=== PATIENT | male | born 1950 | race Two or more races ===

== ENCOUNTER 2018-12-15 19:42 | Inpatient (IN) | payer MEDICARE, MEDICAID ==
[2018-12-15] VITALS (9 sets, daily range): BP systolic 96–139; BP diastolic 55–98
[~2018-12-15] VITALS: Ht 172.7 cm; Wt 90.7 kg
[~2018-12-15 19:42] MED LIST: ADVAIR 500-501 EACH INH; AMLODIPINE BESY10 MG ORAL; ASPIRIN81 MG ORAL; BISACODYL5 MG ORAL; DILTIAZEM 24HR120 M1 ORAL; DIPHENHYDRAMINE25 M1 ORAL; PRAVASTATIN SOD20 M1 ORAL; RANITIDINE HCL150 MG ORAL; XOPENEX1.25 MG/3 HHN
--- NOTE | 2018-12-15 19:45 | NUR ---
ED Nurse Note: RECIEVED PT BROUGHT IN BY FIRE DEPT UNDER SEVERE RESPIRATORY DISTRES AND AMBU BAG FOR AIRWAY, MD IMMEDIATELY AT BEDSIDE AND PT INTUBATED: 1935 ETOMIDATE 20MG IVP 1937 7.[address] BY 1938 C02 DETECTOR DOES NOT SHOW PLACE 1946 50 RECURONIUM IVP GLIDESCOPE CHECKED TUBE IN PLACE 24CM LIP LINE VENTILATOR STARTED : SETTINGS AC 16 TV = 500 VE97=555% PEEP = 5 PT TOLERATING WELL, WILL RESUME CARE ORDERED AND CLOSELY MONITOR.
--- NOTE | 2018-12-15 19:47 | NUR ---
RESPIRATORY NOTE: PT BROUGHT IN UNRESPONSIVE VIA AMBULANCE. PT PRESENTED WITH SEVERE RESPIRATORY DISTRESS. FIRE DEPT. PLACED AN OPA AND MANUALLY VENTILATED PT. VIA AMBU AND MASK. DR PALACIOS IMMEDIATELY AT BEDSIDE AND SUCCESSFULLY INTUBATED PT. LYUDMILA KEN AT BEDSIDES DURING INTUBATION. PT BEING MECHANICALLY VENTILATED VIA ETT 7.0 24CM LIPLINE. AC 16, 500, 100%, +5. ALARMS ON AND AUDIBLE. VENT PLUGGED INTO RED OUTLET. AMBU BAG AT BEDSIDE. VENT CIRCUIT AND SX TUBBING SECURE AND OUT OF THE WAY. PT. TOLERATING SETTING WELL. ABG TO BE DONE POST INTUBATION. WILL CONTINUE TO MONITOR.
[2018-12-15] MEDS ORDERED: Vancomycin 1 GM in NS 275 ML IV ONE (20:00)
[2018-12-15] MEDS ORDERED: Cefepime HCl 2 GM in NS 110 ML IV SCH (20:00)
--- NOTE | 2018-12-15 20:06 | Emergency Room Report ---
History of Present Illness General Chief Complaint: Dyspnea/Respdistress Source: Patient, Medical Record Present Illness HPI Patient is a 68-year-old male who presented after increased difficulty breathing and subsequent respiratory arrest. Patient had been reportedly having increased difficulty breathing and was noted to have a respiratory arrest while being transported. Patient was brought in by EMS. They had attempted to intubate without any success. Patient was subsequently supplied oxygen via bag valve mask.Patient was noted to have prior history of bypass surgery as well as pacemaker placement and lung disease.History is limited by patient's acuity. Allergies: Coded Allergies: IODINE (Verified Allergy, Severe, rash, 01/15/14) Patient History Past Medical History: see triage record Reviewed Nursing Documentation: PMH: Agreed; PSxH: Agreed Nursing Documentation-PMH Past Medical History: No History, Except For Hx Cardiac Problems: Yes - bypass Hx Hypertension: Yes Hx Pacemaker: Yes - defibrillator Hx COPD: Yes Review of Systems All Other Systems: negative except mentioned in HPI Physical Exam Vital Signs Date Time Temp Pulse Resp B/P (MAP) Pulse Ox O2 Delivery O2 Flow Rate FiO2 12/15/18 19:31 98.2 110 5 169/98 98 Ambu-Bag Sp02 EP Interpretation: reviewed, normal General Appearance: lethargic, obese, Chronically Ill Head: atraumatic ENT: normal ENT inspection, hearing grossly normal, normal voice, other - blood and vomitus in oropharynx Neck: normal inspection, supple, no bony tend, limited range of motion Respiratory: normal inspection, no retraction, decreased breath sounds, other - agonal breathing Cardiovascular #1: no edema, tachycardia Gastrointestinal: non tender, soft, no guarding, no hernia, distended Genitourinary: no CVA tenderness Musculoskeletal: normal inspection, back normal, normal range of motion Neurologic: motor weakness, other - poor alertness Psychiatric: other - unresponsibe Skin: normal inspection, normal color, no rash Procedures Critical Care Time Critical Care Time Patient had a critical medical condition which untreated could potentially result in life or limb threatening injury. Total critical care time excluding procedures approximately 45 minutes. Intubation Intubation : Consent: Emergent Time of Intubation: 19:45 Intubation Method: orotracheal Tube Size (cm): 7.0 Medications: Etomidate, Rocuronium Breath Sounds after Intubation: equal Intubation Complications: no complications Post Intubation Xray: Yes Attempts: Other - two attempted without paralytic without success Patient Tolerated: Well Complications: None Medical Decision Making Diagnostic Impression: Primary Impression: Respiratory failure Additional Impressions: COPD (chronic obstructive pulmonary disease) Pneumonia ER Course Present for respiratory distress. Differential included but was not limited to anemia, pneumonia, pneumothorax, myocardial infarction, pericardial effusion, congestive heart failure, acidosis. Patient was noted to have agonal breathing and was intubated after premedication. Patient was noted to have blood in oropharynx from prior attempt at intubation by EMS. Patient was suctioned and intubated. Post procedure cxr showed adequate ETT placement. He was started on mechanical ventilation. Patients initial blood gas showed markedly elevated CO2 and respiratory acidosis. Vent setting were adjusted to increased minute ventilation. Patient was noted to have some improvement in mental status and was started on Diprivan drip. Dr. Baldemar Morgan was contacted for inpatient management due to panel physician. Laboratory Tests Test 12/15/18 20:10 12/15/18 20:20 12/15/18 22:10 12/16/18 04:45 White Blood Count 12.6 K/UL (4.8-10.8) H 11.2 K/UL (4.8-10.8) H Red Blood Count 4.83 M/UL (4.70-6.10) 4.41 M/UL (4.70-6.10) L Hemoglobin 14.1 G/DL (14.2-18.0) L 13.2 G/DL (14.2-18.0) L Hematocrit 46.4 % (42.0-52.0) 41.8 % (42.0-52.0) L Mean Corpuscular Volume 96 FL (80-99) 95 FL (80-99) Mean Corpuscular Hemoglobin 29.1 PG (27.0-31.0) 29.9 PG (27.0-31.0) Mean Corpuscular Hemoglobin Concent 30.3 G/DL (32.0-36.0) L 31.5 G/DL (32.0-36.0) L Red Cell Distribution Width 13.8 % (11.6-14.8) 14.0 % (11.6-14.8) Platelet Count 232 K/UL (150-450) 209 K/UL (150-450) Mean Platelet Volume 6.7 FL (6.5-10.1) 7.5 FL (6.5-10.1) Neutrophils (%) (Auto) 76.9 % (45.0-75.0) H 84.5 % (45.0-75.0) H Lymphocytes (%) (Auto) 12.7 % (20.0-45.0) L 5.5 % (20.0-45.0) L Monocytes (%) (Auto) 9.3 % (1.0-10.0) 9.4 % (1.0-10.0) Eosinophils (%) (Auto) 0.2 % (0.0-3.0) 0.1 % (0.0-3.0) Basophils (%) (Auto) 1.0 % (0.0-2.0) 0.6 % (0.0-2.0) Sodium Level 139 MMOL/L (136-145) 139 MMOL/L (136-145) Potassium Level 4.0 MMOL/L (3.5-5.1) 4.2 MMOL/L (3.5-5.1) Chloride Level 99 MMOL/L (98-107) 101 MMOL/L (98-107) Carbon Dioxide Level 36 MMOL/L (21-32) H 34 MMOL/L (21-32) H Anion Gap 4 mmol/L (5-15) L 4 mmol/L (5-15) L Blood Urea Nitrogen 20 mg/dL (7-18) H 26 mg/dL (7-18) H Creatinine 1.3 MG/DL (0.55-1.30) 1.2 MG/DL (0.55-1.30) Estimate Glomerular Filtration Rate 55.1 mL/min (>60) > 60 mL/min (>60) Glucose Level 170 MG/DL (74-106) H 164 MG/DL (74-106) H Lactic Acid Level 2.90 mmol/L (0.4-2.0) H 1.60 mmol/L (0.66-2.22) Calcium Level 8.8 MG/DL (8.5-10.1) 8.3 MG/DL (8.5-10.1) L Phosphorus Level 5.2 MG/DL (2.5-4.9) H Magnesium Level 2.0 MG/DL (1.8-2.4) 1.9 MG/DL (1.8-2.4) Total Bilirubin 0.8 MG/DL (0.2-1.0) 0.7 MG/DL (0.2-1.0) Aspartate Amino Transferase (AST) 110 U/L (15-37) H 73 U/L (15-37) H Alanine Aminotransferase (ALT) 98 U/L (12-78) H 82 U/L (12-78) H Alkaline Phosphatase 109 U/L (46-116) 95 U/L (46-116) Total Creatine Kinase 72 U/L (26-308) Creatine Kinase MB 1.3 NG/ML (0.0-3.6) Creatine Kinase MB Relative Index 1.8 Troponin I 0.038 ng/mL (0.000-0.056) Pro-B-Type Natriuretic Peptide 988 pg/mL (0-125) H Total Protein 7.4 G/DL (6.4-8.2) 6.7 G/DL (6.4-8.2) Albumin 3.0 G/DL (3.4-5.0) L 2.7 G/DL (3.4-5.0) L Globulin 4.4 g/dL Albumin/Globulin Ratio 0.7 (1.0-2.7) L Triglycerides Level 57 MG/DL (30-150) 50 MG/DL (30-150) Lipase 50 U/L (73-393) L Arterial Blood pH 7.165 (7.350-7.450) Arterial Blood Partial Pressure CO2 119.5 mmHg (35.0-45.0) *H Arterial Blood Partial Pressure O2 466.5 mmHg (75.0-100.0) H Arterial Blood HCO3 42.1 mmol/L (22.0-26.0) *H Arterial Blood Oxygen Saturation 99.6 % (95-100) Arterial Blood Base Excess 8.4 (-2-2) H Jose Test Positive Urine Color Brown Urine Appearance Clear Urine pH 5 (4.5-8.0) Urine Specific Clever 1.025 (1.005-1.035) Urine Protein 4+ (NEGATIVE) H Urine Glucose (UA) Negative (NEGATIVE) Urine Ketones 1+ (NEGATIVE) H Urine Blood 2+ (NEGATIVE) H Urine Nitrite Negative (NEGATIVE) Urine Bilirubin Negative (NEGATIVE) Urine Urobilinogen 4 MG/DL (0.0-1.0) H Urine Leukocyte Esterase 1+ (NEGATIVE) H Urine RBC 5-10 /HPF (0 - 0) H Urine WBC 2-4 /HPF (0 - 0) Urine Squamous Epithelial Cells None /LPF (NONE/OCC) Urine Amorphous Sediment Few /LPF (NONE) H Urine Bacteria Few /HPF (NONE) Urine Opiates Screen Negative (NEGATIVE) Urine Barbiturates Screen Negative (NEGATIVE) Phencyclidine (PCP) Screen Negative (NEGATIVE) Urine Amphetamines Screen Negative (NEGATIVE) Urine Benzodiazepines Screen Negative (NEGATIVE) Urine Cocaine Screen Negative (NEGATIVE) Urine Marijuana (THC) Screen Negative (NEGATIVE) Hemoglobin A1c 6.1 % (4.3-6.0) H Direct Bilirubin 0.2 MG/DL (0.0-0.3) Last Vital Signs Date Time Temp Pulse Resp B/P (MAP) Pulse Ox O2 Delivery O2 Flow Rate FiO2 12/15/18 19:31 98.2 110 5 169/98 98 Ambu-Bag Status: improved Disposition: ADMITTED INPATIENT Condition: Critical Patrick Newsome MD Dec 15, 2018 20:06
--- NOTE | 2018-12-15 20:35 | NUR ---
ED Nurse Note: PT REMAINS VENTILATED, IV LINES IN PLACE, LABS DRAWN, PT CLEANED AND POSITIONED, PT FAMILY AT BEDSIDE SPEAKING WITH MD, , DAUGHTER AND SON, PT IS AWAKENING AND RESPONDING, PT STARTED ON IV PROPOFOL AT LOW DOSE AND IS RESPONDING TO FAMILY, PT IS CALM, NOT PULLING AT EQUIPMENT, WILL CONTINUE TO CLOSELY MONITOR PER PROTOCOL WHILE CONTINUING CARE.
[2018-12-15 20:37] LABS: EOSINOPHILS % (AUTO) 0.2 % (0.0-3.0); HEMATOCRIT 46.4 % (42.0-52.0); HEMOGLOBIN 14.1 G/DL (14.2-18.0); LYMPHOCYTES % (AUTO) 12.7 % (20.0-45.0); MEAN CORPUSCULAR VOLUME 96 FL (80-99); MONOCYTES % (AUTO) 9.3 % (1.0-10.0); NEUTROPHILS % (AUTO) 76.9 % (45.0-75.0); PLATELET COUNT 232 K/UL (150-450); RED BLOOD COUNT 4.83 M/UL (4.70-6.10); RED CELL DISTRIBUTION WIDTH 13.8 % (11.6-14.8); WHITE BLOOD COUNT 12.6 K/UL (4.8-10.8)
[2018-12-15 20:44] LABS: ANION GAP 4 mmol/L (5-15); BLOOD UREA NITROGEN 20 mg/dL (7-18); CALCIUM 8.8 MG/DL (8.5-10.1); CARBON DIOXIDE 36 MMOL/L (21-32); CHLORIDE 99 MMOL/L (98-107); CREATININE 1.3 MG/DL (0.55-1.30); SODIUM 139 MMOL/L (136-145)
--- NOTE | 2018-12-15 20:53 | NUR ---
RESPIRATORY NOTE: VENT SETTING CHANGE POST ABG AND PER DR. PALACIOS VERBAL ORDER. PT NOW ON AC 20, 600, 50% +5. ALARMS ADJUSTED , ON AND AUDIBLE. VENT CIRCUIT SECURE AND OUT OF THE WAY. PT TOLERATING VENT SETTINGS WELL. WILL CONTINUE TO MONITOR.
--- NOTE | 2018-12-15 20:56 | NUR ---
ED Nurse Note: Pt started on propofol drip for sedation, pt is lightly sedated, responds to stimuli, especially when family is present, will follow protocol for drip, pt also continuing with ordered iv fluids and antibiotics, tolerating well, no s/s of adverse reaction noted, pt remains on ventilator support, will continue ot monitor and preapre for admission.
[2018-12-15 21:09] LABS: ALANINE AMINOTRANSFERASE 98 U/L (12-78); ALBUMIN/GLOBULIN RATIO 0.7 (1.0-2.7); ALKALINE PHOSPHATASE 109 U/L (46-116); ASPARTATE AMINO TRANSFERASE 110 U/L (15-37); BILIRUBIN,TOTAL 0.8 MG/DL (0.2-1.0); CKMB 1.3 NG/ML (0.0-3.6); CREATINE KINASE 72 U/L (26-308); PHOSPHORUS 5.2 MG/DL (2.5-4.9); TRIGLYCERIDES 57 MG/DL (30-150)
--- NOTE | 2018-12-15 21:56 | NUR ---
ED Nurse Note: pt remains on ventilator support, tolerating well, also propofol remains at 5mcg = 3.39ml/hr, pt is slightly sedated, pt follows all commands and even trying to speak, pt informed of event and place, pt responds with ok fingers and nodding of head, pt soes ask with lips to take tube out, explained to pt reason for tube and to remain relaxed and possible extubation soon when seen by md, pt family in room and aware also, pt son hector yepez given all belongings and ist completed, pt iv antibiotics are also infusing, tolerating well, no s/s of adverse reaction noted, will continue to closely monitor and preapre fo icu admisison.
[2018-12-15 22:53] LABS: APPEARANCE,URINE CLEAR; BILIRUBIN, URINE NEGATIVE (NEGATIVE); COLOR,URINE BROWN; GLUCOSE, URINE (UA) NEGATIVE (NEGATIVE); KETONES,URINE 1+ (NEGATIVE); LEUKOCYTE ESTERASE ,URINE 1+ (NEGATIVE); NITRITE,URINE NEGATIVE (NEGATIVE); PH,URINE 5 (4.5-8.0); PROTEIN,URINE 4+ (NEGATIVE); UROBILINOGEN,URINE 4 MG/DL (0.0-1.0)
--- NOTE | 2018-12-15 23:00 | NUR ---
ED Nurse Note: report called to icu nurse carlinern, verbal report given, md cancelled ct-scan order for pt, waiting for respiratory therapist to transfer pt, family remains in lobby, pt tolerating ventilator and all meds without complications, also skin assessment done, pt noted with bilat knee psoriasis, skin is flaky and dry, no drainage or open skin, pt family states chronic psoriasis, will continue to monitor and take to icu unit.
--- NOTE | 2018-12-15 23:35 | NUR ---
ED Nurse Note: Pt taken to icu unit via gurney with er-tech and acls monitoring, pt remains awake and alert, coopertive and follows all commands, propofol remains at 5mcg/mmin, no need noted to increase, tolerating well, iv site in left ac with vancomycin infusing via pump, tolerating well also, skinner to gravity, nad noted during pt transport to unit, further bedside report given, nad noted during pt transport, pt family aware and in unit waiting area, family very thankful for care.
[2018-12-15] MEDS ORDERED: D5 1/2NS 1,000 ML IV SCH (23:41)
--- NOTE | 2018-12-15 23:45 | NUR ---
NURSE NOTES: Received report and pt from LYUDMILA Lundy. Pt was transferred to ICU from ER via gurney. Pt is awake, calm and alert, cooperative and follows all commands, currently on Propofol at 5mcg/kg/min for sedation. Dxed with resp failure, pt was intubated with ETT 7, 25 lipline, AC 20, TV 600, PEEP 5, FiO2 50%, goal O2 sat at 92-94% due to COPD hx. BP 114/56, HR 81, R 19, O2 sat 100%. SR on lens mold setter, pt also has a permanent pacemaker on left upper chest. Left AC 18 G and Right AC 20G both are patent and intact. Nina 16Fr intact, draining to gravity. No skin breakdown, noted psoriasis patches on bilateral knees and hands. HOB kept elevated, Bed in low and locked position. Call light within reach. Dr Morgan aware of the admission. Orders noted and carried out. Will continue to monitor.
[2018-12-16] VITALS (29 sets, daily range): BP systolic 86–149; BP diastolic 42–89
--- NOTE | 2018-12-16 | NUR ---
NURSE NOTES: Dr Irvin called for orders. All orders noted and carried out. Pt's resting in bed, in no acute distress. VS stable. accompanied by his family, noted 1 episode of small amount of emesis, Zofran PRN ordered. Will continue to monitor.
--- NOTE | 2018-12-16 00:36 | Pulmonolgy Critical Care Note ---
Critical Care - Asmt/Plan Assessment/Plan: Pulmonary Critical Care Consulttaion HPI Patient is a 68-year-old male who presented after respiratory arrest. He has a history of Chronic Obstructive Pulmonary Disease, had been reportedly having increased difficulty breathing and was noted to have a respiratory arrest while being transported. Patient was brought in by EMS. Allergies: IODINE (Verified Allergy, Severe, rash, 01/15/14) Past Medical History: COPD, CAD, Previous Bypass Surgery, Pacemaker/ICD Reviewed Nursing Documentation: PMH: Agreed; PSxH: Agreed All Other Systems: NA Physical Exam Vital Signs Date Time Temp Pulse Resp B/P (MAP) Pulse Ox O2 Delivery O2 Flow Rate FiO2 12/15/18 19:31 98.2 110 5 169/98 98 Ambu-Bag General Appearance: lethargic, obese, Chronically Ill Head: atraumatic ENT: normal ENT inspection, hearing grossly normal, normal voice, other - blood and vomitus in oropharynx Neck: normal inspection, supple, no bony tend, limited range of motion Respiratory: normal inspection, no retraction, decreased breath sounds, other - agonal breathing Cardiovascular: HS1, HS2, no edema, tachycardia Gastrointestinal: non tender, soft, no guarding, no hernia, distended Genitourinary: no CVA tenderness Musculoskeletal: normal inspection, back normal, normal range of motion Neurologic: motor weakness, other - poor alertness Psychiatric: other - unresponsive Skin: normal inspection, normal color, no rash Impression: Respiratory failure COPD (chronic obstructive pulmonary disease) Pneumonia CAD, previous CABG PPM/ICD Plan Continue AC ventilation, adjust RR/Vt PRN, titrate FIO2 CXR ABG Monitor labs HHN Steroids Broad spectrum antibiotics Sedation PRN RASS -1 PPX Critical Care - Objective Last 24 Hour Vital Signs Date Time Temp Pulse Resp B/P (MAP) Pulse Ox O2 Delivery O2 Flow Rate FiO2 12/16/18 00:01 80 12/16/18 00:00 98.1 81 20 113/47 (69) 98 12/15/18 23:45 80 20 114/56 (75) 99 12/15/18 23:24 80 20 50 12/15/18 22:56 20 92/35 Mechanical Ventilator 100 12/15/18 21:56 20 102/46 Mechanical Ventilator 12/15/18 21:30 98.4 92 16 104/55 100 Mechanical Ventilator 100 12/15/18 21:15 98.2 88 16 98/56 100 Mechanical Ventilator 100 12/15/18 21:00 98.2 102 16 98/56 98 Endotracheal Tube 100 12/15/18 20:56 16 172/92 Endotracheal Tube 100 12/15/18 20:53 87 20 50 12/15/18 20:45 98.2 92 16 96/76 98 Mechanical Ventilator 100 12/15/18 20:30 98.2 92 16 104/87 98 Mechanical Ventilator 100 12/15/18 20:15 98.2 92 16 117/84 100 Mechanical Ventilator 100 12/15/18 20:00 98.2 98 16 139/98 98 Mechanical Ventilator 100 12/15/18 19:47 108 16 Mechanical Ventilator 100 12/15/18 19:47 108 16 100 12/15/18 19:45 110 5 Mechanical Ventilator 100 12/15/18 19:31 98.2 110 5 169/98 98 Ambu-Bag Critical Care - Subjective ROS Limited/Unobtainable: Yes Condition: critical FI02: 50 Vent Support Breath Rate: 20 Vent Support Mode: AC Vent Tidal Volume: 600 Sputum Amount: Small PEEP: 5.0 PIP: 37 ET-Tube: 7.0 ET Position: 24 Nico Irvin MD Dec 16, 2018 00:36
[2018-12-16] MEDS: D5NS 1,000 ML IV SCH ×2 (01:56→17:04)
--- NOTE | 2018-12-16 02:00 | NUR ---
NURSE NOTES: Pt's resting in bed, RASS -1,at goal, drowsy on Propofol at 10mcg/kg/min, with mech. vent. VS stable. Will continue to monitor.
[2018-12-16] MEDS: Azithromycin 500 MG in D5W 275 ML IV SCH ×2 (02:39→23:46)
--- NOTE | 2018-12-16 03:15 | NUR ---
NURSE NOTES: Pt's resting in bed, in no acute distress. BP87/47, HR 79, R 20, SpO2 97%, on ventilator. Stopped Propofol due to SBP<90 Pt' continue to stay calm. Dr Irvin aware. Will continue to monitor.
[2018-12-16] MEDS: Albuterol/Ipratropium 3ml neb HHN SCH ×6 (03:38→22:43)
--- NOTE | 2018-12-16 04:42 | NUR ---
PT. REMAINED STABLE ON CMV WITH CURRENT SETTINGS. SXN'D PRN. AIRWAY PATENT. ETT TUBE SECURE AT 24CM AT THE LIP. HME CHANGED AND SECURELY PLACED. VENT CIRCUIT AND SX TUBBING SECURE AND OUT OF THE WAY. BILATERAL WRIST RESTRAINS READJUSTED AND ARE SECURE. NO S/S OF RESPIRATORY DISTRESS NOTED AT THIS TIME.
--- NOTE | 2018-12-16 05:00 | NUR ---
NURSE NOTES: Pt's resting in bed, asleep in no acute distress. VS stable. Will continue to monitor.
[2018-12-16 05:15] LABS: BASOPHILS % (AUTO) 0.6 % (0.0-2.0); EOSINOPHILS % (AUTO) 0.1 % (0.0-3.0); HEMATOCRIT 41.8 % (42.0-52.0); HEMOGLOBIN 13.2 G/DL (14.2-18.0); LYMPHOCYTES % (AUTO) 5.5 % (20.0-45.0); MEAN CORPUSCULAR VOLUME 95 FL (80-99); MONOCYTES % (AUTO) 9.4 % (1.0-10.0); NEUTROPHILS % (AUTO) 84.5 % (45.0-75.0); PLATELET COUNT 209 K/UL (150-450); RED BLOOD COUNT 4.41 M/UL (4.70-6.10); WHITE BLOOD COUNT 11.2 K/UL (4.8-10.8)
[2018-12-16 05:29] LABS: ALANINE AMINOTRANSFERASE 82 U/L (12-78); ALBUMIN 2.7 G/DL (3.4-5.0); ALKALINE PHOSPHATASE 95 U/L (46-116); ANION GAP 4 mmol/L (5-15); ASPARTATE AMINO TRANSFERASE 73 U/L (15-37); BILIRUBIN,DIRECT 0.2 MG/DL (0.0-0.3); BILIRUBIN,TOTAL 0.7 MG/DL (0.2-1.0); BLOOD UREA NITROGEN 26 mg/dL (7-18); CALCIUM 8.3 MG/DL (8.5-10.1); CARBON DIOXIDE 34 MMOL/L (21-32); CHLORIDE 101 MMOL/L (98-107); CREATININE 1.2 MG/DL (0.55-1.30); POTASSIUM 4.2 MMOL/L (3.5-5.1); SODIUM 139 MMOL/L (136-145)
[2018-12-16] MEDS: NovoLOG Insulin Flexpen SUBQ SCH ×3 (06:00→17:34)
[2018-12-16] MEDS: Solu-MEDROL 125mg Inj IVP SCH ×3 (06:47→22:30)
--- NOTE | 2018-12-16 07:00 | NUR ---
Received Patient on Vent ACVC VT 600, RR 20, FIO2 50%, PEEP +5. Patient is intubated with 7.0 tube at 24 cm lip line, secured with anchor fast. Breath sounds reveal bilateral rhonchi. Suction thick white yellow secretions PRN. Patient lying comfortable in bed with no SOB. Vent plugged into red outlet. Alarms are on and audible. Will continue to monitor throughout the day.
--- NOTE | 2018-12-16 07:15 | NUR ---
NURSE NOTES: Received pt from LYUDMILA Del Cid. pt is calm, sleeping, able to arouse. RASS -1, orally intubated ETT 7.0/25cc at lipline, AC20/TV600/RJq770%/Peep5, SPo2 99%. No s/sx of acute distress. OGT placed, clamped, NPO. Pacemaker noted on MARLENY, pt is NSR w/HR 83, not pacing at this time but pacemaker is sensing/capturing. LAC 18G and RAC 20G asymptomatic and patent, running D5NS@60cc/hr. sobeida wrist restraints in place. skin intact, warm to touch. FC draining briana colored urine to gravity. Bed locked, alarmed and in lowest position. Will continue to monitor.
--- NOTE | 2018-12-16 07:20 | NUR ---
HAND-OFF: Report given to LYUDMILA Helms.
[2018-12-16] MEDS: Pantoprazole Inj IVP SCH (09:16)
[2018-12-16] MEDS: Aspirin Baby 81mg ORAL SCH (09:17)
[2018-12-16] MEDS: Bisacodyl EC 5mg tab ORAL SCH ×2 (09:17→17:04)
--- NOTE | 2018-12-16 09:18 | History & Physical ---
History and Physical History & Physicial HP dictated # [id number] Baldemar Morgan MD Dec 16, 2018 09:18
[2018-12-16] MEDS: Heparin 5000 units/ml inj SUBQ SCH ×2 (09:19→20:33)
[2018-12-16] MEDS ORDERED: LORazepam Inj 2mg/ml 1ml IV PRN (09:45)
--- NOTE | 2018-12-16 09:46 | NUR ---
NURSE NOTES: received orders from dr. ann - hold off CT head and VQ scan as patient is unstable, start fentanyl drip, d/c propofol drip, ativan 1mg q3hr prn. read back given and verified.
--- NOTE | 2018-12-16 09:51 | Diagnostic Imaging Report ---
EXAM: XR Abdomen, 2 Views CLINICAL HISTORY: NGT TECHNIQUE: Frontal view of the abdomen/pelvis with upright view of the abdomen. COMPARISON: Compared with abdomen film 12/16/18 0037 FINDINGS: Gastrointestinal tract: Unremarkable. No dilation. Bones/joints: Unremarkable. Tubes, lines and devices: NG tube has been advanced and is curled midepigastric region, tip in the right upper abdomen, possibly within the proximal stomach. IMPRESSION: NG tube has been advanced and is curled midepigastric region, tip in the right upper abdomen, possibly within the proximal stomach.
--- NOTE | 2018-12-16 10:43 | NUR ---
NURSE NOTES: Fentanyl drip started @20mcg/hr, BP 126/78, HR 89, T 98.9, Spo2 99%, RR 20.
--- NOTE | 2018-12-16 12:40 | Cardiology Report ---
APPROVED REPORT EXAM: Two-dimensional and M-mode echocardiogram with Doppler and color Doppler. INDICATION ALTERED LOC M-Mode DIMENSIONS IVSd1.2 (0.7-1.1cm)Left Atrium (MM)3.0 (1.6-4.0cm) LVDd7.8 (3.5-5.6cm)Aortic Root3.8 (2.0-3.7cm) PWd1.0 (0.7-1.1cm)Aortic Cusp Exc.1.7 (1.5-2.0cm) IVSs1.2 cm LVDs7.1 (2.5-4.0cm) PWs1.0 cm Global left ventricular hypokinesis .Ilan-sptal akinesis. Mild left ventricular enlargement. Left ventricular ejection fraction estimated to be 20%. Boderline mild left ventricular hypertrophy. Anterior Echo-free space, may be due to pericardial fat or effusion. All other cardiac chamber sizes are within normal limits. Mild aortic valve sclerosis with adequate cusp excursion. Mildly thickened mitral valve leaflets with normal excursion. Mild mitral annulus and aortic root calcification. Pulmonic valve not well visualized. IVC at normal size with physiologic collapse . Pacemaker wire present in the right side chambers. A color flow and spectral Doppler study was performed and revealed: Trace aortic regurgitation. Mitral diastolic velocities suggest reduced left ventricular relaxation c/w mild LV diastolic dysfunction (Grade I ) Trace mitral regurgitation. Mild tricuspid regurgitation. Tricuspid systolic velocities suggests peak right ventricular systolic pressure of 30mmHg.
--- NOTE | 2018-12-16 13:20 | NUR ---
NURSE NOTES: Received report from Analia COREAS. pt is agitated, not yet achieved RASS -1, orally intubated ETT 7.0, 25cm at lip, vent settings AC 20, TV600, FI02 50%, Peep5. sating 99%. pt requesting restraints removed, educated on use of restraints. OGT noted, clamped, NPO status. Pacemaker noted on MARLENY, NSR on monitor. Pacemaker is capturing on occasions. LAC 18G puffy and red. RAC 20G asymptomatic and patent, running D5NS@60cc/hr, fentanyl at 80mcg/kg/min . Andres soft wrist restraints in place, circulation check done. skin intact. FC draining dark briana urine below bladder. Bed locked, in low position. Will continue to monitor.
--- NOTE | 2018-12-16 13:23 | NUR ---
HAND-OFF: Report given to LYUDMILA Rhoades.
--- NOTE | 2018-12-16 13:58 | NUR ---
CASE MANAGEMENT: INITIAL REVIEW 68 YO M YAHIR FROM HOME CC: RESP DISTRESS PMHx: COPD. DEFIB. HTN. SI:RESP FAILURE. PNA. T 98.2 HR 110 RR 5 B/P 169/98 SATS 98% ON AMBU BAG WBC 12.6 CO2 36 BUN 20 GLU 170 PHOS 5.2 AST 110 ALT 98 BNP 988 LIPASE 50 ABGs pH 7.165 pCO2 119.5 pO2 466.5 HCO3 42.1 BE 8.4 IS: VANCO IV X1 NS BOLUS X1 CEFEPIME IV X1 FLAGYL IV X1 PROPOFOL IV X1 PATIENT ADMITTED TO ICU 12/15/2018 @ 2039 DCP: DEPENDS ON CLINICALS COURSE PLAN OF CARE: RESP SUPPORT 12/16/2018 SI:RESP FAILURE. PNA. T 98.6 HR 85 RR 17 B/P 121/63 SATS 98% ON MECH VENT FiO2 50 WBC 11.2 CO2 34 BUN 26 GLU 164 CA 8.3 AST 73 ALT 82 ABGs pOC2 59.8 pO2 69.7 HCO3 32.8 O2 SAT 93.3 BE 5.5 IS: IVF @ 60 Ml/HR INSULIN ASPART SUBQ Q6H SOLU MEDROL IV Q8H PRAVACHOL PO QHS NORVASC PO QD ASA PO QD PROTONIX IV QD AZITHROMYCIN IV Q24H CEFTRIAXONE IV Q24H FENTANYL IV Q24H DUO NEB HHN Q4HRT ICU STATUS DCP: DEPENDS ON CLINICALS COURSE PLAN OF CARE: NM VQ SCAN VENOUS DUPLEX CT HEAD
--- NOTE | 2018-12-16 15:22 | Consultation ---
History of Present Illness General Date patient seen: Dec 16, 2018 Time patient seen: 15:15 Chief Complaint: Dyspnea/Respdistress Present Illness HPI Patient has hx of COPD, Heart failure, Pacemaker, HTN, HLD admitted for respiratory distress and was emergently intubated. Currently patient sedated on propofol gtt and abx running. Vitals stable, Echo with severe systolic dysfunction. No ischemia evaluation on file. history obtained from chart Allergies: Coded Allergies: IODINE (Verified Allergy, Severe, rash, 01/15/14) Medication History Scheduled Amlodipine Besylate* (Amlodipine Besylate*), 10 MG ORAL DAILY, (Reported) Aspirin* (Aspirin*), 81 MG ORAL DAILY, (Reported) Bisacodyl* (Dulcolax*), 5 MG ORAL BID, (Reported) Diltiazem Hcl* (Diltiazem 24HR Er*), 120 MG ORAL DAILY, (Reported) Fluticasone/Salmeterol (Advair 500-50 Diskus), 1 PUFF INH EVERY 12 HOURS, ( Reported) Pravastatin Sod* (Pravastatin Sod*), 20 MG ORAL BEDTIME, (Reported) Ranitidine Hcl* (Zantac*), 300 MG ORAL DAILY, (Reported) Scheduled PRN Diphenhydramine Hcl* (Diphenhydramine Hcl*), 50 MG ORAL Q8H PRN for Itching, ( Reported) Levalbuterol Hcl (Xopenex*), 1.25 MG HHN Q6H PRN for Shortness of Breath Patient History Healthcare decision maker buddy amanda Resuscitation status Full Code Advanced Directive on File No Review of Systems Constitutional: Reports: no symptoms Eye: Reports: no symptoms ENT: Reports: no symptoms Respiratory: Reports: shortness of breath, stridor, wheezing, RUTH Cardiovascular: Reports: no symptoms Gastrointestinal: Reports: no symptoms Genitourinary: Reports: no symptoms Musculoskeletal: Reports: no symptoms Skin: Reports: no symptoms Psychiatric: Reports: no symptoms Neurological: Reports: no symptoms Endocrine: Reports: no symptoms Hematologic/Lymphatic: Reports: no symptoms Physical Exam Lines, tubes and drains: peripheral, skinner cath HEENT: normocephalic, atraumatic, anicteric, mucous membranes moist, PERRL Neck: non-tender, normal alignment, supple, normal inspection Respiratory/Chest: chest wall non-tender, expiratory wheezing, inspiratory wheezing, on vent Cardiovascular/Chest: normal peripheral pulses, normal rate, regular rhythm, pacemaker/AICD Abdomen: normal bowel sounds, non tender, soft, no organomegaly, no mass Extremities: normal range of motion, non-tender, normal inspection, no calf tenderness, normal capillary refill, non-pitting Skin Exam: normal pigmentation, warm/dry, cyanotic Neurologic: drafter patent II-XII grossly normal, no motor/sensory deficits Last 24 Hour Vital Signs Date Time Temp Pulse Resp B/P (MAP) Pulse Ox O2 Delivery O2 Flow Rate FiO2 12/16/18 13:21 90 20 60 12/16/18 13:00 76 17 128/78 (95) 98 12/16/18 13:00 Mechanical Ventilator 12/16/18 12:00 Mechanical Ventilator 12/16/18 12:00 78 17 129/74 (92) 98 12/16/18 12:00 50 12/16/18 11:01 98.8 12/16/18 11:01 95 20 96 Mechanical Ventilator 50 12/16/18 11:00 92 17 128/78 (95) 98 12/16/18 10:57 83 20 60 12/16/18 10:54 50 12/16/18 10:54 93 20 96 Mechanical Ventilator 50 12/16/18 10:31 20 Endotracheal Tube 50 12/16/18 10:00 89 17 126/69 (88) 98 12/16/18 09:25 78 20 50 12/16/18 09:18 85 111/63 12/16/18 09:00 86 17 124/89 (101) 98 12/16/18 08:00 98.6 84 17 121/63 (82) 98 12/16/18 08:00 50 12/16/18 08:00 Mechanical Ventilator 12/16/18 08:00 85 12/16/18 07:00 87 17 111/63 (79) 98 12/16/18 07:00 85 20 96 Mechanical Ventilator 50 12/16/18 06:59 86 20 50 12/16/18 06:55 86 20 96 Mechanical Ventilator 50 12/16/18 06:55 50 12/16/18 06:00 85 17 111/62 (78) 95 12/16/18 05:00 85 17 111/62 (78) 95 12/16/18 05:00 19 111/61 Mechanical Ventilator 50 12/16/18 04:42 86 20 50 12/16/18 04:00 Mechanical Ventilator 12/16/18 04:00 98.8 86 20 106/45 (65) 96 12/16/18 04:00 20 105/49 Mechanical Ventilator 50 12/16/18 04:00 50 12/16/18 03:47 81 20 97 Mechanical Ventilator 50 12/16/18 03:45 20 95/51 Mechanical Ventilator 50 12/16/18 03:38 80 20 99 Mechanical Ventilator 50 12/16/18 03:30 82 20 95/51 (66) 96 12/16/18 03:30 20 86/46 Mechanical Ventilator 50 12/16/18 03:15 82 20 86/46 (59) 96 12/16/18 03:15 20 87/47 Mechanical Ventilator 50 12/16/18 03:12 78 20 50 12/16/18 03:00 80 20 87/47 (60) 96 12/16/18 03:00 20 93/39 Mechanical Ventilator 50 12/16/18 02:00 81 20 111/55 (73) 95 88 12/16/18 02:00 20 111/55 Mechanical Ventilator 50 12/16/18 01:49 19 94/43 50 12/16/18 01:00 20 114/51 Mechanical Ventilator 50 12/16/18 01:00 82 20 114/51 (72) 95 12/16/18 00:55 87 21 50 12/16/18 00:45 83 20 116/60 (78) 98 12/16/18 00:30 80 21 130/42 (71) 98 12/16/18 00:15 80 22 149/66 (93) 98 12/16/18 00:01 Mechanical Ventilator 12/16/18 00:01 80 12/16/18 00:00 21 113/47 Mechanical Ventilator 50 12/16/18 00:00 98.1 81 20 113/47 (69) 98 12/15/18 23:45 19 114/56 Mechanical Ventilator 50 12/15/18 23:45 80 20 114/56 (75) 99 12/15/18 23:35 98.4 92 20 92/35 100 Mechanical Ventilator 50 12/15/18 23:24 80 20 50 12/15/18 22:56 20 92/35 Mechanical Ventilator 100 12/15/18 21:56 20 102/46 Mechanical Ventilator 12/15/18 21:30 98.4 92 16 104/55 100 Mechanical Ventilator 100 12/15/18 21:15 98.2 88 16 98/56 100 Mechanical Ventilator 100 12/15/18 21:00 98.2 102 16 98/56 98 Endotracheal Tube 100 12/15/18 20:56 16 172/92 Endotracheal Tube 100 12/15/18 20:53 87 20 50 12/15/18 20:45 98.2 92 16 96/76 98 Mechanical Ventilator 100 12/15/18 20:30 98.2 92 16 104/87 98 Mechanical Ventilator 100 12/15/18 20:15 98.2 92 16 117/84 100 Mechanical Ventilator 100 12/15/18 20:00 98.2 98 16 139/98 98 Mechanical Ventilator 100 12/15/18 19:47 108 16 Mechanical Ventilator 100 12/15/18 19:47 108 16 100 12/15/18 19:45 110 5 Mechanical Ventilator 100 12/15/18 19:31 98.2 110 5 169/98 98 Ambu-Bag Intake and Output 12/15/18 12/16/18 19:00 07:00 Intake Total 600.3285 ml Output Total 630 ml Balance -29.6715 ml Intake IV Total 600.3285 ml Output Urine Total 380 ml Emesis 250 ml Laboratory Tests Test 12/15/18 20:10 12/15/18 20:20 12/15/18 22:10 12/16/18 04:45 White Blood Count 12.6 K/UL (4.8-10.8) H 11.2 K/UL (4.8-10.8) H Red Blood Count 4.83 M/UL (4.70-6.10) 4.41 M/UL (4.70-6.10) L Hemoglobin 14.1 G/DL (14.2-18.0) L 13.2 G/DL (14.2-18.0) L Hematocrit 46.4 % (42.0-52.0) 41.8 % (42.0-52.0) L Mean Corpuscular Volume 96 FL (80-99) 95 FL (80-99) Mean Corpuscular Hemoglobin 29.1 PG (27.0-31.0) 29.9 PG (27.0-31.0) Mean Corpuscular Hemoglobin Concent 30.3 G/DL (32.0-36.0) L 31.5 G/DL (32.0-36.0) L Red Cell Distribution Width 13.8 % (11.6-14.8) 14.0 % (11.6-14.8) Platelet Count 232 K/UL (150-450) 209 K/UL (150-450) Mean Platelet Volume 6.7 FL (6.5-10.1) 7.5 FL (6.5-10.1) Neutrophils (%) (Auto) 76.9 % (45.0-75.0) H 84.5 % (45.0-75.0) H Lymphocytes (%) (Auto) 12.7 % (20.0-45.0) L 5.5 % (20.0-45.0) L Monocytes (%) (Auto) 9.3 % (1.0-10.0) 9.4 % (1.0-10.0) Eosinophils (%) (Auto) 0.2 % (0.0-3.0) 0.1 % (0.0-3.0) Basophils (%) (Auto) 1.0 % (0.0-2.0) 0.6 % (0.0-2.0) Sodium Level 139 MMOL/L (136-145) 139 MMOL/L (136-145) Potassium Level 4.0 MMOL/L (3.5-5.1) 4.2 MMOL/L (3.5-5.1) Chloride Level 99 MMOL/L (98-107) 101 MMOL/L (98-107) Carbon Dioxide Level 36 MMOL/L (21-32) H 34 MMOL/L (21-32) H Anion Gap 4 mmol/L (5-15) L 4 mmol/L (5-15) L Blood Urea Nitrogen 20 mg/dL (7-18) H 26 mg/dL (7-18) H Creatinine 1.3 MG/DL (0.55-1.30) 1.2 MG/DL (0.55-1.30) Estimat Glomerular Filtration Rate 55.1 mL/min (>60) > 60 mL/min (>60) Glucose Level 170 MG/DL (74-106) H 164 MG/DL (74-106) H Lactic Acid Level 2.90 mmol/L (0.4-2.0) H 1.60 mmol/L (0.66-2.22) Calcium Level 8.8 MG/DL (8.5-10.1) 8.3 MG/DL (8.5-10.1) L Phosphorus Level 5.2 MG/DL (2.5-4.9) H Magnesium Level 2.0 MG/DL (1.8-2.4) 1.9 MG/DL (1.8-2.4) Total Bilirubin 0.8 MG/DL (0.2-1.0) 0.7 MG/DL (0.2-1.0) Aspartate Amino Transf (AST/SGOT) 110 U/L (15-37) H 73 U/L (15-37) H Alanine Aminotransferase (ALT/SGPT) 98 U/L (12-78) H 82 U/L (12-78) H Alkaline Phosphatase 109 U/L (46-116) 95 U/L (46-116) Total Creatine Kinase 72 U/L (26-308) Creatine Kinase MB 1.3 NG/ML (0.0-3.6) Creatine Kinase MB Relative Index 1.8 Troponin I 0.038 ng/mL (0.000-0.056) Pro-B-Type Natriuretic Peptide 988 pg/mL (0-125) H Total Protein 7.4 G/DL (6.4-8.2) 6.7 G/DL (6.4-8.2) Albumin 3.0 G/DL (3.4-5.0) L 2.7 G/DL (3.4-5.0) L Globulin 4.4 g/dL Albumin/Globulin Ratio 0.7 (1.0-2.7) L Triglycerides Level 57 MG/DL (30-150) 50 MG/DL (30-150) Lipase 50 U/L (73-393) L Arterial Blood pH 7.165 (7.350-7.450) Arterial Blood Partial Pressure CO2 119.5 mmHg (35.0-45.0) *H Arterial Blood Partial Pressure O2 466.5 mmHg (75.0-100.0) H Arterial Blood HCO3 42.1 mmol/L (22.0-26.0) *H Arterial Blood Oxygen Saturation 99.6 % (95-100) Arterial Blood Base Excess 8.4 (-2-2) H Jose Test Positive Urine Color Brown Urine Appearance Clear Urine pH 5 (4.5-8.0) Urine Specific Pfeifer 1.025 (1.005-1.035) Urine Protein 4+ (NEGATIVE) H Urine Glucose (UA) Negative (NEGATIVE) Urine Ketones 1+ (NEGATIVE) H Urine Blood 2+ (NEGATIVE) H Urine Nitrite Negative (NEGATIVE) Urine Bilirubin Negative (NEGATIVE) Urine Urobilinogen 4 MG/DL (0.0-1.0) H Urine Leukocyte Esterase 1+ (NEGATIVE) H Urine RBC 5-10 /HPF (0 - 0) H Urine WBC 2-4 /HPF (0 - 0) Urine Squamous Epithelial Cells None /LPF (NONE/OCC) Urine Amorphous Sediment Few /LPF (NONE) H Urine Bacteria Few /HPF (NONE) Urine Opiates Screen Negative (NEGATIVE) Urine Barbiturates Screen Negative (NEGATIVE) Phencyclidine (PCP) Screen Negative (NEGATIVE) Urine Amphetamines Screen Negative (NEGATIVE) Urine Benzodiazepines Screen Negative (NEGATIVE) Urine Cocaine Screen Negative (NEGATIVE) Urine Marijuana (THC) Screen Negative (NEGATIVE) Hemoglobin A1c 6.1 % (4.3-6.0) H Direct Bilirubin 0.2 MG/DL (0.0-0.3) Test 12/16/18 08:45 Arterial Blood pH 7.357 (7.350-7.450) Arterial Blood Partial Pressure CO2 59.8 mmHg (35.0-45.0) *H Arterial Blood Partial Pressure O2 69.7 mmHg (75.0-100.0) L Arterial Blood HCO3 32.8 mmol/L (22.0-26.0) H Arterial Blood Oxygen Saturation 93.3 % (95-100) L Arterial Blood Base Excess 5.5 (-2-2) H Jose Test Positive Microbiology Date/Time Source Procedure Growth Status 12/15/18 21:10 Rectum Received Height (Feet): 5 Height (Inches): 8.00 Weight (Pounds): 229 Medications Current Medications Medications (Trade) Dose Ordered Sig/Juice Route PRN Reason Start Time Stop Time Status Last Admin Dose Admin Acetaminophen (Tylenol) 650 mg Q4H PRN ORAL Mild Pain (Pain Scale 1-3) 12/15/18 22:45 01/14/19 22:44 12/16/18 13:49 Acetaminophen (Tylenol) 650 mg Q4H PRN ORAL fever 12/15/18 22:45 01/14/19 22:44 Albuterol/ Ipratropium (Albuterol/ Ipratropium) 3 ml Q4HRT HHN 12/16/18 03:00 12/21/18 02:59 12/16/18 11:00 Amlodipine Besylate (Norvasc) 10 mg DAILY ORAL 12/16/18 09:00 01/15/19 08:59 12/16/18 09:18 Aspirin (ASA) 81 mg DAILY ORAL 12/16/18 09:00 01/15/19 08:59 12/16/18 09:17 Azithromycin 500 mg/Dextrose 275 ml @ 275 mls/hr Q24H IV 12/15/18 23:45 12/22/18 23:44 12/16/18 02:39 Bisacodyl (Dulcolax) 5 mg BID ORAL 12/16/18 09:00 01/15/19 08:59 12/16/18 09:17 Ceftriaxone Sodium 1 gm/ Dextrose 55 ml @ 110 mls/hr Q24H IV 12/16/18 22:00 12/23/18 21:59 Dextrose (Dextrose 50%) 25 ml Q30M PRN IV Hypoglycemia 12/15/18 22:45 01/14/19 22:44 Dextrose (Dextrose 50%) 50 ml Q30M PRN IV Hypoglycemia 12/15/18 22:45 01/14/19 22:44 Dextrose/Sodium Chloride 1,000 ml @ 60 mls/hr [id number] IV 12/16/18 01:00 01/15/19 00:59 12/16/18 01:56 Fentanyl Citrate 1000 mcg/Sodium Chloride 100 ml @ 0 mls/hr Q24H IV 12/16/18 13:00 12/23/18 12:59 12/16/18 13:00 Heparin Sodium (Porcine) (Heparin 5000 units/ml) 5,000 units EVERY 12 HOURS SUBQ 12/16/18 09:00 01/15/19 08:59 12/16/18 09:19 Insulin Aspart (NovoLOG) EVERY 6 HOURS SUBQ 12/16/18 06:00 01/15/19 05:59 12/16/18 12:38 Lorazepam (Ativan 2mg/ml 1ml) 1 mg Q3H PRN IV Agitation 12/16/18 09:45 12/23/18 09:44 Methylprednisolone Sodium Succinate (Solu-MEDROL) 60 mg EVERY 8 HOURS IVP 12/16/18 06:00 01/15/19 05:59 12/16/18 13:50 Ondansetron HCl (Zofran) 4 mg Q6H PRN IVP Nausea & Vomiting 12/16/18 01:00 01/15/19 00:59 12/16/18 02:45 Pantoprazole (Protonix) 40 mg DAILY IVP 12/16/18 09:00 01/15/19 08:59 12/16/18 09:16 Pravastatin Sodium (Pravachol) 20 mg BEDTIME ORAL 12/16/18 21:00 01/15/19 20:59 Assessment/Plan Status: stable Assessment/Plan Assessment: Respiratory failure COPD (chronic obstructive pulmonary disease) Pneumonia CAD, previous CABG PPM/ICD HTN HLD PLAN: Intubated for respiratory failure and sedated with propofol and fentanyl. Attempt to wean in AM continue steroids continue empiric abx, follow cultures Echo reviewed with LVEF 20% and anterior septal hypokinesis Will initiated heart failure treatment when stable/extubated Will need ischemia evaluation given hx of CAD/CABG to evaluate graft function continue aspirin continue statin Hold beta blockers while intubated Monitor I/O and renal function Spot diuresis as needed, currently does not appear fluid overloaded Nico Kingston MD Dec 16, 2018 15:22
--- NOTE | 2018-12-16 15:41 | NUR ---
NURSE NOTES: US of lower extremities done on pt, results read per biomedical equipment technician negative for clots.
--- NOTE | 2018-12-16 15:42 | NUR ---
NURSE NOTES: MD REIS HERE TO SEE PT, NO NEW ORDERS AT THIS TIME.
--- NOTE | 2018-12-16 17:00 | NUR ---
NURSE NOTES: family here to see pt. education on how pt presents and need to rest as much as possible.
--- NOTE | 2018-12-16 18:30 | History and Physical Report ---
DATE OF ADMISSION: 12/15/2018 CHIEF COMPLAINT: Shortness of breath. HISTORY OF PRESENT ILLNESS: This is a 68-year-old male with a long history of COPD. The patient is a heavy smoker, 2 packs a day for about 60 years now. The patient was getting increasingly short of breath at home. He asked his son to take him to [facility] where he usually goes. According to the son, he was placed in the car and then he passed out. The son called 911. They instructed him to do chest compression, which he did and then the paramedics arrived and took him to the ER here at [facility]. The patient was subsequently intubated and transferred to ICU. PAST MEDICAL HISTORY: As mentioned, the patient has history of COPD and he still continues to smoke. He has history of coronary artery disease, status post CABG few years back. He has history of ICD placement. Possible history of hepatitis. MEDICATIONS: Reviewed in the EMR. SOCIAL HISTORY: No history of alcohol abuse. Also he was using crack cocaine at some point, which he stopped. The patient lives at home. ALLERGIES: Iodine. REVIEW OF SYSTEMS: Unobtainable. PHYSICAL EXAMINATION: GENERAL: The patient is a 68-year-old male. He is orally intubated. He is awake in restraints. VITAL SIGNS: Blood pressure 111/63, pulse 87, temperature is 98.8, and respiratory rate 20. HEENT: [place] conjunctivae. Anicteric sclerae. NECK: Supple. LUNGS: Coarse breath sounds bilaterally. HEART: S1, S2 without murmurs or rubs. ABDOMEN: Soft, nontender. EXTREMITIES: Bilateral pedal edema. LABORATORY FINDINGS: The CBC shows WBC of 11,200, hematocrit 41.8, hemoglobin 13.2, platelets 209,000. Chemistry panel shows serum sodium 139, potassium 4.2, chloride 101, CO2 34, BUN 26, creatinine 1.2, glucose is 164. Hemoglobin A1c 6.1. Lactic acid was 2.9 yesterday and the repeat was 1.6. Calcium is 8.3. AST 73, ALT of 82. Triglycerides 50. Magnesium 1.9. UA shows 5 to 10 rbc's per high-power field and 4+ protein. ASSESSMENT: This is a 68-year-old male, who was admitted with respiratory failure and he had to be intubated. He likely has COPD exacerbation with possible underlying pneumonia. Chest x-ray was read as no evidence of acute cardiopulmonary disease. In addition, he has history of cardiomyopathy and there may be some component of CHF exacerbation. The patient does have edema on his physical exam. He has also significant proteinuria and some red blood cells with possibility underlying kidney disease. His creatinine is only 1.2 however. PLAN: The patient will be on ventilator. He was seen by utility worker forge. His ventilator is adjusted and hopefully we can wean him off gradually. He will be on bronchodilators, IV steroids. I would diurese him cautiously. He will be on antibiotics for possibility of pneumonia. He will need some workup for his proteinuria, which will be done at a later date. Case was discussed with the patient's sister and son at bedside. Baldemar Morgan M.D. DR: TIMOTHY JOB#: [id number] CC: SHELBIE
--- NOTE | 2018-12-16 19:04 | NUR ---
RESPIRATORY NOTE: Received pt on current vent setting. Intubated with 7 size ett at 24 at the lip secured by anchor fast. Small amount of white, jung secretions and will sxn prn. vent is plugged into red outlet. Ambu bag is at the bedside. Will continue to monitor pt's progress.
--- NOTE | 2018-12-16 19:35 | NUR ---
HAND-OFF: Report given to Nehemias. pt in no acute distress
--- NOTE | 2018-12-16 19:36 | NUR ---
NURSE NOTES: Received report from LYUDMILA Rhoades. Pt's resting in bed, calm, RASS -1, orally intubated ETT 7.0, 25cm at lip, vent settings AC 20, TV600, FI02 50%, Peep5. sating 99%. Bilateral soft wrist restraints noted. OGT noted, clamped, NPO status. Pacemaker noted on MARLENY, NSR on monitor. Right AC 20G Right hand 22G, asymptomatic and patent, running D5NS@60cc/hr, fentanyl at 140mcg/hr . Skin intact. FC draining dark briana urine below bladder. Bed locked, in low position. Will continue to monitor.
--- NOTE | 2018-12-16 22:00 | NUR ---
NURSE NOTES: Pt's resting in bed, in no acute distress. VS stable. Will continue to monitor.
[2018-12-16] MEDS: cefTRIAXone 1 GM in D5W 55 ML IV SCH (22:30)
[2018-12-17] VITALS (30 sets, daily range): BP systolic 110–157; BP diastolic 56–124
--- NOTE | 2018-12-17 | NUR ---
NURSE NOTES: Pt's resting in bed, asleep, in no acute distress. VS stable. Fentanyl currently running at 200mcg/hr. RASS -1, Will continue to monitor.
[2018-12-17] MEDS: NovoLOG Insulin Flexpen SUBQ SCH ×4 (00:46→19:20)
--- NOTE | 2018-12-17 02:00 | NUR ---
NURSE NOTES: Pt's resting in bed, in no acute distress. VS stable. Will continue to monitor.
[2018-12-17] MEDS: Albuterol/Ipratropium 3ml neb HHN SCH ×6 (02:55→23:21)
--- NOTE | 2018-12-17 04:00 | NUR ---
NURSE NOTES: Pt's resting in bed, asleep, no acute distress. VS stable. Will continue to monitor.
[2018-12-17 05:52] LABS: ANION GAP 5 mmol/L (5-15); BLOOD UREA NITROGEN 38 mg/dL (7-18); CALCIUM 8.8 MG/DL (8.5-10.1); CARBON DIOXIDE 32 MMOL/L (21-32); CHLORIDE 101 MMOL/L (98-107); CREATININE 1.5 MG/DL (0.55-1.30); POTASSIUM 4.2 MMOL/L (3.5-5.1); SODIUM 138 MMOL/L (136-145)
--- NOTE | 2018-12-17 06:00 | NUR ---
NURSE NOTES: Pt's resting in bed, asleep, no acute distress. VS stable. Fentanyl weaned off and held for vent weaning in AM. Will continue to monitor.
[2018-12-17] MEDS: Solu-MEDROL 125mg Inj IVP SCH ×3 (06:05→22:11)
--- NOTE | 2018-12-17 07:20 | NUR ---
HAND-OFF: Report given to LYUDMILA Walsh.
--- NOTE | 2018-12-17 08:15 | NUR ---
NURSE NOTES: Patient report received from LYUDMILA Del Cid. He is awake and alert using hands to make needs known, he is able to point and track staff and turn to person when name is called, patient has bilateral wrist restraints for attempting to reach to ET-tube, skin is intact but hand dry flaky skin on nuckles and fingers, he is on mechanical ventilator with setting of AC 20, TV: 600 and FIo2 of 50%, patient denies any sOB or distress, his Nina is draining clear urine, he is running D5NS at 60ml/hr though a right upper AC 20G with no leaking or swelling while flushing line, he also has a right Hand 22G which is patent, will continue to monitor.
--- NOTE | 2018-12-17 09:50 | NUR ---
NURSE NOTES: Patient medication given through the IV on the right upper AC 20G, OG tube medication given after verification using Abdominal X-ray, awaiting for patient to be weaning, will continue plan of care.
[2018-12-17] MEDS: Bisacodyl EC 5mg tab ORAL SCH ×2 (10:14→17:40)
[2018-12-17] MEDS: Aspirin Baby 81mg ORAL SCH (10:15)
[2018-12-17] MEDS: Heparin 5000 units/ml inj SUBQ SCH ×2 (10:26→20:49)
--- NOTE | 2018-12-17 10:32 | NUR ---
RD ASSESSMENT & RECOMMENDATIONS SEE CARE ACTIVITY FOR COMPLETE ASSESSMENT DAILY ESTIMATED NEEDS: Needs based on Critical care, DM 76.9kg adj 20-26 kcals/kg [id number] total kcals 1.2-2 g protein/kg 92-154 g total protein 25-30 mL/kg 2132-4706 total fluid mLs NUTRITION DIAGNOSIS: 1) Swallowing difficulty r/t respiratory status as evidenced by pt intubated, pending non oral feeds, ICU status. 2) Altered nutrition related lab values r/t clinical status as evidenced by critically elev pCO2 (59.8*), a1C 6.1, elev phos on adm (5.2). ENTERAL NUTRITION RECOMMENDATIONS: Glucerna 1.5 @50ml/hr x24 hrs to provide 1200ml, 1800 kcal, 99g prot, 911ml free H2O - As medically able, obtain GI access, start Glucerna 1.5 @20ml/hr for 6 hrs. Advance as tolerated 10ml q4-6 hrs to goal - Flush per MD/ HOB over 30 degrees ADDITIONAL RECOMMENDATIONS: 1) Obtain a calibrated bed scale wt 2) Monitor lytes, BG on continuous TF 3) Updated phos, K-> need for TF change
--- NOTE | 2018-12-17 11:30 | NUR ---
NURSE NOTES: Patient failed weaning with the RT at the bedside, patient began to have tachypnea and SOB while placed on weaning, patient started to have intercostal retractions, RT placed patient back to AC20, TV: 600 and 40%, Pharmacy called to make fentanyl drip to keep patient sedated at -1 RASS, patient remains calm and resting in bed, remains running D5NS at 60ml/hr. Dr. Morgan rounded on patient and updated at the bedside, notified of increasing creatinine level, no verbal orders given at this time,
[2018-12-17] MEDS: Pantoprazole Inj IVP SCH (11:48)
[2018-12-17] MEDS: D5NS 1,000 ML IV SCH (11:48)
--- NOTE | 2018-12-17 13:00 | NUR ---
NURSE NOTES: Dr. Regalado updated at the bedside of patient condition, dr. regalado orders to have an ABG done today and in the morning the following day at 0400, also orders to have chest x-ray, also ordered to placed patient on Mucomyst 200mg HHN q4hrs, patient started on Fentanyl Drip for sedation to goal of -1, will follow orders.
--- NOTE | 2018-12-17 14:26 | General Progress Note ---
Assessment/Plan Problem List: (1) COPD exacerbation (2) Pneumonia ICD Codes: J18.9 - Pneumonia, unspecified organism SNOMED: 682437999 (3) Acute respiratory failure with hypercapnia ICD Codes: J96.02 - Acute respiratory failure with hypercapnia SNOMED: 237231498 (4) ARF (acute renal failure) ICD Codes: N17.9 - Acute kidney failure, unspecified SNOMED: 22421601 Assessment/Plan Bronchodilators iv STEROIDS ABXS VENT SUPPORT DISCUSSED WITH RN follow labs Subjective Allergies: Coded Allergies: IODINE (Verified Allergy, Severe, rash, 01/15/14) Subjective Intubated Objective Last 24 Hour Vital Signs Date Time Temp Pulse Resp B/P (MAP) Pulse Ox O2 Delivery O2 Flow Rate FiO2 12/17/18 14:00 97 23 152/75 (100) 93 12/17/18 13:18 94 22 40 12/17/18 13:00 94 22 145/68 (93) 94 12/17/18 12:00 40 12/17/18 12:00 98.3 94 21 140/68 (92) 94 12/17/18 12:00 95 12/17/18 12:00 Mechanical Ventilator 12/17/18 11:50 20 Mechanical Ventilator 40 12/17/18 11:25 92 20 95 Mechanical Ventilator 40 12/17/18 11:25 40 12/17/18 11:11 97 22 98 Mechanical Ventilator 40 12/17/18 11:08 97 22 40 12/17/18 11:00 97 21 143/67 (92) 97 12/17/18 10:14 103 144/69 12/17/18 10:00 101 22 144/69 (94) 99 12/17/18 09:26 106 20 40 12/17/18 09:15 100 12/17/18 09:00 106 22 157/72 (100) 100 12/17/18 08:00 98.3 112 21 153/71 (98) 95 12/17/18 08:00 110 12/17/18 08:00 Mechanical Ventilator 12/17/18 08:00 50 12/17/18 07:28 40 12/17/18 07:28 93 21 95 Mechanical Ventilator 40 12/17/18 07:06 97 24 95 Mechanical Ventilator 40 12/17/18 07:01 97 20 40 12/17/18 07:00 92 20 141/78 (99) 90 12/17/18 06:00 99.3 97 20 138/75 (96) 91 12/17/18 06:00 18 Mechanical Ventilator 12/17/18 05:00 18 Mechanical Ventilator 12/17/18 05:00 92 20 131/69 (89) 90 12/17/18 04:37 89 20 40 12/17/18 04:00 50 12/17/18 04:00 Mechanical Ventilator 12/17/18 04:00 95 12/17/18 04:00 20 Mechanical Ventilator 12/17/18 04:00 84 20 120/61 (80) 93 12/17/18 03:02 81 20 96 Mechanical Ventilator 40 12/17/18 03:02 40 12/17/18 03:00 99.0 81 19 110/56 (74) 97 12/17/18 03:00 20 Mechanical Ventilator 12/17/18 02:55 81 20 95 Mechanical Ventilator 40 12/17/18 02:55 82 20 40 12/17/18 02:00 88 20 120/62 (81) 95 12/17/18 02:00 20 Mechanical Ventilator 12/17/18 01:00 95 20 131/73 (92) 100 12/17/18 01:00 20 Mechanical Ventilator 12/17/18 01:00 94 20 50 12/17/18 00:36 20 50 12/17/18 00:00 Mechanical Ventilator 12/17/18 00:00 87 12/17/18 00:00 20 Mechanical Ventilator 12/17/18 00:00 50 12/17/18 00:00 95 20 127/67 (87) 95 12/16/18 23:15 20 Mechanical Ventilator 12/16/18 23:00 94 20 124/67 (86) 94 12/16/18 23:00 20 Mechanical Ventilator 50 12/16/18 22:54 50 12/16/18 22:54 94 20 95 Mechanical Ventilator 50 12/16/18 22:45 20 Mechanical Ventilator 12/16/18 22:44 92 20 94 Mechanical Ventilator 50 12/16/18 22:44 92 20 60 12/16/18 22:30 20 Mechanical Ventilator 12/16/18 22:15 20 Mechanical Ventilator 12/16/18 22:00 94 20 124/67 (86) 94 12/16/18 22:00 20 Mechanical Ventilator 12/16/18 21:45 20 Mechanical Ventilator 50 12/16/18 21:00 99.1 95 20 129/64 (85) 94 12/16/18 21:00 20 Mechanical Ventilator 12/16/18 20:41 96 20 60 12/16/18 20:00 Mechanical Ventilator 12/16/18 20:00 20 Mechanical Ventilator 12/16/18 20:00 94 20 124/67 (86) 94 12/16/18 20:00 92 12/16/18 20:00 50 12/16/18 19:10 92 20 96 Mechanical Ventilator 60 12/16/18 19:10 60 12/16/18 19:03 94 20 95 Mechanical Ventilator 60 12/16/18 19:01 94 20 60 12/16/18 19:00 20 Mechanical Ventilator 50 12/16/18 19:00 94 20 126/67 (86) 95 12/16/18 18:00 95 20 129/64 (85) 94 12/16/18 18:00 Mechanical Ventilator 12/16/18 17:06 101 22 60 12/16/18 17:05 Mechanical Ventilator 12/16/18 17:04 Mechanical Ventilator 12/16/18 17:00 95 20 128/63 (84) 94 12/16/18 16:00 50 12/16/18 16:00 90 12/16/18 16:00 99.0 91 20 120/59 (79) 95 12/16/18 16:00 Mechanical Ventilator 12/16/18 16:00 Mechanical Ventilator 12/16/18 15:18 88 20 97 Mechanical Ventilator 60 12/16/18 15:16 88 20 60 12/16/18 15:14 89 20 92 Mechanical Ventilator 60 12/16/18 15:14 50 12/16/18 15:00 90 20 116/57 (76) 95 12/16/18 15:00 Mechanical Ventilator Intake and Output 12/16/18 12/17/18 18:59 06:59 Intake Total 443 ml 1243.75 ml Output Total 525 ml 480 ml Balance -82 ml 763.75 ml IV Total 413 ml 1243.75 ml Other 30 ml Output Urine Total 525 ml 480 ml Laboratory Tests 12/17/18 04:35: Sodium Level 138, Potassium Level 4.2, Chloride Level 101, Carbon Dioxide Level 32, Anion Gap 5, Blood Urea Nitrogen 38H, Creatinine 1.5H, Estimat Glomerular Filtration Rate 46.7, Glucose Level 133H, Calcium Level 8.8 12/17/18 14:05: Arterial Blood pH 7.365, Arterial Blood Partial Pressure CO2 58.1*H, Arterial Blood Partial Pressure O2 55.9L, Arterial Blood HCO3 32.5H, Arterial Blood Oxygen Saturation 87.2*L, Arterial Blood Base Excess 5.3H, Jose Test Positive Height (Feet): 5 Height (Inches): 8.00 Weight (Pounds): 228 Cardiovascular: normal rate Respiratory/Chest: lungs clear Edema: no edema noted Generalized Baldemar Morgan MD Dec 17, 2018 14:26
[2018-12-17] MEDS: Acetylcysteine 20% Soln 4ml HHN SCH ×3 (15:42→23:21)
--- NOTE | 2018-12-17 15:45 | NUR ---
NURSE NOTES: Dr. Regalado returned call back regarding abg results, no changed to be made at this time, Chest x-ray result pending, patient remains on fentanyl drip at 200mcg/min and D5ns with 60ml/hr through right AC 20g and 22g, he is able to make needs known by using hands gestures, no pain noted using the FLACC scale, will continue plan of care.
--- NOTE | 2018-12-17 17:26 | Diagnostic Imaging Report ---
Indication: Shortness of breath Technique: One view of the chest Comparison: And 07/26/2018 Findings: . Placement of a nasogastric tube, tip projecting beyond the edge of image presumably in good position. Stable satisfactory position of endotracheal tube. There may be a small amount of pleural fluid developing on the left. The lungs and right pleural space remain clear. The heart is upper limits normal in size. Left chest AICD again demonstrated. Impression: Satisfactory nasogastric intubation Possible developing left basilar atelectasis or pleural fluid
--- NOTE | 2018-12-17 19:30 | NUR ---
NURSE NOTES: Received report from LYUDMILA Walsh. Pt's resting in bed, calm, RASS -1, orally intubated ETT 7.0, 25cm at lip, vent settings AC 20, TV600, FI02 50%, Peep5. sating 99%. Bilateral soft wrist restraints noted. OGT noted, clamped, NPO status. Pacemaker noted on left upper chest, SR on monitor. Right AC 20G Right hand 22G, asymptomatic and patent, running D5NS@60cc/hr, fentanyl at 200mcg/hr . Skin intact. Nina draining dark briana urine below bladder. Bed locked, in low position. Will continue to monitor.
--- NOTE | 2018-12-17 20:56 | Pulmonolgy Critical Care Note ---
Critical Care - Asmt/Plan Assessment/Plan: Problem List: 1. Acute on chronic hypercapnic respiratory failure 2. Acute exacerbation of COPD 3. Possible community-acquired pneumonia 4. Cardiomyopathy, EF 20% 5. Systolic CHF 6. out of hospital respiratory failure/possible cardiac arrest s/p CPR by family 7. JUAN 8. DM Plan: -cont mechanical ventilatory support, daily weaning trials -wean sedation as tolerated -ABG in AM -abx: ceftriaxone/azithro -f/u cultures -solumedrol 60 mg IV q8, taper as tolerated -Good pulmonary hygiene: duonebs and mucomyst q4, suction prn -monitor volumes, avoid overload -monitor renal function Respiratory: CXR, ABG, weaning trial Cardiac: continue to monitor HR/BP Renal: F/U I&O Infectious Disease: continue antibiotics Neurologic: keep patient comfortable Disposition: keep in ICU Time Spent (Minutes): 40 - CC Discussed with: nurses Critical Care - Objective Last 24 Hour Vital Signs Date Time Temp Pulse Resp B/P (MAP) Pulse Ox O2 Delivery O2 Flow Rate FiO2 12/17/18 19:00 98 22 147/74 (98) 95 12/17/18 19:00 22 Mechanical Ventilator 50 12/17/18 18:30 100 22 139/70 (93) 94 12/17/18 18:00 102 21 140/71 (94) 94 12/17/18 18:00 21 Mechanical Ventilator 50 12/17/18 17:42 21 Mechanical Ventilator 50 12/17/18 17:30 101 23 150/57 (88) 94 12/17/18 17:00 103 21 153/70 (97) 96 12/17/18 17:00 21 Mechanical Ventilator 50 12/17/18 16:54 93 21 50 12/17/18 16:30 96 22 135/78 (97) 95 12/17/18 16:07 40 12/17/18 16:07 96 20 100 Mechanical Ventilator 40 12/17/18 16:00 50 12/17/18 16:00 98.2 96 20 154/124 (134) 100 12/17/18 16:00 23 Mechanical Ventilator 50 12/17/18 16:00 102 12/17/18 16:00 Mechanical Ventilator 12/17/18 15:44 97 20 97 Mechanical Ventilator 50 12/17/18 15:43 94 20 40 12/17/18 15:30 96 22 156/79 (104) 97 12/17/18 15:00 21 Mechanical Ventilator 40 12/17/18 15:00 96 16 156/82 (106) 97 12/17/18 14:30 96 22 144/93 (110) 97 12/17/18 14:00 97 23 152/75 (100) 93 12/17/18 14:00 22 Mechanical Ventilator 40 12/17/18 13:30 96 23 149/82 (104) 94 12/17/18 13:18 94 22 40 12/17/18 13:00 94 22 145/68 (93) 94 12/17/18 13:00 22 Mechanical Ventilator 50 12/17/18 12:00 26 Mechanical Ventilator 40 12/17/18 12:00 40 12/17/18 12:00 98.3 94 21 140/68 (92) 94 12/17/18 12:00 95 12/17/18 12:00 Mechanical Ventilator 12/17/18 11:50 20 Mechanical Ventilator 40 12/17/18 11:25 92 20 95 Mechanical Ventilator 40 12/17/18 11:25 40 12/17/18 11:11 97 22 98 Mechanical Ventilator 40 12/17/18 11:08 97 22 40 12/17/18 11:00 97 21 143/67 (92) 97 12/17/18 10:14 103 144/69 12/17/18 10:00 101 22 144/69 (94) 99 12/17/18 09:26 106 20 40 12/17/18 09:15 100 12/17/18 09:00 106 22 157/72 (100) 100 12/17/18 08:00 98.3 112 21 153/71 (98) 95 12/17/18 08:00 110 12/17/18 08:00 Mechanical Ventilator 12/17/18 08:00 50 12/17/18 07:28 40 12/17/18 07:28 93 21 95 Mechanical Ventilator 40 12/17/18 07:06 97 24 95 Mechanical Ventilator 40 12/17/18 07:01 97 20 40 12/17/18 07:00 92 20 141/78 (99) 90 12/17/18 06:00 99.3 97 20 138/75 (96) 91 12/17/18 06:00 18 Mechanical Ventilator 12/17/18 05:00 18 Mechanical Ventilator 12/17/18 05:00 92 20 131/69 (89) 90 12/17/18 04:37 89 20 40 12/17/18 04:00 50 12/17/18 04:00 Mechanical Ventilator 12/17/18 04:00 95 12/17/18 04:00 20 Mechanical Ventilator 12/17/18 04:00 84 20 120/61 (80) 93 12/17/18 03:02 81 20 96 Mechanical Ventilator 40 12/17/18 03:02 40 12/17/18 03:00 99.0 81 19 110/56 (74) 97 12/17/18 03:00 20 Mechanical Ventilator 12/17/18 02:55 81 20 95 Mechanical Ventilator 40 12/17/18 02:55 82 20 40 12/17/18 02:00 88 20 120/62 (81) 95 12/17/18 02:00 20 Mechanical Ventilator 12/17/18 01:00 95 20 131/73 (92) 100 12/17/18 01:00 20 Mechanical Ventilator 12/17/18 01:00 94 20 50 12/17/18 00:36 20 50 12/17/18 00:00 Mechanical Ventilator 12/17/18 00:00 87 12/17/18 00:00 20 Mechanical Ventilator 12/17/18 00:00 50 12/17/18 00:00 95 20 127/67 (87) 95 12/16/18 23:15 20 Mechanical Ventilator 12/16/18 23:00 94 20 124/67 (86) 94 12/16/18 23:00 20 Mechanical Ventilator 50 12/16/18 22:54 50 12/16/18 22:54 94 20 95 Mechanical Ventilator 50 12/16/18 22:45 20 Mechanical Ventilator 12/16/18 22:44 92 20 94 Mechanical Ventilator 50 12/16/18 22:44 92 20 60 12/16/18 22:30 20 Mechanical Ventilator 12/16/18 22:15 20 Mechanical Ventilator 12/16/18 22:00 94 20 124/67 (86) 94 12/16/18 22:00 20 Mechanical Ventilator 12/16/18 21:45 20 Mechanical Ventilator 50 12/16/18 21:00 99.1 95 20 129/64 (85) 94 12/16/18 21:00 20 Mechanical Ventilator Status: awake HEENT: atraumatic Lungs: wheezing Heart: HR/BP stable Abdomen: soft, non-tender Extremities: edema Micro: Microbiology Date/Time Source Procedure Growth Status 12/15/18 20:25 Blood Blood Culture - Preliminary NO GROWTH AFTER 24 HOURS Resulted 12/15/18 20:10 Blood Blood Culture - Preliminary NO GROWTH AFTER 24 HOURS Resulted 12/15/18 21:10 Rectum Received Accucheck: 130 Critical Care - Subjective ROS Limited/Unobtainable: Yes Interval Events: Failed weaning trial. Continues to have copious secretions. Calm on fentanyl gtt. Condition: stable EKG Rhythm: Sinus Rhythm FI02: 50 Vent Support Breath Rate: 20 Vent Support Mode: AC Vent Tidal Volume: 600 Sputum Amount: Small PEEP: 5.0 PIP: 40 I&O: Intake and Output 12/16/18 12/17/18 19:00 07:00 Intake Total 457 ml 1229.75 ml Output Total 535 ml 480 ml Balance -78 ml 749.75 ml IV Total 427 ml 1229.75 ml Other 30 ml Output Urine Total 535 ml 480 ml ET-Tube: 7.0 ET Position: 24 Vincenzo Regalado MD Dec 17, 2018 20:56
--- NOTE | 2018-12-17 21:18 | Cardiology Progress Note ---
Assessment/Plan Status: stable Assessment/Plan Assessment/Plan Status: stable Assessment/Plan Assessment: Respiratory failure COPD (chronic obstructive pulmonary disease) Pneumonia CAD, previous CABG PPM/ICD HTN HLD PLAN: Patient has failed to progress off the vent, he is hemodynamically stable He continues on steroids and empiric antibiotics. Cultures are negative so far and chest x ray is clear. Echo with systolic dysfunction but he doesnt appear to be in heart failure, CXR clear and PA pressures normal and he is hemodynamically stable. continue steroids continue empiric abx, follow cultures Will initiated heart failure treatment when stable/extubated Will need ischemia evaluation given hx of CAD/CABG to evaluate graft function when stable prior to discharge continue aspirin continue statin Hold beta blockers while intubated Monitor I/O and renal function Spot diuresis as needed, currently does not appear fluid overloaded Daily weaning trials Subjective Cardiovascular: Reports: no symptoms Respiratory: Reports: no symptoms Gastrointestinal/Abdominal: Reports: no symptoms Genitourinary: Reports: no symptoms Subjective No acute events, patient remains on vent, failed weaning trials. Echo with severe LV dysfunction EF 20 percent. Vitals stable otherwise. Objective Last 24 Hour Vital Signs Date Time Temp Pulse Resp B/P (MAP) Pulse Ox O2 Delivery O2 Flow Rate FiO2 12/17/18 20:55 95 20 100 Mechanical Ventilator 50 12/17/18 19:00 98 22 147/74 (98) 95 12/17/18 19:00 22 Mechanical Ventilator 50 12/17/18 18:30 100 22 139/70 (93) 94 12/17/18 18:00 102 21 140/71 (94) 94 12/17/18 18:00 21 Mechanical Ventilator 50 12/17/18 17:42 21 Mechanical Ventilator 50 12/17/18 17:30 101 23 150/57 (88) 94 12/17/18 17:00 103 21 153/70 (97) 96 12/17/18 17:00 21 Mechanical Ventilator 50 12/17/18 16:54 93 21 50 12/17/18 16:30 96 22 135/78 (97) 95 12/17/18 16:07 40 12/17/18 16:07 96 20 100 Mechanical Ventilator 40 12/17/18 16:00 50 12/17/18 16:00 98.2 96 20 154/124 (134) 100 12/17/18 16:00 23 Mechanical Ventilator 50 12/17/18 16:00 102 12/17/18 16:00 Mechanical Ventilator 12/17/18 15:44 97 20 97 Mechanical Ventilator 50 12/17/18 15:43 94 20 40 12/17/18 15:30 96 22 156/79 (104) 97 12/17/18 15:00 21 Mechanical Ventilator 40 12/17/18 15:00 96 16 156/82 (106) 97 12/17/18 14:30 96 22 144/93 (110) 97 12/17/18 14:00 97 23 152/75 (100) 93 12/17/18 14:00 22 Mechanical Ventilator 40 12/17/18 13:30 96 23 149/82 (104) 94 12/17/18 13:18 94 22 40 12/17/18 13:00 94 22 145/68 (93) 94 12/17/18 13:00 22 Mechanical Ventilator 50 12/17/18 12:00 26 Mechanical Ventilator 40 12/17/18 12:00 40 12/17/18 12:00 98.3 94 21 140/68 (92) 94 12/17/18 12:00 95 12/17/18 12:00 Mechanical Ventilator 12/17/18 11:50 20 Mechanical Ventilator 40 12/17/18 11:25 92 20 95 Mechanical Ventilator 40 12/17/18 11:25 40 12/17/18 11:11 97 22 98 Mechanical Ventilator 40 12/17/18 11:08 97 22 40 12/17/18 11:00 97 21 143/67 (92) 97 12/17/18 10:14 103 144/69 12/17/18 10:00 101 22 144/69 (94) 99 12/17/18 09:26 106 20 40 12/17/18 09:15 100 12/17/18 09:00 106 22 157/72 (100) 100 12/17/18 08:00 98.3 112 21 153/71 (98) 95 12/17/18 08:00 110 12/17/18 08:00 Mechanical Ventilator 12/17/18 08:00 50 12/17/18 07:28 40 12/17/18 07:28 93 21 95 Mechanical Ventilator 40 12/17/18 07:06 97 24 95 Mechanical Ventilator 40 12/17/18 07:01 97 20 40 12/17/18 07:00 92 20 141/78 (99) 90 12/17/18 06:00 99.3 97 20 138/75 (96) 91 12/17/18 06:00 18 Mechanical Ventilator 12/17/18 05:00 18 Mechanical Ventilator 12/17/18 05:00 92 20 131/69 (89) 90 12/17/18 04:37 89 20 40 12/17/18 04:00 50 12/17/18 04:00 Mechanical Ventilator 12/17/18 04:00 95 12/17/18 04:00 20 Mechanical Ventilator 12/17/18 04:00 84 20 120/61 (80) 93 12/17/18 03:02 81 20 96 Mechanical Ventilator 40 12/17/18 03:02 40 12/17/18 03:00 99.0 81 19 110/56 (74) 97 12/17/18 03:00 20 Mechanical Ventilator 12/17/18 02:55 81 20 95 Mechanical Ventilator 40 12/17/18 02:55 82 20 40 12/17/18 02:00 88 20 120/62 (81) 95 12/17/18 02:00 20 Mechanical Ventilator 12/17/18 01:00 95 20 131/73 (92) 100 12/17/18 01:00 20 Mechanical Ventilator 12/17/18 01:00 94 20 50 12/17/18 00:36 20 50 12/17/18 00:00 Mechanical Ventilator 12/17/18 00:00 87 12/17/18 00:00 20 Mechanical Ventilator 12/17/18 00:00 50 12/17/18 00:00 95 20 127/67 (87) 95 12/16/18 23:15 20 Mechanical Ventilator 12/16/18 23:00 94 20 124/67 (86) 94 12/16/18 23:00 20 Mechanical Ventilator 50 12/16/18 22:54 50 12/16/18 22:54 94 20 95 Mechanical Ventilator 50 12/16/18 22:45 20 Mechanical Ventilator 12/16/18 22:44 92 20 94 Mechanical Ventilator 50 12/16/18 22:44 92 20 60 12/16/18 22:30 20 Mechanical Ventilator 12/16/18 22:15 20 Mechanical Ventilator 12/16/18 22:00 94 20 124/67 (86) 94 12/16/18 22:00 20 Mechanical Ventilator 12/16/18 21:45 20 Mechanical Ventilator 50 General Appearance: no apparent distress, on vent EENT: PERRL/EOMI, normal ENT inspection Neck: non-tender, normal alignment, supple, normal inspection, no JVD Rhythm: NSR Cardiovascular: normal peripheral pulses, normal rate Respiratory/Chest: chest wall non-tender Abdomen: normal bowel sounds, non tender, soft, no organomegaly, no mass Extremities: normal range of motion, non-tender, normal inspection, no calf tenderness Neurologic: dental services director II-XII grossly normal, no motor/sensory deficits Intake and Output 12/16/18 12/17/18 19:00 07:00 Intake Total 457 ml 1229.75 ml Output Total 535 ml 480 ml Balance -78 ml 749.75 ml IV Total 427 ml 1229.75 ml Other 30 ml Output Urine Total 535 ml 480 ml Laboratory Tests Test 12/17/18 04:35 12/17/18 14:05 Sodium Level 138 MMOL/L (136-145) Potassium Level 4.2 MMOL/L (3.5-5.1) Chloride Level 101 MMOL/L (98-107) Carbon Dioxide Level 32 MMOL/L (21-32) Anion Gap 5 mmol/L (5-15) Blood Urea Nitrogen 38 mg/dL (7-18) H Creatinine 1.5 MG/DL (0.55-1.30) H Estimat Glomerular Filtration Rate 46.7 mL/min (>60) Glucose Level 133 MG/DL (74-106) H Calcium Level 8.8 MG/DL (8.5-10.1) Arterial Blood pH 7.365 (7.350-7.450) Arterial Blood Partial Pressure CO2 58.1 mmHg (35.0-45.0) *H Arterial Blood Partial Pressure O2 55.9 mmHg (75.0-100.0) L Arterial Blood HCO3 32.5 mmol/L (22.0-26.0) H Arterial Blood Oxygen Saturation 87.2 % (95-100) *L Arterial Blood Base Excess 5.3 (-2-2) H Jose Test Positive Microbiology Date/Time Source Procedure Growth Status 12/15/18 20:25 Blood Blood Culture - Preliminary NO GROWTH AFTER 24 HOURS Resulted 12/15/18 20:10 Blood Blood Culture - Preliminary NO GROWTH AFTER 24 HOURS Resulted 12/15/18 21:10 Rectum Received Nico Kingston MD Dec 17, 2018 21:18
--- NOTE | 2018-12-17 22:00 | NUR ---
NURSE NOTES: Pt's resting in bed, asleep, no acute distress. VS stable. Will continue to monitor.
[2018-12-17] MEDS: cefTRIAXone 1 GM in D5W 55 ML IV SCH (22:11)
[2018-12-17] MEDS: Azithromycin 500 MG in D5W 275 ML IV SCH (23:38)
[2018-12-18] VITALS (38 sets, daily range): BP systolic 126–171; BP diastolic 54–107
--- NOTE | 2018-12-18 | NUR ---
NURSE NOTES: Pt's resting in bed, asleep, in no acute distress. VS stable. Will continue to monitor.
[2018-12-18] MEDS: NovoLOG Insulin Flexpen SUBQ SCH ×4 (00:39→18:38)
--- NOTE | 2018-12-18 02:00 | NUR ---
NURSE NOTES: Pt's resting in bed, asleep, in no acute distress. VS stable. Will continue to monitor.
[2018-12-18] MEDS: D5NS 1,000 ML IV SCH ×3 (03:00→23:57)
[2018-12-18] MEDS: Acetylcysteine 20% Soln 4ml HHN SCH ×6 (03:23→23:10)
[2018-12-18] MEDS: Albuterol/Ipratropium 3ml neb HHN SCH ×6 (03:23→23:10)
--- NOTE | 2018-12-18 04:00 | NUR ---
NURSE NOTES: Pt's resting in bed, asleep, in no acute distress. VS stable. Will continue to monitor.
--- NOTE | 2018-12-18 06:00 | NUR ---
NURSE NOTES: Pt's resting in bed, asleep, in no acute distress. VS stable. Will continue to monitor.
[2018-12-18] MEDS: Solu-MEDROL 125mg Inj IVP SCH ×3 (06:24→21:54)
--- NOTE | 2018-12-18 06:57 | NUR ---
RESPIRATORY NOTE: RESPIRATORY NOTE: Received pt on AC 20-600ml-40% FiO2- peep of 5. Pt is orally intubated with ETT 7.0 @ 24cm lips line, secured by anchor fast. Breathing TX duoneb and mucomyst given without adverse reaction. Andres rhonchi diminished heard upon auscultation, suctioned scant to small amount of thick/thin yellow/jung secretions without any incidents. Oral care done. Alarms are set and audible, vent is plugged into the red outlet. Ambu bag is at bedside. Vent circuits and sxn tubbing are secured and out of the way. pt is sedated but easy to arouse and follow commands. Will start weaning pt next vent check after RN turns off the sedation. Will continue to monitor pt closely.
--- NOTE | 2018-12-18 07:30 | NUR ---
HAND-OFF: Report given to Pamela velázquez RN.
--- NOTE | 2018-12-18 07:31 | NUR ---
NURSE NOTES: Report received from Nehemias Lundberg RN. Pt is drowsy and easily able to wake up. Able to answer for simple questions. On bilateral soft restraints. Sinus rhythm on monitoring and evaluation advisor. ETT 7.5/25cm, AC 20, TV 600, P 5, FiO2 50%. No respiratory distress noted. O2 sat 93%. OGT in place. Kept NPO as per order. Abdomen large and distended. Nina in place draining to gravity. IV to right hand G22 patent and asymptomatic. Pt is on D5NS at 60cc/hr and Fentanyl at 150mcg/hr. Bed in lowest position. Side rails up x3. Will resume plan of care.
[2018-12-18 07:33] LABS: ANION GAP 8 mmol/L (5-15); BLOOD UREA NITROGEN 52 mg/dL (7-18); CALCIUM 9.1 MG/DL (8.5-10.1); CARBON DIOXIDE 31 MMOL/L (21-32); CHLORIDE 102 MMOL/L (98-107); CREATININE 1.4 MG/DL (0.55-1.30); POTASSIUM 3.9 MMOL/L (3.5-5.1); SODIUM 141 MMOL/L (136-145)
[2018-12-18 07:49] LABS: HEMATOCRIT 43.3 % (42.0-52.0); MEAN CORPUSCULAR VOLUME 93 FL (80-99); PLATELET COUNT 264 K/UL (150-450); RED BLOOD COUNT 4.64 M/UL (4.70-6.10); RED CELL DISTRIBUTION WIDTH 14.1 % (11.6-14.8); WHITE BLOOD COUNT 12.8 K/UL (4.8-10.8)
[2018-12-18] MEDS: Bisacodyl EC 5mg tab ORAL SCH ×2 (09:19→18:35)
[2018-12-18] MEDS: Aspirin Baby 81mg ORAL SCH (09:20)
[2018-12-18] MEDS: Pantoprazole Inj IVP SCH (09:20)
[2018-12-18] MEDS: Heparin 5000 units/ml inj SUBQ SCH ×2 (09:22→21:09)
--- NOTE | 2018-12-18 09:30 | NUR ---
RESPIRATORY NOTE: Start weaning pt on CPAP- PS 12- peep of 5- 40% FiO2 at 0925 after pt off the sedation at 0815. Pt's getting agitated, RR> 30bpm, request back on AC mode. Encouraged pt to calm down, and just take nice and deep breath but pt insist to be back on AC mode. LYUDMILA Edwards at bedside. Put pt back on AC mode with the same previous settings. Will continue to monitor pt.
--- NOTE | 2018-12-18 09:47 | NUR ---
NURSE NOTES: Fentanyl drip titrated down and turned and off for weaning at 0815. Pt lasted weaning with CPAP, PS 10 for about 5 mins. Fentanyl drip turned back on. Pt is on bilateral sift restraints.
--- NOTE | 2018-12-18 09:56 | NUR ---
RADIOLOGY DEPT CHEST X-RAY DONE.-P.DYE
--- NOTE | 2018-12-18 10:50 | NUR ---
RESPIRATORY NOTE: Increased FiO2 to 50% post ABG. RN Pamela Edwards notified
--- NOTE | 2018-12-18 10:50 | NUR ---
NURSE NOTES: Dr Regalado here to see the patient. Updated him with pt's current condition including ABG result. Notified him that pt failed weaning. No new orders noted.
[2018-12-18] MEDS ORDERED: D5NS 1000ml IV ONE (10:57)
[2018-12-18] MEDS ORDERED: D5W 275ml ONE (10:57)
--- NOTE | 2018-12-18 11:04 | Pulmonolgy Critical Care Note ---
Critical Care - Asmt/Plan Assessment/Plan: Problem List: 1. Acute on chronic hypercapnic respiratory failure 2. Acute exacerbation of COPD 3. Possible community-acquired pneumonia 4. Cardiomyopathy, EF 20% 5. Systolic CHF 6. out of hospital respiratory failure/possible cardiac arrest s/p CPR by family 7. JUAN 8. DM Plan: -cont mechanical ventilatory support, daily weaning trials but does not seem ready yet -wean sedation as tolerated -Monitor ABG prn -abx: ceftriaxone/azithro -f/u cultures -solumedrol 60 mg IV q8, taper as tolerated -Good pulmonary hygiene: duonebs and mucomyst q4, suction prn -monitor volumes, avoid overload -monitor renal function Respiratory: monitor respiratory rate Cardiac: continue to monitor HR/BP Renal: F/U I&O Infectious Disease: continue antibiotics Neurologic: keep patient comfortable Disposition: keep in ICU Time Spent (Minutes): 40 - cc Discussed with: nurses Critical Care - Objective Last 24 Hour Vital Signs Date Time Temp Pulse Resp B/P (MAP) Pulse Ox O2 Delivery O2 Flow Rate FiO2 12/18/18 11:00 93 20 154/84 (107) 96 12/18/18 10:50 40 12/18/18 10:45 91 21 161/83 (109) 95 12/18/18 10:42 50 12/18/18 10:30 92 22 160/72 (101) 95 12/18/18 10:15 92 21 143/79 (100) 96 12/18/18 10:00 94 23 162/76 (104) 95 12/18/18 10:00 22 Mechanical Ventilator 50 12/18/18 09:56 99.6 12/18/18 09:49 20 Mechanical Ventilator 50 12/18/18 09:45 97 24 159/79 (105) 95 12/18/18 09:30 99 12/18/18 09:30 102 23 40 12/18/18 09:30 103 27 168/81 (110) 97 12/18/18 09:25 104 29 40 12/18/18 09:20 100 147/82 12/18/18 09:15 96 24 147/82 (103) 96 12/18/18 09:00 20 Mechanical Ventilator 50 12/18/18 09:00 95 23 160/83 (108) 95 12/18/18 08:45 97 22 151/76 (101) 94 12/18/18 08:30 95 21 151/70 (97) 94 12/18/18 08:00 20 Mechanical Ventilator 50 12/18/18 08:00 40 12/18/18 08:00 100.0 98 22 158/72 (100) 93 12/18/18 08:00 Mechanical Ventilator 12/18/18 07:30 101 24 158/72 (100) 94 12/18/18 07:20 99 12/18/18 07:08 95 20 97 Mechanical Ventilator 40 12/18/18 07:00 20 Mechanical Ventilator 12/18/18 07:00 98.9 99 22 146/83 (104) 94 12/18/18 06:57 97 22 40 12/18/18 06:57 97 22 94 Mechanical Ventilator 40 12/18/18 06:00 20 Mechanical Ventilator 12/18/18 06:00 99 22 140/66 (90) 94 12/18/18 05:39 20 Mechanical Ventilator 12/18/18 05:08 96 20 40 12/18/18 05:00 20 Mechanical Ventilator 12/18/18 05:00 92 20 142/65 (90) 94 12/18/18 04:00 97 12/18/18 04:00 95 20 137/69 (91) 93 12/18/18 04:00 50 12/18/18 04:00 20 Mechanical Ventilator 12/18/18 04:00 Mechanical Ventilator 12/18/18 03:33 95 20 99 Mechanical Ventilator 40 12/18/18 03:25 93 20 40 12/18/18 03:23 93 20 99 Mechanical Ventilator 40 12/18/18 03:00 96 20 147/69 (95) 98 12/18/18 03:00 20 Mechanical Ventilator 12/18/18 02:00 98.7 85 20 127/62 (83) 99 12/18/18 02:00 20 Mechanical Ventilator 12/18/18 01:05 86 20 50 12/18/18 01:00 20 Mechanical Ventilator 12/18/18 01:00 92 20 132/64 (86) 96 12/18/18 00:00 95 12/18/18 00:00 50 12/18/18 00:00 Mechanical Ventilator 12/18/18 00:00 20 Mechanical Ventilator 12/18/18 00:00 99 20 131/68 (89) 97 12/17/18 23:32 20 Mechanical Ventilator 12/17/18 23:31 97 20 100 Mechanical Ventilator 50 12/17/18 23:30 20 Mechanical Ventilator 12/17/18 23:21 92 20 100 Mechanical Ventilator 50 12/17/18 23:21 92 20 50 12/17/18 23:15 20 Mechanical Ventilator 12/17/18 23:00 95 20 144/66 (92) 97 12/17/18 23:00 20 Mechanical Ventilator 12/17/18 22:45 20 Mechanical Ventilator 12/17/18 22:30 20 Mechanical Ventilator 12/17/18 22:00 20 Mechanical Ventilator 12/17/18 22:00 92 20 128/67 (87) 97 12/17/18 21:38 96 20 50 12/17/18 21:05 96 20 100 Mechanical Ventilator 50 12/17/18 21:00 96 19 134/67 (89) 100 12/17/18 21:00 20 Mechanical Ventilator 12/17/18 20:55 95 20 100 Mechanical Ventilator 50 12/17/18 20:55 96 20 50 12/17/18 20:00 50 12/17/18 20:00 Mechanical Ventilator 12/17/18 20:00 20 Mechanical Ventilator 12/17/18 20:00 98.8 98 138/75 (96) 95 12/17/18 20:00 98 12/17/18 19:00 98 22 147/74 (98) 95 12/17/18 19:00 22 Mechanical Ventilator 50 12/17/18 18:30 100 22 139/70 (93) 94 12/17/18 18:00 102 21 140/71 (94) 94 12/17/18 18:00 21 Mechanical Ventilator 50 12/17/18 17:42 21 Mechanical Ventilator 50 12/17/18 17:30 101 23 150/57 (88) 94 12/17/18 17:00 103 21 153/70 (97) 96 12/17/18 17:00 21 Mechanical Ventilator 50 12/17/18 16:54 93 21 50 12/17/18 16:30 96 22 135/78 (97) 95 12/17/18 16:07 40 12/17/18 16:07 96 20 100 Mechanical Ventilator 40 12/17/18 16:00 50 12/17/18 16:00 98.2 96 20 154/124 (134) 100 12/17/18 16:00 23 Mechanical Ventilator 50 12/17/18 16:00 102 12/17/18 16:00 Mechanical Ventilator 12/17/18 15:44 97 20 97 Mechanical Ventilator 50 12/17/18 15:43 94 20 40 12/17/18 15:30 96 22 156/79 (104) 97 12/17/18 15:00 21 Mechanical Ventilator 40 12/17/18 15:00 96 16 156/82 (106) 97 12/17/18 14:30 96 22 144/93 (110) 97 12/17/18 14:00 97 23 152/75 (100) 93 12/17/18 14:00 22 Mechanical Ventilator 40 12/17/18 13:30 96 23 149/82 (104) 94 12/17/18 13:18 94 22 40 12/17/18 13:00 94 22 145/68 (93) 94 12/17/18 13:00 22 Mechanical Ventilator 50 12/17/18 12:00 26 Mechanical Ventilator 40 12/17/18 12:00 40 12/17/18 12:00 98.3 94 21 140/68 (92) 94 12/17/18 12:00 95 12/17/18 12:00 Mechanical Ventilator 12/17/18 11:50 20 Mechanical Ventilator 40 12/17/18 11:25 92 20 95 Mechanical Ventilator 40 12/17/18 11:25 40 12/17/18 11:11 97 22 98 Mechanical Ventilator 40 12/17/18 11:08 97 22 40 Status: awake HEENT: atraumatic Lungs: other - Diminished air movement with expiratory wheeze on forceful expiration Heart: HR/BP stable Abdomen: soft, non-tender Extremities: no C/C/E Micro: Microbiology Date/Time Source Procedure Growth Status 12/15/18 20:25 Blood Blood Culture - Preliminary NO GROWTH AFTER 48 HOURS Resulted 12/15/18 20:10 Blood Blood Culture - Preliminary NO GROWTH AFTER 48 HOURS Resulted 12/15/18 21:00 Nasal Nares MRSA Culture - Final NO METHICILLIN RESISTANT STAPH AUREUS... Complete 12/16/18 21:10 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 Complete 12/15/18 21:10 Rectum - Final NO CARBAPENEM-RESISTANT ENTEROBACTERI... Complete Accucheck: 131 Critical Care - Subjective ROS Limited/Unobtainable: Yes Interval Events: Could not tolerate weaning trail of PS 12. Breathing feels tight. Continues with secretions. Condition: unchanged EKG Rhythm: Sinus Rhythm FI02: 40 Vent Support Breath Rate: 20 Vent Support Mode: AC Vent Tidal Volume: 600 Sputum Amount: None PEEP: 5.0 PIP: 33 I&O: Intake and Output 12/17/18 12/18/18 19:00 07:00 Intake Total 965 ml 1255.00 ml Output Total 860 ml 410 ml Balance 105 ml 845.00 ml Intake Free Water 50 ml IV Total 865 ml 1255.00 ml Other 50 ml Output Urine Total 860 ml 410 ml ET-Tube: 7.0 ET Position: 25 Vincenzo Regalado MD Dec 18, 2018 11:04
--- NOTE | 2018-12-18 11:36 | NUR ---
NURSE NOTES: and granddaughter at bedside. Pt is on Fentanyl drip at 150mcg/hr. Pt is drowsy and able to easily wake up. Pt is on bilateral soft wrist restraints. Will continue to monitor.
--- NOTE | 2018-12-18 12:34 | Cardiology Progress Note ---
Assessment/Plan Status: stable, unchanged Assessment/Plan Assessment/Plan Status: stable Assessment/Plan Assessment: Respiratory failure COPD (chronic obstructive pulmonary disease) Pneumonia CAD, previous CABG PPM/ICD HTN HLD PLAN: Patient has failed to progress off the vent, he is hemodynamically stable He continues on steroids and empiric antibiotics. Cultures are negative so far and chest x ray is clear. Echo with systolic dysfunction but he doesnt appear to be in heart failure, CXR clear and PA pressures normal and he is hemodynamically stable. continue steroids continue empiric abx, follow cultures Will initiated heart failure treatment when stable/extubated Will need ischemia evaluation given hx of CAD/CABG to evaluate graft function when stable prior to discharge continue aspirin continue statin Hold beta blockers while intubated Monitor I/O and renal function Spot diuresis as needed, currently does not appear fluid overloaded Daily weaning trials Discussed with family and nursing Subjective Cardiovascular: Reports: no symptoms Respiratory: Reports: no symptoms Gastrointestinal/Abdominal: Reports: no symptoms Genitourinary: Reports: no symptoms Subjective No acute events, patient remains on vent, failed weaning trials. Echo with severe LV dysfunction EF 20 percent. Vitals stable otherwise. Family at bedside. Objective Last 24 Hour Vital Signs Date Time Temp Pulse Resp B/P (MAP) Pulse Ox O2 Delivery O2 Flow Rate FiO2 12/18/18 12:17 23 Mechanical Ventilator 50 12/18/18 12:00 23 Mechanical Ventilator 50 12/18/18 11:18 92 22 99 Mechanical Ventilator 50 12/18/18 11:07 93 20 98 Mechanical Ventilator 50 12/18/18 11:00 21 Mechanical Ventilator 50 12/18/18 11:00 93 20 154/84 (107) 96 12/18/18 10:50 40 12/18/18 10:45 91 21 161/83 (109) 95 12/18/18 10:42 50 12/18/18 10:30 92 22 160/72 (101) 95 12/18/18 10:15 92 21 143/79 (100) 96 12/18/18 10:00 94 23 162/76 (104) 95 12/18/18 10:00 22 Mechanical Ventilator 50 12/18/18 09:56 99.6 12/18/18 09:49 20 Mechanical Ventilator 50 12/18/18 09:45 97 24 159/79 (105) 95 12/18/18 09:30 99 12/18/18 09:30 102 23 40 12/18/18 09:30 103 27 168/81 (110) 97 12/18/18 09:25 104 29 40 12/18/18 09:20 100 147/82 12/18/18 09:15 96 24 147/82 (103) 96 12/18/18 09:00 20 Mechanical Ventilator 50 12/18/18 09:00 95 23 160/83 (108) 95 12/18/18 08:45 97 22 151/76 (101) 94 12/18/18 08:30 95 21 151/70 (97) 94 12/18/18 08:00 20 Mechanical Ventilator 50 12/18/18 08:00 40 12/18/18 08:00 100.0 98 22 158/72 (100) 93 12/18/18 08:00 Mechanical Ventilator 12/18/18 07:30 101 24 158/72 (100) 94 12/18/18 07:20 99 12/18/18 07:08 95 20 97 Mechanical Ventilator 40 12/18/18 07:00 20 Mechanical Ventilator 12/18/18 07:00 98.9 99 22 146/83 (104) 94 12/18/18 06:57 97 22 40 12/18/18 06:57 97 22 94 Mechanical Ventilator 40 12/18/18 06:00 20 Mechanical Ventilator 12/18/18 06:00 99 22 140/66 (90) 94 12/18/18 05:39 20 Mechanical Ventilator 12/18/18 05:08 96 20 40 12/18/18 05:00 20 Mechanical Ventilator 12/18/18 05:00 92 20 142/65 (90) 94 12/18/18 04:00 97 12/18/18 04:00 95 20 137/69 (91) 93 12/18/18 04:00 50 12/18/18 04:00 20 Mechanical Ventilator 12/18/18 04:00 Mechanical Ventilator 12/18/18 03:33 95 20 99 Mechanical Ventilator 40 12/18/18 03:25 93 20 40 12/18/18 03:23 93 20 99 Mechanical Ventilator 40 12/18/18 03:00 96 20 147/69 (95) 98 12/18/18 03:00 20 Mechanical Ventilator 12/18/18 02:00 98.7 85 20 127/62 (83) 99 12/18/18 02:00 20 Mechanical Ventilator 12/18/18 01:05 86 20 50 12/18/18 01:00 20 Mechanical Ventilator 12/18/18 01:00 92 20 132/64 (86) 96 12/18/18 00:00 95 12/18/18 00:00 50 12/18/18 00:00 Mechanical Ventilator 12/18/18 00:00 20 Mechanical Ventilator 12/18/18 00:00 99 20 131/68 (89) 97 12/17/18 23:32 20 Mechanical Ventilator 12/17/18 23:31 97 20 100 Mechanical Ventilator 50 12/17/18 23:30 20 Mechanical Ventilator 12/17/18 23:21 92 20 100 Mechanical Ventilator 50 12/17/18 23:21 92 20 50 12/17/18 23:15 20 Mechanical Ventilator 12/17/18 23:00 95 20 144/66 (92) 97 12/17/18 23:00 20 Mechanical Ventilator 12/17/18 22:45 20 Mechanical Ventilator 12/17/18 22:30 20 Mechanical Ventilator 12/17/18 22:00 20 Mechanical Ventilator 12/17/18 22:00 92 20 128/67 (87) 97 12/17/18 21:38 96 20 50 12/17/18 21:05 96 20 100 Mechanical Ventilator 50 12/17/18 21:00 96 19 134/67 (89) 100 12/17/18 21:00 20 Mechanical Ventilator 12/17/18 20:55 95 20 100 Mechanical Ventilator 50 12/17/18 20:55 96 20 50 12/17/18 20:00 50 12/17/18 20:00 Mechanical Ventilator 12/17/18 20:00 20 Mechanical Ventilator 12/17/18 20:00 98.8 98 138/75 (96) 95 12/17/18 20:00 98 12/17/18 19:00 98 22 147/74 (98) 95 12/17/18 19:00 22 Mechanical Ventilator 50 12/17/18 18:30 100 22 139/70 (93) 94 12/17/18 18:00 102 21 140/71 (94) 94 12/17/18 18:00 21 Mechanical Ventilator 50 12/17/18 17:42 21 Mechanical Ventilator 50 12/17/18 17:30 101 23 150/57 (88) 94 12/17/18 17:00 103 21 153/70 (97) 96 12/17/18 17:00 21 Mechanical Ventilator 50 12/17/18 16:54 93 21 50 12/17/18 16:30 96 22 135/78 (97) 95 12/17/18 16:07 40 12/17/18 16:07 96 20 100 Mechanical Ventilator 40 12/17/18 16:00 50 12/17/18 16:00 98.2 96 20 154/124 (134) 100 12/17/18 16:00 23 Mechanical Ventilator 50 12/17/18 16:00 102 12/17/18 16:00 Mechanical Ventilator 12/17/18 15:44 97 20 97 Mechanical Ventilator 50 12/17/18 15:43 94 20 40 12/17/18 15:30 96 22 156/79 (104) 97 12/17/18 15:00 21 Mechanical Ventilator 40 12/17/18 15:00 96 16 156/82 (106) 97 12/17/18 14:30 96 22 144/93 (110) 97 12/17/18 14:00 97 23 152/75 (100) 93 12/17/18 14:00 22 Mechanical Ventilator 40 12/17/18 13:30 96 23 149/82 (104) 94 12/17/18 13:18 94 22 40 12/17/18 13:00 94 22 145/68 (93) 94 12/17/18 13:00 22 Mechanical Ventilator 50 General Appearance: no apparent distress, on vent EENT: PERRL/EOMI, normal ENT inspection, TMs normal, pharynx normal Neck: non-tender, normal alignment, supple Rhythm: NSR Cardiovascular: normal peripheral pulses, normal rate, regular rhythm Respiratory/Chest: chest wall non-tender, rhonchi - bilaterally Abdomen: normal bowel sounds, non tender, soft, no organomegaly, no mass Extremities: normal range of motion, non-tender, normal inspection, no calf tenderness, no swelling 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0-26.0) H Arterial Blood Oxygen Saturation 87.2 % (95-100) *L 87.0 % (95-100) *L Arterial Blood Base Excess 5.3 (-2-2) H 6.5 (-2-2) H Jose Test Positive Positive White Blood Count 12.8 K/UL (4.8-10.8) H Red Blood Count 4.64 M/UL (4.70-6.10) L Hemoglobin 14.0 G/DL (14.2-18.0) L Hematocrit 43.3 % (42.0-52.0) Mean Corpuscular Volume 93 FL (80-99) Mean Corpuscular Hemoglobin 30.1 PG (27.0-31.0) Mean Corpuscular Hemoglobin Concent 32.2 G/DL (32.0-36.0) Red Cell Distribution Width 14.1 % (11.6-14.8) Platelet Count 264 K/UL (150-450) Mean Platelet Volume 6.9 FL (6.5-10.1) Neutrophils (%) (Auto) % (45.0-75.0) Lymphocytes (%) (Auto) % (20.0-45.0) Monocytes (%) (Auto) % (1.0-10.0) Eosinophils (%) (Auto) % (0.0-3.0) Basophils (%) (Auto) % (0.0-2.0) Differential Total Cells Counted 100 Neutrophils % (Manual) 93 % (45-75) H Lymphocytes % (Manual) 5 % (20-45) L Monocytes % (Manual) 2 % (1-10) Eosinophils % (Manual) 0 % (0-3) Basophils % (Manual) 0 % (0-2) Band Neutrophils 0 % (0-8) Platelet Estimate Adequate Platelet Morphology Normal Red Blood Cell Morphology Normal Sodium Level 141 MMOL/L (136-145) Potassium Level 3.9 MMOL/L (3.5-5.1) Chloride Level 102 MMOL/L (98-107) Carbon Dioxide Level 31 MMOL/L (21-32) Anion Gap 8 mmol/L (5-15) Blood Urea Nitrogen 52 mg/dL (7-18) H Creatinine 1.4 MG/DL (0.55-1.30) H Estimat Glomerular Filtration Rate 50.5 mL/min (>60) Glucose Level 138 MG/DL (74-106) H Calcium Level 9.1 MG/DL (8.5-10.1) Microbiology Date/Time Source Procedure Growth Status 12/15/18 20:25 Blood Blood Culture - Preliminary NO GROWTH AFTER 48 HOURS Resulted 12/15/18 20:10 Blood Blood Culture - Preliminary NO GROWTH AFTER 48 HOURS Resulted 12/15/18 21:00 Nasal Nares MRSA Culture - Final NO METHICILLIN RESISTANT STAPH AUREUS... Complete 12/16/18 21:10 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 Complete 12/15/18 21:10 Rectum - Final NO CARBAPENEM-RESISTANT ENTEROBACTERI... Complete Nico Kingston MD Dec 18, 2018 12:34
--- NOTE | 2018-12-18 12:50 | NUR ---
NURSE NOTES: Dr Kingston at bedside assessing the patient and speaking with family members. Notified Dr Kingston regarding elevated BP 130-160's. Order to change from Amlodipine to Cozzar received, noted, and carried out. Radiology notified NGT should be advanced 10cm. Will advance the tube and order STAT KUB.
--- NOTE | 2018-12-18 12:54 | Diagnostic Imaging Report ---
Indication: Shortness of breath Technique: One view of the chest Comparison: 12/17/2018 Findings: Nasogastric tube appears to terminate at the level of the distal esophagus. Stable satisfactory position of endotracheal tube. The heart remains enlarged. There is probably a small amount of pleural fluid on the left. There is a left chest AICD again demonstrated. Impression: Suspect high position of nasogastric tube, advancement recommended Otherwise stable findings as described Findings discussed by phone with patient's nurse at the time of interpretation
--- NOTE | 2018-12-18 14:00 | NUR ---
NURSE NOTES: Pt was pulled up in bed by 2 RNs. Pt refused pillows anywhere on the body and documented in the system. Pt is still on Fentanyl at 150mcg/hr and on bilateral soft restraints. Will continue to monitor.
--- NOTE | 2018-12-18 14:10 | Cardiology Report ---
APPROVED REPORT EKG Measurement Heart [id number] Sinus tachycardia Right bundle branch block Abnormal ECG
--- NOTE | 2018-12-18 14:41 | Diagnostic Imaging Report ---
Indication: Post nasogastric tube repositioning Technique: Supine view of the upper abdomen Comparison: To 08/25/2018, also chest radiograph of earlier the same day Findings: Nasogastric tube has been advanced as compared to prior chest radiograph, tip now apparently within the gastric body or antrum. The gastric position appears to be below the diaphragm but nonetheless somewhat high in the abdomen, also demonstrated previously gas-filled borderline dilated transverse colon is also noted Impression: Improved and now satisfactory position of nasogastric tube Other findings as described
--- NOTE | 2018-12-18 15:42 | General Progress Note ---
Assessment/Plan Problem List: (1) COPD exacerbation (2) Pneumonia ICD Codes: J18.9 - Pneumonia, unspecified organism SNOMED: 740773518 (3) Acute respiratory failure with hypercapnia ICD Codes: J96.02 - Acute respiratory failure with hypercapnia SNOMED: 621392622 (4) ARF (acute renal failure) ICD Codes: N17.9 - Acute kidney failure, unspecified SNOMED: 08440168 Assessment/Plan Bronchodilators iv STEROIDS ABXS VENT SUPPORT DISCUSSED WITH RN follow labs Subjective Allergies: Coded Allergies: IODINE (Verified Allergy, Severe, rash, 01/15/14) Subjective Intubated Objective Last 24 Hour Vital Signs Date Time Temp Pulse Resp B/P (MAP) Pulse Ox O2 Delivery O2 Flow Rate FiO2 12/18/18 15:30 96 22 167/83 (111) 97 12/18/18 15:00 93 23 153/73 (99) 96 12/18/18 15:00 22 Mechanical Ventilator 50 12/18/18 14:57 94 25 50 12/18/18 14:57 94 25 95 Mechanical Ventilator 50 12/18/18 14:43 90 22 95 Mechanical Ventilator 50 12/18/18 14:30 91 22 171/90 (117) 95 12/18/18 14:00 92 21 131/54 (79) 94 12/18/18 14:00 22 Mechanical Ventilator 50 12/18/18 13:30 90 20 126/65 (85) 95 12/18/18 13:00 22 Mechanical Ventilator 50 12/18/18 13:00 92 23 155/59 (91) 95 12/18/18 12:48 90 22 50 12/18/18 12:30 92 21 151/74 (99) 96 12/18/18 12:17 23 Mechanical Ventilator 50 12/18/18 12:00 96 12/18/18 12:00 Mechanical Ventilator 12/18/18 12:00 99.1 95 22 136/78 (97) 97 12/18/18 12:00 23 Mechanical Ventilator 50 12/18/18 11:30 96 23 147/79 (101) 97 12/18/18 11:18 92 22 50 12/18/18 11:18 92 22 99 Mechanical Ventilator 50 12/18/18 11:07 93 20 98 Mechanical Ventilator 50 12/18/18 11:00 21 Mechanical Ventilator 50 12/18/18 11:00 93 20 154/84 (107) 96 12/18/18 10:50 50 12/18/18 10:45 91 21 161/83 (109) 95 12/18/18 10:42 50 12/18/18 10:30 92 22 160/72 (101) 95 12/18/18 10:15 92 21 143/79 (100) 96 12/18/18 10:00 94 23 162/76 (104) 95 12/18/18 10:00 22 Mechanical Ventilator 50 12/18/18 09:56 99.6 12/18/18 09:49 20 Mechanical Ventilator 50 12/18/18 09:45 97 24 159/79 (105) 95 12/18/18 09:30 99 12/18/18 09:30 102 23 40 12/18/18 09:30 103 27 168/81 (110) 97 12/18/18 09:25 104 29 40 12/18/18 09:20 100 147/82 12/18/18 09:15 96 24 147/82 (103) 96 12/18/18 09:00 20 Mechanical Ventilator 50 12/18/18 09:00 95 23 160/83 (108) 95 12/18/18 08:45 97 22 151/76 (101) 94 12/18/18 08:30 95 21 151/70 (97) 94 12/18/18 08:00 20 Mechanical Ventilator 50 12/18/18 08:00 40 12/18/18 08:00 100.0 98 22 158/72 (100) 93 12/18/18 08:00 Mechanical Ventilator 12/18/18 07:30 101 24 158/72 (100) 94 12/18/18 07:20 99 12/18/18 07:08 95 20 97 Mechanical Ventilator 40 12/18/18 07:00 20 Mechanical Ventilator 12/18/18 07:00 98.9 99 22 146/83 (104) 94 12/18/18 06:57 97 22 40 12/18/18 06:57 97 22 94 Mechanical Ventilator 40 12/18/18 06:00 20 Mechanical Ventilator 12/18/18 06:00 99 22 140/66 (90) 94 12/18/18 05:39 20 Mechanical Ventilator 12/18/18 05:08 96 20 40 12/18/18 05:00 20 Mechanical Ventilator 12/18/18 05:00 92 20 142/65 (90) 94 12/18/18 04:00 97 12/18/18 04:00 95 20 137/69 (91) 93 12/18/18 04:00 50 12/18/18 04:00 20 Mechanical Ventilator 12/18/18 04:00 Mechanical Ventilator 12/18/18 03:33 95 20 99 Mechanical Ventilator 40 12/18/18 03:25 93 20 40 12/18/18 03:23 93 20 99 Mechanical Ventilator 40 12/18/18 03:00 96 20 147/69 (95) 98 12/18/18 03:00 20 Mechanical Ventilator 12/18/18 02:00 98.7 85 20 127/62 (83) 99 12/18/18 02:00 20 Mechanical Ventilator 12/18/18 01:05 86 20 50 12/18/18 01:00 20 Mechanical Ventilator 12/18/18 01:00 92 20 132/64 (86) 96 12/18/18 00:00 95 12/18/18 00:00 50 12/18/18 00:00 Mechanical Ventilator 12/18/18 00:00 20 Mechanical Ventilator 12/18/18 00:00 99 20 131/68 (89) 97 12/17/18 23:32 20 Mechanical Ventilator 12/17/18 23:31 97 20 100 Mechanical Ventilator 50 12/17/18 23:30 20 Mechanical Ventilator 12/17/18 23:21 92 20 100 Mechanical Ventilator 50 12/17/18 23:21 92 20 50 12/17/18 23:15 20 Mechanical Ventilator 12/17/18 23:00 95 20 144/66 (92) 97 12/17/18 23:00 20 Mechanical Ventilator 12/17/18 22:45 20 Mechanical Ventilator 12/17/18 22:30 20 Mechanical Ventilator 12/17/18 22:00 20 Mechanical Ventilator 12/17/18 22:00 92 20 128/67 (87) 97 12/17/18 21:38 96 20 50 12/17/18 21:05 96 20 100 Mechanical Ventilator 50 12/17/18 21:00 96 19 134/67 (89) 100 12/17/18 21:00 20 Mechanical Ventilator 12/17/18 20:55 95 20 100 Mechanical Ventilator 50 12/17/18 20:55 96 20 50 12/17/18 20:00 50 12/17/18 20:00 Mechanical Ventilator 12/17/18 20:00 20 Mechanical Ventilator 12/17/18 20:00 98.8 98 138/75 (96) 95 12/17/18 20:00 98 12/17/18 19:00 98 22 147/74 (98) 95 12/17/18 19:00 22 Mechanical Ventilator 50 12/17/18 18:30 100 22 139/70 (93) 94 12/17/18 18:00 102 21 140/71 (94) 94 12/17/18 18:00 21 Mechanical Ventilator 50 12/17/18 17:42 21 Mechanical Ventilator 50 12/17/18 17:30 101 23 150/57 (88) 94 12/17/18 17:00 103 21 153/70 (97) 96 12/17/18 17:00 21 Mechanical Ventilator 50 12/17/18 16:54 93 21 50 12/17/18 16:30 96 22 135/78 (97) 95 12/17/18 16:07 40 12/17/18 16:07 96 20 100 Mechanical Ventilator 40 12/17/18 16:00 50 12/17/18 16:00 98.2 96 20 154/124 (134) 100 12/17/18 16:00 23 Mechanical Ventilator 50 12/17/18 16:00 102 12/17/18 16:00 Mechanical Ventilator 12/17/18 15:44 97 20 97 Mechanical Ventilator 50 12/17/18 15:43 94 20 40 Intake and Output 12/17/18 12/18/18 18:59 06:59 Intake Total 945 ml 1260.00 ml Output Total 865 ml 405 ml Balance 80 ml 855.00 ml Intake Free Water 50 ml IV Total 845 ml 1260.00 ml Other 50 ml Output Urine Total 865 ml 405 ml Laboratory Tests 12/18/18 07:10: White Blood Count 12.8H, Red Blood Count 4.64L, Hemoglobin 14.0L, Hematocrit 43.3, Mean Corpuscular Volume 93, Mean Corpuscular Hemoglobin 30.1, Mean Corpuscular Hemoglobin Concent 32.2, Red Cell Distribution Width 14.1, Platelet Count 264, Mean Platelet Volume 6.9, Neutrophils (%) (Auto) , Lymphocytes (%) ( Auto) , Monocytes (%) (Auto) , Eosinophils (%) (Auto) , Basophils (%) (Auto) , Differential Total Cells Counted 100, Neutrophils % (Manual) 93H, Lymphocytes % (Manual) 5L, Monocytes % (Manual) 2, Eosinophils % (Manual) 0, Basophils % ( Manual) 0, Band Neutrophils 0, Platelet Estimate Adequate, Platelet Morphology Normal, Red Blood Cell Morphology Normal, Sodium Level 141, Potassium Level 3.9 , Chloride Level 102, Carbon Dioxide Level 31, Anion Gap 8, Blood Urea Nitrogen 52H, Creatinine 1.4H, Estimat Glomerular Filtration Rate 50.5, Glucose Level 138H, Calcium Level 9.1 12/18/18 10:05: Arterial Blood pH 7.407, Arterial Blood Partial Pressure CO2 53.3H, Arterial Blood Partial Pressure O2 53.2L, Arterial Blood HCO3 32.8H, Arterial Blood Oxygen Saturation 87.0*L, Arterial Blood Base Excess 6.5H, Jose Test Positive Height (Feet): 5 Height (Inches): 8.00 Weight (Pounds): 214 Cardiovascular: normal rate Respiratory/Chest: rhonchi - bilaterally Edema: no edema noted Generalized Baldemar Morgan MD Dec 18, 2018 15:42
--- NOTE | 2018-12-18 16:00 | NUR ---
NURSE NOTES: Called CT for CT head. CT is busy right now. They will call us back.
--- NOTE | 2018-12-18 16:59 | NUR ---
HAND-OFF: Report given to Baltazar Helms RN.
--- NOTE | 2018-12-18 17:00 | NUR ---
NURSE NOTES: Received patient from LYUDMILA Browning. Patient VS stable at this time. Patient crooked in bed. Patient straightened at this time. Patient is drowsy at this time due to Fentanyl drip running at 150mcg/hr at this time. Patient needs the fentanyl drip changed at this time. Pharmacy will make it at this time. Will follow up. Patient is on ET tube at this time with ETT tube of 7cm with 25cm at the lipline. Patient on setting of AC 20, TV 600, FiO2 50%, and PEEP 5. Patient had weaning trial this morning and he failed. Patient pulled his OG tube this morning, but it was advanced back into place and is now asymptomatic and running Glucerna 1.5 at 20mL/hr. Patient's abdomen is distended at this time. The patient has history of alcohol abuse and constipation. Patient given dulcolax this morning. Patient has a left upper arm 22G PIV that is patent and running 150mg/hr at this time. Patient has a right hand 22G PIV that is patent and asymptomatic and running D5NS at 60mL/hr at this time. Patient 2D echo result was 20% today. Dr Kingston is aware and asked that the family bring the previous hospital records. Patient has a left chest pacemaker at this time that functions on demand. Patient bed in low position with bed alarm on and call light in reach at this time. Patient refusing vickie at this time.
--- NOTE | 2018-12-18 17:00 | NUR ---
NURSE NOTES: Dr Kingston was notified regarding elevated blood pressure of 171/[address] Kingston changed blood pressure medication. No PRN ordered at this time.
--- NOTE | 2018-12-18 19:13 | NUR ---
CASE MANAGEMENT: REVIEW SI: RESP FAILURE . PNA . COPD EXACERBATION T 98.5 HR 91 RR 23 BP 153/73 SAT 95% MECH VENT FIO2 MECH VENT FIO2 50 WBC 12.8 BUN 52 CR 1.4 ABG: PH 7.407 PCO2 53.3 PO2 53.2 HCO3 32.8 SAT 87.2 IS: COZAAR NG QD MUCOMYST HHN Q4HR CEFTRIAXONE IV Q24HR FENTANYL IV Q24HR SOLU MEDROL IV Q8HR AZITHROMYCIN IV Q24HR OROGASTRIC TUBE FEEDING GLUCERNA 1.5 @ 40ML/HR ICU STATUS DCP: PATIENT IS FROM HOME
--- NOTE | 2018-12-18 19:20 | NUR ---
HAND-OFF: Report given to LYUDMILA Del Cid. Patient VS stable at this time with no sign of acute distress. Patient has an order for CT head. Endorsed to follow up. Patient is combative and resistant to care at this time. Endorsed to follow up.
--- NOTE | 2018-12-18 19:30 | NUR ---
NURSE NOTES: Received report from Pamela Edwards RN. Pt's resting in bed, calm, RASS -1, orally intubated ETT 7.0, 25cm at lip, vent settings AC 20, TV600, FI02 50%, Peep5. sating 99%. Bilateral soft wrist restraints noted. OGT noted patent, running Glucerna 1.5 at 20ml/hr, goal 40ml/hr. Well tolerated, no residual noted. Pacemaker noted on left upper chest, SR on monitor. Right hand 22G, Left upper arm 22G, asymptomatic and patent, running D5NS@60cc/hr, fentanyl at 150mcg/hr . Skin intact. Nina draining dark briana urine below bladder. Bed locked, in low position. Will continue to monitor.
[2018-12-18] MEDS: cefTRIAXone 1 GM in D5W 55 ML IV SCH (21:54)
--- NOTE | 2018-12-18 22:00 | NUR ---
NURSE NOTES: Pt's resting in bed, in no acute distress. VS stable. Will continue to monitor.
[2018-12-19] VITALS (41 sets, daily range): BP systolic 128–204; BP diastolic 58–148
--- NOTE | 2018-12-19 | NUR ---
NURSE NOTES: Pt's resting in bed, in no acute distress, sleeping with eyes closed. VS stable. Will continue to monitor.
[2018-12-19] MEDS: Azithromycin 500 MG in D5W 275 ML IV SCH (00:28)
[2018-12-19] MEDS: NovoLOG Insulin Flexpen SUBQ SCH ×4 (00:29→17:53)
--- NOTE | 2018-12-19 02:00 | NUR ---
NURSE NOTES: Pt's resting in bed, in no acute distress, sleeping with eyes closed. VS stable. Will continue to monitor.
[2018-12-19] MEDS: Albuterol/Ipratropium 3ml neb HHN SCH ×6 (03:12→23:13)
[2018-12-19] MEDS: Acetylcysteine 20% Soln 4ml HHN SCH ×6 (03:13→23:13)
--- NOTE | 2018-12-19 04:00 | NUR ---
NURSE NOTES: Pt's resting in bed, in no acute distress at this time. VS stable. Will continue to monitor.
--- NOTE | 2018-12-19 06:00 | NUR ---
NURSE NOTES: Noted, OGT came off, reinserted successfully, KUB ordered from confirming placement, pending. Pt's resting in bed, in no acute distress. VS stable. Will continue to monitor.
[2018-12-19] MEDS: Solu-MEDROL 125mg Inj IVP SCH ×3 (06:26→21:17)
--- NOTE | 2018-12-19 07:14 | NUR ---
HAND-OFF: Report given to Pamela Edwards RN.
--- NOTE | 2018-12-19 07:15 | NUR ---
RESPIRATORY NOTE: Received pt on AC 20-600ml-50% FiO2- peep of 5. Pt is orally intubated with ETT 7.0 @ 24cm lips line, secured by anchor fast. Breathing TX duoneb and mucomyst given without adverse reaction. Andres diminished heard upon auscultation, suctioned small amount of thin clear jung secretions without any incidents. Oral care done. Alarms are set and audible, vent is plugged into the red outlet. Ambu bag is at bedside. Vent circuits and sxn tubbing are secured and out of the way. pt is sedated but awake and alert, easy to arouse and follow commands. RN will off the sedtion med at 0730, will start weaning pt next vent check. Will continue to monitor pt closely.
--- NOTE | 2018-12-19 07:15 | NUR ---
NURSE NOTES: Report received from Nehemias Lundberg RN. Pt is drowsy and easily able to wake up. Able to answer for simple questions. On bilateral soft restraints. Sinus rhythm on personnel monitor. ETT 7.5/25cm, AC 20, TV 600, P 5, FiO2 50%. No respiratory distress noted. O2 sat 94%. New OGT in place. X-ray was ordered by financial director. Feeding held. Abdomen large and distended. Nina in place draining to gravity. IV to right hand G22 and left upper arm G 22 patent and asymptomatic. Pt is on D5NS at 60cc/hr and Fentanyl at 100mcg/hr. Bed in lowest position. Side rails up x3. Will resume plan of care.
--- NOTE | 2018-12-19 07:30 | NUR ---
NURSE NOTES: Titrating down Fentanyl drip, so RT can start weaning. Pt is sleeping and resting in bed. Will continue to monitor.
--- NOTE | 2018-12-19 08:40 | NUR ---
RESPIRATORY NOTE: Placed pt on CPAP-PS 14- 35% FiO2 per weaning order. Pt's calm, understanding the weaning plan. No SOB or distress noted at this time. RN Pamela Edwards made aware
[2018-12-19] MEDS: Bisacodyl EC 5mg tab ORAL SCH ×2 (09:00→17:02)
[2018-12-19] MEDS: Losartan 50mg tab NG SCH ×2 (09:00→17:03)
[2018-12-19] MEDS: Aspirin Baby 81mg ORAL SCH ×2 (09:00→17:02)
--- NOTE | 2018-12-19 09:45 | NUR ---
RESPIRATORY NOTE: Pt's getting agitated. Family at bedside. Tachycardiac HR 112bpm, RR 34bpm, saturates at 88%, pt complained he can't breath. Placed pt on SIMV 15- 40%- PS 10 at 0925. Pt's calm down, focus on deep breathing, and talking to the family members. RN and I at bedside encourage pt to stay calm and take nice, slow deep breaths. ABG drawn, result in the system and report to RN Pamela Edwards. Put pt back on AC mode at 0945 due to increasing WOB, RR>30, HR >110, saturate< 85%. Pt is back to resting, and calm. No resp distress noted. Will continue to monitor pt closely.
--- NOTE | 2018-12-19 10:07 | NUR ---
RADIOLOGY DEPT CHEST AND ABDOMEN X-RAYS COMPLETED.-P.DYE
[2018-12-19] MEDS: Pantoprazole Inj IVP SCH (10:12)
[2018-12-19] MEDS: Heparin 5000 units/ml inj SUBQ SCH ×2 (10:13→21:24)
--- NOTE | 2018-12-19 10:21 | Diagnostic Imaging Report ---
Indication: Shortness of breath Technique: One view of the chest Comparison: 12/18/2018 Findings: Stable satisfactory position of endotracheal tube. Previously demonstrated nasogastric tube has been removed. There is some atelectasis at the left lateral lung base again demonstrated. Lungs and pleural spaces are otherwise clear. The heart is borderline enlarged. Impression: Interim nasogastric tube removal. Otherwise, little chart changer one day
--- NOTE | 2018-12-19 10:25 | Diagnostic Imaging Report ---
Indication: Post nasogastric tube Technique: Supine view of the abdomen Comparison: 12/18/2018 Findings: Again demonstrated is a nasogastric tube, coiled in the gastric fundus, which is more distended and more clearly supradiaphragmatic than on the prior study. Diffusely gas-filled upper limits of normal caliber colon again demonstrated. Impression: Nasogastric tube again coiled the gastric fundus, which is situated within a hiatal hernia. The hiatal hernia is more apparent than on earlier studies
--- NOTE | 2018-12-19 10:38 | NUR ---
NURSE NOTES: Started weaning with CPAP PS 14 FiO2 35% for 50 mins at 0840. Changed to SIMV 15, PS 10, O2 40% for 10 mins. ABG drawn and placed pt back to AC mode by RT. Called and left a message for Dr Regalado regarding ABG result. Awaiting call back for new orders. Addendum: 12/19/18 at 1042 by DAIJA CAVANAUGH RN RN NURSE NOTES: Started weaning with CPAP PS 14 FiO2 35% for 50 mins at 0840. Changed to SIMV 15, PS 10, O2 40% for 20 mins. ABG drawn and placed pt back to AC mode by RT. Called and left a message for Dr Regalado regarding ABG result. Awaiting call back for new orders.
--- NOTE | 2018-12-19 10:54 | NUR ---
*-* INSURANCE *-* ALL CLINICALS AND REVIEWS HAVE BEEN FAXED TO: [facility] DILIA:MARY ANN F:[phone] P:[phone]
--- NOTE | 2018-12-19 11:07 | NUR ---
NURSE NOTES: Dr Regalado called back. Notified him for weaning and ABG result. No new orders.
--- NOTE | 2018-12-19 13:21 | NUR ---
RADIOLOGY DEPT ABDOMEN FOR NGT PLMT COMPLETED.-P.DYE
--- NOTE | 2018-12-19 14:25 | NUR ---
NURSE NOTES: Dr Regalado here to see the patient. Updated him with pt's current condition. No new orders.
--- NOTE | 2018-12-19 14:53 | General Progress Note ---
Assessment/Plan Problem List: (1) COPD exacerbation (2) Pneumonia ICD Codes: J18.9 - Pneumonia, unspecified organism SNOMED: 186856956 (3) Acute respiratory failure with hypercapnia ICD Codes: J96.02 - Acute respiratory failure with hypercapnia SNOMED: 231886748 (4) ARF (acute renal failure) ICD Codes: N17.9 - Acute kidney failure, unspecified SNOMED: 91207939 Assessment/Plan Discussed with Dr Regalado wean as tolerated cont with steroids Bronchodilators Discussed with family Subjective Allergies: Coded Allergies: IODINE (Verified Allergy, Severe, rash, 01/15/14) Subjective awake remains intubated Objective Last 24 Hour Vital Signs Date Time Temp Pulse Resp B/P (MAP) Pulse Ox O2 Delivery O2 Flow Rate FiO2 12/19/18 14:41 22 Mechanical Ventilator 40 12/19/18 14:00 96 23 156/105 (122) 93 12/19/18 13:30 99 22 156/105 (122) 93 12/19/18 13:00 96 22 132/65 (87) 95 12/19/18 12:45 108 23 40 12/19/18 12:30 93 23 132/65 (87) 94 12/19/18 12:00 96 20 136/109 (118) 98 12/19/18 12:00 95 23 141/86 (104) 94 12/19/18 12:00 Mechanical Ventilator 12/19/18 11:35 95 20 97 Mechanical Ventilator 40 12/19/18 11:30 95 22 142/93 (109) 93 12/19/18 11:22 95 20 96 Mechanical Ventilator 40 12/19/18 11:20 95 20 40 12/19/18 11:00 96 20 136/109 (118) 98 12/19/18 11:00 22 Mechanical Ventilator 40 12/19/18 10:43 22 Mechanical Ventilator 40 12/19/18 10:30 98 23 135/75 (95) 94 12/19/18 10:00 105 27 176/78 (110) 94 12/19/18 09:45 114 28 40 12/19/18 09:30 40 12/19/18 09:30 110 22 151/89 (109) 92 12/19/18 09:25 108 34 40 12/19/18 09:00 103 24 146/89 (108) 92 12/19/18 08:45 106 21 35 12/19/18 08:40 99 12/19/18 08:40 35 12/19/18 08:30 104 23 157/90 (112) 96 12/19/18 08:06 91 12/19/18 08:00 99.2 90 23 152/93 (112) 95 12/19/18 08:00 Mechanical Ventilator 12/19/18 08:00 50 12/19/18 08:00 22 Mechanical Ventilator 50 12/19/18 07:30 91 21 139/75 (96) 96 12/19/18 07:15 89 19 98 Mechanical Ventilator 50 12/19/18 07:15 89 19 50 12/19/18 07:03 88 22 96 Mechanical Ventilator 50 12/19/18 07:00 20 Mechanical Ventilator 12/19/18 07:00 88 26 151/63 (92) 97 12/19/18 06:00 98.9 98 23 130/73 (92) 96 12/19/18 06:00 20 Mechanical Ventilator 12/19/18 05:13 100 24 50 12/19/18 05:00 20 Mechanical Ventilator 12/19/18 05:00 103 26 128/73 (91) 97 12/19/18 04:00 Mechanical Ventilator 12/19/18 04:00 20 Mechanical Ventilator 12/19/18 04:00 97 24 168/67 (100) 96 12/19/18 04:00 94 12/19/18 04:00 50 12/19/18 03:34 89 20 98 Mechanical Ventilator 50 12/19/18 03:14 96 23 50 12/19/18 03:13 96 24 98 Mechanical Ventilator 50 12/19/18 03:00 98.9 95 23 140/65 (90) 96 12/19/18 03:00 20 Mechanical Ventilator 12/19/18 02:31 20 Mechanical Ventilator 12/19/18 02:00 20 Mechanical Ventilator 12/19/18 02:00 75 20 133/61 (85) 96 12/19/18 01:10 75 21 50 12/19/18 01:00 20 Mechanical Ventilator 12/19/18 01:00 75 20 135/58 (83) 95 12/19/18 00:00 20 Mechanical Ventilator 12/19/18 00:00 Mechanical Ventilator 12/19/18 00:00 71 20 131/63 (85) 96 12/18/18 23:25 72 20 99 Mechanical Ventilator 50 12/18/18 23:11 76 20 99 Mechanical Ventilator 50 12/18/18 23:10 76 20 50 12/18/18 23:00 20 Mechanical Ventilator 12/18/18 23:00 76 20 132/66 (88) 99 12/18/18 22:00 20 Mechanical Ventilator 12/18/18 22:00 89 18 152/74 (100) 96 12/18/18 21:36 90 21 50 12/18/18 21:00 20 Mechanical Ventilator 12/18/18 21:00 94 21 149/83 (105) 95 12/18/18 20:43 20 Mechanical Ventilator 12/18/18 20:00 94 12/18/18 20:00 50 12/18/18 20:00 Mechanical Ventilator 12/18/18 20:00 98.9 102 23 157/85 (109) 95 12/18/18 19:27 94 20 99 Mechanical Ventilator 50 12/18/18 19:13 93 24 95 Mechanical Ventilator 50 12/18/18 19:13 89 25 50 12/18/18 19:00 92 23 150/107 (121) 97 12/18/18 19:00 23 Mechanical Ventilator 50 12/18/18 18:00 93 23 155/86 (109) 96 12/18/18 18:00 23 Mechanical Ventilator 50 12/18/18 17:00 23 Mechanical Ventilator 50 12/18/18 17:00 94 23 168/66 (100) 97 12/18/18 16:45 94 21 50 12/18/18 16:08 92 12/18/18 16:00 50 12/18/18 16:00 23 Mechanical Ventilator 50 12/18/18 16:00 98.5 91 23 144/79 (100) 95 12/18/18 16:00 Mechanical Ventilator 12/18/18 15:30 96 22 154/86 (108) 97 12/18/18 15:00 93 23 153/73 (99) 96 12/18/18 15:00 22 Mechanical Ventilator 50 12/18/18 14:57 94 25 50 12/18/18 14:57 94 25 95 Mechanical Ventilator 50 Intake and Output 12/18/18 12/19/18 19:00 07:00 Intake Total 996 ml 1585 ml Output Total 554 ml 510 ml Balance 442 ml 1075 ml IV Total 866 ml 1195 ml Tube Feeding 80 ml 390 ml Other 50 ml Output Urine Total 554 ml 510 ml Laboratory Tests 12/19/18 09:31: Arterial Blood pH 7.300L, Arterial Blood Partial Pressure CO2 72.9*H, Arterial Blood Partial Pressure O2 74.6L, Arterial Blood HCO3 35.1H, Arterial Blood Oxygen Saturation 93.3L, Arterial Blood Base Excess 5.9H, Jose Test Positive Height (Feet): 5 Height (Inches): 8.00 Weight (Pounds): 214 Cardiovascular: normal rate Respiratory/Chest: rhonchi - bilaterally Edema: no edema noted Generalized Baldemar Morgan MD Dec 19, 2018 14:53
--- NOTE | 2018-12-19 15:30 | Pulmonolgy Critical Care Note ---
Critical Care - Asmt/Plan Assessment/Plan: Problem List: 1. Acute on chronic hypercapnic respiratory failure 2. Acute exacerbation of COPD 3. Possible community-acquired pneumonia 4. Cardiomyopathy, EF 20% 5. Systolic CHF 6. out of hospital respiratory failure/possible cardiac arrest s/p CPR by family 7. JUAN 8. 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 Discussed with: nurses Critical Care - Objective Last 24 Hour Vital Signs Date Time Temp Pulse Resp B/P (MAP) Pulse Ox O2 Delivery O2 Flow Rate FiO2 12/19/18 15:10 94 24 40 12/19/18 15:10 94 24 98 Mechanical Ventilator 40 12/19/18 15:04 93 20 142/70 (94) 96 12/19/18 14:59 91 22 98 Mechanical Ventilator 40 12/19/18 14:41 22 Mechanical Ventilator 40 12/19/18 14:30 92 21 132/68 (89) 93 12/19/18 14:00 96 23 156/105 (122) 93 12/19/18 13:30 99 22 156/105 (122) 93 12/19/18 13:00 96 22 132/65 (87) 95 12/19/18 12:45 108 23 40 12/19/18 12:30 93 23 132/65 (87) 94 12/19/18 12:00 96 20 136/109 (118) 98 12/19/18 12:00 95 23 141/86 (104) 94 12/19/18 12:00 Mechanical Ventilator 12/19/18 11:35 95 20 97 Mechanical Ventilator 40 12/19/18 11:30 95 22 142/93 (109) 93 12/19/18 11:22 95 20 96 Mechanical Ventilator 40 12/19/18 11:20 95 20 40 12/19/18 11:00 96 20 136/109 (118) 98 12/19/18 11:00 22 Mechanical Ventilator 40 12/19/18 10:43 22 Mechanical Ventilator 40 12/19/18 10:30 98 23 135/75 (95) 94 12/19/18 10:00 105 27 176/78 (110) 94 12/19/18 09:45 114 28 40 12/19/18 09:30 40 12/19/18 09:30 110 22 151/89 (109) 92 12/19/18 09:25 108 34 40 12/19/18 09:00 103 24 146/89 (108) 92 12/19/18 08:45 106 21 35 12/19/18 08:40 99 12/19/18 08:40 35 12/19/18 08:30 104 23 157/90 (112) 96 12/19/18 08:06 91 12/19/18 08:00 99.2 90 23 152/93 (112) 95 12/19/18 08:00 Mechanical Ventilator 12/19/18 08:00 50 12/19/18 08:00 22 Mechanical Ventilator 50 12/19/18 07:30 91 21 139/75 (96) 96 12/19/18 07:15 89 19 98 Mechanical Ventilator 50 12/19/18 07:15 89 19 50 12/19/18 07:03 88 22 96 Mechanical Ventilator 50 12/19/18 07:00 20 Mechanical Ventilator 12/19/18 07:00 88 26 151/63 (92) 97 12/19/18 06:00 98.9 98 23 130/73 (92) 96 12/19/18 06:00 20 Mechanical Ventilator 12/19/18 05:13 100 24 50 12/19/18 05:00 20 Mechanical Ventilator 12/19/18 05:00 103 26 128/73 (91) 97 12/19/18 04:00 Mechanical Ventilator 12/19/18 04:00 20 Mechanical Ventilator 12/19/18 04:00 97 24 168/67 (100) 96 12/19/18 04:00 94 12/19/18 04:00 50 12/19/18 03:34 89 20 98 Mechanical Ventilator 50 12/19/18 03:14 96 23 50 12/19/18 03:13 96 24 98 Mechanical Ventilator 50 12/19/18 03:00 98.9 95 23 140/65 (90) 96 12/19/18 03:00 20 Mechanical Ventilator 12/19/18 02:31 20 Mechanical Ventilator 12/19/18 02:00 20 Mechanical Ventilator 12/19/18 02:00 75 20 133/61 (85) 96 12/19/18 01:10 75 21 50 12/19/18 01:00 20 Mechanical Ventilator 12/19/18 01:00 75 20 135/58 (83) 95 12/19/18 00:00 20 Mechanical Ventilator 12/19/18 00:00 Mechanical Ventilator 12/19/18 00:00 71 20 131/63 (85) 96 12/18/18 23:25 72 20 99 Mechanical Ventilator 50 12/18/18 23:11 76 20 99 Mechanical Ventilator 50 12/18/18 23:10 76 20 50 12/18/18 23:00 20 Mechanical Ventilator 12/18/18 23:00 76 20 132/66 (88) 99 12/18/18 22:00 20 Mechanical Ventilator 12/18/18 22:00 89 18 152/74 (100) 96 12/18/18 21:36 90 21 50 12/18/18 21:00 20 Mechanical Ventilator 12/18/18 21:00 94 21 149/83 (105) 95 12/18/18 20:43 20 Mechanical Ventilator 12/18/18 20:00 94 12/18/18 20:00 50 12/18/18 20:00 Mechanical Ventilator 12/18/18 20:00 98.9 102 23 157/85 (109) 95 12/18/18 19:27 94 20 99 Mechanical Ventilator 50 12/18/18 19:13 93 24 95 Mechanical Ventilator 50 12/18/18 19:13 89 25 50 12/18/18 19:00 92 23 150/107 (121) 97 12/18/18 19:00 23 Mechanical Ventilator 50 12/18/18 18:00 93 23 155/86 (109) 96 12/18/18 18:00 23 Mechanical Ventilator 50 12/18/18 17:00 23 Mechanical Ventilator 50 12/18/18 17:00 94 23 168/66 (100) 97 12/18/18 16:45 94 21 50 12/18/18 16:08 92 12/18/18 16:00 50 12/18/18 16:00 23 Mechanical Ventilator 50 12/18/18 16:00 98.5 91 23 144/79 (100) 95 12/18/18 16:00 Mechanical Ventilator 12/18/18 15:30 96 22 154/86 (108) 97 Status: awake Condition: improving Lungs: rales, rhonchi, other - diminished but improving air movement Heart: HR/BP stable Abdomen: non-tender Extremities: no C/C/E Micro: Microbiology Date/Time Source Procedure Growth Status 12/16/18 21:10 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 Complete Accucheck: 146 Critical Care - Subjective ROS Limited/Unobtainable: Yes Interval Events: Tolerated longer PS trial for almost an hour. Continued secretions. Comfortable on vent. Condition: improving EKG Rhythm: Sinus Rhythm FI02: 40 Vent Support Breath Rate: 20 Vent Support Mode: AC Vent Tidal Volume: 600 Sputum Amount: Moderate PEEP: 5.0 PIP: 31 Tube Feeding Amount: 40 I&O: Intake and Output 12/18/18 12/19/18 18:59 06:59 Intake Total 976 ml 1610 ml Output Total 561 ml 498 ml Balance 415 ml 1112 ml IV Total 866 ml 1200 ml Tube Feeding 60 ml 410 ml Other 50 ml Output Urine Total 561 ml 498 ml CXR: b/l infiltrates ET-Tube: 7.0 ET Position: 24 Vincenzo Regalado MD Dec 19, 2018 15:30
--- NOTE | 2018-12-19 15:57 | Diagnostic Imaging Report ---
Indication: Post orogastric tube placement Technique: Supine view of the abdomen Comparison: 4 hours earlier Findings: Again demonstrated is a nasogastric tube coiled within a large hiatal hernia. An unusual calcification projects over the left side of the gastric fundus, also evident on prior studies as previously, the colon is diffusely gas-filled and upper limits normal in caliber. There is mild small bowel distention as well Impression: Orogastric tube, coiled within gastric fundus which is within a hiatal hernia Findings discussed by phone with ICU charge nurse at the time of interpretation
[2018-12-19] MEDS: D5NS 1,000 ML IV SCH (16:00)
--- NOTE | 2018-12-19 16:21 | NUR ---
NURSE NOTES: Pt went down for CT head. Addendum: 12/19/18 at 1654 by DAIJA CAVANAUGH RN RN NURSE NOTES: Pt went down for CT head. Came back from CT. Cleaned and repositioned pt. Pt helps turning.
--- NOTE | 2018-12-19 16:38 | Diagnostic Imaging Report ---
Indications: Altered mental status Technique: Spiral acquisitions obtained through the brain. Angled axial and coronal 5 x 5 mm slices were reconstructed. Total dose length product 1397.2 mGycm. CTDI vol(s) 70.38 mGy. Dose reduction achieved using automated exposure control Comparison: None. Findings: There is some image degradation due to motion artifact. No acute intracranial hemorrhage nor edema, mass effect, nor midline shift. Normal beaver-white differentiation. There is mild age-related enlargement of the ventricles and extra axial CSF spaces. Intact calvarium. There is periventricular deep white matter low-attenuation. There is evidence of bilateral cataract surgery. The visualized sinuses are unremarkable. The mastoids are clear. There is a left frontal scalp lipoma which measures 2.4 x 0.8 cm. Impression: Chronic and age-related changes as described Negative for acute intracranial bleed or mass effect Incidental finding left frontal scalp lipoma The CT scanner at [facility] is accredited by the [employer] and the scans are performed using protocols designed to limit radiation exposure to as low as reasonably achievable to attain images of sufficient resolution adequate for diagnostic evaluation.
--- NOTE | 2018-12-19 16:51 | NUR ---
NURSE NOTES: Spoke with Dr Pike regarding KUB result. The OGT tip is in stomach as per Dr Pike. Spoke with pharmacy and will administer 9AM meds and restart feeding.
--- NOTE | 2018-12-19 19:10 | NUR ---
NURSE NOTES: Report received from Pamela Edwards RN. Pt A/Ox4, copy and print associate shows SR. Pt has ETT sz [address] @25 on lip. Ventilator settings: AC20, VT600, FiO2:40, PEEP:5. Tolerating settings well. Shows no signs of cardiac or respiratory distress. Pt has an OGT present with glucerna 1.5 running at 20 ml/hr. Nina catheter present and draining well. Accuchecks q6h. No skin issues noted. Pt has a RH22g and a RUA20g present with D5NS running at 60 ml/hr and Fentanyl drip running at 150 mcg/hr for RASS score of -1. Soft wrist Restraints present on BUE. No swelling or skin breakdown noted. Bed in lowest position, bed alarms placed. Will continue to monitor and with patients plan of care.
--- NOTE | 2018-12-19 19:12 | NUR ---
RESPIRATORY NOTE: Received pt on AC 20, 600VT, 40%, PEEP +5. Pt intubated w/ ETT 7.0 @ 24cm lipline, secured by anchorfast. Pt alert/awake, follows commands. Both hands on soft restraints to prevent pt from self-extubation. B/S sobeida. diminished, sxn small amounts of thin, frothy, clear-white secretions. Vent plugged into red outlet, ambubag at bedside. Pt resting comfortably, in no apparent distress at this time. Will continue to monitor pt.
--- NOTE | 2018-12-19 19:38 | NUR ---
HAND-OFF: Report given to LYUDMILA Coffman.
[2018-12-19] MEDS: cefTRIAXone 1 GM in D5W 55 ML IV SCH (21:17)
--- NOTE | 2018-12-19 22:00 | NUR ---
NURSE NOTES: Pt currently resting comfortably. VSS. In no acute respiratory or cardiac distress. All needs have been met. Will continue to monitor.
[2018-12-19] MEDS: HydrALAZINE 50mg tab ORAL SCH (23:38)
[2018-12-20] VITALS (48 sets, daily range): BP systolic 106–166; BP diastolic 59–91
--- NOTE | 2018-12-20 | NUR ---
NURSE NOTES: Pt awake and alert. VSS. All needs met. Tolerating ventilator settings well. Will continue to monitor.
[2018-12-20] MEDS: Azithromycin 500 MG in D5W 275 ML IV SCH ×2 (00:21→23:38)
[2018-12-20] MEDS: NovoLOG Insulin Flexpen SUBQ SCH ×5 (00:22→23:37)
--- NOTE | 2018-12-20 02:00 | NUR ---
NURSE NOTES: Pt showing some agitation. States he is having difficulty breathing. VSS. Fentanyl drip increased to reduce anxiety. Will continue to monitor.
[2018-12-20] MEDS: Acetylcysteine 20% Soln 4ml HHN SCH ×6 (03:30→22:44)
[2018-12-20] MEDS: Albuterol/Ipratropium 3ml neb HHN SCH ×7 (03:30→23:00)
--- NOTE | 2018-12-20 04:00 | NUR ---
NURSE NOTES: Pt resting comfortably. Bath and linen change refused by patient. VSS. In no signs of acute distress. Will continue to monitor.
[2018-12-20] MEDS: Solu-MEDROL 125mg Inj IVP SCH ×2 (05:14→13:35)
[2018-12-20] MEDS: HydrALAZINE 50mg tab ORAL SCH ×3 (05:15→22:23)
--- NOTE | 2018-12-20 05:58 | NUR ---
NURSE NOTES: Pt resting comfortably. No signs of acute distress. VSS.
--- NOTE | 2018-12-20 07:20 | NUR ---
RESPIRATORY NOTE: Received patient on current vent settings. Patient ETT tube is patent and secured via anchor fast. Suctioned patient PRN. Vent alarms are on and audible. Vent is plugged into red outlet. Will monitor pt progress.
--- NOTE | 2018-12-20 08:00 | NUR ---
NURSE NOTES: Received patient awake, uncomfortable, shifting. Fentanyl titrated up to 200 mcg/hr per protocol. teletypesetter monitor showing SR. Patient intubated 7.0/25 cm lipline AC 20 VT 600 FiO2 40% Peep of 5 as original settings but at 7:20 weaning trial began and patient is now on CPAP PS 8 tolerating well, No distress noted. OGT intact. Glucerna 1.5 at 40 cc/hr. Large, round abdomen. Non-tender. Hypoactive bowel sounds on all 4 quadrants. R hand 22 R forearm 20. D5NS at 6- cc/hr. Fentanyl at 200 mcg/hr. Bilateral restraints intact. No skin issues, no swelling noted. Active range of motion present, bilateral radial pulses present. Bed on lowest position, call light within reach, HOB elevated. Will continue to monitor patient.
[2018-12-20] MEDS: Losartan 50mg tab NG SCH (08:56)
[2018-12-20] MEDS: Bisacodyl EC 5mg tab ORAL SCH ×2 (08:56→18:00)
[2018-12-20] MEDS: Pantoprazole Inj IVP SCH (08:57)
[2018-12-20] MEDS: Aspirin Baby 81mg ORAL SCH (08:57)
[2018-12-20] MEDS: Heparin 5000 units/ml inj SUBQ SCH ×2 (08:58→20:04)
--- NOTE | 2018-12-20 10:00 | NUR ---
NURSE NOTES: Still tolerating weaning. Patient stable. VSS. Fentanyl titrated to 100 mcg/hour. No distress noted at this time.
--- NOTE | 2018-12-20 10:56 | NUR ---
RD ASSESSMENT & RECOMMENDATIONS SEE CARE ACTIVITY FOR COMPLETE ASSESSMENT DAILY ESTIMATED NEEDS: Needs based on Critical care, DM 76.9kg adj 20-26 kcals/kg 5641-4192 total kcals 1.2-2 g protein/kg 92-154 g total protein 25-30 mL/kg 3589-4694 total fluid mLs NUTRITION DIAGNOSIS: 1) Swallowing difficulty r/t respiratory status as evidenced by pt intubated, pending non oral feeds, ICU status. 2) Altered nutrition related lab values r/t clinical status as evidenced by critically elev pCO2 (63.0*), a1C 6.1, elev phos on adm (5.2). CURRENT TF: Glucerna 1.5 @40ml ENTERAL NUTRITION RECOMMENDATIONS: Glucerna 1.5 @50ml/hr x24 hrs to provide 1200ml, 1800 kcal, 99g prot, 911ml free H2O - Increase TF by 10ml/hr to goal of 50ml/hr to better meet est needs. 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
--- NOTE | 2018-12-20 12:00 | NUR ---
NURSE NOTES: Patient turned and repositioned. No new orders at this time. patient back on AC mode. Will continue to monitor patient.
--- NOTE | 2018-12-20 13:36 | Cardiology Progress Note ---
Assessment/Plan Status: stable Assessment/Plan Assessment/Plan Status: stable Assessment/Plan Assessment: Respiratory failure COPD (chronic obstructive pulmonary disease) Pneumonia CAD, previous CABG PPM/ICD HTN HLD PLAN: Patient has failed to progress off the vent, he is hemodynamically stable, he is tolerating CPAP for a while then gets tired, he is on steroid taper, he as some secretions as well. Cultures are negative so far and chest x ray is clear. CT brain negative for CVA Echo with systolic dysfunction but he doesnt appear to be in heart failure, CXR clear and PA pressures normal and he is hemodynamically stable. continue steroids now being weaned continue empiric abx, follow cultures Will initiated heart failure treatment when stable/extubated Will need ischemia evaluation given hx of CAD/CABG to evaluate graft function when stable prior to discharge continue aspirin continue statin Hold beta blockers while intubated Monitor I/O and renal function Spot diuresis as needed, currently does not appear fluid overloaded Daily weaning trials Discussed with family and nursing Subjective Cardiovascular: Reports: no symptoms Respiratory: Reports: no symptoms Gastrointestinal/Abdominal: Reports: no symptoms Genitourinary: Reports: no symptoms Subjective No acute events, patient remains on vent, He was on CPAP this morning and now back on AC, he was alert this morning, his steroids are being weaned. He is hemodynamically stable. Echo with severe LV dysfunction EF 20 percent. d/w nursing Objective Last 24 Hour Vital Signs Date Time Temp Pulse Resp B/P (MAP) Pulse Ox O2 Delivery O2 Flow Rate FiO2 12/20/18 13:21 85 23 40 12/20/18 12:00 Mechanical Ventilator 12/20/18 12:00 40 12/20/18 12:00 91 20 125/74 (91) 96 12/20/18 11:30 89 20 128/77 (94) 96 12/20/18 11:15 80 22 99 Mechanical Ventilator 40 12/20/18 11:07 75 21 99 Mechanical Ventilator 40 12/20/18 11:07 90 20 40 12/20/18 11:00 91 20 138/84 (102) 96 12/20/18 10:30 90 20 133/70 (91) 96 12/20/18 10:00 94 20 140/72 (94) 96 12/20/18 09:30 92 20 130/75 (93) 96 12/20/18 09:00 92 22 40 12/20/18 09:00 98.8 95 20 145/78 (100) 96 12/20/18 09:00 92 12/20/18 08:56 145/77 12/20/18 08:30 90 20 135/77 (96) 96 12/20/18 08:00 95 12/20/18 08:00 35 12/20/18 08:00 92 20 130/60 (83) 96 12/20/18 08:00 Mechanical Ventilator 12/20/18 07:30 94 20 135/65 (88) 96 12/20/18 07:29 86 22 99 Mechanical Ventilator 40 12/20/18 07:23 78 21 99 Mechanical Ventilator 40 12/20/18 07:20 35 12/20/18 07:20 95 20 40 12/20/18 07:00 90 20 130/62 (84) 96 12/20/18 07:00 Mechanical Ventilator 12/20/18 06:30 95 20 146/67 (93) 94 12/20/18 06:00 98.7 75 20 140/69 (92) 94 12/20/18 06:00 20 Mechanical Ventilator 12/20/18 05:33 98.7 12/20/18 05:30 76 20 148/70 (96) 94 12/20/18 05:29 77 20 40 12/20/18 05:15 157/72 12/20/18 05:03 20 Mechanical Ventilator 12/20/18 05:00 76 21 136/89 (105) 94 12/20/18 04:30 77 20 145/85 (105) 94 12/20/18 04:00 40 12/20/18 04:00 22 Mechanical Ventilator 12/20/18 04:00 78 22 144/69 (94) 94 12/20/18 04:00 80 12/20/18 04:00 Mechanical Ventilator 12/20/18 03:45 82 22 99 Mechanical Ventilator 40 12/20/18 03:30 79 21 40 12/20/18 03:30 78 20 119/78 (92) 96 12/20/18 03:30 79 21 99 Mechanical Ventilator 40 12/20/18 03:00 76 20 134/69 (90) 93 12/20/18 03:00 21 Mechanical Ventilator 12/20/18 02:30 77 21 140/67 (91) 93 2/14/19 02:00 24 Mechanical Ventilator 12/20/18 02:00 80 22 150/77 (101) 94 12/20/18 01:30 79 22 149/71 (97) 95 12/20/18 01:08 80 20 40 12/20/18 01:00 22 Mechanical Ventilator 12/20/18 01:00 79 20 145/77 (99) 96 12/20/18 00:30 82 21 160/78 (105) 94 12/20/18 00:00 81 22 166/73 (104) 94 12/20/18 00:00 40 12/20/18 00:00 84 12/20/18 00:00 Mechanical Ventilator 12/19/18 23:38 198/80 12/19/18 23:30 78 20 175/148 (157) 94 12/19/18 23:29 78 22 97 Mechanical Ventilator 40 12/19/18 23:14 77 21 95 Mechanical Ventilator 40 12/19/18 23:13 77 21 40 12/19/18 23:08 20 Mechanical Ventilator 12/19/18 23:00 82 20 200/76 (117) 93 12/19/18 22:30 98.8 82 22 195/82 (119) 93 12/19/18 22:08 22 Mechanical Ventilator 12/19/18 22:00 82 22 186/132 (150) 94 12/19/18 21:30 82 21 157/72 (100) 95 12/19/18 21:00 22 Mechanical Ventilator 12/19/18 21:00 82 23 168/60 (96) 96 12/19/18 20:55 89 25 40 12/19/18 20:30 82 22 135/84 (101) 94 12/19/18 20:00 82 20 204/116 (145) 94 12/19/18 20:00 40 12/19/18 20:00 Mechanical Ventilator 12/19/18 20:00 81 12/19/18 20:00 22 Mechanical Ventilator 12/19/18 19:30 98.9 82 20 204/105 (138) 94 12/19/18 19:26 95 23 99 Mechanical Ventilator 40 12/19/18 19:11 81 20 95 Mechanical Ventilator 40 12/19/18 19:10 81 20 40 12/19/18 19:00 21 Mechanical Ventilator 12/19/18 19:00 82 21 139/77 (97) 94 12/19/18 18:30 82 20 173/97 (122) 94 12/19/18 18:00 86 22 165/73 (103) 93 12/19/18 18:00 21 Mechanical Ventilator 40 12/19/18 17:30 89 22 163/68 (99) 93 12/19/18 17:03 142/70 12/19/18 17:00 92 21 162/67 (98) 92 12/19/18 17:00 21 Mechanical Ventilator 40 12/19/18 16:56 95 24 40 12/19/18 16:30 99 25 163/85 (111) 92 12/19/18 16:00 40 12/19/18 16:00 100 12/19/18 16:00 23 Mechanical Ventilator 40 12/19/18 16:00 99.5 93 20 142/70 (94) 96 12/19/18 16:00 Mechanical Ventilator 12/19/18 15:34 94 12/19/18 15:30 91 22 154/63 (93) 92 12/19/18 15:10 94 24 40 12/19/18 15:10 94 24 98 Mechanical Ventilator 40 12/19/18 15:04 93 20 142/70 (94) 96 12/19/18 15:00 22 Mechanical Ventilator 40 12/19/18 14:59 91 22 98 Mechanical Ventilator 40 12/19/18 14:41 22 Mechanical Ventilator 40 12/19/18 14:30 92 21 132/68 (89) 93 12/19/18 14:00 96 23 156/105 (122) 93 12/19/18 14:00 22 Mechanical Ventilator 40 General Appearance: no apparent distress, on vent EENT: PERRL/EOMI, normal ENT inspection, TMs normal, pharynx normal Neck: non-tender, normal alignment, supple, normal inspection, no JVD Rhythm: NSR Cardiovascular: normal peripheral pulses, regular rhythm Respiratory/Chest: accessory muscle use, crackles/rales, rhonchi - bilaterally , rhonchi - left Abdomen: normal bowel sounds, soft, no organomegaly Neurologic: 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 engine 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 II-XII grossly normal, no motor/sensory deficits Intake and Output 12/19/18 12/20/18 19:00 07:00 Intake Total 914 ml 1477.87 ml Output Total 600 ml 575 ml Balance 314 ml 902.87 ml IV Total 854 ml 1147.87 ml Tube Feeding 60 ml 330 ml Output Urine Total 600 ml 575 ml Laboratory Tests Test 12/20/18 09:00 Arterial Blood pH 7.337 (7.350-7.450) Arterial Blood Partial Pressure CO2 63.0 mmHg (35.0-45.0) *H Arterial Blood Partial Pressure O2 64.4 mmHg (75.0-100.0) L Arterial Blood HCO3 33.0 mmol/L (22.0-26.0) H Arterial Blood Oxygen Saturation 90.7 % (95-100) L Arterial Blood Base Excess 5.0 (-2-2) H Jose Test Positive Nico Kingston MD Dec 20, 2018 13:36
--- NOTE | 2018-12-20 14:00 | NUR ---
NURSE NOTES: Patient turned and repositioned. No new orders. VSS. able to help with repositioning. Will continue plan of care.
--- NOTE | 2018-12-20 14:10 | General Progress Note ---
Assessment/Plan Problem List: (1) COPD exacerbation (2) Pneumonia ICD Codes: J18.9 - Pneumonia, unspecified organism SNOMED: 169638263 (3) Acute respiratory failure with hypercapnia ICD Codes: J96.02 - Acute respiratory failure with hypercapnia SNOMED: 963392925 (4) ARF (acute renal failure) ICD Codes: N17.9 - Acute kidney failure, unspecified SNOMED: 97733648 Assessment/Plan wean as tolerated cont with steroids Bronchodilators Discussed with family Subjective Allergies: Coded Allergies: IODINE (Verified Allergy, Severe, rash, 01/15/14) Subjective remains intubated Objective Last 24 Hour Vital Signs Date Time Temp Pulse Resp B/P (MAP) Pulse Ox O2 Delivery O2 Flow Rate FiO2 12/20/18 14:00 98.9 85 20 135/72 (93) 96 12/20/18 13:36 143/72 12/20/18 13:30 90 20 138/74 (95) 96 12/20/18 13:21 85 23 40 12/20/18 13:00 88 20 144/75 (98) 96 12/20/18 12:30 88 20 138/70 (92) 96 12/20/18 12:00 Mechanical Ventilator 12/20/18 12:00 40 12/20/18 12:00 91 20 125/74 (91) 96 12/20/18 12:00 85 12/20/18 11:30 89 20 128/77 (94) 96 12/20/18 11:15 80 22 99 Mechanical Ventilator 40 12/20/18 11:07 75 21 99 Mechanical Ventilator 40 12/20/18 11:07 90 20 40 12/20/18 11:00 91 20 138/84 (102) 96 12/20/18 10:30 90 20 133/70 (91) 96 12/20/18 10:00 94 20 140/72 (94) 96 12/20/18 09:30 92 20 130/75 (93) 96 12/20/18 09:00 92 22 40 12/20/18 09:00 98.8 95 20 145/78 (100) 96 12/20/18 09:00 92 12/20/18 08:56 145/77 12/20/18 08:30 90 20 135/77 (96) 96 12/20/18 08:00 95 12/20/18 08:00 35 12/20/18 08:00 92 20 130/60 (83) 96 12/20/18 08:00 Mechanical Ventilator 12/20/18 07:30 94 20 135/65 (88) 96 12/20/18 07:29 86 22 99 Mechanical Ventilator 40 12/20/18 07:23 78 21 99 Mechanical Ventilator 40 12/20/18 07:20 35 12/20/18 07:20 95 20 40 12/20/18 07:00 90 20 130/62 (84) 96 12/20/18 07:00 Mechanical Ventilator 12/20/18 06:30 95 20 146/67 (93) 94 12/20/18 06:00 98.7 75 20 140/69 (92) 94 12/20/18 06:00 20 Mechanical Ventilator 12/20/18 05:33 98.7 12/20/18 05:30 76 20 148/70 (96) 94 12/20/18 05:29 77 20 40 12/20/18 05:15 157/72 12/20/18 05:03 20 Mechanical Ventilator 12/20/18 05:00 76 21 136/89 (105) 94 12/20/18 04:30 77 20 145/85 (105) 94 12/20/18 04:00 40 12/20/18 04:00 22 Mechanical Ventilator 12/20/18 04:00 78 22 144/69 (94) 94 12/20/18 04:00 80 12/20/18 04:00 Mechanical Ventilator 12/20/18 03:45 82 22 99 Mechanical Ventilator 40 12/20/18 03:30 79 21 40 12/20/18 03:30 78 20 119/78 (92) 96 12/20/18 03:30 79 21 99 Mechanical Ventilator 40 12/20/18 03:00 76 20 134/69 (90) 93 12/20/18 03:00 21 Mechanical Ventilator 12/20/18 02:30 77 21 140/67 (91) 93 12/20/18 02:00 24 Mechanical Ventilator 12/20/18 02:00 80 22 150/77 (101) 94 12/20/18 01:30 79 22 149/71 (97) 95 12/20/18 01:08 80 20 40 12/20/18 01:00 22 Mechanical Ventilator 12/20/18 01:00 79 20 145/77 (99) 96 12/20/18 00:30 82 21 160/78 (105) 94 12/20/18 00:00 81 22 166/73 (104) 94 12/20/18 00:00 40 12/20/18 00:00 84 12/20/18 00:00 Mechanical Ventilator 12/19/18 23:38 198/80 12/19/18 23:30 78 20 175/148 (157) 94 12/19/18 23:29 78 22 97 Mechanical Ventilator 40 12/19/18 23:14 77 21 95 Mechanical Ventilator 40 12/19/18 23:13 77 21 40 12/19/18 23:08 20 Mechanical Ventilator 12/19/18 23:00 82 20 200/76 (117) 93 12/19/18 22:30 98.8 82 22 195/82 (119) 93 12/19/18 22:08 22 Mechanical Ventilator 12/19/18 22:00 82 22 186/132 (150) 94 12/19/18 21:30 82 21 157/72 (100) 95 12/19/18 21:00 22 Mechanical Ventilator 12/19/18 21:00 82 23 168/60 (96) 96 12/19/18 20:55 89 25 40 12/19/18 20:30 82 22 135/84 (101) 94 12/19/18 20:00 82 20 204/116 (145) 94 12/19/18 20:00 40 12/19/18 20:00 Mechanical Ventilator 12/19/18 20:00 81 12/19/18 20:00 22 Mechanical Ventilator 12/19/18 19:30 98.9 82 20 204/105 (138) 94 12/19/18 19:26 95 23 99 Mechanical Ventilator 40 12/19/18 19:11 81 20 95 Mechanical Ventilator 40 12/19/18 19:10 81 20 40 12/19/18 19:00 21 Mechanical Ventilator 12/19/18 19:00 82 21 139/77 (97) 94 12/19/18 18:30 82 20 173/97 (122) 94 12/19/18 18:00 86 22 165/73 (103) 93 12/19/18 18:00 21 Mechanical Ventilator 40 12/19/18 17:30 89 22 163/68 (99) 93 12/19/18 17:03 142/70 12/19/18 17:00 92 21 162/67 (98) 92 12/19/18 17:00 21 Mechanical Ventilator 40 12/19/18 16:56 95 24 40 12/19/18 16:30 99 25 163/85 (111) 92 12/19/18 16:00 40 12/19/18 16:00 100 12/19/18 16:00 23 Mechanical Ventilator 40 12/19/18 16:00 99.5 93 20 142/70 (94) 96 12/19/18 16:00 Mechanical Ventilator 12/19/18 15:34 94 12/19/18 15:30 91 22 154/63 (93) 92 12/19/18 15:10 94 24 40 12/19/18 15:10 94 24 98 Mechanical Ventilator 40 12/19/18 15:04 93 20 142/70 (94) 96 12/19/18 15:00 22 Mechanical Ventilator 40 12/19/18 14:59 91 22 98 Mechanical Ventilator 40 12/19/18 14:41 22 Mechanical Ventilator 40 12/19/18 14:30 92 21 132/68 (89) 93 Intake and Output 12/19/18 12/20/18 19:00 07:00 Intake Total 914 ml 1477.87 ml Output Total 600 ml 575 ml Balance 314 ml 902.87 ml IV Total 854 ml 1147.87 ml Tube Feeding 60 ml 330 ml Output Urine Total 600 ml 575 ml Laboratory Tests 12/20/18 09:00: Arterial Blood pH 7.337L, Arterial Blood Partial Pressure CO2 63.0*H, Arterial Blood Partial Pressure O2 64.4L, Arterial Blood HCO3 33.0H, Arterial Blood Oxygen Saturation 90.7L, Arterial Blood Base Excess 5.0H, Jose Test Positive Height (Feet): 5 Height (Inches): 8.00 Weight (Pounds): 213 Cardiovascular: normal rate Respiratory/Chest: rhonchi - bilaterally Edema: no edema noted Generalized Baldemar Morgan MD Dec 20, 2018 14:10
--- NOTE | 2018-12-20 15:59 | Pulmonolgy Critical Care Note ---
Critical Care - Asmt/Plan Assessment/Plan: Problem List: 1. Acute on chronic hypercapnic respiratory failure 2. Acute exacerbation of COPD 3. Possible community-acquired pneumonia 4. Cardiomyopathy, EF 20% 5. Systolic CHF 6. out of hospital respiratory failure/possible cardiac arrest s/p CPR by family 7. JUAN 8. DM Plan: -cont mechanical ventilatory support, daily weaning trials, improving -wean sedation as tolerated -Monitor ABG prn -abx: ceftriaxone/azithro -f/u cultures -solumedrol 60 mg IV q12, taper as tolerated, will likely start tapering tomorrow -Good pulmonary hygiene: duonebs and mucomyst q4, suction prn -monitor volumes, avoid overload -monitor renal function Respiratory: weaning trial Cardiac: continue to monitor HR/BP Renal: F/U I&O Infectious Disease: continue antibiotics Neurologic: keep patient comfortable Time Spent (Minutes): 40 - cc Discussed with: nurses Critical Care - Objective Last 24 Hour Vital Signs Date Time Temp Pulse Resp B/P (MAP) Pulse Ox O2 Delivery O2 Flow Rate FiO2 12/20/18 15:01 84 22 99 Mechanical Ventilator 40 12/20/18 14:50 76 23 99 Mechanical Ventilator 40 12/20/18 14:50 93 21 40 12/20/18 14:00 98.9 85 20 135/72 (93) 96 12/20/18 13:36 143/72 12/20/18 13:30 90 20 138/74 (95) 96 12/20/18 13:21 85 23 40 12/20/18 13:00 88 20 144/75 (98) 96 12/20/18 12:30 88 20 138/70 (92) 96 12/20/18 12:00 Mechanical Ventilator 12/20/18 12:00 40 12/20/18 12:00 91 20 125/74 (91) 96 12/20/18 12:00 85 12/20/18 11:30 89 20 128/77 (94) 96 12/20/18 11:15 80 22 99 Mechanical Ventilator 40 12/20/18 11:07 75 21 99 Mechanical Ventilator 40 12/20/18 11:07 90 20 40 12/20/18 11:00 91 20 138/84 (102) 96 12/20/18 10:30 90 20 133/70 (91) 96 12/20/18 10:00 94 20 140/72 (94) 96 12/20/18 09:30 92 20 130/75 (93) 96 12/20/18 09:00 92 22 40 12/20/18 09:00 98.8 95 20 145/78 (100) 96 12/20/18 09:00 92 12/20/18 08:56 145/77 12/20/18 08:30 90 20 135/77 (96) 96 12/20/18 08:00 95 12/20/18 08:00 35 12/20/18 08:00 92 20 130/60 (83) 96 12/20/18 08:00 Mechanical Ventilator 12/20/18 07:30 94 20 135/65 (88) 96 12/20/18 07:29 86 22 99 Mechanical Ventilator 40 12/20/18 07:23 78 21 99 Mechanical Ventilator 40 12/20/18 07:20 35 12/20/18 07:20 95 20 40 12/20/18 07:00 90 20 130/62 (84) 96 12/20/18 07:00 Mechanical Ventilator 12/20/18 06:30 95 20 146/67 (93) 94 12/20/18 06:00 98.7 75 20 140/69 (92) 94 12/20/18 06:00 20 Mechanical Ventilator 12/20/18 05:33 98.7 12/20/18 05:30 76 20 148/70 (96) 94 12/20/18 05:29 77 20 40 12/20/18 05:15 157/72 12/20/18 05:03 20 Mechanical Ventilator 12/20/18 05:00 76 21 136/89 (105) 94 12/20/18 04:30 77 20 145/85 (105) 94 12/20/18 04:00 40 12/20/18 04:00 22 Mechanical Ventilator 12/20/18 04:00 78 22 144/69 (94) 94 12/20/18 04:00 80 12/20/18 04:00 Mechanical Ventilator 12/20/18 03:45 82 22 99 Mechanical Ventilator 40 12/20/18 03:30 79 21 40 12/20/18 03:30 78 20 119/78 (92) 96 12/20/18 03:30 79 21 99 Mechanical Ventilator 40 12/20/18 03:00 76 20 134/69 (90) 93 2/14/19 03:00 21 Mechanical Ventilator 12/20/18 02:30 77 21 140/67 (91) 93 12/20/18 02:00 24 Mechanical Ventilator 12/20/18 02:00 80 22 150/77 (101) 94 12/20/18 01:30 79 22 149/71 (97) 95 12/20/18 01:08 80 20 40 12/20/18 01:00 22 Mechanical Ventilator 12/20/18 01:00 79 20 145/77 (99) 96 12/20/18 00:30 82 21 160/78 (105) 94 12/20/18 00:00 81 22 166/73 (104) 94 12/20/18 00:00 40 12/20/18 00:00 84 12/20/18 00:00 Mechanical Ventilator 12/19/18 23:38 198/80 12/19/18 23:30 78 20 175/148 (157) 94 12/19/18 23:29 78 22 97 Mechanical Ventilator 40 12/19/18 23:14 77 21 95 Mechanical Ventilator 40 12/19/18 23:13 77 21 40 12/19/18 23:08 20 Mechanical Ventilator 12/19/18 23:00 82 20 200/76 (117) 93 12/19/18 22:30 98.8 82 22 195/82 (119) 93 12/19/18 22:08 22 Mechanical Ventilator 12/19/18 22:00 82 22 186/132 (150) 94 12/19/18 21:30 82 21 157/72 (100) 95 12/19/18 21:00 22 Mechanical Ventilator 12/19/18 21:00 82 23 168/60 (96) 96 12/19/18 20:55 89 25 40 12/19/18 20:30 82 22 135/84 (101) 94 12/19/18 20:00 82 20 204/116 (145) 94 12/19/18 20:00 40 12/19/18 20:00 Mechanical Ventilator 12/19/18 20:00 81 12/19/18 20:00 22 Mechanical Ventilator 12/19/18 19:30 98.9 82 20 204/105 (138) 94 12/19/18 19:26 95 23 99 Mechanical Ventilator 40 12/19/18 19:11 81 20 95 Mechanical Ventilator 40 12/19/18 19:10 81 20 40 12/19/18 19:00 21 Mechanical Ventilator 12/19/18 19:00 82 21 139/77 (97) 94 12/19/18 18:30 82 20 173/97 (122) 94 12/19/18 18:00 86 22 165/73 (103) 93 12/19/18 18:00 21 Mechanical Ventilator 40 12/19/18 17:30 89 22 163/68 (99) 93 12/19/18 17:03 142/70 12/19/18 17:00 92 21 162/67 (98) 92 12/19/18 17:00 21 Mechanical Ventilator 40 12/19/18 16:56 95 24 40 12/19/18 16:30 99 25 163/85 (111) 92 12/19/18 16:00 40 12/19/18 16:00 100 12/19/18 16:00 23 Mechanical Ventilator 40 12/19/18 16:00 99.5 93 20 142/70 (94) 96 12/19/18 16:00 Mechanical Ventilator Status: awake Condition: improving Lungs: wheezing Heart: HR/BP stable Abdomen: soft, non-tender Extremities: no C/C/E Accucheck: 132 Critical Care - Subjective ROS Limited/Unobtainable: Yes Interval Events: Did better on PS but got tired and extubation was not performed. No secretions. Calm. Wants water. EKG Rhythm: Sinus Rhythm FI02: 40 Vent Support Breath Rate: 20 Vent Support Mode: AC Vent Tidal Volume: 600 Sputum Amount: None PEEP: 5.0 PIP: 31 Tube Feeding Amount: 40 I&O: Intake and Output 12/19/18 12/20/18 19:00 07:00 Intake Total 914 ml 1477.87 ml Output Total 600 ml 575 ml Balance 314 ml 902.87 ml IV Total 854 ml 1147.87 ml Tube Feeding 60 ml 330 ml Output Urine Total 600 ml 575 ml ET-Tube: 7.0 ET Position: 24 Vincenzo Regalado MD Dec 20, 2018 15:59
--- NOTE | 2018-12-20 16:00 | NUR ---
NURSE NOTES: Patient turned and repositioned. No new orders at this time. Will continue plan of care.
--- NOTE | 2018-12-20 18:00 | NUR ---
NURSE NOTES: Patient pulled out both IV lines. R hand 20. L hand 20 started. No new orders. Will continue plan of care.
--- NOTE | 2018-12-20 19:15 | NUR ---
NURSE NOTES: Endorsement received from LYUDMILA Puentes. Patient on Fentanyl drip 160mcg/hr, with RASS score goal of -1 as ordered. Sinus rhythm on the monitor, with left upper chest pacemaker. Orally intubated with AC 20, VT 600, 40%, PEEP 5. With OGT, receiving Glucerna 1.5 40 ml/hr. OGT placement rechecked per auscultation. Residual checked, noted with 300ml undigested feeding. Tube feeding withheld. Abdomen nontender, large and distended. Head of bed kept elevated. With right hand g 20 and left hand g20. Ongoing D5NS 60ml/hr and Fentanyl drip at 160mcg/hr. With bilateral soft wrist restraints. Hands warm and dry. Bed locked and in low position. Bed alarm on. Call light within reach.
--- NOTE | 2018-12-20 19:24 | NUR ---
RESPIRATORY NOTE: Received pt on AC 20, 600VT, 40%, PEEP +5. Pt intubated w/ ETT 7.0 @ 24cm lipline, secured by anchorfast. Pt alert/awake, follows commands. Both hands on soft restraints to prevent pt from self-extubation. B/S sobeida. diminished, sxn minimal amounts of thin, frothy, clear-white secretions. Vent plugged into red outlet, ambubag at bedside. Pt in no apparent distress at this time. Will continue to monitor pt.
[2018-12-20] MEDS: D5NS 1,000 ML IV SCH (20:03)
--- NOTE | 2018-12-20 21:00 | NUR ---
NURSE NOTES: Still on fentanyl 160mcg/hr. Maintaining RASS of -1 as ordered.
--- NOTE | 2018-12-20 21:19 | NUR ---
CASE MANAGEMENT: REVIEW 12/20/2018 SI: RESP FAILURE . PNA . COPD EXACERBATION T 98.9 HR 89 RR 20 B/P 133/72 SATS 98% ON MECH VENT FIO2 40 ABGs pH 7.337 pCO2 63 pO2 64.4 HCO3 33 O2 SAT 90.7 BE 5 IS: COZAAR NG QD MUCOMYST HHN Q4HR CEFTRIAXONE IV Q24HR FENTANYL IV Q24HR SOLU MEDROL IV Q8HR AZITHROMYCIN IV Q24HR OROGASTRIC TUBE FEEDING GLUCERNA 1.5 @ 40ML/HR ICU STATUS DCP: PATIENT IS FROM HOME
[2018-12-20] MEDS: cefTRIAXone 1 GM in D5W 55 ML IV SCH (22:23)
--- NOTE | 2018-12-20 23:00 | NUR ---
NURSE NOTES: Patient still noted with 250-300ml residual. Head of bed kept elevated. Feeding still on hold.
[2018-12-21] VITALS (54 sets, daily range): BP systolic 96–179; BP diastolic 51–135
--- NOTE | 2018-12-21 01:00 | NUR ---
NURSE NOTES: Patient asleep. Calm and comfortable at this time.
--- NOTE | 2018-12-21 03:00 | NUR ---
NURSE NOTES: Bed bath, oral care, change of linens done. Still on fentanyl 160 mcg/hr with RASS -1 as ordered
[2018-12-21] MEDS: Acetylcysteine 20% Soln 4ml HHN SCH ×6 (03:27→23:10)
[2018-12-21] MEDS: Albuterol/Ipratropium 3ml neb HHN SCH ×6 (03:27→23:10)
--- NOTE | 2018-12-21 04:00 | NUR ---
NURSE NOTES: Patient still has distended, large abdomen. Feeding still on hold. Noted with residual of >200ml when aspirated. Connected to suction, collected 650 ml of undigested feeding. Kept HOB elevated
--- NOTE | 2018-12-21 05:00 | NUR ---
NURSE NOTES: Patient awake, very restless and agitated. Reoriented, offered reassurance but ineffective. PRN ativan given.
[2018-12-21] MEDS: HydrALAZINE 50mg tab ORAL SCH ×3 (05:10→21:49)
[2018-12-21] MEDS: LORazepam Inj 2mg/ml 1ml IV PRN ×2 (05:10→22:08)
[2018-12-21] MEDS: NovoLOG Insulin Flexpen SUBQ SCH ×4 (05:16→23:58)
--- NOTE | 2018-12-21 06:00 | NUR ---
NURSE NOTES: Patient asleep. Calm at this time
--- NOTE | 2018-12-21 06:15 | NUR ---
NURSE NOTES: Fentanyl decreased to 150mcg/hr
--- NOTE | 2018-12-21 07:10 | NUR ---
HAND-OFF: Report given to LYUDMILA Holly.
--- NOTE | 2018-12-21 07:15 | NUR ---
NURSE NOTES: Patient received asleep at this time, arousable to name, on light sedation. Intubated, AC setting AC-20, TV- 600, FiO2 50, PEEP -5. Lung sounds diminished. G-tube feeding held, residual feeding noted at 50ml. OG tube in place, clamped. Abdomen noted to be distended, firm to touch, hypoactive bowel sounds. Nina catheter draining to yellow urine. Fentanyl drip running at 130mcg/hr for light sedation. Sinus Rhythm on the monitor. Safety measures implemented. Addendum: 12/21/18 at 0849 by Avni Harrington RN Fentanyl drip running at 120 mcg/hr. Bilateral soft wrist restraints in place for safety, pulses palpable, skin intact.
--- NOTE | 2018-12-21 08:54 | NUR ---
NURSE NOTES: Spoke to Katie from Dr. Morgan's exchange, left a message regarding increased residual, abdominal distention, no BM, no labs.
--- NOTE | 2018-12-21 09:05 | NUR ---
RESPIRATORY NOTE: Pt recieved on AC settings. Pt is sedated at this and unable to be weaned. Nurse at bedside. Will continue to monitor.
--- NOTE | 2018-12-21 09:27 | Cardiology Progress Note ---
Assessment/Plan Status: stable Assessment/Plan Assessment/Plan Status: stable Assessment/Plan Assessment: Respiratory failure COPD (chronic obstructive pulmonary disease) Pneumonia CAD, previous CABG PPM/ICD HTN HLD PLAN: Patient has failed to progress off the vent, he is hemodynamically stable, he is tolerating CPAP for a while then gets tired, he is on steroid taper, he as some secretions as well. Cultures are negative so far and chest x ray is clear. CT brain negative for CVA Echo with systolic dysfunction but he doesnt appear to be in heart failure, CXR clear and PA pressures normal and he is hemodynamically stable. Feeds have been held due to residuals and distension. Hold feeds Bowel prep - ducolax, enema, mineral oil, colace, he has hx of hiatal hernia as well continue steroids now being weaned continue empiric abx, follow cultures Will initiated heart failure treatment when stable/extubated Will need ischemia evaluation given hx of CAD/CABG to evaluate graft function when stable prior to discharge continue aspirin continue statin Hold beta blockers while intubated Monitor I/O and renal function Spot diuresis as needed, currently does not appear fluid overloaded Daily weaning trials Discussed with family and nursing Subjective Cardiovascular: Reports: no symptoms Respiratory: Reports: no symptoms Gastrointestinal/Abdominal: Reports: no symptoms Genitourinary: Reports: no symptoms Subjective No acute events, tolerated four hours of PS yesterday, currently sedated, feeds due to high residuals and abdominal distention. Echo with severe LV dysfunction EF 20 percent. d/w nursing Objective Last 24 Hour Vital Signs Date Time Temp Pulse Resp B/P (MAP) Pulse Ox O2 Delivery O2 Flow Rate FiO2 12/21/18 07:45 20 Mechanical Ventilator 12/21/18 07:14 75 20 99 Mechanical Ventilator 50 12/21/18 07:13 71 20 98 Mechanical Ventilator 50 12/21/18 07:11 71 20 50 12/21/18 06:45 20 Mechanical Ventilator 50 12/21/18 06:30 20 Mechanical Ventilator 50 12/21/18 06:30 82 19 100/57 (71) 98 12/21/18 06:15 82 19 96/55 (69) 98 12/21/18 06:15 20 Mechanical Ventilator 50 12/21/18 06:00 80 20 97/57 (70) 98 12/21/18 06:00 20 Mechanical Ventilator 50 12/21/18 05:45 85 20 107/65 (79) 98 12/21/18 05:30 90 21 109/65 (80) 96 12/21/18 05:22 90 21 50 12/21/18 05:10 111/55 12/21/18 05:00 70 20 111/55 (73) 95 12/21/18 04:30 73 20 110/85 (93) 96 12/21/18 04:00 99.3 73 22 117/66 (83) 96 12/21/18 04:00 20 Mechanical Ventilator 50 12/21/18 04:00 72 12/21/18 04:00 50 12/21/18 04:00 Mechanical Ventilator 12/21/18 03:42 74 20 98 Mechanical Ventilator 50 12/21/18 03:30 72 20 136/56 (82) 98 12/21/18 03:27 74 21 97 Mechanical Ventilator 50 12/21/18 03:27 74 21 50 12/21/18 03:00 69 20 127/92 (104) 96 12/21/18 03:00 20 Mechanical Ventilator 50 12/21/18 02:30 70 20 109/61 (77) 98 12/21/18 02:24 97.8 12/21/18 02:00 20 Mechanical Ventilator 50 12/21/18 02:00 70 19 109/61 (77) 98 12/21/18 01:54 20 50 12/21/18 01:30 72 20 115/62 (79) 98 12/21/18 01:05 73 20 50 12/21/18 01:00 Mechanical Ventilator 50 12/21/18 01:00 73 20 112/67 (82) 98 12/21/18 00:30 76 20 118/69 (85) 98 12/21/18 00:00 Mechanical Ventilator 12/21/18 00:00 76 12/21/18 00:00 50 12/21/18 00:00 20 Mechanical Ventilator 50 12/21/18 00:00 97.8 76 20 140/58 (85) 97 12/20/18 23:30 72 20 127/59 (81) 98 12/20/18 23:00 20 Mechanical Ventilator 50 12/20/18 23:00 73 20 116/63 (80) 97 12/20/18 23:00 50 12/20/18 22:58 73 20 98 Mechanical Ventilator 50 12/20/18 22:46 74 20 Mechanical Ventilator 50 12/20/18 22:44 74 20 50 12/20/18 22:44 74 20 99 Mechanical Ventilator 50 12/20/18 22:30 72 20 125/72 (89) 99 12/20/18 22:23 130/73 12/20/18 22:00 20 Mechanical Ventilator 60 12/20/18 22:00 79 20 113/69 (84) 100 12/20/18 21:30 80 15 117/71 (86) 98 12/20/18 21:07 Mechanical Ventilator 60 12/20/18 21:00 71 20 119/71 (87) 89 12/20/18 21:00 20 Mechanical Ventilator 60 12/20/18 21:00 60 12/20/18 20:58 75 20 40 12/20/18 20:30 78 20 109/91 (97) 90 12/20/18 20:00 91 12/20/18 20:00 Mechanical Ventilator 12/20/18 20:00 20 Mechanical Ventilator 60 12/20/18 20:00 97.5 80 21 135/60 (85) 92 12/20/18 20:00 40 12/20/18 19:39 92 22 98 Mechanical Ventilator 40 12/20/18 19:30 81 20 106/66 (79) 96 12/20/18 19:24 82 20 98 Mechanical Ventilator 40 12/20/18 19:22 85 20 40 12/20/18 19:00 92 20 140/70 (93) 98 12/20/18 19:00 20 Mechanical Ventilator 40 12/20/18 18:30 90 20 138/65 (89) 98 12/20/18 18:00 95 20 130/68 (88) 98 12/20/18 17:30 90 20 122/64 (83) 98 12/20/18 17:00 92 20 125/66 (85) 98 12/20/18 16:46 88 20 40 12/20/18 16:30 98.9 89 20 133/72 (92) 98 12/20/18 16:00 90 20 138/74 (95) 98 12/20/18 16:00 40 12/20/18 16:00 Mechanical Ventilator 12/20/18 16:00 81 12/20/18 15:30 85 20 133/75 (94) 98 12/20/18 15:01 84 22 99 Mechanical Ventilator 40 12/20/18 15:00 88 20 135/75 (95) 98 12/20/18 14:50 76 23 99 Mechanical Ventilator 40 12/20/18 14:50 93 21 40 12/20/18 14:30 84 20 130/70 (90) 96 12/20/18 14:00 98.9 85 20 135/72 (93) 96 12/20/18 13:36 143/72 12/20/18 13:30 90 20 138/74 (95) 96 12/20/18 13:21 85 23 40 12/20/18 13:00 88 20 144/75 (98) 96 12/20/18 12:30 88 20 138/70 (92) 96 12/20/18 12:00 Mechanical Ventilator 12/20/18 12:00 40 12/20/18 12:00 91 20 125/74 (91) 96 12/20/18 12:00 85 12/20/18 11:30 89 20 128/77 (94) 96 12/20/18 11:15 80 22 99 Mechanical Ventilator 40 12/20/18 11:07 75 21 99 Mechanical Ventilator 40 12/20/18 11:07 90 20 40 12/20/18 11:00 91 20 138/84 (102) 96 12/20/18 10:30 90 20 133/70 (91) 96 12/20/18 10:00 94 20 140/72 (94) 96 12/20/18 09:30 92 20 130/75 (93) 96 General Appearance: no apparent distress, on vent EENT: PERRL/EOMI, normal ENT inspection, TMs normal Neck: non-tender, normal alignment, supple, normal inspection, no JVD Rhythm: NSR Cardiovascular: normal peripheral pulses, normal rate, regular rhythm Respiratory/Chest: chest wall non-tender, lungs clear Abdomen: hypoactive bowel sounds, distended, tender Extremities: normal range of motion, non-tender, normal inspection, no calf tenderness, no swelling 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 MD Dec 21, 2018 09:27
--- NOTE | 2018-12-21 09:33 | NUR ---
NURSE NOTES: Administering Fentanyl drip at 120 mcg/hr for - 1 RASS, drowsy. Wrong charting on eMAR reflecting on IV spreadsheet.
[2018-12-21] MEDS: Pantoprazole Inj IVP SCH (09:34)
[2018-12-21] MEDS: Heparin 5000 units/ml inj SUBQ SCH ×2 (09:37→20:36)
[2018-12-21] MEDS: Solu-MEDROL 40mg Inj IVP SCH ×2 (09:37→17:29)
[2018-12-21] MEDS: Aspirin Baby 81mg ORAL SCH (09:38)
[2018-12-21] MEDS: Bisacodyl EC 5mg tab ORAL SCH ×2 (09:38→17:29)
[2018-12-21] MEDS: Losartan 50mg tab NG SCH (09:38)
--- NOTE | 2018-12-21 11:40 | NUR ---
Social Work This Sw met with patient in the ICU, who is currently intubated, sedated. This Sw spoke with daughter, Miriam Montes ([phone]) who explains she is the POA for decision making, along with patients spouse, Pauline ([phone]). This Sw advised daughter to bring in the documents for Advance Directives when able (daughter stating she does not have access to them at this time). Daughter and spouse are planning to visit patient. According to daughter, Miriam explains patient lives with spouse and was independent with ADLs, ambulation, did not require any DME. Daughter also denied any substance abuse or mental health concerns, patient was smoking a half pack cigarettes daily. Family are currently requesting full code, full treatment. Patient also has contact listed: Son, Yonatan Montes: [phone]. Daughter explains this is not his son, but patients nephew, who is not the primary decision maker for patient.
--- NOTE | 2018-12-21 12:28 | NUR ---
NURSE NOTES: Dr. Norman in facility, saw and assessed patient. New orders given, noted and carried out.
--- NOTE | 2018-12-21 13:00 | NUR ---
NURSE NOTES: Patient remains on -1 RASS, sedated. No complains at this time. Will continue to monitor.
--- NOTE | 2018-12-21 13:35 | NUR ---
RADIOLOGY DEPT ABDOMEN X-RAY COMPLETED.-P.DYE
--- NOTE | 2018-12-21 14:12 | NUR ---
NURSE NOTES: Dr. Morgan in facility saw and assessed patient. No new orders at this time.
[2018-12-21] MEDS: D5NS 1,000 ML IV SCH (14:26)
--- NOTE | 2018-12-21 14:45 | General Progress Note ---
Assessment/Plan Problem List: (1) COPD exacerbation (2) Pneumonia ICD Codes: J18.9 - Pneumonia, unspecified organism SNOMED: 434374766 (3) Acute respiratory failure with hypercapnia ICD Codes: J96.02 - Acute respiratory failure with hypercapnia SNOMED: 058128672 (4) ARF (acute renal failure) ICD Codes: N17.9 - Acute kidney failure, unspecified SNOMED: 18091505 Assessment/Plan wean as tolerated cont with steroids Bronchodilators Discussed with family and RN Subjective Allergies: Coded Allergies: IODINE (Verified Allergy, Severe, rash, 01/15/14) Subjective remains intubated Objective Last 24 Hour Vital Signs Date Time Temp Pulse Resp B/P (MAP) Pulse Ox O2 Delivery O2 Flow Rate FiO2 12/21/18 14:25 140/67 12/21/18 13:00 85 29 145/78 (100) 95 12/21/18 12:44 81 24 50 12/21/18 12:39 99.2 12/21/18 12:30 100.0 82 21 133/68 (89) 97 12/21/18 12:00 Mechanical Ventilator 12/21/18 12:00 80 20 123/68 (86) 97 12/21/18 12:00 50 12/21/18 12:00 78 12/21/18 11:30 136/59 (84) 94 12/21/18 11:12 77 20 99 Mechanical Ventilator 50 12/21/18 11:11 78 23 95 Mechanical Ventilator 50 12/21/18 11:10 78 23 50 12/21/18 11:00 78 23 120/79 (93) 94 12/21/18 10:30 79 23 129/65 (86) 95 12/21/18 10:00 80 23 129/66 (87) 94 12/21/18 09:38 120/69 12/21/18 09:33 20 Mechanical Ventilator 50 12/21/18 09:30 87 21 120/69 (86) 95 12/21/18 09:00 79 23 128/62 (84) 95 12/21/18 08:58 79 25 50 12/21/18 08:30 75 20 109/72 (84) 95 12/21/18 08:00 Mechanical Ventilator 12/21/18 08:00 100.7 73 20 104/51 (68) 95 12/21/18 08:00 73 12/21/18 08:00 50 12/21/18 07:45 20 Mechanical Ventilator 12/21/18 07:30 73 20 97/62 (74) 97 12/21/18 07:14 75 20 99 Mechanical Ventilator 50 12/21/18 07:13 71 20 98 Mechanical Ventilator 50 12/21/18 07:11 71 20 50 12/21/18 07:00 71 20 97/58 (71) 98 12/21/18 06:45 20 Mechanical Ventilator 50 12/21/18 06:30 20 Mechanical Ventilator 50 12/21/18 06:30 82 19 100/57 (71) 98 12/21/18 06:15 82 19 96/55 (69) 98 12/21/18 06:15 20 Mechanical Ventilator 50 12/21/18 06:00 80 20 97/57 (70) 98 12/21/18 06:00 20 Mechanical Ventilator 50 12/21/18 05:45 85 20 107/65 (79) 98 12/21/18 05:30 90 21 109/65 (80) 96 12/21/18 05:22 90 21 50 12/21/18 05:10 111/55 12/21/18 05:00 70 20 111/55 (73) 95 12/21/18 04:30 73 20 110/85 (93) 96 12/21/18 04:00 99.3 73 22 117/66 (83) 96 12/21/18 04:00 20 Mechanical Ventilator 50 12/21/18 04:00 72 12/21/18 04:00 50 12/21/18 04:00 Mechanical Ventilator 12/21/18 03:42 74 20 98 Mechanical Ventilator 50 12/21/18 03:30 72 20 136/56 (82) 98 12/21/18 03:27 74 21 97 Mechanical Ventilator 50 12/21/18 03:27 74 21 50 12/21/18 03:00 69 20 127/92 (104) 96 12/21/18 03:00 20 Mechanical Ventilator 50 12/21/18 02:30 70 20 109/61 (77) 98 12/21/18 02:24 97.8 12/21/18 02:00 20 Mechanical Ventilator 50 12/21/18 02:00 70 19 109/61 (77) 98 12/21/18 01:54 20 50 12/21/18 01:30 72 20 115/62 (79) 98 12/21/18 01:05 73 20 50 12/21/18 01:00 Mechanical Ventilator 50 12/21/18 01:00 73 20 112/67 (82) 98 12/21/18 00:30 76 20 118/69 (85) 98 12/21/18 00:00 Mechanical Ventilator 12/21/18 00:00 76 12/21/18 00:00 50 12/21/18 00:00 20 Mechanical Ventilator 50 12/21/18 00:00 97.8 76 20 140/58 (85) 97 12/20/18 23:30 72 20 127/59 (81) 98 12/20/18 23:00 20 Mechanical Ventilator 50 12/20/18 23:00 73 20 116/63 (80) 97 12/20/18 23:00 50 12/20/18 22:58 73 20 98 Mechanical Ventilator 50 12/20/18 22:46 74 20 Mechanical Ventilator 50 12/20/18 22:44 74 20 50 12/20/18 22:44 74 20 99 Mechanical Ventilator 50 12/20/18 22:30 72 20 125/72 (89) 99 12/20/18 22:23 130/73 12/20/18 22:00 20 Mechanical Ventilator 60 12/20/18 22:00 79 20 113/69 (84) 100 12/20/18 21:30 80 15 117/71 (86) 98 12/20/18 21:07 Mechanical Ventilator 60 12/20/18 21:00 71 20 119/71 (87) 89 12/20/18 21:00 20 Mechanical Ventilator 60 12/20/18 21:00 60 12/20/18 20:58 75 20 40 12/20/18 20:30 78 20 109/91 (97) 90 12/20/18 20:00 91 12/20/18 20:00 Mechanical Ventilator 12/20/18 20:00 20 Mechanical Ventilator 60 12/20/18 20:00 97.5 80 21 135/60 (85) 92 12/20/18 20:00 40 12/20/18 19:39 92 22 98 Mechanical Ventilator 40 12/20/18 19:30 81 20 106/66 (79) 96 12/20/18 19:24 82 20 98 Mechanical Ventilator 40 2/14/19 19:22 85 20 40 12/20/18 19:00 92 20 140/70 (93) 98 12/20/18 19:00 20 Mechanical Ventilator 40 12/20/18 18:30 90 20 138/65 (89) 98 12/20/18 18:00 95 20 130/68 (88) 98 12/20/18 17:30 90 20 122/64 (83) 98 12/20/18 17:00 92 20 125/66 (85) 98 12/20/18 16:46 88 20 40 12/20/18 16:30 98.9 89 20 133/72 (92) 98 12/20/18 16:00 90 20 138/74 (95) 98 12/20/18 16:00 40 12/20/18 16:00 Mechanical Ventilator 12/20/18 16:00 81 12/20/18 15:30 85 20 133/75 (94) 98 12/20/18 15:01 84 22 99 Mechanical Ventilator 40 12/20/18 15:00 88 20 135/75 (95) 98 12/20/18 14:50 76 23 99 Mechanical Ventilator 40 12/20/18 14:50 93 21 40 Intake and Output 12/20/18 12/21/18 19:00 07:00 Intake Total 734 ml 1280 ml Output Total 430 ml 1040 ml Balance 304 ml 240 ml Intake Free Water 90 ml IV Total 254 ml 1030 ml Tube Feeding 480 ml 40 ml Other 120 ml Output Urine Total 430 ml 390 ml Gastric Drainage Total 650 ml Height (Feet): 5 Height (Inches): 8.00 Weight (Pounds): 220 Cardiovascular: normal rate Respiratory/Chest: lungs clear Edema: no edema noted Generalized Baldemar Morgan MD Dec 21, 2018 14:45
--- NOTE | 2018-12-21 16:15 | Diagnostic Imaging Report ---
Indication: Abdominal distention Technique: Supine view of the abdomen Comparison: 12/19/2018 Findings: Nasogastric tube remains coiled within the gastric fundus which is supradiaphragmatic within a presumed hiatal hernia. The colon is diffusely gas-filled, mostly upper limits of normal but portions of the sigmoid and ascending colon are somewhat dilated. Considerable stool is also seen within the ascending colon. The distention appears to extend all the way to the level of the and anus. Compared to the prior study, small bowel loops appear to be less distended. Surgical clips are seen in the left groin. A Nina catheter is seen within the bladder Impression: Diffusely distended gas-filled colon, as described, also evident on multiple prior studies. Distention appears to extend all the way to the anus, so findings most likely are functional in nature. The possibility of very distal obstruction should also be considered, however Small bowel is but not particularly distended, and is less gas-filled than on prior studies Other findings as noted
--- NOTE | 2018-12-21 17:30 | NUR ---
NURSE NOTES: Dion [employer] OPERATOR made aware of KUB results, ordered rectal tube for colonic decompression. Stop low intermittent suction via OG tube. Order noted and carried out.
--- NOTE | 2018-12-21 19:06 | NUR ---
NURSE NOTES: Patient agreed to try rectal tube insertion, patient unable to tolerate insertion, patient kept bearing down, popping out tip of rectal tube. Patient refused trying to insert it. Patient aware of the benefits of rectal tube insertion for colonic decompression, still refused. Addendum: 12/21/18 at 1941 by Avni Harrington RN Left a message for Dion VERAS, no response at this time.
--- NOTE | 2018-12-21 19:41 | NUR ---
HAND-OFF: Report given to LYUDMILA Manley.
--- NOTE | 2018-12-21 19:42 | NUR ---
NURSE NOTES: Endorsement received from LYUDMILA Holly. Opens eyes spontaneously, follows commands. On Fentanyl drip 120mcg/hr, with RASS score goal of -1 as ordered. Increased to 130mcg/hr. Sinus rhythm on the monitor, with left upper ICD. Orally intubated with AC 20, VT 600, 50%, PEEP 5. No shortness of breath. With OGT, on NPO. OGT placement rechecked per auscultation. No residual noted. Abdomen nontender, large and distended. Head of bed kept elevated. With right upper arm g 20 and left hand g20. Ongoing D5NS 60ml/hr. With bilateral soft wrist restraints. Hands warm and dry. Bed locked and in low position. Bed alarm on. Call light within reach.
--- NOTE | 2018-12-21 21:32 | Pulmonolgy Critical Care Note ---
Critical Care - Asmt/Plan Assessment/Plan: Pulmonary Critical Care Progress Note HPI Patient is a 68-year-old male who presented after respiratory arrest. He has a history of Chronic Obstructive Pulmonary Disease, had been reportedly having increased difficulty breathing and was noted to have a respiratory arrest while being transported. Patient was brought in by EMS. Assessment/Plan: Problem List: 1. Acute on chronic hypercapnic respiratory failure 2. Acute exacerbation of COPD 3. Possible community-acquired pneumonia 4. Cardiomyopathy, EF 20% 5. Systolic CHF 6. out of hospital respiratory failure/possible cardiac arrest s/p CPR by family 7. JUAN 8. DM Plan: -cont mechanical ventilatory support, daily weaning trials, improving -wean sedation as tolerated -Monitor ABG prn -abx: ceftriaxone/azithro -f/u cultures -solumedrol 60 mg IV q12, taper as tolerated, will likely start tapering tomorrow -Good pulmonary hygiene: duonebs and mucomyst q4, suction prn -monitor volumes, avoid overload -monitor renal function Respiratory: weaning trial Cardiac: continue to monitor HR/BP Renal: F/U I&O Infectious Disease: continue antibiotics Neurologic: keep patient comfortable Time Spent (Minutes): 40 - cc Discussed with: nurses Critical Care - Objective Vital Signs Noted Status: awake Condition: improving Lungs: CTAB Heart: HR/BP stable Abdomen: soft, non-tender Extremities: no C/C/E Accucheck: 132 Critical Care - Subjective ROS Limited/Unobtainable: Yes Interval Events: Did better on PS but got tired and extubation was not performed. No secretions. Calm. EKG Rhythm: Sinus Rhythm FI02: 40 Vent Support Breath Rate: 20 Vent Support Mode: AC Vent Tidal Volume: 600 Sputum Amount: None PEEP: 5.0 PIP: 31 Tube Feeding Amount: 40 ET-Tube: 7.0 ET Position: 24 Critical Care - Objective Last 24 Hour Vital Signs Date Time Temp Pulse Resp B/P (MAP) Pulse Ox O2 Delivery O2 Flow Rate FiO2 12/21/18 21:14 92 24 50 12/21/18 20:09 99.9 12/21/18 20:00 Mechanical Ventilator 12/21/18 20:00 50 12/21/18 19:37 87 23 100 Mechanical Ventilator 50 12/21/18 19:28 89 20 50 12/21/18 19:28 89 21 100 Mechanical Ventilator 50 12/21/18 18:55 20 Mechanical Ventilator 50 12/21/18 18:30 91 23 162/96 (118) 95 12/21/18 18:00 100.8 91 19 159/102 (121) 95 12/21/18 17:55 17 Mechanical Ventilator 97 12/21/18 17:30 88 23 152/63 (92) 95 12/21/18 17:29 87 24 50 12/21/18 17:00 91 20 179/135 (150) 95 12/21/18 16:30 19 Endotracheal Tube 50 12/21/18 16:30 87 20 143/83 (103) 93 12/21/18 16:00 50 12/21/18 16:00 Mechanical Ventilator 12/21/18 16:00 88 21 141/73 (95) 12/21/18 16:00 88 12/21/18 15:30 19 Mechanical Ventilator 50 12/21/18 15:30 84 20 125/72 (89) 12/21/18 15:29 87 24 50 12/21/18 15:12 83 20 99 Mechanical Ventilator 50 12/21/18 15:11 84 24 100 Mechanical Ventilator 50 12/21/18 15:10 83 26 50 12/21/18 15:00 83 24 141/68 (92) 100 12/21/18 14:30 20 Mechanical Ventilator 50 12/21/18 14:30 85 26 131/68 (89) 82 12/21/18 14:25 140/67 12/21/18 14:00 84 26 137/83 (101) 96 12/21/18 13:30 84 25 108/69 (82) 94 12/21/18 13:30 20 Mechanical Ventilator 50 12/21/18 13:00 99.8 85 29 145/78 (100) 95 12/21/18 12:44 81 24 50 12/21/18 12:30 100.0 82 21 133/68 (89) 97 12/21/18 12:30 20 Mechanical Ventilator 50 12/21/18 12:00 Mechanical Ventilator 12/21/18 12:00 80 20 123/68 (86) 97 12/21/18 12:00 50 12/21/18 12:00 78 12/21/18 11:30 136/59 (84) 94 12/21/18 11:30 19 Mechanical Ventilator 50 12/21/18 11:12 77 20 99 Mechanical Ventilator 50 12/21/18 11:11 78 23 95 Mechanical Ventilator 50 12/21/18 11:10 78 23 50 12/21/18 11:00 78 23 120/79 (93) 94 12/21/18 10:30 79 23 129/65 (86) 95 12/21/18 10:30 20 Mechanical Ventilator 50 12/21/18 10:00 80 23 129/66 (87) 94 12/21/18 09:38 120/69 12/21/18 09:33 20 Mechanical Ventilator 50 12/21/18 09:30 87 21 120/69 (86) 95 12/21/18 09:00 79 23 128/62 (84) 95 12/21/18 08:58 79 25 50 12/21/18 08:45 20 Mechanical Ventilator 100 12/21/18 08:30 75 20 109/72 (84) 95 12/21/18 08:00 Mechanical Ventilator 12/21/18 08:00 100.7 73 20 104/51 (68) 95 12/21/18 08:00 73 12/21/18 08:00 50 12/21/18 07:45 20 Mechanical Ventilator 12/21/18 07:30 73 20 97/62 (74) 97 12/21/18 07:14 75 20 99 Mechanical Ventilator 50 12/21/18 07:13 71 20 98 Mechanical Ventilator 50 12/21/18 07:11 71 20 50 12/21/18 07:00 71 20 97/58 (71) 98 12/21/18 06:45 20 Mechanical Ventilator 50 12/21/18 06:30 20 Mechanical Ventilator 50 12/21/18 06:30 82 19 100/57 (71) 98 12/21/18 06:15 82 19 96/55 (69) 98 12/21/18 06:15 20 Mechanical Ventilator 50 12/21/18 06:00 80 20 97/57 (70) 98 12/21/18 06:00 20 Mechanical Ventilator 50 12/21/18 05:45 85 20 107/65 (79) 98 12/21/18 05:30 90 21 109/65 (80) 96 12/21/18 05:22 90 21 50 12/21/18 05:10 111/55 12/21/18 05:00 70 20 111/55 (73) 95 12/21/18 04:30 73 20 110/85 (93) 96 12/21/18 04:00 99.3 73 22 117/66 (83) 96 12/21/18 04:00 20 Mechanical Ventilator 50 12/21/18 04:00 72 12/21/18 04:00 50 12/21/18 04:00 Mechanical Ventilator 12/21/18 03:42 74 20 98 Mechanical Ventilator 50 12/21/18 03:30 72 20 136/56 (82) 98 12/21/18 03:27 74 21 97 Mechanical Ventilator 50 12/21/18 03:27 74 21 50 12/21/18 03:00 69 20 127/92 (104) 96 12/21/18 03:00 20 Mechanical Ventilator 50 12/21/18 02:30 70 20 109/61 (77) 98 12/21/18 02:24 97.8 12/21/18 02:00 20 Mechanical Ventilator 50 12/21/18 02:00 70 19 109/61 (77) 98 12/21/18 01:54 20 50 12/21/18 01:30 72 20 115/62 (79) 98 12/21/18 01:05 73 20 50 12/21/18 01:00 Mechanical Ventilator 50 12/21/18 01:00 73 20 112/67 (82) 98 12/21/18 00:30 76 20 118/69 (85) 98 12/21/18 00:00 Mechanical Ventilator 12/21/18 00:00 76 12/21/18 00:00 50 12/21/18 00:00 20 Mechanical Ventilator 50 12/21/18 00:00 97.8 76 20 140/58 (85) 97 12/20/18 23:30 72 20 127/59 (81) 98 12/20/18 23:00 20 Mechanical Ventilator 50 12/20/18 23:00 73 20 116/63 (80) 97 12/20/18 23:00 50 12/20/18 22:58 73 20 98 Mechanical Ventilator 50 12/20/18 22:46 74 20 Mechanical Ventilator 50 12/20/18 22:44 74 20 50 12/20/18 22:44 74 20 99 Mechanical Ventilator 50 12/20/18 22:30 72 20 125/72 (89) 99 12/20/18 22:23 130/73 12/20/18 22:00 20 Mechanical Ventilator 60 12/20/18 22:00 79 20 113/69 (84) 100 Accucheck: 126 Critical Care - Subjective ROS Limited/Unobtainable: No Condition: stable FI02: 50 Vent Support Breath Rate: 20 Vent Support Mode: AC Vent Tidal Volume: 600 Sputum Amount: Small PEEP: 5.0 PIP: 24 Tube Feeding Amount: 0 I&O: Intake and Output 12/20/18 12/21/18 19:00 07:00 Intake Total 734 ml 1280 ml Output Total 430 ml 1040 ml Balance 304 ml 240 ml Intake Free Water 90 ml IV Total 254 ml 1030 ml Tube Feeding 480 ml 40 ml Other 120 ml Output Urine Total 430 ml 390 ml Gastric Drainage Total 650 ml ET-Tube: 7.0 ET Position: 24 Nico Irvin MD Dec 21, 2018 21:32
[2018-12-21] MEDS: cefTRIAXone 1 GM in D5W 55 ML IV SCH (21:48)
--- NOTE | 2018-12-21 22:00 | NUR ---
NURSE NOTES: Patient awake and restless. Fentanyl drip at 140mcg/hr. Offered reassurance. PRN ativan given.
[2018-12-21] MEDS: Azithromycin 500 MG in D5W 275 ML IV SCH (23:57)
[2018-12-22] VITALS (50 sets, daily range): BP systolic 89–175; BP diastolic 44–129
--- NOTE | 2018-12-22 | NUR ---
NURSE NOTES: Patient asleep. Appears calm and comfortable
--- NOTE | 2018-12-22 02:00 | NUR ---
NURSE NOTES: Repositioned as scheduled. Still on fentanyl 140mcg/hr.
[2018-12-22] MEDS: Acetylcysteine 20% Soln 4ml HHN SCH ×6 (03:00→22:59)
--- NOTE | 2018-12-22 04:00 | NUR ---
NURSE NOTES: Bed bath, oral care, change of linens done.
[2018-12-22] MEDS: Albuterol/Ipratropium 3ml neb HHN SCH ×6 (04:26→22:57)
[2018-12-22] MEDS: HydrALAZINE 50mg tab ORAL SCH ×3 (05:23→20:42)
[2018-12-22] MEDS: NovoLOG Insulin Flexpen SUBQ SCH ×3 (05:24→17:32)
--- NOTE | 2018-12-22 06:00 | NUR ---
NURSE NOTES: Patient asleep. Continues on Fentanyl 140mcg/hr, RASS -1.
[2018-12-22 06:11] LABS: HEMATOCRIT 44.4 % (42.0-52.0); HEMOGLOBIN 14.3 G/DL (14.2-18.0); MEAN CORPUSCULAR VOLUME 94 FL (80-99); PLATELET COUNT 201 K/UL (150-450); RED BLOOD COUNT 4.74 M/UL (4.70-6.10); RED CELL DISTRIBUTION WIDTH 14.1 % (11.6-14.8); WHITE BLOOD COUNT 14.3 K/UL (4.8-10.8)
[2018-12-22] MEDS: D5NS 1,000 ML IV SCH ×2 (06:41→11:00)
[2018-12-22 06:42] LABS: ANION GAP 5 mmol/L (5-15); BLOOD UREA NITROGEN 42 mg/dL (7-18); CALCIUM 8.2 MG/DL (8.5-10.1); CARBON DIOXIDE 33 MMOL/L (21-32); CHLORIDE 113 MMOL/L (98-107); CREATININE 1.2 MG/DL (0.55-1.30); POTASSIUM 3.8 MMOL/L (3.5-5.1); SODIUM 151 MMOL/L (136-145)
--- NOTE | 2018-12-22 07:18 | NUR ---
HAND-OFF: Report given to Pamela badillo RN.
--- NOTE | 2018-12-22 07:19 | NUR ---
NURSE NOTES: Report received from LYUDMILA Manley. Pt is drowsy and easily able to wake up. Able to answer for simple questions. On bilateral soft restraints. Sinus rhythm on mechanic industrial truck. ETT 7.5/25cm, AC 20, TV 600, P 5, FiO2 50%. No respiratory distress noted. O2 sat 92%. New OGT in place. Feeding held as per order. Abdomen large and distended. Nina in place draining to gravity. IV to right UA G20 and left hand G20 patent and asymptomatic. Pt is on D5NS at 60cc/hr and Fentanyl at 140mcg/hr. Bed in lowest position. Side rails up x3. Will resume plan of care.
--- NOTE | 2018-12-22 07:45 | NUR ---
RESPIRATORY NOTE: received pt on vent, intubated with ETT 7.0 placed 24cm at the lip. ETT is secured via anchor fast with no redness or skin breakdown visible. no resp distress noted at this time. vent is plugged into redoutlet with alarms on and audible. ambu bag at bedside. will cont to monitor.
[2018-12-22] MEDS: Pantoprazole Inj IVP SCH (08:58)
[2018-12-22] MEDS: Solu-MEDROL 40mg Inj IVP SCH ×2 (08:58→17:31)
[2018-12-22] MEDS: Aspirin Baby 81mg ORAL SCH (08:58)
[2018-12-22] MEDS: Losartan 50mg tab NG SCH (08:59)
[2018-12-22] MEDS: Bisacodyl EC 5mg tab ORAL SCH ×2 (08:59→17:31)
[2018-12-22] MEDS: Heparin 5000 units/ml inj SUBQ SCH ×2 (09:00→20:44)
--- NOTE | 2018-12-22 09:19 | NUR ---
RESPIRATORY NOTE: pt on weaning trial on CPAP PS 12 . pt slightly tachypneic. will cont to monitor pt progress.
--- NOTE | 2018-12-22 09:21 | NUR ---
RESPIRATORY NOTE: asked pt if he was tired and responded a little bit. placed back on AC mode. Nallely COREAS notified.
--- NOTE | 2018-12-22 09:25 | NUR ---
NURSE NOTES: RT was unable to wean pt off ventilator since pt complaint that he tired as per RT. FiO2 decreased from 50% to 40%. O2 sat 92%. Will continue to monitor. Addendum: 12/22/18 at 0927 by DAIJA CAVANAUGH RN RN NURSE NOTES: Turned and repositioned pt. Oral care done. RT was unable to wean pt off ventilator since pt complaint that he tired as per RT. FiO2 decreased from 50% to 40%. O2 sat 92%. Will continue to monitor.
--- NOTE | 2018-12-22 12:21 | NUR ---
NURSE NOTES: Inserted a new IV on right upper arm. Pt tolerated well. Oral care done and wet mouth as per pt's request. Pt gets agitated at times. On bilateral soft restraints. Will continue to monitor.
--- NOTE | 2018-12-22 13:23 | Pulmonolgy Critical Care Note ---
Critical Care - Asmt/Plan Assessment/Plan: Pulmonary Critical Care Progress Note HPI Patient is a 68-year-old male who presented after respiratory arrest. He has a history of Chronic Obstructive Pulmonary Disease, had been reportedly having increased difficulty breathing and was noted to have a respiratory arrest while being transported. Patient was brought in by EMS. Assessment/Plan: Problem List: 1. Acute on chronic hypercapnic respiratory failure 2. Acute exacerbation of COPD 3. Possible community-acquired pneumonia 4. Cardiomyopathy, EF 20% 5. Systolic CHF 6. out of hospital respiratory failure/possible cardiac arrest s/p CPR by family 7. JUAN 8. DM Plan: -cont mechanical ventilatory support, daily weaning trials, improving -wean sedation as tolerated -Monitor ABG prn -abx: ceftriaxone/azithro -f/u cultures -solumedrol 60 mg IV q12, taper as tolerated, will likely start tapering tomorrow -Good pulmonary hygiene: duonebs and mucomyst q4, suction prn -monitor volumes, avoid overload -monitor renal function Respiratory: weaning trial Cardiac: continue to monitor HR/BP Renal: F/U I&O Infectious Disease: continue antibiotics Neurologic: keep patient comfortable Time Spent (Minutes): 40 - cc Discussed with: nurses Critical Care - Objective Vital Signs Noted Status: awake Condition: improving Lungs: CTAB Heart: HR/BP stable Abdomen: soft, non-tender Extremities: no C/C/E Accucheck: 132 Critical Care - Subjective ROS Limited/Unobtainable: Yes Interval Events: Did better on PS but got tired and extubation was not performed. No secretions. Calm. EKG Rhythm: Sinus Rhythm FI02: 40 Vent Support Breath Rate: 20 Vent Support Mode: AC Vent Tidal Volume: 600 Sputum Amount: None PEEP: 5.0 PIP: 31 Tube Feeding Amount: 40 ET-Tube: 7.0 ET Position: 24 Critical Care - Objective Last 24 Hour Vital Signs Date Time Temp Pulse Resp B/P (MAP) Pulse Ox O2 Delivery O2 Flow Rate FiO2 12/22/18 12:55 94 27 45 12/22/18 12:30 88 27 129/69 (89) 94 12/22/18 12:00 23 Mechanical Ventilator 45 12/22/18 12:00 Mechanical Ventilator 12/22/18 12:00 98.9 91 25 121/59 (79) 92 12/22/18 11:36 94 12/22/18 11:30 92 25 151/57 (88) 89 12/22/18 11:08 87 26 92 Mechanical Ventilator 50 12/22/18 11:00 83 22 142/89 (106) 94 12/22/18 11:00 22 Mechanical Ventilator 45 12/22/18 10:54 82 24 92 Mechanical Ventilator 45 12/22/18 10:52 84 27 45 12/22/18 10:44 27 Mechanical Ventilator 45 12/22/18 10:30 84 27 148/76 (100) 91 12/22/18 10:00 87 26 135/98 (110) 91 12/22/18 09:56 45 12/22/18 09:55 45 12/22/18 09:30 81 25 131/86 (101) 94 12/22/18 09:25 40 12/22/18 09:18 94 12/22/18 09:17 80 26 40 12/22/18 09:00 80 22 127/103 (111) 94 12/22/18 08:59 138/124 12/22/18 08:30 79 23 159/55 (89) 93 12/22/18 08:10 23 Mechanical Ventilator 40 12/22/18 08:00 50 12/22/18 08:00 Mechanical Ventilator 12/22/18 08:00 23 Mechanical Ventilator 50 12/22/18 08:00 98.6 81 23 152/85 (107) 93 12/22/18 07:44 78 21 95 Mechanical Ventilator 50 12/22/18 07:38 79 22 97 Mechanical Ventilator 50 12/22/18 07:35 76 23 50 12/22/18 07:32 77 12/22/18 07:30 78 22 147/72 (97) 95 12/22/18 07:00 77 23 147/72 (97) 94 12/22/18 07:00 22 Mechanical Ventilator 50 12/22/18 06:00 20 Mechanical Ventilator 50 12/22/18 06:00 78 23 153/88 (109) 94 12/22/18 05:30 78 23 140/60 (86) 94 12/22/18 05:23 140/72 12/22/18 05:10 84 23 50 12/22/18 05:00 78 25 98/76 (83) 96 12/22/18 05:00 20 Mechanical Ventilator 50 12/22/18 04:36 75 23 99 Mechanical Ventilator 50 12/22/18 04:30 75 20 89/71 (77) 96 12/22/18 04:26 73 22 95 Mechanical Ventilator 50 12/22/18 04:00 99.6 72 23 127/85 (99) 94 12/22/18 04:00 20 Mechanical Ventilator 50 12/22/18 04:00 Mechanical Ventilator 12/22/18 04:00 50 12/22/18 04:00 72 12/22/18 03:30 77 24 50 12/22/18 03:30 70 21 142/63 (89) 94 12/22/18 03:09 99.0 12/22/18 03:00 66 20 128/52 (77) 95 12/22/18 03:00 20 Mechanical Ventilator 50 12/22/18 02:36 22 Mechanical Ventilator 50 12/22/18 02:30 70 20 125/54 (77) 95 12/22/18 02:00 20 Endotracheal Tube 50 12/22/18 02:00 70 20 114/49 (70) 95 12/22/18 01:37 77 22 50 12/22/18 01:30 76 20 114/54 (74) 95 12/22/18 01:00 83 23 105/59 (74) 95 12/22/18 01:00 20 Mechanical Ventilator 50 12/22/18 00:30 86 23 131/63 (85) 93 12/22/18 00:00 99.0 85 25 136/59 (84) 94 12/22/18 00:00 89 12/22/18 00:00 Mechanical Ventilator 12/22/18 00:00 20 Mechanical Ventilator 50 12/22/18 00:00 50 12/21/18 23:30 85 20 117/90 (99) 96 12/21/18 23:22 89 21 100 Mechanical Ventilator 50 12/21/18 23:10 82 25 50 12/21/18 23:10 84 25 97 Mechanical Ventilator 50 12/21/18 23:00 87 21 126/80 (95) 92 12/21/18 23:00 20 Mechanical Ventilator 50 12/21/18 22:45 87 24 140/64 (89) 92 12/21/18 22:30 88 24 147/72 (97) 92 12/21/18 22:15 88 24 149/63 (91) 93 12/21/18 22:00 20 Mechanical Ventilator 50 12/21/18 22:00 84 23 149/71 (97) 92 12/21/18 21:49 147/61 12/21/18 21:30 84 25 150/60 (90) 98 12/21/18 21:14 92 24 50 12/21/18 21:00 85 25 146/74 (98) 96 12/21/18 21:00 20 Mechanical Ventilator 50 12/21/18 20:30 88 25 151/62 (91) 93 12/21/18 20:09 99.9 12/21/18 20:00 86 12/21/18 20:00 20 Mechanical Ventilator 50 12/21/18 20:00 Mechanical Ventilator 12/21/18 20:00 99.9 88 26 150/66 (94) 95 12/21/18 20:00 50 12/21/18 19:45 93 19 156/72 (100) 99 12/21/18 19:37 87 23 100 Mechanical Ventilator 50 12/21/18 19:30 85 22 144/66 (92) 98 12/21/18 19:28 89 20 50 12/21/18 19:28 89 21 100 Mechanical Ventilator 50 12/21/18 19:15 Mechanical Ventilator 50 12/21/18 19:15 84 20 139/76 (97) 94 12/21/18 19:00 20 Mechanical Ventilator 50 12/21/18 19:00 89 22 134/76 (95) 96 12/21/18 18:55 20 Mechanical Ventilator 50 12/21/18 18:30 91 23 162/96 (118) 95 12/21/18 18:00 100.8 91 19 159/102 (121) 95 12/21/18 17:55 17 Mechanical Ventilator 97 12/21/18 17:30 88 23 152/63 (92) 95 12/21/18 17:29 87 24 50 12/21/18 17:00 91 20 179/135 (150) 95 12/21/18 16:30 19 Endotracheal Tube 50 12/21/18 16:30 87 20 143/83 (103) 93 12/21/18 16:00 50 12/21/18 16:00 Mechanical Ventilator 12/21/18 16:00 88 21 141/73 (95) 12/21/18 16:00 88 12/21/18 15:30 19 Mechanical Ventilator 50 12/21/18 15:30 84 20 125/72 (89) 12/21/18 15:29 87 24 50 12/21/18 15:12 83 20 99 Mechanical Ventilator 50 12/21/18 15:11 84 24 100 Mechanical Ventilator 50 12/21/18 15:10 83 26 50 12/21/18 15:00 83 24 141/68 (92) 100 12/21/18 14:30 20 Mechanical Ventilator 50 12/21/18 14:30 85 26 131/68 (89) 82 12/21/18 14:25 140/67 12/21/18 14:00 84 26 137/83 (101) 96 12/21/18 13:30 84 25 108/69 (82) 94 12/21/18 13:30 20 Mechanical Ventilator 50 Accucheck: 103 Critical Care - Subjective ROS Limited/Unobtainable: No Condition: stable FI02: 45 Vent Support Breath Rate: 20 Vent Support Mode: AC Vent Tidal Volume: 600 Sputum Amount: Small PEEP: 5.0 PIP: 27 Tube Feeding Amount: 0 I&O: Intake and Output 12/21/18 12/22/18 18:59 06:59 Intake Total 900 ml 1274 ml Output Total 470 ml 600 ml Balance 430 ml 674 ml Intake Free Water 60 ml IV Total 840 ml 1214 ml Tube Feeding 0 ml 0 ml Other 60 ml Output Urine Total 470 ml 600 ml ET-Tube: 7.0 ET Position: 24 Nico Irvin MD Dec 22, 2018 13:23
--- NOTE | 2018-12-22 13:30 | NUR ---
NURSE NOTES: Fentanyl drip increased to 180mcg/hr since pt gets agitated. O2 sat 92-96% on FiO2 45%. Turned and repositioned pt. Will continue to monitor.
--- NOTE | 2018-12-22 16:18 | NUR ---
NURSE NOTES: Morphine 4 mg given for left hip pain. Will continue to monitor. Addendum: 12/22/18 at 1658 by DAIJA CAVANAUGH RN RN Wrong patient.
--- NOTE | 2018-12-22 17:00 | NUR ---
NURSE NOTES: Cleaned and repositioned pt. Pt helps turning. Oral care done. Pt is clam and resting in bed. Left hand edema noted and elevated. Pt is still on restraints. Will continue to monitor.
--- NOTE | 2018-12-22 18:34 | General Progress Note ---
Assessment/Plan Problem List: (1) COPD exacerbation (2) Pneumonia ICD Codes: J18.9 - Pneumonia, unspecified organism SNOMED: 952718531 (3) Acute respiratory failure with hypercapnia ICD Codes: J96.02 - Acute respiratory failure with hypercapnia SNOMED: 165569071 (4) ARF (acute renal failure) ICD Codes: N17.9 - Acute kidney failure, unspecified SNOMED: 64992518 Assessment/Plan wean as tolerated cont with steroids Bronchodilators Discussed with sister and RN Subjective Allergies: Coded Allergies: IODINE (Verified Allergy, Severe, rash, 01/15/14) Subjective failed weaning Objective Last 24 Hour Vital Signs Date Time Temp Pulse Resp B/P (MAP) Pulse Ox O2 Delivery O2 Flow Rate FiO2 12/22/18 18:00 95 27 143/129 (134) 96 12/22/18 17:30 87 24 114/87 (96) 97 12/22/18 17:22 86 25 40 12/22/18 17:00 87 23 139/99 (112) 96 12/22/18 16:30 86 23 132/73 (92) 94 12/22/18 16:09 22 Mechanical Ventilator 40 12/22/18 16:06 80 26 40 12/22/18 16:06 84 26 100 Mechanical Ventilator 40 12/22/18 16:00 Mechanical Ventilator 12/22/18 16:00 84 21 139/98 (112) 100 12/22/18 16:00 22 Mechanical Ventilator 40 12/22/18 16:00 40 12/22/18 15:48 86 25 99 Mechanical Ventilator 45 12/22/18 15:30 87 26 149/95 (113) 96 12/22/18 15:14 88 12/22/18 15:00 86 21 142/112 (122) 98 12/22/18 15:00 23 Mechanical Ventilator 45 12/22/18 14:30 81 22 160/124 (136) 96 12/22/18 14:00 85 24 141/88 (105) 97 12/22/18 14:00 24 Mechanical Ventilator 45 12/22/18 13:54 138/44 12/22/18 13:45 86 24 138/44 (75) 82 12/22/18 13:30 85 26 148/99 (115) 100 12/22/18 13:15 86 25 159/116 (130) 94 12/22/18 13:00 24 Mechanical Ventilator 45 12/22/18 13:00 87 24 147/86 (106) 95 12/22/18 12:55 94 27 45 12/22/18 12:30 88 27 129/69 (89) 94 12/22/18 12:00 23 Mechanical Ventilator 45 12/22/18 12:00 Mechanical Ventilator 12/22/18 12:00 98.9 91 25 121/59 (79) 92 12/22/18 11:36 94 12/22/18 11:30 92 25 151/57 (88) 89 12/22/18 11:08 87 26 92 Mechanical Ventilator 50 12/22/18 11:00 83 22 142/89 (106) 94 12/22/18 11:00 22 Mechanical Ventilator 45 12/22/18 10:54 82 24 92 Mechanical Ventilator 45 12/22/18 10:52 84 27 45 12/22/18 10:44 27 Mechanical Ventilator 45 12/22/18 10:30 84 27 148/76 (100) 91 12/22/18 10:00 87 26 135/98 (110) 91 12/22/18 09:56 45 12/22/18 09:55 45 12/22/18 09:30 81 25 131/86 (101) 94 12/22/18 09:25 40 12/22/18 09:18 94 12/22/18 09:17 80 26 40 12/22/18 09:00 80 22 127/103 (111) 94 12/22/18 08:59 138/124 12/22/18 08:30 79 23 159/55 (89) 93 12/22/18 08:10 23 Mechanical Ventilator 40 12/22/18 08:00 50 12/22/18 08:00 Mechanical Ventilator 12/22/18 08:00 23 Mechanical Ventilator 50 12/22/18 08:00 98.6 81 23 152/85 (107) 93 12/22/18 07:44 78 21 95 Mechanical Ventilator 50 12/22/18 07:38 79 22 97 Mechanical Ventilator 50 12/22/18 07:35 76 23 50 12/22/18 07:32 77 12/22/18 07:30 78 22 147/72 (97) 95 12/22/18 07:00 77 23 147/72 (97) 94 12/22/18 07:00 22 Mechanical Ventilator 50 12/22/18 06:00 20 Mechanical Ventilator 50 12/22/18 06:00 78 23 153/88 (109) 94 12/22/18 05:30 78 23 140/60 (86) 94 12/22/18 05:23 140/72 12/22/18 05:10 84 23 50 12/22/18 05:00 78 25 98/76 (83) 96 12/22/18 05:00 20 Mechanical Ventilator 50 12/22/18 04:36 75 23 99 Mechanical Ventilator 50 12/22/18 04:30 75 20 89/71 (77) 96 12/22/18 04:26 73 22 95 Mechanical Ventilator 50 12/22/18 04:00 99.6 72 23 127/85 (99) 94 12/22/18 04:00 20 Mechanical Ventilator 50 12/22/18 04:00 Mechanical Ventilator 12/22/18 04:00 50 12/22/18 04:00 72 12/22/18 03:30 77 24 50 12/22/18 03:30 70 21 142/63 (89) 94 12/22/18 03:09 99.0 12/22/18 03:00 66 20 128/52 (77) 95 12/22/18 03:00 20 Mechanical Ventilator 50 12/22/18 02:36 22 Mechanical Ventilator 50 12/22/18 02:30 70 20 125/54 (77) 95 12/22/18 02:00 20 Endotracheal Tube 50 12/22/18 02:00 70 20 114/49 (70) 95 12/22/18 01:37 77 22 50 12/22/18 01:30 76 20 114/54 (74) 95 12/22/18 01:00 83 23 105/59 (74) 95 12/22/18 01:00 20 Mechanical Ventilator 50 12/22/18 00:30 86 23 131/63 (85) 93 12/22/18 00:00 99.0 85 25 136/59 (84) 94 12/22/18 00:00 89 12/22/18 00:00 Mechanical Ventilator 12/22/18 00:00 20 Mechanical Ventilator 50 12/22/18 00:00 50 12/21/18 23:30 85 20 117/90 (99) 96 12/21/18 23:22 89 21 100 Mechanical Ventilator 50 12/21/18 23:10 82 25 50 12/21/18 23:10 84 25 97 Mechanical Ventilator 50 12/21/18 23:00 87 21 126/80 (95) 92 12/21/18 23:00 20 Mechanical Ventilator 50 12/21/18 22:45 87 24 140/64 (89) 92 12/21/18 22:30 88 24 147/72 (97) 92 12/21/18 22:15 88 24 149/63 (91) 93 12/21/18 22:00 20 Mechanical Ventilator 50 12/21/18 22:00 84 23 149/71 (97) 92 12/21/18 21:49 147/61 12/21/18 21:30 84 25 150/60 (90) 98 12/21/18 21:14 92 24 50 12/21/18 21:00 85 25 146/74 (98) 96 12/21/18 21:00 20 Mechanical Ventilator 50 12/21/18 20:30 88 25 151/62 (91) 93 12/21/18 20:09 99.9 12/21/18 20:00 86 12/21/18 20:00 20 Mechanical Ventilator 50 12/21/18 20:00 Mechanical Ventilator 12/21/18 20:00 99.9 88 26 150/66 (94) 95 12/21/18 20:00 50 12/21/18 19:45 93 19 156/72 (100) 99 12/21/18 19:37 87 23 100 Mechanical Ventilator 50 12/21/18 19:30 85 22 144/66 (92) 98 12/21/18 19:28 89 20 50 12/21/18 19:28 89 21 100 Mechanical Ventilator 50 12/21/18 19:15 Mechanical Ventilator 50 12/21/18 19:15 84 20 139/76 (97) 94 12/21/18 19:00 20 Mechanical Ventilator 50 12/21/18 19:00 89 22 134/76 (95) 96 12/21/18 18:55 20 Mechanical Ventilator 50 Intake and Output 12/21/18 12/22/18 19:00 07:00 Intake Total 972 ml 1276 ml Output Total 450 ml 610 ml Balance 522 ml 666 ml Intake Free Water 60 ml IV Total 912 ml 1216 ml Tube Feeding 0 ml 0 ml Other 60 ml Output Urine Total 450 ml 610 ml Laboratory Tests 12/22/18 05:30: White Blood Count 14.3H, Red Blood Count 4.74, Hemoglobin 14.3, Hematocrit 44.4 , Mean Corpuscular Volume 94, Mean Corpuscular Hemoglobin 30.1, Mean Corpuscular Hemoglobin Concent 32.2, Red Cell Distribution Width 14.1, Platelet Count 201, Mean Platelet Volume 6.7, Neutrophils (%) (Auto) , Lymphocytes (%) ( Auto) , Monocytes (%) (Auto) , Eosinophils (%) (Auto) , Basophils (%) (Auto) , Differential Total Cells Counted 100, Neutrophils % (Manual) 91H, Lymphocytes % (Manual) 3L, Monocytes % (Manual) 6, Eosinophils % (Manual) 0, Basophils % ( Manual) 0, Band Neutrophils 0, Platelet Estimate Adequate, Platelet Morphology Normal, Anisocytosis 1+, Sodium Level 151H, Potassium Level 3.8, Chloride Level 113H, Carbon Dioxide Level 33H, Anion Gap 5, Blood Urea Nitrogen 42H, Creatinine 1.2, Estimat Glomerular Filtration Rate > 60, Glucose Level 115H, Calcium Level 8.2L Height (Feet): 5 Height (Inches): 8.00 Weight (Pounds): 193 Respiratory/Chest: rhonchi - bilaterally Abdomen: distended Edema: no edema noted Generalized Baldemar Morgan MD Dec 22, 2018 18:34
[2018-12-22] MEDS ORDERED: Fleet's Mineral Oil Enema RECTAL SCH (19:00)
--- NOTE | 2018-12-22 19:42 | NUR ---
HAND-OFF: Report given to LYUDMILA Manley.
--- NOTE | 2018-12-22 19:43 | NUR ---
NURSE NOTES: Endorsement received from Pamela badillo RN. Opens eyes spontaneously, follows commands. On Fentanyl drip 180mcg/hr, with RASS score goal of -1 as ordered. Sinus rhythm on the monitor, with left upper ICD. Orally intubated with AC 20, VT 600, 50%, PEEP 5. No shortness of breath. With OGT, on NPO. OGT placement rechecked per auscultation. With 450ml dark brown output. Abdomen nontender, large and distended. Head of bed kept elevated. With right upper arm g 20, right AC g20 and left hand g20. Ongoing D5NS 60ml/hr. With bilateral soft wrist restraints. Hands warm and dry. Bed locked and in low position. Bed alarm on. Call light within reach.
--- NOTE | 2018-12-22 20:15 | NUR ---
NURSE NOTES: Called Dr. Morgan regarding 450ml residual from OGT. Received new order to keep feeding on hold, change IVF to D5 1/2NS 75ml/hr and labs in the morning. Orders read back and verified by .
[2018-12-22] MEDS: cefTRIAXone 1 GM in D5W 55 ML IV SCH (21:31)
[2018-12-22] MEDS: D5 1/2NS 1,000 ML IV SCH (21:32)
[2018-12-22] MEDS: LORazepam Inj 2mg/ml 1ml IV PRN (21:49)
--- NOTE | 2018-12-22 21:49 | NUR ---
NURSE NOTES: Patient restless and agitated. As per him he has no pain. PRN ativan given
[2018-12-23] VITALS (53 sets, daily range): BP systolic 61–188; BP diastolic 40–161
--- NOTE | 2018-12-23 | NUR ---
NURSE NOTES: Patient asleep. No shortness of breath
[2018-12-23] MEDS: NovoLOG Insulin Flexpen SUBQ SCH ×4 (00:21→17:59)
--- NOTE | 2018-12-23 01:36 | NUR ---
RESPIRATORY NOTE: Received pt. on 840 vent. Vent settings are: A/C rate of 20, Vt 600, FI02 45%, PEEP +5. No respiratory distress noted, Pt. Sp02 @ 99%. Ambu bag @ BS. Vent plugged on red outlet. Will continue to monitor pt.
--- NOTE | 2018-12-23 01:54 | NUR ---
NURSE NOTES: Patient asleep. Arousable. With RASS -1 as per order. On Fentanyl 120mcg/hr
[2018-12-23] MEDS: Albuterol/Ipratropium 3ml neb HHN SCH ×6 (03:11→23:52)
[2018-12-23] MEDS: Acetylcysteine 20% Soln 4ml HHN SCH ×6 (03:11→23:52)
--- NOTE | 2018-12-23 04:00 | NUR ---
NURSE NOTES: Bed bath, oral care, change of linens done.
[2018-12-23] MEDS: HydrALAZINE 50mg tab ORAL SCH ×3 (05:32→22:24)
--- NOTE | 2018-12-23 06:00 | NUR ---
NURSE NOTES: Patient repositioned. No shortness of breath
--- NOTE | 2018-12-23 06:58 | NUR ---
RESPIRATORY NOTE: Received pt on AC 20-600ml-45% FiO2- peep of 5. Pt is orally intubated with ETT 7.0 @ 24cm lips line, secured by anchor fast. Breathing TX duoneb and mucomyst given without adverse reaction. Andres rhonchi diminished heard upon auscultation, suctioned small amount of thin white jung secretions without any incidents. Oral care done. Alarms are set and audible, vent is plugged into the red outlet. Ambu bag is at bedside. Vent circuits and sxn tubbing are secured and out of the way. pt is sedated but awake and alert, easy to arouse and follow commands. Will start weaning pt next vent check when off the sedation. Will continue to monitor pt closely.
--- NOTE | 2018-12-23 07:02 | NUR ---
HAND-OFF: Report given to Pamela badillo RN.
--- NOTE | 2018-12-23 07:03 | NUR ---
NURSE NOTES: Report received from LYUDMILA Manley. Pt is drowsy and easily able to wake up. Able to answer for simple questions. On bilateral soft restraints. Sinus tachy on monitoring and evaluation advisor. ETT 7.0/24cm, AC 20, TV 600, P 5, FiO2 45%. Tachy breathing noted. O2 sat 97%%. OGT in place. Feeding held as per order. Abdomen large and distended. Nina in place draining to gravity. IV to right UA G20 x2 and left hand G20 patent and asymptomatic. Pt is on D5 1/2NS at 75cc/hr and Fentanyl at 120mcg/hr. Bed in lowest position. Side rails up x3. Will resume plan of care.
[2018-12-23 07:56] LABS: HEMATOCRIT 45.7 % (42.0-52.0); HEMOGLOBIN 14.3 G/DL (14.2-18.0); MEAN CORPUSCULAR VOLUME 94 FL (80-99); PLATELET COUNT 172 K/UL (150-450); RED BLOOD COUNT 4.85 M/UL (4.70-6.10); RED CELL DISTRIBUTION WIDTH 14.1 % (11.6-14.8); WHITE BLOOD COUNT 15.2 K/UL (4.8-10.8)
--- NOTE | 2018-12-23 08:00 | NUR ---
NURSE NOTES: Started titrating down Fentanyl drip to wean pt off the ventilator. Pt is on bilateral soft restraints. Will continue to monitor.
[2018-12-23 08:46] LABS: ALANINE AMINOTRANSFERASE 65 U/L (12-78); ALBUMIN 2.5 G/DL (3.4-5.0); ALBUMIN/GLOBULIN RATIO 0.7 (1.0-2.7); ALKALINE PHOSPHATASE 68 U/L (46-116); ANION GAP 5 mmol/L (5-15); ASPARTATE AMINO TRANSFERASE 22 U/L (15-37); BILIRUBIN,TOTAL 0.5 MG/DL (0.2-1.0); BLOOD UREA NITROGEN 37 mg/dL (7-18); CALCIUM 8.6 MG/DL (8.5-10.1); CARBON DIOXIDE 32 MMOL/L (21-32); CHLORIDE 112 MMOL/L (98-107); CREATININE 1.1 MG/DL (0.55-1.30); PHOSPHORUS 3.2 MG/DL (2.5-4.9); POTASSIUM 3.7 MMOL/L (3.5-5.1); SODIUM 149 MMOL/L (136-145)
[2018-12-23] MEDS: Losartan 50mg tab NG SCH (09:04)
[2018-12-23] MEDS: Bisacodyl EC 5mg tab ORAL SCH ×2 (09:04→17:58)
[2018-12-23] MEDS: Aspirin Baby 81mg ORAL SCH (09:04)
[2018-12-23] MEDS: Pantoprazole Inj IVP SCH (09:04)
[2018-12-23] MEDS: Solu-MEDROL 40mg Inj IVP SCH ×2 (09:05→17:58)
[2018-12-23] MEDS: Heparin 5000 units/ml inj SUBQ SCH ×2 (09:06→20:28)
--- NOTE | 2018-12-23 10:32 | NUR ---
NURSE NOTES: Cleaned pt for small liquidy brown BM. Turned and repositioned pt. Oral care done. Will continue to monitor.
--- NOTE | 2018-12-23 10:55 | NUR ---
RESPIRATORY NOTE: Placed pt on CPAP- PS 12- 35% FiO2 per weaning order. Pt is tolerating well, no agitated or resp distress noted. RN Pamela Edwards made aware. ABG in 1 hour. Will continue to monitor pt closely.
[2018-12-23] MEDS: D5 1/2NS 1,000 ML IV SCH (11:00)
--- NOTE | 2018-12-23 12:10 | NUR ---
RESPIRATORY NOTE: Decreased PS down to 10, pt still fabienne well. RN Pamela Edwards made aware. Will continue to monitor.
--- NOTE | 2018-12-23 12:30 | NUR ---
RESPIRATORY NOTE: ABG done, result is reported and in the system. Placed pt back on AC mode due to tiredness, RR> 40bpm. Pt's resting comfortably in the bed, no resp distress noted. Awaiting for MD about extubation order. Will continue to monitor pt.
--- NOTE | 2018-12-23 12:37 | NUR ---
NURSE NOTES: Notified Dr Irvin regarding ABG result after weaning. Spoke with him on the phone and updated him with pt's current condition. Will not extubate pt today as per Dr Irvin. He ordered to put pt on CPAP for 2 hours and put back to AC mode. Pt is too tired to be on CPAP and placed back on AC mode with FiO2 45%. Will notified Dr Irvin.
--- NOTE | 2018-12-23 12:45 | NUR ---
RESPIRATORY NOTE: LYUDMILA Edwards inform that no extubation today per DR. Irvin. Will continue to monitor pt.
--- NOTE | 2018-12-23 13:26 | NUR ---
NURSE NOTES: Dr Norman here to see the patient. Updated him with pt's current condition. Doctor removed OGT and placed Dobhoff on right nares. KUB done to check the placement.
--- NOTE | 2018-12-23 15:22 | Pulmonolgy Critical Care Note ---
Critical Care - Asmt/Plan Assessment/Plan: Pulmonary Critical Care Progress Note HPI Patient is a 68-year-old male who presented after respiratory arrest. He has a history of Chronic Obstructive Pulmonary Disease, had been reportedly having increased difficulty breathing and was noted to have a respiratory arrest while being transported previously. Stable overnight. Did not tolerate weaning today - only PS 12 Assessment/Plan: Problem List: 1. Acute on chronic hypercapnic respiratory failure 2. Acute exacerbation of COPD 3. Possible community-acquired pneumonia 4. Cardiomyopathy, EF 20% 5. Systolic CHF 6. out of hospital respiratory failure/possible cardiac arrest s/p CPR by family 7. JUAN 8. DM Plan: -cont mechanical ventilatory support, daily weaning trials, improving -wean sedation as tolerated -Monitor ABG prn -abx: ceftriaxone/azithro -f/u cultures -solumedrol 60 mg IV q12, taper as tolerated, will likely start tapering tomorrow -Good pulmonary hygiene: duonebs and mucomyst q4, suction prn -monitor volumes, avoid overload -monitor renal function Respiratory: weaning trial Cardiac: continue to monitor HR/BP Renal: F/U I&O Infectious Disease: continue antibiotics Neurologic: keep patient comfortable Time Spent (Minutes): 40 - cc Discussed with: nurses Critical Care - Objective Vital Signs Noted Status: awake Condition: improving Lungs: CTAB Heart: HR/BP stable Abdomen: soft, non-tender Extremities: no C/C/E Accucheck: 132 Critical Care - Subjective ROS Limited/Unobtainable: Yes Interval Events: Did better on PS but got tired and extubation was not performed. No secretions. Calm. EKG Rhythm: Sinus Rhythm FI02: 40 Vent Support Breath Rate: 20 Vent Support Mode: AC Vent Tidal Volume: 600 Sputum Amount: None PEEP: 5.0 PIP: 31 Tube Feeding Amount: 40 ET-Tube: 7.0 ET Position: 24 Critical Care - Objective Last 24 Hour Vital Signs Date Time Temp Pulse Resp B/P (MAP) Pulse Ox O2 Delivery O2 Flow Rate FiO2 12/23/18 15:00 92 21 130/59 (82) 100 12/23/18 14:52 95 29 98 Mechanical Ventilator 45 12/23/18 14:51 91 28 45 12/23/18 14:30 125 25 133/85 (101) 94 12/23/18 14:00 90 28 150/70 (96) 99 12/23/18 13:30 100 26 129/61 (83) 99 12/23/18 13:00 93 25 174/75 (108) 97 12/23/18 12:45 Mechanical Ventilator 45 12/23/18 12:40 45 12/23/18 12:30 93 23 174/75 (108) 100 12/23/18 12:30 93 27 45 12/23/18 12:10 35 12/23/18 12:00 Mechanical Ventilator 12/23/18 12:00 98.9 96 26 139/71 (93) 96 12/23/18 11:30 92 25 132/81 (98) 97 12/23/18 11:00 94 28 110/74 (86) 99 12/23/18 10:55 98 12/23/18 10:55 88 30 35 12/23/18 10:55 40 12/23/18 10:54 86 26 98 Mechanical Ventilator 45 12/23/18 10:44 91 26 97 Mechanical Ventilator 45 12/23/18 10:42 89 27 45 12/23/18 10:30 91 27 155/74 (101) 98 12/23/18 10:00 91 26 61/40 (47) 99 12/23/18 09:04 129/84 12/23/18 09:00 90 21 129/84 (99) 97 12/23/18 09:00 23 Mechanical Ventilator 45 12/23/18 08:55 88 26 45 12/23/18 08:30 90 23 156/106 (123) 97 12/23/18 08:00 Mechanical Ventilator 12/23/18 08:00 22 Mechanical Ventilator 45 12/23/18 08:00 45 12/23/18 08:00 99.0 96 23 188/161 (170) 97 12/23/18 07:29 103 25 177/82 (113) 97 12/23/18 07:00 91 22 173/124 (140) 100 12/23/18 07:00 20 Mechanical Ventilator 45 12/23/18 06:59 92 12/23/18 06:57 89 28 99 Mechanical Ventilator 45 12/23/18 06:47 91 29 97 Mechanical Ventilator 45 12/23/18 06:45 91 25 165/72 (103) 99 12/23/18 06:45 91 28 45 12/23/18 06:30 88 26 142/81 (101) 98 12/23/18 06:00 84 25 139/79 (99) 98 12/23/18 06:00 20 Mechanical Ventilator 45 12/23/18 05:32 140/81 12/23/18 05:31 99.5 12/23/18 05:30 87 25 45 12/23/18 05:30 84 23 140/73 (95) 96 12/23/18 05:01 20 Mechanical Ventilator 45 12/23/18 05:00 83 26 128/104 (112) 95 12/23/18 05:00 20 Mechanical Ventilator 45 12/23/18 04:30 84 25 139/67 (91) 95 12/23/18 04:00 45 12/23/18 04:00 Mechanical Ventilator 12/23/18 04:00 80 12/23/18 04:00 20 Mechanical Ventilator 45 12/23/18 04:00 99.5 82 24 147/81 (103) 98 12/23/18 03:30 86 20 125/59 (81) 99 12/23/18 03:20 84 23 99 Mechanical Ventilator 45 12/23/18 03:13 80 22 45 12/23/18 03:11 83 24 98 Mechanical Ventilator 45 12/23/18 03:00 20 Mechanical Ventilator 45 12/23/18 03:00 80 28 119/72 (88) 97 12/23/18 02:30 82 27 136/111 (119) 98 12/23/18 02:00 74 24 145/67 (93) 98 12/23/18 02:00 20 Mechanical Ventilator 45 12/23/18 01:45 76 20 133/95 (108) 99 12/23/18 01:30 69 20 128/56 (80) 98 12/23/18 01:15 70 20 121/52 (75) 98 12/23/18 01:00 99 20 45 12/23/18 01:00 20 Mechanical Ventilator 45 12/23/18 01:00 73 20 115/51 (72) 98 12/23/18 00:45 71 20 119/51 (73) 98 12/23/18 00:30 73 20 110/51 (70) 98 12/23/18 00:15 76 20 111/51 (71) 98 12/23/18 00:15 20 Mechanical Ventilator 45 12/23/18 00:00 87 12/23/18 00:00 99.5 79 21 113/50 (71) 98 12/23/18 00:00 45 12/23/18 00:00 20 Mechanical Ventilator 45 12/23/18 00:00 Mechanical Ventilator 12/22/18 23:45 20 Mechanical Ventilator 45 12/22/18 23:45 85 21 111/52 (71) 98 12/22/18 23:30 20 Mechanical Ventilator 45 12/22/18 23:30 86 22 104/51 (68) 98 12/22/18 23:25 85 22 97 Mechanical Ventilator 45 12/22/18 23:15 91 20 115/57 (76) 100 12/22/18 23:15 20 Mechanical Ventilator 45 12/22/18 23:10 98 28 97 Mechanical Ventilator 45 12/22/18 23:10 98 22 45 12/22/18 23:10 45 12/22/18 23:00 20 Mechanical Ventilator 45 12/22/18 23:00 96 27 121/65 (83) 98 12/22/18 22:30 97 26 98/78 (85) 95 12/22/18 22:00 20 Mechanical Ventilator 45 12/22/18 22:00 100 30 126/102 (110) 95 12/22/18 21:32 22 Mechanical Ventilator 45 12/22/18 21:30 107 23 175/78 (110) 94 12/22/18 21:00 133 24 150/72 (98) 100 12/22/18 21:00 20 Mechanical Ventilator 45 12/22/18 20:59 96 27 45 12/22/18 20:42 162/73 12/22/18 20:30 108 27 162/73 (102) 95 12/22/18 20:00 96 12/22/18 20:00 Mechanical Ventilator 45 12/22/18 20:00 45 12/22/18 20:00 Mechanical Ventilator 12/22/18 20:00 99.3 112 22 162/70 (100) 95 12/22/18 19:30 98 20 142/83 (102) 97 12/22/18 19:30 94 23 98 Mechanical Ventilator 40 12/22/18 19:22 95 26 40 12/22/18 19:22 94 26 99 Mechanical Ventilator 40 12/22/18 19:00 20 Mechanical Ventilator 45 12/22/18 19:00 93 24 139/79 (99) 95 12/22/18 18:00 95 27 143/129 (134) 96 12/22/18 18:00 25 Mechanical Ventilator 40 12/22/18 17:30 87 24 114/87 (96) 97 12/22/18 17:22 86 25 40 12/22/18 17:00 25 Mechanical Ventilator 40 12/22/18 17:00 87 23 139/99 (112) 96 12/22/18 16:30 86 23 132/73 (92) 94 12/22/18 16:09 22 Mechanical Ventilator 40 12/22/18 16:06 80 26 40 12/22/18 16:06 84 26 100 Mechanical Ventilator 40 12/22/18 16:00 Mechanical Ventilator 12/22/18 16:00 84 21 139/98 (112) 100 12/22/18 16:00 22 Mechanical Ventilator 40 12/22/18 16:00 40 12/22/18 15:48 86 25 99 Mechanical Ventilator 45 12/22/18 15:30 87 26 149/95 (113) 96 Accucheck: 106 Critical Care - Subjective ROS Limited/Unobtainable: No FI02: 45 Vent Support Breath Rate: 20 Vent Support Mode: AC Vent Tidal Volume: 600 Sputum Amount: Moderate PEEP: 5.0 PIP: 27 Tube Feeding Amount: 0 I&O: Intake and Output 12/22/18 12/23/18 18:59 06:59 Intake Total 982 ml 926.5 ml Output Total 880 ml 570 ml Balance 102 ml 356.5 ml IV Total 882 ml 866.5 ml Tube Feeding 0 ml 0 ml Other 100 ml 60 ml Output Urine Total 880 ml 570 ml ET-Tube: 7.0 ET Position: 24 Nico Irvin MD Dec 23, 2018 15:22
--- NOTE | 2018-12-23 15:28 | NUR ---
NURSE NOTES: Cleaned pt for another moderate loose brown BM. Pt also passed a lot of gas. Pt helped turning. New IV inserted on right wrist. Pt tolerated well.
[2018-12-23] MEDS ORDERED: fentaNYL Citrate 2,500 MCG in NS 200 ML IV SCH (15:30)
--- NOTE | 2018-12-23 17:15 | Consultation ---
DATE OF CONSULTATION: 12/23/2018 CONSULTING PHYSICIAN: Abelino Norman M.D. CHIEF COMPLAINT: Abdominal distension and dysphagia. HISTORY OF PRESENT ILLNESS: Most of the history is per chart. The patient is intubated in ICU, admitted to the hospital with shortness of breath. According to the chart, secondary to COPD exacerbation, he was intubated. He also has history of heart failure, hypertension, and history of pacemaker placement. Basic GI consultation was requested for evaluation of abdominal distension and for dysphagia. PAST MEDICAL HISTORY: As above. ALLERGIES: To iodine. MEDICATIONS: Please see medication reconciliation list. SOCIAL HISTORY: The patient had prior history of tobacco use. There is no recent tobacco, alcohol, or drug abuse. FAMILY HISTORY: Noncontributory. REVIEW OF SYSTEMS: Limited. PHYSICAL EXAMINATION: VITAL SIGNS: Temperature is afebrile, pulse is 92, respirations 27, and blood pressure is 110/74. HEENT: Normocephalic and atraumatic. NECK: Supple. No obvious evidence of lymphadenopathy. CARDIOVASCULAR: Tachy. Regular rate. Plus S1 and S2. LUNGS: Decreased breath sounds bilaterally based on supine exam. ABDOMEN: Soft and nontender. Abdomen is mildly distended, mildly tympanic to percussion. EXTREMITIES: No cyanosis. No clubbing. No edema. LABORATORY DATA: White count 15, hemoglobin 14, hematocrit 45, platelets of 172,000. ASSESSMENT AND PLAN: This is a 68-year-old male with dysphagia, apparently NG tube is stuck in the hiatal hernia. We are going to try to put a Dobhoff tube today in and see if it is in the right place and in that case, we are going to start feeding. Total abdominal distention and review of x-ray showed evidence of colonic ileus. Plan to put a rectal tube, bowel regimen, and NG tube in the right place. Abelino Norman M.D. DR: JANE JOB#: [id number] CC:
--- NOTE | 2018-12-23 17:55 | General Progress Note ---
Assessment/Plan Problem List: (1) COPD exacerbation (2) Pneumonia ICD Codes: J18.9 - Pneumonia, unspecified organism SNOMED: 722980790 (3) Acute respiratory failure with hypercapnia ICD Codes: J96.02 - Acute respiratory failure with hypercapnia SNOMED: 745500108 (4) ARF (acute renal failure) ICD Codes: N17.9 - Acute kidney failure, unspecified SNOMED: 39844796 Assessment/Plan wean as tolerated cont with steroids Bronchodilators Discussed with RN TF Subjective Allergies: Coded Allergies: IODINE (Verified Allergy, Severe, rash, 01/15/14) Subjective In NAD Objective Last 24 Hour Vital Signs Date Time Temp Pulse Resp B/P (MAP) Pulse Ox O2 Delivery O2 Flow Rate FiO2 12/23/18 17:10 82 26 45 12/23/18 16:30 85 23 125/109 (114) 92 12/23/18 16:15 90 19 122/93 (103) 88 12/23/18 16:02 26 Mechanical Ventilator 45 12/23/18 16:00 Mechanical Ventilator 12/23/18 16:00 22 Mechanical Ventilator 45 12/23/18 16:00 84 22 140/102 (115) 92 12/23/18 15:45 85 25 143/74 (97) 92 12/23/18 15:30 88 26 164/53 (90) 96 12/23/18 15:02 93 28 99 Mechanical Ventilator 45 12/23/18 15:00 92 21 130/59 (82) 100 12/23/18 15:00 21 Mechanical Ventilator 45 12/23/18 14:52 95 29 98 Mechanical Ventilator 45 12/23/18 14:51 91 28 45 12/23/18 14:30 125 25 133/85 (101) 94 12/23/18 14:00 90 28 150/70 (96) 99 12/23/18 14:00 28 Mechanical Ventilator 45 12/23/18 13:30 100 26 129/61 (83) 99 12/23/18 13:00 93 25 174/75 (108) 97 12/23/18 13:00 25 Mechanical Ventilator 45 12/23/18 12:45 Mechanical Ventilator 45 12/23/18 12:40 45 12/23/18 12:30 93 23 174/75 (108) 100 12/23/18 12:30 93 27 45 12/23/18 12:10 35 12/23/18 12:00 Mechanical Ventilator 12/23/18 12:00 98.9 96 26 139/71 (93) 96 12/23/18 11:30 92 25 132/81 (98) 97 12/23/18 11:00 94 28 110/74 (86) 99 12/23/18 10:55 98 12/23/18 10:55 88 30 35 12/23/18 10:55 40 12/23/18 10:54 86 26 98 Mechanical Ventilator 45 12/23/18 10:44 91 26 97 Mechanical Ventilator 45 12/23/18 10:42 89 27 45 12/23/18 10:30 91 27 155/74 (101) 98 12/23/18 10:00 91 26 61/40 (47) 99 12/23/18 09:04 129/84 12/23/18 09:00 90 21 129/84 (99) 97 12/23/18 09:00 23 Mechanical Ventilator 45 12/23/18 08:55 88 26 45 12/23/18 08:30 90 23 156/106 (123) 97 12/23/18 08:00 Mechanical Ventilator 12/23/18 08:00 22 Mechanical Ventilator 45 12/23/18 08:00 45 12/23/18 08:00 99.0 96 23 188/161 (170) 97 12/23/18 07:29 103 25 177/82 (113) 97 12/23/18 07:00 91 22 173/124 (140) 100 12/23/18 07:00 20 Mechanical Ventilator 45 12/23/18 06:59 92 12/23/18 06:57 89 28 99 Mechanical Ventilator 45 12/23/18 06:47 91 29 97 Mechanical Ventilator 45 12/23/18 06:45 91 25 165/72 (103) 99 12/23/18 06:45 91 28 45 12/23/18 06:30 88 26 142/81 (101) 98 12/23/18 06:00 84 25 139/79 (99) 98 12/23/18 06:00 20 Mechanical Ventilator 45 12/23/18 05:32 140/81 12/23/18 05:31 99.5 12/23/18 05:30 87 25 45 12/23/18 05:30 84 23 140/73 (95) 96 12/23/18 05:01 20 Mechanical Ventilator 45 12/23/18 05:00 83 26 128/104 (112) 95 12/23/18 05:00 20 Mechanical Ventilator 45 12/23/18 04:30 84 25 139/67 (91) 95 12/23/18 04:00 45 12/23/18 04:00 Mechanical Ventilator 12/23/18 04:00 80 12/23/18 04:00 20 Mechanical Ventilator 45 12/23/18 04:00 99.5 82 24 147/81 (103) 98 12/23/18 03:30 86 20 125/59 (81) 99 12/23/18 03:20 84 23 99 Mechanical Ventilator 45 12/23/18 03:13 80 22 45 12/23/18 03:11 83 24 98 Mechanical Ventilator 45 12/23/18 03:00 20 Mechanical Ventilator 45 12/23/18 03:00 80 28 119/72 (88) 97 12/23/18 02:30 82 27 136/111 (119) 98 12/23/18 02:00 74 24 145/67 (93) 98 12/23/18 02:00 20 Mechanical Ventilator 45 12/23/18 01:45 76 20 133/95 (108) 99 12/23/18 01:30 69 20 128/56 (80) 98 12/23/18 01:15 70 20 121/52 (75) 98 12/23/18 01:00 99 20 45 12/23/18 01:00 20 Mechanical Ventilator 45 12/23/18 01:00 73 20 115/51 (72) 98 12/23/18 00:45 71 20 119/51 (73) 98 12/23/18 00:30 73 20 110/51 (70) 98 12/23/18 00:15 76 20 111/51 (71) 98 12/23/18 00:15 20 Mechanical Ventilator 45 12/23/18 00:00 87 12/23/18 00:00 99.5 79 21 113/50 (71) 98 12/23/18 00:00 45 12/23/18 00:00 20 Mechanical Ventilator 45 12/23/18 00:00 Mechanical Ventilator 12/22/18 23:45 20 Mechanical Ventilator 45 12/22/18 23:45 85 21 111/52 (71) 98 12/22/18 23:30 20 Mechanical Ventilator 45 12/22/18 23:30 86 22 104/51 (68) 98 12/22/18 23:25 85 22 97 Mechanical Ventilator 45 12/22/18 23:15 91 20 115/57 (76) 100 12/22/18 23:15 20 Mechanical Ventilator 45 12/22/18 23:10 98 28 97 Mechanical Ventilator 45 12/22/18 23:10 98 22 45 12/22/18 23:10 45 12/22/18 23:00 20 Mechanical Ventilator 45 12/22/18 23:00 96 27 121/65 (83) 98 12/22/18 22:30 97 26 98/78 (85) 95 12/22/18 22:00 20 Mechanical Ventilator 45 12/22/18 22:00 100 30 126/102 (110) 95 12/22/18 21:32 22 Mechanical Ventilator 45 12/22/18 21:30 107 23 175/78 (110) 94 12/22/18 21:00 133 24 150/72 (98) 100 12/22/18 21:00 20 Mechanical Ventilator 45 12/22/18 20:59 96 27 45 12/22/18 20:42 162/73 12/22/18 20:30 108 27 162/73 (102) 95 12/22/18 20:00 96 12/22/18 20:00 Mechanical Ventilator 45 12/22/18 20:00 45 12/22/18 20:00 Mechanical Ventilator 12/22/18 20:00 99.3 112 22 162/70 (100) 95 12/22/18 19:30 98 20 142/83 (102) 97 12/22/18 19:30 94 23 98 Mechanical Ventilator 40 12/22/18 19:22 95 26 40 12/22/18 19:22 94 26 99 Mechanical Ventilator 40 12/22/18 19:00 20 Mechanical Ventilator 45 12/22/18 19:00 93 24 139/79 (99) 95 12/22/18 18:00 95 27 143/129 (134) 96 12/22/18 18:00 25 Mechanical Ventilator 40 Intake and Output 12/22/18 12/23/18 18:59 06:59 Intake Total 982 ml 926.5 ml Output Total 880 ml 570 ml Balance 102 ml 356.5 ml IV Total 882 ml 866.5 ml Tube Feeding 0 ml 0 ml Other 100 ml 60 ml Output Urine Total 880 ml 570 ml Laboratory Tests 12/23/18 04:38: White Blood Count 15.2H, Red Blood Count 4.85, Hemoglobin 14.3, Hematocrit 45.7 , Mean Corpuscular Volume 94, Mean Corpuscular Hemoglobin 29.4, Mean Corpuscular Hemoglobin Concent 31.2L, Red Cell Distribution Width 14.1, Platelet Count 172, Mean Platelet Volume 7.2, Neutrophils (%) (Auto) , Lymphocytes (%) (Auto) , Monocytes (%) (Auto) , Eosinophils (%) (Auto) , Basophils (%) (Auto) , Differential Total Cells Counted 100, Neutrophils % ( Manual) 88H, Lymphocytes % (Manual) 6L, Monocytes % (Manual) 6, Eosinophils % ( Manual) 0, Basophils % (Manual) 0, Band Neutrophils 0, Platelet Estimate Adequate, Platelet Morphology Normal, Anisocytosis 1+, Sodium Level 149H, Potassium Level 3.7, Chloride Level 112H, Carbon Dioxide Level 32, Anion Gap 5, Blood Urea Nitrogen 37H, Creatinine 1.1, Estimat Glomerular Filtration Rate > 60 , Glucose Level 127H, Calcium Level 8.6, Phosphorus Level 3.2, Magnesium Level 2.1, Total Bilirubin 0.5, Aspartate Amino Transf (AST/SGOT) 22, Alanine Aminotransferase (ALT/SGPT) 65, Alkaline Phosphatase 68, Total Protein 6.0L, Albumin 2.5L, Globulin 3.5, Albumin/Globulin Ratio 0.7L 12/23/18 12:10: Arterial Blood pH 7.397, Arterial Blood Partial Pressure CO2 53.1H, Arterial Blood Partial Pressure O2 58.7L, Arterial Blood HCO3 31.9H, Arterial Blood Oxygen Saturation 89.2*L, Arterial Blood Base Excess 5.6H, Jose Test Positive Height (Feet): 5 Height (Inches): 8.00 Weight (Pounds): 220 Cardiovascular: normal rate Baldemar Morgan MD Dec 23, 2018 17:55
--- NOTE | 2018-12-23 18:34 | NUR ---
NURSE NOTES: KUB result is not up yet. Called Radiology for result but no one is answering. Will try to call again. Pt is comfortable with Fentanyl drip at 150mcg/hr. Will continue to monitor.
--- NOTE | 2018-12-23 19:16 | NUR ---
RESPIRATORY NOTE: Received pt. on 840 Vent. Vent settings are: A/C rate of 20, Vt 600, FI02 45%, PEEP +5. No respiratory distress noted, pt. Sp02 @ 99%. Vent plugged on red outlet. Ambu bag @ BS. Will continue to monitor pt.l
--- NOTE | 2018-12-23 19:34 | NUR ---
HAND-OFF: Report given to LYUDMILA Askew.
--- NOTE | 2018-12-23 20:00 | NUR ---
NURSE NOTES: pt awake and alert and restless fentanel drip >200mcg /hr reposition and suction
--- NOTE | 2018-12-23 21:08 | Cardiology Progress Note ---
Assessment/Plan Status: stable Assessment/Plan Assessment/Plan Status: stable Assessment/Plan Assessment: Respiratory failure COPD (chronic obstructive pulmonary disease) Pneumonia CAD, previous CABG PPM/ICD HTN HLD PLAN: Patient has failed to progress off the vent, he is hemodynamically stable, he is tolerating CPAP for a while then gets tired, he is on steroid taper, he as some secretions as well. Cultures are negative so far and chest x ray is clear. CT brain negative for CVA Echo with systolic dysfunction but he doesnt appear to be in heart failure, CXR clear and PA pressures normal and he is hemodynamically stable. Feeds have been held due to residuals and distension. NGT placed for feeds Bowel prep - ducolax, enema, mineral oil, colace, he has hx of hiatal hernia as well continue steroids now being weaned continue empiric abx, follow cultures Will initiated heart failure treatment when stable/extubated Will need ischemia evaluation given hx of CAD/CABG to evaluate graft function when stable prior to discharge continue aspirin continue statin Hold beta blockers while intubated Monitor I/O and renal function Spot diuresis as needed, currently does not appear fluid overloaded Daily weaning trials Discussed with family and nursing Subjective Cardiovascular: Reports: no symptoms Respiratory: Reports: no symptoms Gastrointestinal/Abdominal: Reports: no symptoms Genitourinary: Reports: no symptoms Subjective No acute events, tolerated few hours of PS but got tired, no plans to extubate today, currently sedated with fentanyl, Echo with severe LV dysfunction EF 20 percent. d/w nursing Objective Last 24 Hour Vital Signs Date Time Temp Pulse Resp B/P (MAP) Pulse Ox O2 Delivery O2 Flow Rate FiO2 12/23/18 19:37 82 25 100 Mechanical Ventilator 45 12/23/18 19:15 79 24 45 12/23/18 19:13 80 26 99 Mechanical Ventilator 45 12/23/18 19:00 81 25 140/122 (128) 97 12/23/18 18:30 78 23 155/73 (100) 96 12/23/18 18:00 24 Mechanical Ventilator 45 12/23/18 18:00 80 24 154/107 (123) 99 12/23/18 17:30 80 21 176/149 (158) 94 12/23/18 17:10 82 26 45 12/23/18 17:00 98.8 80 24 150/70 (96) 93 12/23/18 17:00 24 Mechanical Ventilator 45 12/23/18 16:30 85 23 125/109 (114) 92 12/23/18 16:15 90 19 122/93 (103) 88 12/23/18 16:02 26 Mechanical Ventilator 45 12/23/18 16:00 Mechanical Ventilator 12/23/18 16:00 22 Mechanical Ventilator 45 12/23/18 16:00 84 22 140/102 (115) 92 12/23/18 15:45 85 25 143/74 (97) 92 12/23/18 15:35 87 12/23/18 15:30 88 26 164/53 (90) 96 12/23/18 15:02 93 28 99 Mechanical Ventilator 45 12/23/18 15:00 92 21 130/59 (82) 100 12/23/18 15:00 21 Mechanical Ventilator 45 12/23/18 14:52 95 29 98 Mechanical Ventilator 45 12/23/18 14:51 91 28 45 12/23/18 14:30 125 25 133/85 (101) 94 12/23/18 14:00 90 28 150/70 (96) 99 12/23/18 14:00 28 Mechanical Ventilator 45 12/23/18 13:30 100 26 129/61 (83) 99 12/23/18 13:00 93 25 174/75 (108) 97 12/23/18 13:00 25 Mechanical Ventilator 45 12/23/18 12:45 Mechanical Ventilator 45 12/23/18 12:40 45 12/23/18 12:30 93 23 174/75 (108) 100 12/23/18 12:30 93 27 45 12/23/18 12:10 35 12/23/18 12:00 Mechanical Ventilator 12/23/18 12:00 98.9 96 26 139/71 (93) 96 12/23/18 11:30 92 25 132/81 (98) 97 12/23/18 11:07 87 12/23/18 11:00 94 28 110/74 (86) 99 12/23/18 10:55 98 12/23/18 10:55 88 30 35 12/23/18 10:55 40 12/23/18 10:54 86 26 98 Mechanical Ventilator 45 12/23/18 10:44 91 26 97 Mechanical Ventilator 45 12/23/18 10:42 89 27 45 12/23/18 10:30 91 27 155/74 (101) 98 12/23/18 10:00 91 26 61/40 (47) 99 12/23/18 09:04 129/84 12/23/18 09:00 90 21 129/84 (99) 97 12/23/18 09:00 23 Mechanical Ventilator 45 12/23/18 08:55 88 26 45 12/23/18 08:30 90 23 156/106 (123) 97 12/23/18 08:00 Mechanical Ventilator 12/23/18 08:00 22 Mechanical Ventilator 45 12/23/18 08:00 45 12/23/18 08:00 99.0 96 23 188/161 (170) 97 12/23/18 07:29 103 25 177/82 (113) 97 12/23/18 07:00 91 22 173/124 (140) 100 12/23/18 07:00 20 Mechanical Ventilator 45 12/23/18 06:59 92 12/23/18 06:57 89 28 99 Mechanical Ventilator 45 12/23/18 06:47 91 29 97 Mechanical Ventilator 45 12/23/18 06:45 91 25 165/72 (103) 99 12/23/18 06:45 91 28 45 12/23/18 06:30 88 26 142/81 (101) 98 12/23/18 06:00 84 25 139/79 (99) 98 12/23/18 06:00 20 Mechanical Ventilator 45 12/23/18 05:32 140/81 12/23/18 05:31 99.5 12/23/18 05:30 87 25 45 12/23/18 05:30 84 23 140/73 (95) 96 12/23/18 05:01 20 Mechanical Ventilator 45 12/23/18 05:00 83 26 128/104 (112) 95 12/23/18 05:00 20 Mechanical Ventilator 45 12/23/18 04:30 84 25 139/67 (91) 95 12/23/18 04:00 45 12/23/18 04:00 Mechanical Ventilator 12/23/18 04:00 80 12/23/18 04:00 20 Mechanical Ventilator 45 12/23/18 04:00 99.5 82 24 147/81 (103) 98 12/23/18 03:30 86 20 125/59 (81) 99 12/23/18 03:20 84 23 99 Mechanical Ventilator 45 12/23/18 03:13 80 22 45 12/23/18 03:11 83 24 98 Mechanical Ventilator 45 12/23/18 03:00 20 Mechanical Ventilator 45 12/23/18 03:00 80 28 119/72 (88) 97 12/23/18 02:30 82 27 136/111 (119) 98 12/23/18 02:00 74 24 145/67 (93) 98 12/23/18 02:00 20 Mechanical Ventilator 45 12/23/18 01:45 76 20 133/95 (108) 99 12/23/18 01:30 69 20 128/56 (80) 98 12/23/18 01:15 70 20 121/52 (75) 98 12/23/18 01:00 99 20 45 12/23/18 01:00 20 Mechanical Ventilator 45 12/23/18 01:00 73 20 115/51 (72) 98 12/23/18 00:45 71 20 119/51 (73) 98 12/23/18 00:30 73 20 110/51 (70) 98 12/23/18 00:15 76 20 111/51 (71) 98 12/23/18 00:15 20 Mechanical Ventilator 45 12/23/18 00:00 87 12/23/18 00:00 99.5 79 21 113/50 (71) 98 12/23/18 00:00 45 12/23/18 00:00 20 Mechanical Ventilator 45 12/23/18 00:00 Mechanical Ventilator 12/22/18 23:45 20 Mechanical Ventilator 45 12/22/18 23:45 85 21 111/52 (71) 98 12/22/18 23:30 20 Mechanical Ventilator 45 12/22/18 23:30 86 22 104/51 (68) 98 12/22/18 23:25 85 22 97 Mechanical Ventilator 45 12/22/18 23:15 91 20 115/57 (76) 100 12/22/18 23:15 20 Mechanical Ventilator 45 12/22/18 23:10 98 28 97 Mechanical Ventilator 45 12/22/18 23:10 98 22 45 12/22/18 23:10 45 12/22/18 23:00 20 Mechanical Ventilator 45 12/22/18 23:00 96 27 121/65 (83) 98 12/22/18 22:30 97 26 98/78 (85) 95 12/22/18 22:00 20 Mechanical Ventilator 45 12/22/18 22:00 100 30 126/102 (110) 95 12/22/18 21:32 22 Mechanical Ventilator 45 12/22/18 21:30 107 23 175/78 (110) 94 General Appearance: no apparent distress, on vent EENT: PERRL/EOMI, normal ENT inspection, TMs normal, pharynx normal Neck: non-tender, normal alignment, supple, normal inspection, no JVD Rhythm: NSR Cardiovascular: normal peripheral pulses, normal rate, regular rhythm Respiratory/Chest: chest wall non-tender, crackles/rales, rhonchi - bilaterally Abdomen: normal bowel sounds, non tender, soft, no organomegaly, no mass Extremities: normal range of motion, non-tender, normal inspection, no calf tenderness, no swelling Neurologic: integrity analyst II-XII grossly normal Intake and Output 12/22/18 12/23/18 19:00 07:00 Intake Total 926 ml 995.5 ml Output Total 870 ml 550 ml Balance 56 ml 445.5 ml IV Total 826 ml 935.5 ml Tube Feeding 0 ml 0 ml Other 100 ml 60 ml Output Urine Total 870 ml 550 ml Laboratory Tests Test 12/23/18 04:38 12/23/18 12:10 White Blood Count 15.2 K/UL (4.8-10.8) H Red Blood Count 4.85 M/UL (4.70-6.10) Hemoglobin 14.3 G/DL (14.2-18.0) Hematocrit 45.7 % (42.0-52.0) Mean Corpuscular Volume 94 FL (80-99) Mean Corpuscular Hemoglobin 29.4 PG (27.0-31.0) Mean Corpuscular Hemoglobin Concent 31.2 G/DL (32.0-36.0) L Red Cell Distribution Width 14.1 % (11.6-14.8) Platelet Count 172 K/UL (150-450) Mean Platelet Volume 7.2 FL (6.5-10.1) Neutrophils (%) (Auto) % (45.0-75.0) Lymphocytes (%) (Auto) % (20.0-45.0) Monocytes (%) (Auto) % (1.0-10.0) Eosinophils (%) (Auto) % (0.0-3.0) Basophils (%) (Auto) % (0.0-2.0) Differential Total Cells Counted 100 Neutrophils % (Manual) 88 % (45-75) H Lymphocytes % (Manual) 6 % (20-45) L Monocytes % (Manual) 6 % (1-10) Eosinophils % (Manual) 0 % (0-3) Basophils % (Manual) 0 % (0-2) Band Neutrophils 0 % (0-8) Platelet Estimate Adequate Platelet Morphology Normal Anisocytosis 1+ Sodium Level 149 MMOL/L (136-145) H Potassium Level 3.7 MMOL/L (3.5-5.1) Chloride Level 112 MMOL/L (98-107) H Carbon Dioxide Level 32 MMOL/L (21-32) Anion Gap 5 mmol/L (5-15) Blood Urea Nitrogen 37 mg/dL (7-18) H Creatinine 1.1 MG/DL (0.55-1.30) Estimat Glomerular Filtration Rate > 60 mL/min (>60) Glucose Level 127 MG/DL (74-106) H Calcium Level 8.6 MG/DL (8.5-10.1) Phosphorus Level 3.2 MG/DL (2.5-4.9) Magnesium Level 2.1 MG/DL (1.8-2.4) Total Bilirubin 0.5 MG/DL (0.2-1.0) Aspartate Amino Transf (AST/SGOT) 22 U/L (15-37) Alanine Aminotransferase (ALT/SGPT) 65 U/L (12-78) Alkaline Phosphatase 68 U/L (46-116) Total Protein 6.0 G/DL (6.4-8.2) L Albumin 2.5 G/DL (3.4-5.0) L Globulin 3.5 g/dL Albumin/Globulin Ratio 0.7 (1.0-2.7) L Arterial Blood pH 7.397 (7.350-7.450) Arterial Blood Partial Pressure CO2 53.1 mmHg (35.0-45.0) H Arterial Blood Partial Pressure O2 58.7 mmHg (75.0-100.0) L Arterial Blood HCO3 31.9 mmol/L (22.0-26.0) H Arterial Blood Oxygen Saturation 89.2 % (95-100) *L Arterial Blood Base Excess 5.6 (-2-2) H Jose Test Positive Nico Kingston MD Dec 23, 2018 21:08
--- NOTE | 2018-12-23 22:00 | NUR ---
NURSE NOTES: pt slight sedated fent drip at 200 mcg/hr
[2018-12-23] MEDS: cefTRIAXone 1 GM in D5W 55 ML IV SCH (22:22)
[2018-12-24] VITALS (32 sets, daily range): BP systolic 90–160; BP diastolic 56–97
--- NOTE | 2018-12-24 | NUR ---
NURSE NOTES: pt condition un change
[2018-12-24] MEDS: NovoLOG Insulin Flexpen SUBQ SCH ×4 (00:22→17:34)
[2018-12-24] MEDS: D5 1/2NS 1,000 ML IV SCH (00:26)
[2018-12-24] MEDS: Albuterol/Ipratropium 3ml neb HHN SCH ×6 (03:31→22:20)
[2018-12-24] MEDS: Acetylcysteine 20% Soln 4ml HHN SCH ×6 (03:31→22:20)
--- NOTE | 2018-12-24 04:00 | NUR ---
HAND-OFF: Report given to hiedi rn using sbar.
[2018-12-24 05:59] LABS: HEMATOCRIT 44.2 % (42.0-52.0); HEMOGLOBIN 14.2 G/DL (14.2-18.0); MEAN CORPUSCULAR VOLUME 94 FL (80-99); PLATELET COUNT 163 K/UL (150-450); RED BLOOD COUNT 4.69 M/UL (4.70-6.10); RED CELL DISTRIBUTION WIDTH 14.4 % (11.6-14.8); WHITE BLOOD COUNT 18.1 K/UL (4.8-10.8)
[2018-12-24] MEDS: HydrALAZINE 50mg tab ORAL SCH ×3 (06:14→22:33)
[2018-12-24 06:45] LABS: ANION GAP 10 mmol/L (5-15); BLOOD UREA NITROGEN 37 mg/dL (7-18); CALCIUM 8.8 MG/DL (8.5-10.1); CARBON DIOXIDE 28 MMOL/L (21-32); CHLORIDE 111 MMOL/L (98-107); CREATININE 1.1 MG/DL (0.55-1.30); SODIUM 149 MMOL/L (136-145)
--- NOTE | 2018-12-24 07:10 | NUR ---
NURSE NOTES: Received pt from LYUDMILA Chavez. pt is obtunded, no response to pain or vocal stimuli. Pt is on BIPAP 15/4, RR 16, Fio2 80%, SPo2 100%. Permacath noted on mid chest. LIJ TLC running D5NS@100, Dopamine@20mcg/kg/hr and Levophed 30mcg/kg/hr. BP is 75/48, HR 75. checker in was unable to get AM lab draw, will try again later. Notified Dr. Ac of decreasing BP, Juan Antonio ordered. Will carry out orders. Addendum: 12/24/18 at 1119 by JESSICA WHITE RN wrong patient
--- NOTE | 2018-12-24 07:15 | NUR ---
NURSE NOTES: Received pt from LYUDMILA Askew. Patient is lightly sedated, meeting RASS score of -1. Orally intubated with ETT 7.0/24cm at lip line, AC 20/TV600/FIO2 45%/PEEP5, SPO2 98%, RR 18. NSR on campus monitor; HR is 70. IV site on MELODY 20G, LW 20G and RW 20G running Fentanyl @ 100mcg/kg/hr and D51/2NS@75ml/hr. Abdomen distended, firm but non tender. Patient has a dubhob clamped, NPO at this time due to high residual. Will notify [facility] of CXR result. Bed locked, alarmed and in lowest position. Will continue plan of care.
--- NOTE | 2018-12-24 07:52 | NUR ---
RESPIRATORY NOTE: received pt on vent with current settings, intubated with ETT size 7.0, placed 24cm at the lip. ETT is secured via anchor fast with no redness or skin breakdown visible around facial area. alarms are on and audible with vent plugged into red outlet and ambu bag at bedside. orders to be followed at 9am to wean pt with CPAP PS 12 and ABG to be drawn post 30mins. RN, Analia aware of weaning trial. will cont to monitor.
[2018-12-24] MEDS: Pantoprazole Inj IVP SCH (08:26)
[2018-12-24] MEDS: Solu-MEDROL 40mg Inj IVP SCH (08:27)
[2018-12-24] MEDS: Aspirin Baby 81mg ORAL SCH (08:27)
[2018-12-24] MEDS: Bisacodyl EC 5mg tab ORAL SCH ×2 (08:27→17:33)
[2018-12-24] MEDS: Losartan 50mg tab NG SCH (08:27)
[2018-12-24] MEDS: Heparin 5000 units/ml inj SUBQ SCH ×2 (08:28→20:52)
--- NOTE | 2018-12-24 09:20 | NUR ---
NURSE NOTES: Turned and repositioned. Started weaning on CPAP with RT. Turned off sedation. Will continue to monitor.
--- NOTE | 2018-12-24 10:07 | NUR ---
RESPIRATORY NOTE: started pt on weaning trial at 1005 with CPAP PS 12. after 30 mins, if pt tolerates, ABG will be drawn. Analia COREAS made aware
--- NOTE | 2018-12-24 12:00 | NUR ---
RESPIRATORY NOTE: Pt placed back on AC mode due to agitation and slight increase in RR. RNAnalia notified with changes and ABG results
--- NOTE | 2018-12-24 12:00 | NUR ---
NURSE NOTES: Pt was not able to tolerate weaning for more than 2 hours. Pt was put back on AC mode.
--- NOTE | 2018-12-24 12:08 | General Progress Note ---
Assessment/Plan Problem List: (1) COPD exacerbation (2) Pneumonia ICD Codes: J18.9 - Pneumonia, unspecified organism SNOMED: 243597531 (3) Acute respiratory failure with hypercapnia ICD Codes: J96.02 - Acute respiratory failure with hypercapnia SNOMED: 010313780 (4) ARF (acute renal failure) ICD Codes: N17.9 - Acute kidney failure, unspecified SNOMED: 23175816 Assessment/Plan Trial of CPAP cont with steroids Bronchodilators Discussed with RN TF Subjective Allergies: Coded Allergies: IODINE (Verified Allergy, Severe, rash, 01/15/14) Subjective In NAD Objective Last 24 Hour Vital Signs Date Time Temp Pulse Resp B/P (MAP) Pulse Ox O2 Delivery O2 Flow Rate FiO2 12/24/18 11:23 85 25 12/24/18 11:21 82 28 100 Mechanical Ventilator 45 12/24/18 11:13 80 26 96 Mechanical Ventilator 45 12/24/18 10:07 96 12/24/18 10:00 85 18 160/79 (106) 93 12/24/18 09:00 98.9 75 22 158/78 (104) 96 12/24/18 09:00 69 21 45 12/24/18 08:27 137/70 12/24/18 08:00 45 12/24/18 08:00 83 12/24/18 08:00 Mechanical Ventilator 12/24/18 07:49 66 20 100 Mechanical Ventilator 45 12/24/18 07:37 66 20 45 12/24/18 07:35 66 20 97 Mechanical Ventilator 45 12/24/18 07:00 72 22 137/70 (92) 96 12/24/18 06:30 72 22 144/65 (91) 96 12/24/18 06:14 130/60 12/24/18 06:00 67 22 137/61 (86) 96 12/24/18 05:53 20 Mechanical Ventilator 45.0 12/24/18 05:30 69 21 131/69 (89) 94 12/24/18 05:07 71 20 45 12/24/18 05:00 70 20 126/58 (80) 95 12/24/18 05:00 20 Mechanical Ventilator 45 12/24/18 04:30 69 20 117/60 (79) 97 12/24/18 04:00 98.4 75 20 128/64 (85) 97 12/24/18 04:00 45 12/24/18 04:00 Mechanical Ventilator 12/24/18 04:00 20 Mechanical Ventilator 12/24/18 04:00 90 12/24/18 03:36 74 20 45 12/24/18 03:35 69 20 98 Mechanical Ventilator 45 12/24/18 03:30 83 23 127/63 (84) 97 12/24/18 03:20 68 20 96 Mechanical Ventilator 45 12/24/18 03:00 80 20 96 12/24/18 03:00 20 Mechanical Ventilator 45 12/24/18 02:30 72 19 146/73 (97) 91 12/24/18 02:15 73 20 137/62 (87) 92 12/24/18 02:00 20 Mechanical Ventilator 45 12/24/18 02:00 74 20 145/82 (103) 92 12/24/18 01:45 72 20 139/79 (99) 94 12/24/18 01:34 78 20 45 12/24/18 01:30 76 21 129/85 (100) 100 12/24/18 01:00 90 20 136/86 (103) 94 12/24/18 01:00 22 Mechanical Ventilator 45 12/24/18 00:30 77 20 136/80 (98) 94 12/24/18 00:25 22 12/24/18 00:02 81 20 100 Mechanical Ventilator 45 12/24/18 00:00 92 12/24/18 00:00 77 20 145/79 (101) 94 12/24/18 00:00 45 12/24/18 00:00 Mechanical Ventilator 12/23/18 23:52 73 21 95 Mechanical Ventilator 45 12/23/18 23:30 77 21 152/75 (100) 99 12/23/18 23:00 79 23 146/100 (115) 96 12/23/18 22:41 79 24 45 12/23/18 22:30 79 24 165/95 (118) 98 12/23/18 22:24 165/90 12/23/18 22:00 22 Mechanical Ventilator 45 12/23/18 22:00 83 25 154/118 (130) 98 12/23/18 21:30 83 24 155/104 (121) 94 12/23/18 21:00 22 Mechanical Ventilator 12/23/18 21:00 81 23 136/75 (95) 95 12/23/18 20:30 81 24 155/84 (107) 95 12/23/18 20:30 79 26 45 12/23/18 20:00 45 12/23/18 20:00 90 12/23/18 20:00 82 24 151/82 (105) 94 12/23/18 20:00 22 Mechanical Ventilator 45 12/23/18 20:00 Mechanical Ventilator 12/23/18 19:37 82 25 100 Mechanical Ventilator 45 12/23/18 19:15 79 24 45 12/23/18 19:13 80 26 99 Mechanical Ventilator 45 12/23/18 19:00 81 25 140/122 (128) 97 12/23/18 19:00 23 Mechanical Ventilator 45 12/23/18 18:30 78 23 155/73 (100) 96 12/23/18 18:00 24 Mechanical Ventilator 45 12/23/18 18:00 80 24 154/107 (123) 99 12/23/18 17:30 80 21 176/149 (158) 94 12/23/18 17:10 82 26 45 12/23/18 17:00 98.8 80 24 150/70 (96) 93 12/23/18 17:00 24 Mechanical Ventilator 45 12/23/18 16:30 85 23 125/109 (114) 92 12/23/18 16:15 90 19 122/93 (103) 88 12/23/18 16:02 26 Mechanical Ventilator 45 12/23/18 16:00 Mechanical Ventilator 12/23/18 16:00 22 Mechanical Ventilator 45 12/23/18 16:00 84 22 140/102 (115) 92 12/23/18 15:45 85 25 143/74 (97) 92 12/23/18 15:35 87 12/23/18 15:30 88 26 164/53 (90) 96 12/23/18 15:02 93 28 99 Mechanical Ventilator 45 12/23/18 15:00 92 21 130/59 (82) 100 12/23/18 15:00 21 Mechanical Ventilator 45 12/23/18 14:52 95 29 98 Mechanical Ventilator 45 12/23/18 14:51 91 28 45 12/23/18 14:30 125 25 133/85 (101) 94 12/23/18 14:00 90 28 150/70 (96) 99 12/23/18 14:00 28 Mechanical Ventilator 45 12/23/18 13:30 100 26 129/61 (83) 99 12/23/18 13:00 93 25 174/75 (108) 97 12/23/18 13:00 25 Mechanical Ventilator 45 12/23/18 12:45 Mechanical Ventilator 45 12/23/18 12:40 45 12/23/18 12:30 93 23 174/75 (108) 100 12/23/18 12:30 93 27 45 12/23/18 12:10 35 Intake and Output 12/23/18 12/24/18 19:00 07:00 Intake Total 1022.7 ml 1060 ml Output Total 355 ml 670 ml Balance 667.7 ml 390 ml IV Total 1022.7 ml 1060 ml Tube Feeding 0 ml 0 ml Output Urine Total 355 ml 670 ml # Bowel Movements 4 Laboratory Tests 12/23/18 12:10: Arterial Blood pH 7.397, Arterial Blood Partial Pressure CO2 53.1H, Arterial Blood Partial Pressure O2 58.7L, Arterial Blood HCO3 31.9H, Arterial Blood Oxygen Saturation 89.2*L, Arterial Blood Base Excess 5.6H, Jose Test Positive 12/24/18 04:45: White Blood Count 18.1H, Red Blood Count 4.69L, Hemoglobin 14.2, Hematocrit 44.2 , Mean Corpuscular Volume 94, Mean Corpuscular Hemoglobin 30.3, Mean Corpuscular Hemoglobin Concent 32.3, Red Cell Distribution Width 14.4, Platelet Count 163, Mean Platelet Volume 7.8, Neutrophils (%) (Auto) , Lymphocytes (%) ( Auto) , Monocytes (%) (Auto) , Eosinophils (%) (Auto) , Basophils (%) (Auto) , Differential Total Cells Counted 100, Neutrophils % (Manual) 87H, Lymphocytes % (Manual) 5L, Monocytes % (Manual) 8, Eosinophils % (Manual) 0, Basophils % ( Manual) 0, Band Neutrophils 0, Platelet Estimate Adequate, Platelet Morphology Normal, Red Blood Cell Morphology Normal, Sodium Level 149H, Potassium Level 4.0 , Chloride Level 111H, Carbon Dioxide Level 28, Anion Gap 10, Blood Urea Nitrogen 37H, Creatinine 1.1, Estimat Glomerular Filtration Rate > 60, Glucose Level 127H, Calcium Level 8.8 12/24/18 11:30: Arterial Blood pH 7.366, Arterial Blood Partial Pressure CO2 58.1*H, Arterial Blood Partial Pressure O2 61.0L, Arterial Blood HCO3 32.5H, Arterial Blood Oxygen Saturation 89.8*L, Arterial Blood Base Excess 5.3H, Jose Test Positive Height (Feet): 5 Height (Inches): 8.00 Weight (Pounds): 200 Cardiovascular: normal rate Respiratory/Chest: lungs clear Edema: no edema noted Generalized Baldemar Morgan MD Dec 24, 2018 12:08
--- NOTE | 2018-12-24 13:06 | GI Progress Note ---
Assessment/Plan Problems: (1) ARF (acute renal failure) ICD Codes: N17.9 - Acute kidney failure, unspecified SNOMED: 72501320 (2) Acute respiratory failure with hypercapnia ICD Codes: J96.02 - Acute respiratory failure with hypercapnia SNOMED: 751452739 (3) COPD exacerbation (4) Pneumonia ICD Codes: J18.9 - Pneumonia, unspecified organism SNOMED: 481883833 (5) Respiratory failure ICD Codes: J96.90 - Respiratory failure, unspecified, unspecified whether with hypoxia or hypercapnia SNOMED: 729556649 Status: stable Status Narrative Discussed with Dr. Norman. Assessment/Plan dobhoff placed KUB confirmed start NGTFs per RD prn transfusions ppi fu labs The patient was seen and examined at bedside and all new and available data was reviewed in the patients chart. I agree with the above findings, impression and plan. (Patient seen earlier today. Signature stamp does not reflect patient encounter time.). - Abelino Norman MD Subjective Subjective limited Objective Last 24 Hour Vital Signs Date Time Temp Pulse Resp B/P (MAP) Pulse Ox O2 Delivery O2 Flow Rate FiO2 12/24/18 12:48 88 25 45 12/24/18 11:23 85 25 12/24/18 11:21 82 28 100 Mechanical Ventilator 45 12/24/18 11:13 80 26 96 Mechanical Ventilator 45 12/24/18 10:07 96 12/24/18 10:00 85 18 160/79 (106) 93 12/24/18 09:00 98.9 75 22 158/78 (104) 96 12/24/18 09:00 69 21 45 12/24/18 08:27 137/70 12/24/18 08:00 45 12/24/18 08:00 83 12/24/18 08:00 Mechanical Ventilator 12/24/18 07:49 66 20 100 Mechanical Ventilator 45 12/24/18 07:37 66 20 45 12/24/18 07:35 66 20 97 Mechanical Ventilator 45 12/24/18 07:00 72 22 137/70 (92) 96 12/24/18 06:30 72 22 144/65 (91) 96 12/24/18 06:14 130/60 12/24/18 06:00 67 22 137/61 (86) 96 12/24/18 05:53 20 Mechanical Ventilator 45.0 12/24/18 05:30 69 21 131/69 (89) 94 12/24/18 05:07 71 20 45 12/24/18 05:00 70 20 126/58 (80) 95 12/24/18 05:00 20 Mechanical Ventilator 45 12/24/18 04:30 69 20 117/60 (79) 97 12/24/18 04:00 98.4 75 20 128/64 (85) 97 12/24/18 04:00 45 12/24/18 04:00 Mechanical Ventilator 12/24/18 04:00 20 Mechanical Ventilator 12/24/18 04:00 90 12/24/18 03:36 74 20 45 12/24/18 03:35 69 20 98 Mechanical Ventilator 45 12/24/18 03:30 83 23 127/63 (84) 97 12/24/18 03:20 68 20 96 Mechanical Ventilator 45 12/24/18 03:00 80 20 96 12/24/18 03:00 20 Mechanical Ventilator 45 12/24/18 02:30 72 19 146/73 (97) 91 12/24/18 02:15 73 20 137/62 (87) 92 12/24/18 02:00 20 Mechanical Ventilator 45 12/24/18 02:00 74 20 145/82 (103) 92 12/24/18 01:45 72 20 139/79 (99) 94 12/24/18 01:34 78 20 45 12/24/18 01:30 76 21 129/85 (100) 100 12/24/18 01:00 90 20 136/86 (103) 94 12/24/18 01:00 22 Mechanical Ventilator 45 12/24/18 00:30 77 20 136/80 (98) 94 12/24/18 00:25 22 12/24/18 00:02 81 20 100 Mechanical Ventilator 45 12/24/18 00:00 92 12/24/18 00:00 77 20 145/79 (101) 94 12/24/18 00:00 45 12/24/18 00:00 Mechanical Ventilator 12/23/18 23:52 73 21 95 Mechanical Ventilator 45 12/23/18 23:30 77 21 152/75 (100) 99 12/23/18 23:00 79 23 146/100 (115) 96 12/23/18 22:41 79 24 45 12/23/18 22:30 79 24 165/95 (118) 98 12/23/18 22:24 165/90 12/23/18 22:00 22 Mechanical Ventilator 45 12/23/18 22:00 83 25 154/118 (130) 98 12/23/18 21:30 83 24 155/104 (121) 94 12/23/18 21:00 22 Mechanical Ventilator 12/23/18 21:00 81 23 136/75 (95) 95 12/23/18 20:30 81 24 155/84 (107) 95 12/23/18 20:30 79 26 45 12/23/18 20:00 45 12/23/18 20:00 90 12/23/18 20:00 82 24 151/82 (105) 94 12/23/18 20:00 22 Mechanical Ventilator 45 12/23/18 20:00 Mechanical Ventilator 12/23/18 19:37 82 25 100 Mechanical Ventilator 45 12/23/18 19:15 79 24 45 12/23/18 19:13 80 26 99 Mechanical Ventilator 45 12/23/18 19:00 81 25 140/122 (128) 97 12/23/18 19:00 23 Mechanical Ventilator 45 12/23/18 18:30 78 23 155/73 (100) 96 12/23/18 18:00 24 Mechanical Ventilator 45 12/23/18 18:00 80 24 154/107 (123) 99 12/23/18 17:30 80 21 176/149 (158) 94 12/23/18 17:10 82 26 45 12/23/18 17:00 98.8 80 24 150/70 (96) 93 12/23/18 17:00 24 Mechanical Ventilator 45 12/23/18 16:30 85 23 125/109 (114) 92 12/23/18 16:15 90 19 122/93 (103) 88 12/23/18 16:02 26 Mechanical Ventilator 45 12/23/18 16:00 Mechanical Ventilator 12/23/18 16:00 22 Mechanical Ventilator 45 12/23/18 16:00 84 22 140/102 (115) 92 12/23/18 15:45 85 25 143/74 (97) 92 12/23/18 15:35 87 12/23/18 15:30 88 26 164/53 (90) 96 12/23/18 15:02 93 28 99 Mechanical Ventilator 45 12/23/18 15:00 92 21 130/59 (82) 100 12/23/18 15:00 21 Mechanical Ventilator 45 12/23/18 14:52 95 29 98 Mechanical Ventilator 45 12/23/18 14:51 91 28 45 12/23/18 14:30 125 25 133/85 (101) 94 12/23/18 14:00 90 28 150/70 (96) 99 12/23/18 14:00 28 Mechanical Ventilator 45 12/23/18 13:30 100 26 129/61 (83) 99 Intake and Output 12/23/18 12/24/18 19:00 07:00 Intake Total 1022.7 ml 1060 ml Output Total 355 ml 670 ml Balance 667.7 ml 390 ml IV Total 1022.7 ml 1060 ml Tube Feeding 0 ml 0 ml Output Urine Total 355 ml 670 ml # Bowel Movements 4 Laboratory Tests Test 12/24/18 04:45 12/24/18 11:30 White Blood Count 18.1 K/UL (4.8-10.8) H Red Blood Count 4.69 M/UL (4.70-6.10) L Hemoglobin 14.2 G/DL (14.2-18.0) Hematocrit 44.2 % (42.0-52.0) Mean Corpuscular Volume 94 FL (80-99) Mean Corpuscular Hemoglobin 30.3 PG (27.0-31.0) Mean Corpuscular Hemoglobin Concent 32.3 G/DL (32.0-36.0) Red Cell Distribution Width 14.4 % (11.6-14.8) Platelet Count 163 K/UL (150-450) Mean Platelet Volume 7.8 FL (6.5-10.1) Neutrophils (%) (Auto) % (45.0-75.0) Lymphocytes (%) (Auto) % (20.0-45.0) Monocytes (%) (Auto) % (1.0-10.0) Eosinophils (%) (Auto) % (0.0-3.0) Basophils (%) (Auto) % (0.0-2.0) Differential Total Cells Counted 100 Neutrophils % (Manual) 87 % (45-75) H Lymphocytes % (Manual) 5 % (20-45) L Monocytes % (Manual) 8 % (1-10) Eosinophils % (Manual) 0 % (0-3) Basophils % (Manual) 0 % (0-2) Band Neutrophils 0 % (0-8) Platelet Estimate Adequate Platelet Morphology Normal Red Blood Cell Morphology Normal Sodium Level 149 MMOL/L (136-145) H Potassium Level 4.0 MMOL/L (3.5-5.1) Chloride Level 111 MMOL/L (98-107) H Carbon Dioxide Level 28 MMOL/L (21-32) Anion Gap 10 mmol/L (5-15) Blood Urea Nitrogen 37 mg/dL (7-18) H Creatinine 1.1 MG/DL (0.55-1.30) Estimat Glomerular Filtration Rate > 60 mL/min (>60) Glucose Level 127 MG/DL (74-106) H Calcium Level 8.8 MG/DL (8.5-10.1) Arterial Blood pH 7.366 (7.350-7.450) Arterial Blood Partial Pressure CO2 58.1 mmHg (35.0-45.0) *H Arterial Blood Partial Pressure O2 61.0 mmHg (75.0-100.0) L Arterial Blood HCO3 32.5 mmol/L (22.0-26.0) H Arterial Blood Oxygen Saturation 89.8 % (95-100) *L Arterial Blood Base Excess 5.3 (-2-2) H Jose Test Positive Height (Feet): 5 Height (Inches): 8.00 Weight (Pounds): 200 General Appearance: WD/WN, no apparent distress, alert Cardiovascular: normal rate Respiratory/Chest: normal breath sounds, no respiratory distress Abdominal Exam: normal bowel sounds, non tender, soft, other - dobhoff Extremities: non-tender Erwin Maddox NP Dec 24, 2018 13:06
--- NOTE | 2018-12-24 13:57 | NUR ---
NURSE NOTES: started TF Glucerna 1.5 @20ml/hr per RITO Ashley. D/C'd D5W@75ml/hr.
--- NOTE | 2018-12-24 14:26 | Diagnostic Imaging Report ---
Indication: NG tube Comparison: None Single view of the abdomen obtained Findings: A weighted feeding tube is present curled in the upper stomach. Moderate stool in the right hemicolon noted. Moderate gaseous distention of small large bowel noted. Bones are osteopenic. IMPRESSION: Weighted feeding tube in the stomach
--- NOTE | 2018-12-24 14:32 | Pulmonolgy Critical Care Note ---
Critical Care - Asmt/Plan Assessment/Plan: Problem List: 1. Acute on chronic hypercapnic respiratory failure -intubated 12/15 2. Acute exacerbation of COPD 3. Possible community-acquired pneumonia 4. Cardiomyopathy, EF 20% 5. Systolic CHF 6. out of hospital respiratory failure/possible cardiac arrest s/p CPR by family 7. JUAN 8. DM Plan: -cont mechanical ventilatory support, daily weaning trials, improving slowly -wean sedation as tolerated -Monitor ABG prn -monitor off abx -f/u cultures -solumedrol 60 mg IV qd, taper as tolerated -Good pulmonary hygiene: duonebs and mucomyst q4, suction prn -monitor volumes, avoid overload -monitor renal function -repeat CXR tomorrow Respiratory: CXR, ABG, weaning trial Cardiac: continue to monitor HR/BP Renal: F/U I&O Neurologic: keep patient comfortable Time Spent (Minutes): 40 - cc Discussed with: nurses Critical Care - Objective Last 24 Hour Vital Signs Date Time Temp Pulse Resp B/P (MAP) Pulse Ox O2 Delivery O2 Flow Rate FiO2 12/24/18 12:48 88 25 45 12/24/18 12:00 81 12/24/18 12:00 40 12/24/18 12:00 Mechanical Ventilator 12/24/18 11:23 85 25 12/24/18 11:21 82 28 100 Mechanical Ventilator 45 12/24/18 11:13 80 26 96 Mechanical Ventilator 45 12/24/18 10:07 96 12/24/18 10:00 85 18 160/79 (106) 93 12/24/18 09:00 98.9 75 22 158/78 (104) 96 12/24/18 09:00 69 21 45 12/24/18 08:27 137/70 12/24/18 08:00 45 12/24/18 08:00 83 12/24/18 08:00 Mechanical Ventilator 12/24/18 07:49 66 20 100 Mechanical Ventilator 45 12/24/18 07:37 66 20 45 12/24/18 07:35 66 20 97 Mechanical Ventilator 45 12/24/18 07:00 72 22 137/70 (92) 96 12/24/18 06:30 72 22 144/65 (91) 96 12/24/18 06:14 130/60 12/24/18 06:00 67 22 137/61 (86) 96 12/24/18 05:53 20 Mechanical Ventilator 45.0 12/24/18 05:30 69 21 131/69 (89) 94 12/24/18 05:07 71 20 45 12/24/18 05:00 70 20 126/58 (80) 95 18/ 05:00 20 Mechanical Ventilator 45 12/24/18 04:30 69 20 117/60 (79) 97 12/24/18 04:00 98.4 75 20 128/64 (85) 97 12/24/18 04:00 45 12/24/18 04:00 Mechanical Ventilator 12/24/18 04:00 20 Mechanical Ventilator 12/24/18 04:00 90 12/24/18 03:36 74 20 45 12/24/18 03:35 69 20 98 Mechanical Ventilator 45 12/24/18 03:30 83 23 127/63 (84) 97 12/24/18 03:20 68 20 96 Mechanical Ventilator 45 12/24/18 03:00 80 20 96 12/24/18 03:00 20 Mechanical Ventilator 45 12/24/18 02:30 72 19 146/73 (97) 91 12/24/18 02:15 73 20 137/62 (87) 92 12/24/18 02:00 20 Mechanical Ventilator 45 12/24/18 02:00 74 20 145/82 (103) 92 12/24/18 01:45 72 20 139/79 (99) 94 12/24/18 01:34 78 20 45 12/24/18 01:30 76 21 129/85 (100) 100 12/24/18 01:00 90 20 136/86 (103) 94 12/24/18 01:00 22 Mechanical Ventilator 45 12/24/18 00:30 77 20 136/80 (98) 94 12/24/18 00:25 22 12/24/18 00:02 81 20 100 Mechanical Ventilator 45 12/24/18 00:00 92 12/24/18 00:00 77 20 145/79 (101) 94 12/24/18 00:00 45 12/24/18 00:00 Mechanical Ventilator 12/23/18 23:52 73 21 95 Mechanical Ventilator 45 12/23/18 23:30 77 21 152/75 (100) 99 12/23/18 23:00 79 23 146/100 (115) 96 12/23/18 22:41 79 24 45 12/23/18 22:30 79 24 165/95 (118) 98 12/23/18 22:24 165/90 12/23/18 22:00 22 Mechanical Ventilator 45 12/23/18 22:00 83 25 154/118 (130) 98 12/23/18 21:30 83 24 155/104 (121) 94 12/23/18 21:00 22 Mechanical Ventilator 12/23/18 21:00 81 23 136/75 (95) 95 12/23/18 20:30 81 24 155/84 (107) 95 12/23/18 20:30 79 26 45 12/23/18 20:00 45 12/23/18 20:00 90 12/23/18 20:00 82 24 151/82 (105) 94 12/23/18 20:00 22 Mechanical Ventilator 45 12/23/18 20:00 Mechanical Ventilator 12/23/18 19:37 82 25 100 Mechanical Ventilator 45 12/23/18 19:15 79 24 45 12/23/18 19:13 80 26 99 Mechanical Ventilator 45 12/23/18 19:00 81 25 140/122 (128) 97 12/23/18 19:00 23 Mechanical Ventilator 45 12/23/18 18:30 78 23 155/73 (100) 96 12/23/18 18:00 24 Mechanical Ventilator 45 12/23/18 18:00 80 24 154/107 (123) 99 12/23/18 17:30 80 21 176/149 (158) 94 12/23/18 17:10 82 26 45 12/23/18 17:00 98.8 80 24 150/70 (96) 93 12/23/18 17:00 24 Mechanical Ventilator 45 12/23/18 16:30 85 23 125/109 (114) 92 12/23/18 16:15 90 19 122/93 (103) 88 12/23/18 16:02 26 Mechanical Ventilator 45 12/23/18 16:00 Mechanical Ventilator 12/23/18 16:00 22 Mechanical Ventilator 45 12/23/18 16:00 84 22 140/102 (115) 92 12/23/18 15:45 85 25 143/74 (97) 92 12/23/18 15:35 87 12/23/18 15:30 88 26 164/53 (90) 96 12/23/18 15:02 93 28 99 Mechanical Ventilator 45 12/23/18 15:00 92 21 130/59 (82) 100 12/23/18 15:00 21 Mechanical Ventilator 45 12/23/18 14:52 95 29 98 Mechanical Ventilator 45 12/23/18 14:51 91 28 45 12/23/18 14:30 125 25 133/85 (101) 94 Status: awake HEENT: atraumatic Neck: full ROM Lungs: other - diminished Heart: HR/BP stable Abdomen: soft, non-tender Extremities: no C/C/E Accucheck: 102 Critical Care - Subjective ROS Limited/Unobtainable: Yes Interval Events: Remains intubated. PS 12 for about 1 1/2 hours but became tired. Agitated, wants to be extubated. Condition: unchanged EKG Rhythm: Sinus Rhythm FI02: 45 Vent Support Breath Rate: 20 Vent Support Mode: CPAP Vent Tidal Volume: 600 Sputum Amount: Scant PEEP: 5.0 PIP: 29 Tube Feeding Amount: 20 I&O: Intake and Output 12/23/18 12/24/18 19:00 07:00 Intake Total 1022.7 ml 1060 ml Output Total 355 ml 670 ml Balance 667.7 ml 390 ml IV Total 1022.7 ml 1060 ml Tube Feeding 0 ml 0 ml Output Urine Total 355 ml 670 ml # Bowel Movements 4 ET-Tube: 7.0 ET Position: 24 Vincenzo Regalado MD Dec 24, 2018 14:32
--- NOTE | 2018-12-24 15:03 | NUR ---
RD ASSESSMENT & RECOMMENDATIONS SEE CARE ACTIVITY FOR COMPLETE ASSESSMENT DAILY ESTIMATED NEEDS: Needs based on Critical care, DM 76.9kg adj 20-26 kcals/kg [id number] total kcals 1.2-2 g protein/kg 92-154 g total protein 25-30 mL/kg 6641-6395 total fluid mLs NUTRITION DIAGNOSIS: 1) Swallowing difficulty r/t respiratory status as evidenced by pt intubated, s/p Dobbhoff placement, on TF. 2) Altered nutrition related lab values r/t clinical status as evidenced by critically elev pCO2 (58.1*), a1C 6.1, elev phos on adm (5.2-> now wnl). CURRENT TF:Glucerna 1.5 @40ml-> w/ an order to resume TF @ 20ml/hr at this time ENTERAL NUTRITION RECOMMENDATIONS: Glucerna 1.5 @50ml/hr x24 hrs to provide 1200ml, 1800 kcal, 99g prot, 911ml free H2O - Increase GOAL RATE to 50ml/hr x 24 hrsto better meet est needs. 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
[2018-12-24] MEDS: fentaNYL Citrate 2,500 MCG in NS 200 ML IV SCH (15:35)
--- NOTE | 2018-12-24 15:44 | NUR ---
NURSE NOTES: patient tolerating TF well. Increased Fentanyl to 250mcg/kg/min, patient agitated and banging on side rails. x1 small soft BM noted. Turned and repositioned, kept dry and clean.
--- NOTE | 2018-12-24 17:00 | NUR ---
NURSE NOTES: IV on LW infiltrated, removed and replaced with new IV on RW 18G. Turned and repositioned. Oral care given.
--- NOTE | 2018-12-24 19:08 | NUR ---
HAND-OFF: Report given to LYUDMILA Alfred using SBAR.
--- NOTE | 2018-12-24 19:26 | NUR ---
CASE MANAGEMENT: REVIEW SI: RESP FAILURE . PNA . COPD EXACERBATION T 98.9 HR 88 RR 28 BP 141/62 SAT 93% MECH VENT FIO2 40 WBC 18.1 NA 149 IS: COZAAR NG QD ALBUTEROL HHN Q4HR MUCOMYST HHN Q4HR OROGASTRIC TUBE FEEDING GLUCERNA 1.5 @ 40ML/HR ICU STATUS DCP: PATIENT IS FROM HOME
--- NOTE | 2018-12-24 20:00 | NUR ---
NURSE NOTES: pt awake on fent drip at 240 mcg /hr on sobeida soft wrest restraints non complaint iv infusing rt wrest site patent reposition and suction tolerating tube feeding
[2018-12-24] MEDS ORDERED: Tubing IV Secondary IV ONE ×2 (20:11→20:41)
[2018-12-24] MEDS ORDERED: D5NS 1000ml IV ONE ×2 (20:11→20:41)
[2018-12-24] MEDS ORDERED: Sterile Water For Irrig 2000ml IRRIG ONE (20:41)
[2018-12-24] MEDS ORDERED: D5 1/2NS 1000ml IV ONE (20:41)
--- NOTE | 2018-12-24 22:00 | NUR ---
NURSE NOTES: reposition and suction toleration tube no residual
--- NOTE | 2018-12-24 23:13 | Cardiology Progress Note ---
Assessment/Plan Status: stable Assessment/Plan Assessment/Plan Status: stable Assessment/Plan Assessment: Respiratory failure COPD (chronic obstructive pulmonary disease) Pneumonia CAD, previous CABG PPM/ICD HTN HLD PLAN: Patient has failed to progress off the vent, he is hemodynamically stable, he is tolerating CPAP for a while then gets tired, he is on steroid taper, he as some secretions as well. Cultures are negative so far and chest x ray is clear. CT brain negative for CVA Echo with systolic dysfunction but he doesn't appear to be in heart failure, CXR clear and PA pressures normal and he is hemodynamically stable. Feeds have been restarted and tolerated Consider trach given failure to wean after nine days Continue NGT feeds Bowel prep - ducolax, enema, mineral oil, colace, he has hx of hiatal hernia as well continue steroids now being weaned continue empiric abx, follow cultures Will initiated heart failure treatment when stable/extubated Will need ischemia evaluation given hx of CAD/CABG to evaluate graft function when stable prior to discharge continue aspirin continue statin Hold beta blockers while intubated Monitor I/O and renal function Spot diuresis as needed, currently does not appear fluid overloaded Daily weaning trials Discussed with family and nursing Subjective Cardiovascular: Reports: no symptoms Respiratory: Reports: no symptoms Gastrointestinal/Abdominal: Reports: no symptoms Genitourinary: Reports: no symptoms Subjective No acute events, tolerated few hours of PS but got tired, no plans to extubate today, currently sedated with fentanyl, Echo with severe LV dysfunction EF 20 percent. d/w nursing Tolerating tube feeds, patient is failing to progress Objective Last 24 Hour Vital Signs Date Time Temp Pulse Resp B/P (MAP) Pulse Ox O2 Delivery O2 Flow Rate FiO2 12/24/18 23:00 73 21 40 12/24/18 22:33 154/79 12/24/18 22:27 79 20 98 Mechanical Ventilator 40 12/24/18 22:19 71 20 95 Mechanical Ventilator 40 12/24/18 22:00 74 18 154/74 (100) 93 12/24/18 22:00 20 Mechanical Ventilator 45 12/24/18 21:14 81 24 40 12/24/18 21:00 90 18 147/84 (105) 93 12/24/18 21:00 20 Mechanical Ventilator 40 12/24/18 20:00 94 12/24/18 20:00 94 18 152/90 (110) 93 12/24/18 20:00 40 18 20:00 Mechanical Ventilator 12/24/18 20:00 22 Mechanical Ventilator 40 12/24/18 19:13 74 20 95 Mechanical Ventilator 40 12/24/18 19:06 80 21 94 Mechanical Ventilator 40 12/24/ 19:04 77 22 40 12/24/18 19:00 70 18 134/97 (109) 93 12/24/18 19:00 20 Mechanical Ventilator 40 12/24/18 18:00 71 18 124/97 (106) 93 12/24/18 18:00 20 Endotracheal Tube 40 12/24/18 17:00 73 18 142/60 (87) 93 12/24/18 17:00 20 Endotracheal Tube 40 12/24/18 16:55 88 28 40 12/24/18 16:05 98.6 12/24/18 16:00 40 12/24/18 16:00 Mechanical Ventilator 12/24/18 16:00 20 Endotracheal Tube 40 12/24/18 16:00 82 12/24/18 16:00 98.9 73 18 141/62 (88) 93 12/24/18 15:35 16 Endotracheal Tube 40 12/24/18 15:00 72 18 128/78 (95) 93 12/24/18 15:00 20 Endotracheal Tube 40 12/24/18 14:53 76 25 40 12/24/18 14:52 77 25 95 Mechanical Ventilator 40 12/24/18 14:39 77 23 99 Mechanical Ventilator 45 12/24/18 14:00 75 18 90/56 (67) 93 12/24/18 14:00 20 Endotracheal Tube 40 12/24/18 14:00 90/58 18 13:00 84 18 129/79 (96) 93 12/24/18 13:00 20 Endotracheal Tube 40 12/24/18 12:48 88 25 45 12/24/18 12:00 81 12/24/18 12:00 20 Endotracheal Tube 40 12/24/18 12:00 40 12/24/18 12:00 98.6 81 18 149/79 (102) 93 12/24/18 12:00 Mechanical Ventilator 12/24/18 11:23 85 25 12/24/18 11:21 82 28 100 Mechanical Ventilator 45 12/24/18 11:13 80 26 96 Mechanical Ventilator 45 12/24/18 11:00 85 18 160/79 (106) 93 19 10:07 96 12/24/18 10:00 85 18 160/79 (106) 93 12/24/18 09:00 98.9 75 22 158/78 (104) 96 12/24/18 09:00 69 21 45 12/24/18 08:27 137/70 12/24/18 08:00 45 12/24/18 08:00 83 12/24/18 08:00 20 Endotracheal Tube 45 12/24/18 08:00 Mechanical Ventilator 12/24/18 07:49 66 20 100 Mechanical Ventilator 45 12/24/18 07:37 66 20 45 12/24/18 07:35 66 20 97 Mechanical Ventilator 45 12/24/18 07:00 72 22 137/70 (92) 96 12/24/18 07:00 22 Endotracheal Tube 45 12/24/18 06:30 72 22 144/65 (91) 96 12/24/18 06:14 130/60 12/24/18 06:00 67 22 137/61 (86) 96 12/24/18 05:53 20 Mechanical Ventilator 45.0 12/24/18 05:30 69 21 131/69 (89) 94 12/24/18 05:07 71 20 45 12/24/18 05:00 70 20 126/58 (80) 95 12/24/18 05:00 20 Mechanical Ventilator 45 12/24/18 04:30 69 20 117/60 (79) 97 12/24/ 04:00 98.4 75 20 128/64 (85) 97 12/24/18 04:00 45 12/24/18 04:00 Mechanical Ventilator 12/24/18 04:00 20 Mechanical Ventilator 12/24/ 04:00 90 12/24/ 03:36 74 20 45 18/ 03:35 69 20 98 Mechanical Ventilator 45 12/24/18 03:30 83 23 127/63 (84) 97 12/24/ 03:20 68 20 96 Mechanical Ventilator 45 12/24/ 03:00 80 20 96 18/ 03:00 20 Mechanical Ventilator 45 12/24/18 02:30 72 19 146/73 (97) 91 12/24/18 02:15 73 20 137/62 (87) 92 12/24/18 02:00 20 Mechanical Ventilator 45 12/24/18 02:00 74 20 145/82 (103) 92 12/24/18 01:45 72 20 139/79 (99) 94 12/24/18 01:34 78 20 45 12/24/18 01:30 76 21 129/85 (100) 100 12/24/18 01:00 90 20 136/86 (103) 94 12/24/18 01:00 22 Mechanical Ventilator 45 12/24/18 00:30 77 20 136/80 (98) 94 12/24/18 00:25 22 12/24/18 00:02 81 20 100 Mechanical Ventilator 45 12/24/18 00:00 92 12/24/18 00:00 77 20 145/79 (101) 94 12/24/18 00:00 45 12/24/18 00:00 Mechanical Ventilator 12/23/18 23:52 73 21 95 Mechanical Ventilator 45 12/23/18 23:30 77 21 152/75 (100) 99 General Appearance: no apparent distress, lethargic, on vent EENT: PERRL/EOMI, normal ENT inspection, TMs normal, pharynx normal Neck: non-tender, normal alignment, supple, normal inspection, no JVD Rhythm: NSR Cardiovascular: normal peripheral pulses, normal rate, regular rhythm Respiratory/Chest: chest wall non-tender, decreased breath sounds, crackles/ rales, rhonchi - bilaterally, expiratory wheezing Abdomen: normal bowel sounds, non tender, soft, no organomegaly, no mass Extremities: normal range of motion, non-tender, normal inspection, no calf tenderness, no swelling 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, no motor/sensory deficits Intake and Output 12/23/18 12/24/18 18:59 06:59 Intake Total 1014.7 ml 1155 ml Output Total 315 ml 680 ml Balance 699.7 ml 475 ml IV Total 1014.7 ml 1155 ml Tube Feeding 0 ml 0 ml Output Urine Total 315 ml 680 ml # Bowel Movements 4 Laboratory Tests Test 12/24/18 04:45 12/24/18 11:30 White Blood Count 18.1 K/UL (4.8-10.8) H Red Blood Count 4.69 M/UL (4.70-6.10) L Hemoglobin 14.2 G/DL (14.2-18.0) Hematocrit 44.2 % (42.0-52.0) Mean Corpuscular Volume 94 FL (80-99) Mean Corpuscular Hemoglobin 30.3 PG (27.0-31.0) Mean Corpuscular Hemoglobin Concent 32.3 G/DL (32.0-36.0) Red Cell Distribution Width 14.4 % (11.6-14.8) Platelet Count 163 K/UL (150-450) Mean Platelet Volume 7.8 FL (6.5-10.1) Neutrophils (%) (Auto) % (45.0-75.0) Lymphocytes (%) (Auto) % (20.0-45.0) Monocytes (%) (Auto) % (1.0-10.0) Eosinophils (%) (Auto) % (0.0-3.0) Basophils (%) (Auto) % (0.0-2.0) Differential Total Cells Counted 100 Neutrophils % (Manual) 87 % (45-75) H Lymphocytes % (Manual) 5 % (20-45) L Monocytes % (Manual) 8 % (1-10) Eosinophils % (Manual) 0 % (0-3) Basophils % (Manual) 0 % (0-2) Band Neutrophils 0 % (0-8) Platelet Estimate Adequate Platelet Morphology Normal Red Blood Cell Morphology Normal Sodium Level 149 MMOL/L (136-145) H Potassium Level 4.0 MMOL/L (3.5-5.1) Chloride Level 111 MMOL/L (98-107) H Carbon Dioxide Level 28 MMOL/L (21-32) Anion Gap 10 mmol/L (5-15) Blood Urea Nitrogen 37 mg/dL (7-18) H Creatinine 1.1 MG/DL (0.55-1.30) Estimat Glomerular Filtration Rate > 60 mL/min (>60) Glucose Level 127 MG/DL (74-106) H Calcium Level 8.8 MG/DL (8.5-10.1) Arterial Blood pH 7.366 (7.350-7.450) Arterial Blood Partial Pressure CO2 58.1 mmHg (35.0-45.0) *H Arterial Blood Partial Pressure O2 61.0 mmHg (75.0-100.0) L Arterial Blood HCO3 32.5 mmol/L (22.0-26.0) H Arterial Blood Oxygen Saturation 89.8 % (95-100) *L Arterial Blood Base Excess 5.3 (-2-2) H Jose Test Positive Nico Kingston MD Dec 24, 2018 23:13
[2018-12-25] VITALS (38 sets, daily range): BP systolic 86–172; BP diastolic 40–119
--- NOTE | 2018-12-25 | NUR ---
NURSE NOTES: pt sleeping at interval on fent drip at 240mcg/hr reposition and suction
--- NOTE | 2018-12-25 01:58 | NUR ---
NURSE NOTES: pt asleep vs stable reposition and suction
[2018-12-25] MEDS: Albuterol/Ipratropium 3ml neb HHN SCH ×6 (03:10→23:47)
[2018-12-25] MEDS: Acetylcysteine 20% Soln 4ml HHN SCH ×6 (03:10→23:47)
[2018-12-25] MEDS: fentaNYL Citrate 2,500 MCG in NS 200 ML IV SCH ×3 (03:18→18:02)
[2018-12-25 05:41] LABS: HEMATOCRIT 43.3 % (42.0-52.0); HEMOGLOBIN 13.9 G/DL (14.2-18.0); MEAN CORPUSCULAR VOLUME 94 FL (80-99); PLATELET COUNT 144 K/UL (150-450); RED BLOOD COUNT 4.59 M/UL (4.70-6.10); RED CELL DISTRIBUTION WIDTH 14.5 % (11.6-14.8)
[2018-12-25] MEDS: HydrALAZINE 50mg tab ORAL SCH ×3 (06:00→22:22)
[2018-12-25] MEDS: NovoLOG Insulin Flexpen SUBQ SCH ×4 (06:00→18:03)
[2018-12-25 06:28] LABS: ANION GAP 7 mmol/L (5-15); BLOOD UREA NITROGEN 39 mg/dL (7-18); CALCIUM 8.1 MG/DL (8.5-10.1); CARBON DIOXIDE 31 MMOL/L (21-32); CHLORIDE 112 MMOL/L (98-107); CREATININE 1.1 MG/DL (0.55-1.30); POTASSIUM 3.9 MMOL/L (3.5-5.1); SODIUM 149 MMOL/L (136-145)
--- NOTE | 2018-12-25 07:02 | NUR ---
RESPIRATORY NOTE: Received pt on AC 20-600ml-40% FiO2- peep of 5. Pt is orally intubated with ETT 7.0 @ 24cm lips line, secured by anchor fast. Breathing TX duoneb and mucomyst given without adverse reaction. Andres diminished heard upon auscultation, suctioned small amount of thin/ frothy white jung secretions without any incidents. Oral care done. Alarms are set and audible, vent is plugged into the red outlet. Ambu bag is at bedside. Vent circuits and sxn tubbing are secured and out of the way. pt is sedated but awake and alert, easy to arouse and follow commands. Will start weaning pt next vent check when off the sedation. Will continue to monitor pt closely.
--- NOTE | 2018-12-25 07:46 | NUR ---
NURSE NOTES: Received patient from LYUDMLIA Askew. Patient is lightly sedated, on fentanyl drip. Orally intubated, ETT 7.0, 24cm at lip line. vent settings: AC20, 600, Fio2 40%, PEEP 5, O2 sat 98%. SR noted on the monitor. Dubhoff intact and patent, running glucerna 1.5 @35ml/hr, 25ml residual noted. Right wrist 20G and Right forearm 20G intact, running Fentanyl at 240mcg/kg/hr. Nina cath intact and patent, draining urine by gravity. Pt on bilateral soft wrist restraints. no skin breakdown noted. Bed in lowest position, locked, side rails upx3. bed alarm on. Will continue to monitor.
[2018-12-25] MEDS: Bisacodyl EC 5mg tab ORAL SCH ×2 (09:00→17:14)
[2018-12-25] MEDS: Heparin 5000 units/ml inj SUBQ SCH ×2 (09:00→20:51)
[2018-12-25] MEDS ORDERED: Solu-MEDROL 125mg Inj IVP SCH (09:00)
--- NOTE | 2018-12-25 09:09 | NUR ---
RADIOLOGY DEPT CHEST X-RAY DONE.-P.DYE
--- NOTE | 2018-12-25 09:10 | NUR ---
NURSE NOTES: Dr. Shankar made aware that pt unable to take all po meds this morning and BP is elevated. new order carried out. Addendum: 12/25/18 at 1051 by HERBERT LEON RN Wrong patient
--- NOTE | 2018-12-25 09:10 | NUR ---
NURSE NOTES: Dr. Shankar made aware that pt unable to take all po meds this morning and BP is elevated. new order carried out. Addendum: 12/25/18 at 1052 by HERBERT LEON RN wrong patient
--- NOTE | 2018-12-25 09:20 | NUR ---
RESPIRATORY NOTE: Placed pt on CPAP- PS 12- peep of 5- 40% FiO2. Pt's tolerating well, no SOB or resp distress noted. RN VERA Edwards made aware. Will continue to monitor.
[2018-12-25] MEDS: Pantoprazole Inj IVP SCH (09:24)
[2018-12-25] MEDS: Losartan 50mg tab NG SCH (09:25)
[2018-12-25] MEDS: Aspirin Baby 81mg ORAL SCH (09:26)
--- NOTE | 2018-12-25 09:30 | NUR ---
NURSE NOTES: Patient on weaning trial, on CPAP PS 12, RT at bedside.
--- NOTE | 2018-12-25 09:43 | Diagnostic Imaging Report ---
Indication: Dyspnea Technique: One view of the chest Comparison: 12/19/2018 Findings: Stable blunting of left costophrenic sulcus, may reflect pleural fluid. The remainder the lungs and pleural spaces are clear. Stable satisfactory position of endotracheal. Old healed right rib fracture again noted. Findings are unchanged tube. Interim gastric tube placement, tip projected beyond the edge of image. Left chest AICD remains. There is evidence of prior CABG. Impression: Interim nasogastric tube placement. Otherwise little knife changer 6 days, findings as noted
--- NOTE | 2018-12-25 09:45 | NUR ---
RESPIRATORY NOTE: Pt is back on AC mode with the same previous setting due to agitation and tiredness. Rn Gracy Edwards made aware. Will continue to monitor pt.
--- NOTE | 2018-12-25 09:45 | NUR ---
NURSE NOTES: PRN hydralazine given for BP172/83. will recheck BP Addendum: 12/25/18 at 1051 by HERBERT LEON RN Wrong patient
--- NOTE | 2018-12-25 09:50 | NUR ---
NURSE NOTES: pt back on AC mode, pt was agitated and tired. Resumed fentanyl drip.
--- NOTE | 2018-12-25 10:00 | NUR ---
RESPIRATORY NOTE: JHOAN Maravilla increased FiO2 to 100% due to desaturation down to <85%. Pt is really agitated. RN So Jerry made aware. Will continue to monitor pt.
--- NOTE | 2018-12-25 10:08 | NUR ---
*-* INSURANCE *-* UPDATED CLINICALS AND REVIEWS HAVE BEEN FAXED TO: [facility] DILIA:MARY ANN F:[phone] P:[phone]
--- NOTE | 2018-12-25 10:15 | NUR ---
NURSE NOTES: BP 143/94. pt resting in bed. no acute distress noted. Addendum: 12/25/18 at 1051 by HERBERT LEON RN Wrong patient
--- NOTE | 2018-12-25 11:22 | NUR ---
RESPIRATORY NOTE: Titrated FiO2 down to 50%, saturates at 92%. RN Gracy Edwards made aware.
--- NOTE | 2018-12-25 12:07 | Pulmonolgy Critical Care Note ---
Critical Care - Asmt/Plan Assessment/Plan: Problem List: 1. Acute on chronic hypercapnic respiratory failure -intubated 12/15 2. Acute exacerbation of COPD 3. Possible community-acquired pneumonia 4. Cardiomyopathy, EF 20% 5. Systolic CHF 6. out of hospital respiratory failure/possible cardiac arrest s/p CPR by family 7. JUAN 8. DM Plan: -cont mechanical ventilatory support, daily weaning trials, improving slowly -as this is looking to be a more prolonged process will ask for surgical trach placement -wean sedation as tolerated -Monitor ABG prn -monitor off abx -monitor leukocytosis -solumedrol 40 mg IV qd, taper as tolerated -Good pulmonary hygiene: duonebs and mucomyst q4, suction prn -monitor volumes, avoid overload -repeat TTE given last echo after cardiac arrest EF 20% -monitor renal function Respiratory: monitor respiratory rate, weaning trial Cardiac: continue to monitor HR/BP Renal: F/U I&O Neurologic: keep patient comfortable Time Spent (Minutes): 40 - cc Discussed with: nurses Critical Care - Objective Last 24 Hour Vital Signs Date Time Temp Pulse Resp B/P (MAP) Pulse Ox O2 Delivery O2 Flow Rate FiO2 12/25/18 11:25 77 26 92 Mechanical Ventilator 50 12/25/18 11:22 80 26 50 12/25/18 11:00 84 22 127/72 (90) 99 12/25/18 11:00 20 Mechanical Ventilator 40 12/25/18 10:40 22 Mechanical Ventilator 40 12/25/18 10:30 86 22 135/78 (97) 100 12/25/18 10:30 20 Mechanical Ventilator 40 12/25/18 10:20 22 Mechanical Ventilator 40 12/25/18 10:10 23 Mechanical Ventilator 40 12/25/18 10:00 24 Mechanical Ventilator 40 12/25/18 10:00 100 12/25/18 10:00 101 22 144/101 (115) 96 12/25/18 09:50 23 Mechanical Ventilator 40 12/25/18 09:45 93 26 40 12/25/18 09:30 79 30 115/62 (79) 93 12/25/18 09:25 108/47 12/25/18 09:20 77 30 40 12/25/18 09:20 94 12/25/18 09:00 78 26 119/85 (96) 93 12/25/18 09:00 22 Mechanical Ventilator 40 12/25/18 08:30 71 20 126/107 (113) 96 12/25/18 08:00 99.3 74 20 103/91 (95) 92 12/25/18 08:00 Mechanical Ventilator 12/25/18 08:00 20 Mechanical Ventilator 40 12/25/18 08:00 73 12/25/18 07:30 70 20 107/52 (70) 94 12/25/18 07:02 74 20 94 Mechanical Ventilator 40 12/25/18 07:02 74 20 40 12/25/18 07:00 73 20 97/55 (69) 94 12/25/18 07:00 20 Mechanical Ventilator 40 12/25/18 06:53 71 20 93 Mechanical Ventilator 40 12/25/18 06:00 72 20 118/72 (87) 92 12/25/18 06:00 111/56 12/25/18 05:01 74 20 40 12/25/18 05:00 72 20 115/79 (91) 92 12/25/18 04:00 74 12/25/18 04:00 40 12/25/18 04:00 72 20 105/56 (72) 92 12/25/18 04:00 18 40 12/25/18 04:00 Mechanical Ventilator 12/25/18 03:20 78 18 99 Mechanical Ventilator 40 12/25/18 03:18 20 40 12/25/18 03:10 76 20 40 12/25/18 03:10 76 20 97 Mechanical Ventilator 40 12/25/18 03:00 78 20 89/40 (56) 92 12/25/18 03:00 20 Mechanical Ventilator 40 12/25/18 02:00 18 Mechanical Ventilator 40 12/25/18 02:00 83 20 102/60 (74) 92 12/25/18 01:24 78 22 40 12/25/18 01:00 98.5 83 20 125/65 (85) 92 12/25/18 01:00 20 Mechanical Ventilator 45 12/25/18 00:00 70 12/25/18 00:00 20 Mechanical Ventilator 45 12/25/18 00:00 Mechanical Ventilator 12/25/18 00:00 40 12/24/18 23:59 74 20 149/90 (109) 94 12/24/18 23:00 73 21 40 12/24/18 23:00 77 18 145/65 (91) 93 2/18/19 23:00 20 Simple Mask 40 12/24/18 23:00 20 Endotracheal Tube 12/24/18 22:33 154/79 12/24/18 22:27 79 20 98 Mechanical Ventilator 40 12/24/18 22:19 71 20 95 Mechanical Ventilator 40 12/24/18 22:00 74 18 154/74 (100) 93 12/24/18 22:00 20 Mechanical Ventilator 45 12/24/18 21:14 81 24 40 12/24/18 21:00 90 18 147/84 (105) 93 12/24/18 21:00 20 Mechanical Ventilator 40 12/24/18 20:00 94 12/24/18 20:00 94 18 152/90 (110) 93 12/24/18 20:00 40 12/24/18 20:00 Mechanical Ventilator 12/24/18 20:00 22 Mechanical Ventilator 40 12/24/18 19:13 74 20 95 Mechanical Ventilator 40 12/24/18 19:06 80 21 94 Mechanical Ventilator 40 12/24/18 19:04 77 22 40 12/24/18 19:00 70 18 134/97 (109) 93 12/24/18 19:00 20 Mechanical Ventilator 40 12/24/18 18:00 71 18 124/97 (106) 93 12/24/18 18:00 20 Endotracheal Tube 40 12/24/18 17:00 73 18 142/60 (87) 93 12/24/18 17:00 20 Endotracheal Tube 40 12/24/18 16:55 88 28 40 12/24/18 16:05 98.6 12/24/18 16:00 40 12/24/18 16:00 Mechanical Ventilator 12/24/18 16:00 20 Endotracheal Tube 40 12/24/18 16:00 82 12/24/18 16:00 98.9 73 18 141/62 (88) 93 12/24/18 15:35 16 Endotracheal Tube 40 12/24/18 15:00 72 18 128/78 (95) 93 12/24/18 15:00 20 Endotracheal Tube 40 12/24/19 14:53 76 25 40 18/19 14:52 77 25 95 Mechanical Ventilator 40 12/24/18 14:39 77 23 99 Mechanical Ventilator 45 12/24/18 14:00 75 18 90/56 (67) 93 12/24/18 14:00 20 Endotracheal Tube 40 12/24/18 14:00 90/58 12/24/18 13:00 84 18 129/79 (96) 93 12/24/18 13:00 20 Endotracheal Tube 40 12/24/18 12:48 88 25 45 12/24/18 12:00 81 12/24/18 12:00 20 Endotracheal Tube 40 12/24/18 12:00 40 12/24/18 12:00 98.6 81 18 149/79 (102) 93 12/24/18 12:00 Mechanical Ventilator Status: awake HEENT: atraumatic Lungs: other - Diminished but fair air movement Heart: HR/BP stable Abdomen: soft, non-tender Extremities: no C/C/E Accucheck: 102 Critical Care - Subjective ROS Limited/Unobtainable: Yes Interval Events: Did not tolerate PS 12 well, tired after 20-25 min. Minimal secretions. He is alert and hoping to be extubated. Condition: unchanged EKG Rhythm: Sinus Rhythm FI02: 60 Vent Support Breath Rate: 20 Vent Support Mode: AC Vent Tidal Volume: 600 Sputum Amount: Small PEEP: 5.0 PIP: 23 Tube Feeding Amount: 40 I&O: Intake and Output 12/24/18 12/25/18 19:00 07:00 Intake Total 144 ml 700 ml Output Total 600 ml 550 ml Balance -456 ml 150 ml Intake Free Water 100 ml IV Total 24 ml 240 ml Tube Feeding 120 ml 360 ml Output Urine Total 600 ml 550 ml # Bowel Movements 3 ET-Tube: 7.0 ET Position: 24 Vincenzo Regalado MD Dec 25, 2018 12:07
--- NOTE | 2018-12-25 12:15 | NUR ---
NURSE NOTES: Dr. Regalado at bedside to assess the patient, MD updated on pt's condition. Per MD, try weaning again with PS 10 tomorrow and okay to be on low dose fentanyl during weaning if pt is agitated.
--- NOTE | 2018-12-25 12:59 | Cardiology Progress Note ---
Assessment/Plan Status: stable Assessment/Plan Assessment/Plan Status: stable Assessment/Plan Assessment: Respiratory failure COPD (chronic obstructive pulmonary disease) Pneumonia CAD, previous CABG PPM/ICD HTN HLD PLAN: Patient has failed to progress off the vent, he is hemodynamically stable, he is tolerating CPAP for a while then gets tired, he is on steroid taper, he as some secretions as well. Cultures are negative so far and chest x ray is clear. CT brain negative for CVA Echo with systolic dysfunction but he doesn't appear to be in heart failure, CXR clear and PA pressures normal and he is hemodynamically stable. Feeds have been restarted and tolerated Consider trach given failure to wean after nine days Repeat Echocardiogram to re-evaluate LV function Continue NGT feeds Bowel prep - ducolax, enema, mineral oil, colace, he has hx of hiatal hernia as well continue steroids now being weaned continue empiric abx, follow cultures Will need ischemia evaluation given hx of CAD/CABG to evaluate graft function when stable prior to discharge continue aspirin continue statin start metoprolol XL 50 mg start lisinopril 5 mg daily Monitor I/O and renal function Spot diuresis as needed, currently does not appear fluid overloaded Daily weaning trials Discussed with family and nursing Subjective Cardiovascular: Reports: no symptoms Respiratory: Reports: shortness of breath Gastrointestinal/Abdominal: Reports: no symptoms Genitourinary: Reports: no symptoms Subjective No acute events, tolerated few hours of PS but got tired, no plans to extubate today, currently sedated with fentanyl, Echo with severe LV dysfunction EF 20 percent. d/w nursing Tolerating tube feeds, patient is failing to progress, surgical consult for Trach Objective Last 24 Hour Vital Signs Date Time Temp Pulse Resp B/P (MAP) Pulse Ox O2 Delivery O2 Flow Rate FiO2 12/25/18 12:07 60 12/25/18 12:00 98.1 78 22 119/50 (73) 92 12/25/18 12:00 20 Mechanical Ventilator 60 12/25/18 12:00 85 12/25/18 12:00 Mechanical Ventilator 12/25/18 11:35 75 26 92 Mechanical Ventilator 50 12/25/18 11:25 77 26 92 Mechanical Ventilator 50 12/25/18 11:22 80 26 50 12/25/18 11:00 84 22 127/72 (90) 99 12/25/18 11:00 20 Mechanical Ventilator 60 12/25/18 10:40 22 Mechanical Ventilator 100 12/25/18 10:30 86 22 135/78 (97) 100 12/25/18 10:30 20 Mechanical Ventilator 100 12/25/18 10:20 22 Mechanical Ventilator 100 12/25/18 10:10 23 Mechanical Ventilator 100 12/25/18 10:00 24 Mechanical Ventilator 100 12/25/18 10:00 100 12/25/18 10:00 101 22 144/101 (115) 96 12/25/18 09:50 23 Mechanical Ventilator 100 12/25/18 09:45 93 26 40 12/25/18 09:30 79 30 115/62 (79) 93 12/25/18 09:25 108/47 12/25/18 09:20 77 30 40 12/25/18 09:20 94 12/25/18 09:00 78 26 119/85 (96) 93 12/25/18 09:00 22 Mechanical Ventilator 40 12/25/18 08:30 71 20 126/107 (113) 96 12/25/18 08:00 99.3 74 20 103/91 (95) 92 12/25/18 08:00 Mechanical Ventilator 12/25/18 08:00 20 Mechanical Ventilator 40 12/25/18 08:00 73 12/25/18 07:30 70 20 107/52 (70) 94 12/25/18 07:02 74 20 94 Mechanical Ventilator 40 12/25/18 07:02 74 20 40 12/25/18 07:00 73 20 97/55 (69) 94 12/25/18 07:00 20 Mechanical Ventilator 40 12/25/18 06:53 71 20 93 Mechanical Ventilator 40 12/25/18 06:00 72 20 118/72 (87) 92 12/25/18 06:00 111/56 12/25/18 05:01 74 20 40 12/25/18 05:00 72 20 115/79 (91) 92 12/25/18 04:00 74 12/25/18 04:00 40 12/25/18 04:00 72 20 105/56 (72) 92 12/25/18 04:00 18 40 12/25/18 04:00 Mechanical Ventilator 12/25/18 03:20 78 18 99 Mechanical Ventilator 40 12/25/18 03:18 20 40 12/25/18 03:10 76 20 40 2/19/19 03:10 76 20 97 Mechanical Ventilator 40 12/25/18 03:00 78 20 89/40 (56) 92 12/25/18 03:00 20 Mechanical Ventilator 40 12/25/18 02:00 18 Mechanical Ventilator 40 12/25/18 02:00 83 20 102/60 (74) 92 12/25/18 01:24 78 22 40 12/25/18 01:00 98.5 83 20 125/65 (85) 92 12/25/18 01:00 20 Mechanical Ventilator 45 12/25/18 00:00 70 12/25/18 00:00 20 Mechanical Ventilator 45 12/25/18 00:00 Mechanical Ventilator 12/25/18 00:00 40 12/24/18 23:59 74 20 149/90 (109) 94 12/24/18 23:00 73 21 40 12/24/18 23:00 77 18 145/65 (91) 93 12/24/18 23:00 20 Simple Mask 40 12/24/18 23:00 20 Endotracheal Tube 12/24/18 22:33 154/79 12/24/18 22:27 79 20 98 Mechanical Ventilator 40 12/24/18 22:19 71 20 95 Mechanical Ventilator 40 12/24/18 22:00 74 18 154/74 (100) 93 12/24/18 22:00 20 Mechanical Ventilator 45 12/24/18 21:14 81 24 40 12/24/18 21:00 90 18 147/84 (105) 93 12/24/18 21:00 20 Mechanical Ventilator 40 12/24/18 20:00 94 12/24/18 20:00 94 18 152/90 (110) 93 12/24/18 20:00 40 12/24/18 20:00 Mechanical Ventilator 12/24/18 20:00 22 Mechanical Ventilator 40 12/24/18 19:13 74 20 95 Mechanical Ventilator 40 12/24/18 19:06 80 21 94 Mechanical Ventilator 40 12/24/18 19:04 77 22 40 12/24/18 19:00 70 18 134/97 (109) 93 12/24/18 19:00 20 Mechanical Ventilator 40 12/24/18 18:00 71 18 124/97 (106) 93 12/24/18 18:00 20 Endotracheal Tube 40 12/24/18 17:00 73 18 142/60 (87) 93 12/24/18 17:00 20 Endotracheal Tube 40 12/24/18 16:55 88 28 40 12/24/18 16:05 98.6 12/24/18 16:00 40 12/24/18 16:00 Mechanical Ventilator 12/24/18 16:00 20 Endotracheal Tube 40 12/24/18 16:00 82 12/24/18 16:00 98.9 73 18 141/62 (88) 93 12/24/18 15:35 16 Endotracheal Tube 40 12/24/18 15:00 72 18 128/78 (95) 93 12/24/18 15:00 20 Endotracheal Tube 40 12/24/18 14:53 76 25 40 12/24/18 14:52 77 25 95 Mechanical Ventilator 40 12/24/18 14:39 77 23 99 Mechanical Ventilator 45 12/24/18 14:00 75 18 90/56 (67) 93 12/24/18 14:00 20 Endotracheal Tube 40 12/24/18 14:00 90/58 12/24/18 13:00 84 18 129/79 (96) 93 12/24/18 13:00 20 Endotracheal Tube 40 General Appearance: no apparent distress, on vent EENT: PERRL/EOMI, normal ENT inspection, TMs normal, pharynx normal Neck: non-tender, normal alignment, supple, normal inspection, no JVD Rhythm: NSR Cardiovascular: normal peripheral pulses, normal rate, regular rhythm Respiratory/Chest: chest wall non-tender, crackles/rales, rhonchi - bilaterally , expiratory wheezing Abdomen: normal bowel sounds, non tender, soft, no organomegaly, no mass Extremities: normal range of motion, non-tender, normal inspection, no calf tenderness, no swelling Neurologic: director of housing and energy services II-XII grossly normal, no motor/sensory deficits Intake and Output 12/24/18 12/25/18 19:00 07:00 Intake Total 144 ml 700 ml Output Total 600 ml 550 ml Balance -456 ml 150 ml Intake Free Water 100 ml IV Total 24 ml 240 ml Tube Feeding 120 ml 360 ml Output Urine Total 600 ml 550 ml # Bowel Movements 3 Laboratory Tests Test 12/25/18 04:40 12/25/18 11:04 White Blood Count 18.0 K/UL (4.8-10.8) H Red Blood Count 4.59 M/UL (4.70-6.10) L Hemoglobin 13.9 G/DL (14.2-18.0) L Hematocrit 43.3 % (42.0-52.0) Mean Corpuscular Volume 94 FL (80-99) Mean Corpuscular Hemoglobin 30.2 PG (27.0-31.0) Mean Corpuscular Hemoglobin Concent 32.0 G/DL (32.0-36.0) Red Cell Distribution Width 14.5 % (11.6-14.8) Platelet Count 144 K/UL (150-450) L Mean Platelet Volume 8.0 FL (6.5-10.1) Neutrophils (%) (Auto) % (45.0-75.0) Lymphocytes (%) (Auto) % (20.0-45.0) Monocytes (%) (Auto) % (1.0-10.0) Eosinophils (%) (Auto) % (0.0-3.0) Basophils (%) (Auto) % (0.0-2.0) Differential Total Cells Counted 100 Neutrophils % (Manual) 85 % (45-75) H Lymphocytes % (Manual) 6 % (20-45) L Monocytes % (Manual) 8 % (1-10) Eosinophils % (Manual) 1 % (0-3) Basophils % (Manual) 0 % (0-2) Band Neutrophils 0 % (0-8) Platelet Estimate Decreased L Platelet Morphology Normal Anisocytosis 1+ Sodium Level 149 MMOL/L (136-145) H Potassium Level 3.9 MMOL/L (3.5-5.1) Chloride Level 112 MMOL/L (98-107) H Carbon Dioxide Level 31 MMOL/L (21-32) Anion Gap 7 mmol/L (5-15) Blood Urea Nitrogen 39 mg/dL (7-18) H Creatinine 1.1 MG/DL (0.55-1.30) Estimat Glomerular Filtration Rate > 60 mL/min (>60) Glucose Level 97 MG/DL (74-106) Calcium Level 8.1 MG/DL (8.5-10.1) L Arterial Blood pH 7.356 (7.350-7.450) Arterial Blood Partial Pressure CO2 56.7 mmHg (35.0-45.0) *H Arterial Blood Partial Pressure O2 103.9 mmHg (75.0-100.0) H Arterial Blood HCO3 31.0 mmol/L (22.0-26.0) H Arterial Blood Oxygen Saturation 97.2 % (95-100) Arterial Blood Base Excess 3.9 (-2-2) H Jose Test Positive Nico Kingston MD Dec 25, 2018 12:59
--- NOTE | 2018-12-25 13:00 | NUR ---
RESPIRATORY NOTE: Increased FiO2 to 60% due to desaturation down to 88%. RN Gracy Edwards made aware.
--- NOTE | 2018-12-25 13:45 | NUR ---
NURSE NOTES: patient resting in bed comfortably with eyes closed, easily arousable. No acute distress noted.
[2018-12-25] MEDS ORDERED: Etomidate 40mg/20ml Inj IV ONE (14:03)
[2018-12-25] MEDS ORDERED: Zemuron 50mg/5ml Inj IV ONE (14:03)
--- NOTE | 2018-12-25 14:07 | Cardiology Report ---
APPROVED REPORT EXAM: Two-dimensional and M-mode echocardiogram with Doppler and color Doppler. INDICATION EJECTION FRACTION M-Mode DIMENSIONS IVSd1.6 (0.7-1.1cm)Left Atrium (MM)3.9 (1.6-4.0cm) LVDd6.2 (3.5-5.6cm)Aortic Root3.6 (2.0-3.7cm) PWd1.6 (0.7-1.1cm)Aortic Cusp Exc.2.0 (1.5-2.0cm) IVSs2.1 cm LVDs5.3 (2.5-4.0cm) PWs1.3 cm midl global hypokineis but the septum appears almost akinetic, and inferolateral wall appears more hypokinetic than the other hall IN DIRECT SIDE BY SIDE COMPARISON WITH ECHO PERFORMED A FEW DAYS AGO THERE IS DEFINATE IMPORVEMENT IN THE SYSTOLIC FUCNTION EF NOW MEASRUED AT 44% AND BY VISUAL ESTIMATION 40-45 % Mild left ventricular enlargement . Left ventricular ejection fraction estimated to be40-45%. Boderline mild left ventricular hypertrophy. Anterior Echo-free space, may be due to pericardial fat or effusion. All other cardiac chamber sizes are within normal limits. Mild aortic valve sclerosis with adequate cusp excursion. Thickened mitral valve leaflets with normal excursion. Mildly mitral annulus and aortic root calcification. Pulmonic valve not well visualized. IVC at normal size without physiologic collapse suggestive of increased RA pressure. Pacemaker wire present in the right side chambers. A color flow and spectral Doppler study was performed and revealed: No aortic regurgitation. Mitral diastolic velocities suggest reduced left ventricular relaxation c/w mild LV diastolic dysfunction (Grade I ) Trace mitralregurgitation . Mild tricuspid regurgitation. Tricuspid systolic velocities suggests peak right ventricular systolic pressure of16 mmHg.
--- NOTE | 2018-12-25 14:37 | GI Progress Note ---
Assessment/Plan Problems: (1) ARF (acute renal failure) ICD Codes: N17.9 - Acute kidney failure, unspecified SNOMED: 28025701 (2) Acute respiratory failure with hypercapnia ICD Codes: J96.02 - Acute respiratory failure with hypercapnia SNOMED: 842573720 (3) COPD exacerbation (4) Pneumonia ICD Codes: J18.9 - Pneumonia, unspecified organism SNOMED: 828690800 (5) Respiratory failure ICD Codes: J96.90 - Respiratory failure, unspecified, unspecified whether with hypoxia or hypercapnia SNOMED: 468493599 Status: stable Status Narrative Discussed with Dr. Norman. Assessment/Plan dobhoff placed KUB confirmed start NGTFs per RD prn transfusions ppi fu labs The patient was seen and examined at bedside and all new and available data was reviewed in the patients chart. I agree with the above findings, impression and plan. (Patient seen earlier today. Signature stamp does not reflect patient encounter time.). - Abelino Norman MD Subjective Subjective limited Objective Last 24 Hour Vital Signs Date Time Temp Pulse Resp B/P (MAP) Pulse Ox O2 Delivery O2 Flow Rate FiO2 12/25/18 13:00 87 25 121/69 (86) 93 12/25/18 13:00 81 27 60 12/25/18 13:00 22 Mechanical Ventilator 60 12/25/18 12:07 60 12/25/18 12:00 98.1 78 22 119/50 (73) 92 12/25/18 12:00 20 Mechanical Ventilator 60 12/25/18 12:00 85 12/25/18 12:00 Mechanical Ventilator 12/25/18 11:35 75 26 92 Mechanical Ventilator 50 12/25/18 11:25 77 26 92 Mechanical Ventilator 50 12/25/18 11:22 80 26 50 12/25/18 11:00 84 22 127/72 (90) 99 12/25/18 11:00 20 Mechanical Ventilator 60 12/25/18 10:40 22 Mechanical Ventilator 100 12/25/18 10:30 86 22 135/78 (97) 100 12/25/18 10:30 20 Mechanical Ventilator 100 12/25/18 10:20 22 Mechanical Ventilator 100 12/25/18 10:10 23 Mechanical Ventilator 100 12/25/18 10:00 24 Mechanical Ventilator 100 12/25/18 10:00 100 12/25/18 10:00 101 22 144/101 (115) 96 12/25/18 09:50 23 Mechanical Ventilator 100 12/25/18 09:45 93 26 40 12/25/18 09:30 79 30 115/62 (79) 93 12/25/18 09:25 108/47 12/25/18 09:20 77 30 40 12/25/18 09:20 94 12/25/18 09:00 78 26 119/85 (96) 93 12/25/18 09:00 22 Mechanical Ventilator 40 12/25/18 08:30 71 20 126/107 (113) 96 12/25/18 08:00 99.3 74 20 103/91 (95) 92 12/25/18 08:00 Mechanical Ventilator 12/25/18 08:00 20 Mechanical Ventilator 40 12/25/18 08:00 73 12/25/18 07:30 70 20 107/52 (70) 94 12/25/18 07:02 74 20 94 Mechanical Ventilator 40 12/25/18 07:02 74 20 40 12/25/18 07:00 73 20 97/55 (69) 94 12/25/18 07:00 20 Mechanical Ventilator 40 12/25/18 06:53 71 20 93 Mechanical Ventilator 40 12/25/18 06:00 72 20 118/72 (87) 92 12/25/18 06:00 111/56 12/25/18 05:01 74 20 40 12/25/18 05:00 72 20 115/79 (91) 92 12/25/18 04:00 74 12/25/18 04:00 40 12/25/18 04:00 72 20 105/56 (72) 92 12/25/18 04:00 18 40 12/25/18 04:00 Mechanical Ventilator 12/25/18 03:20 78 18 99 Mechanical Ventilator 40 12/25/18 03:18 20 40 12/25/18 03:10 76 20 40 12/25/18 03:10 76 20 97 Mechanical Ventilator 40 12/25/18 03:00 78 20 89/40 (56) 92 12/25/18 03:00 20 Mechanical Ventilator 40 12/25/18 02:00 18 Mechanical Ventilator 40 12/25/18 02:00 83 20 102/60 (74) 92 12/25/18 01:24 78 22 40 12/25/18 01:00 98.5 83 20 125/65 (85) 92 12/25/18 01:00 20 Mechanical Ventilator 45 12/25/18 00:00 70 12/25/18 00:00 20 Mechanical Ventilator 45 12/25/18 00:00 Mechanical Ventilator 12/25/18 00:00 40 12/24/18 23:59 74 20 149/90 (109) 94 12/24/18 23:00 73 21 40 12/24/18 23:00 77 18 145/65 (91) 93 12/24/18 23:00 20 Simple Mask 40 12/24/18 23:00 20 Endotracheal Tube 12/24/18 22:33 154/79 12/24/18 22:27 79 20 98 Mechanical Ventilator 40 12/24/18 22:19 71 20 95 Mechanical Ventilator 40 12/24/18 22:00 74 18 154/74 (100) 93 12/24/18 22:00 20 Mechanical Ventilator 45 12/24/18 21:14 81 24 40 12/24/18 21:00 90 18 147/84 (105) 93 12/24/18 21:00 20 Mechanical Ventilator 40 12/24/18 20:00 94 12/24/18 20:00 94 18 152/90 (110) 93 12/24/18 20:00 40 12/24/18 20:00 Mechanical Ventilator 12/24/18 20:00 22 Mechanical Ventilator 40 12/24/18 19:13 74 20 95 Mechanical Ventilator 40 12/24/18 19:06 80 21 94 Mechanical Ventilator 40 12/24/18 19:04 77 22 40 12/24/18 19:00 70 18 134/97 (109) 93 12/24/18 19:00 20 Mechanical Ventilator 40 12/24/18 18:00 71 18 124/97 (106) 93 12/24/18 18:00 20 Endotracheal Tube 40 12/24/18 17:00 73 18 142/60 (87) 93 12/24/18 17:00 20 Endotracheal Tube 40 12/24/18 16:55 88 28 40 12/24/18 16:05 98.6 12/24/18 16:00 40 12/24/18 16:00 Mechanical Ventilator 12/24/18 16:00 20 Endotracheal Tube 40 12/24/18 16:00 82 12/24/18 16:00 98.9 73 18 141/62 (88) 93 12/24/18 15:35 16 Endotracheal Tube 40 12/24/18 15:00 72 18 128/78 (95) 93 12/24/18 15:00 20 Endotracheal Tube 40 12/24/18 14:53 76 25 40 12/24/18 14:52 77 25 95 Mechanical Ventilator 40 12/24/18 14:39 77 23 99 Mechanical Ventilator 45 Intake and Output 12/24/18 12/25/18 19:00 07:00 Intake Total 144 ml 700 ml Output Total 600 ml 550 ml Balance -456 ml 150 ml Intake Free Water 100 ml IV Total 24 ml 240 ml Tube Feeding 120 ml 360 ml Output Urine Total 600 ml 550 ml # Bowel Movements 3 Laboratory Tests Test 12/25/18 04:40 12/25/18 11:04 White Blood Count 18.0 K/UL (4.8-10.8) H Red Blood Count 4.59 M/UL (4.70-6.10) L Hemoglobin 13.9 G/DL (14.2-18.0) L Hematocrit 43.3 % (42.0-52.0) Mean Corpuscular Volume 94 FL (80-99) Mean Corpuscular Hemoglobin 30.2 PG (27.0-31.0) Mean Corpuscular Hemoglobin Concent 32.0 G/DL (32.0-36.0) Red Cell Distribution Width 14.5 % (11.6-14.8) Platelet Count 144 K/UL (150-450) L Mean Platelet Volume 8.0 FL (6.5-10.1) Neutrophils (%) (Auto) % (45.0-75.0) Lymphocytes (%) (Auto) % (20.0-45.0) Monocytes (%) (Auto) % (1.0-10.0) Eosinophils (%) (Auto) % (0.0-3.0) Basophils (%) (Auto) % (0.0-2.0) Differential Total Cells Counted 100 Neutrophils % (Manual) 85 % (45-75) H Lymphocytes % (Manual) 6 % (20-45) L Monocytes % (Manual) 8 % (1-10) Eosinophils % (Manual) 1 % (0-3) Basophils % (Manual) 0 % (0-2) Band Neutrophils 0 % (0-8) Platelet Estimate Decreased L Platelet Morphology Normal Anisocytosis 1+ Sodium Level 149 MMOL/L (136-145) H Potassium Level 3.9 MMOL/L (3.5-5.1) Chloride Level 112 MMOL/L (98-107) H Carbon Dioxide Level 31 MMOL/L (21-32) Anion Gap 7 mmol/L (5-15) Blood Urea Nitrogen 39 mg/dL (7-18) H Creatinine 1.1 MG/DL (0.55-1.30) Estimat Glomerular Filtration Rate > 60 mL/min (>60) Glucose Level 97 MG/DL (74-106) Calcium Level 8.1 MG/DL (8.5-10.1) L Arterial Blood pH 7.356 (7.350-7.450) Arterial Blood Partial Pressure CO2 56.7 mmHg (35.0-45.0) *H Arterial Blood Partial Pressure O2 103.9 mmHg (75.0-100.0) H Arterial Blood HCO3 31.0 mmol/L (22.0-26.0) H Arterial Blood Oxygen Saturation 97.2 % (95-100) Arterial Blood Base Excess 3.9 (-2-2) H Jose Test Positive Height (Feet): 5 Height (Inches): 8.00 Weight (Pounds): 176 General Appearance: no apparent distress Cardiovascular: normal rate Respiratory/Chest: normal breath sounds, no respiratory distress Abdominal Exam: normal bowel sounds, non tender, soft, other - dobhoff Extremities: non-tender Erwin Maddox NP Dec 25, 2018 14:37
--- NOTE | 2018-12-25 15:05 | General Progress Note ---
Assessment/Plan Problem List: (1) COPD exacerbation (2) Pneumonia ICD Codes: J18.9 - Pneumonia, unspecified organism SNOMED: 610927198 (3) Acute respiratory failure with hypercapnia ICD Codes: J96.02 - Acute respiratory failure with hypercapnia SNOMED: 331643160 (4) ARF (acute renal failure) ICD Codes: N17.9 - Acute kidney failure, unspecified SNOMED: 20135389 Assessment/Plan Discussed with dr Sabine rabago with steroids Bronchodilators Discussed with RN TF await trach Subjective Allergies: Coded Allergies: IODINE (Verified Allergy, Severe, rash, 01/15/14) Subjective In NAD Objective Last 24 Hour Vital Signs Date Time Temp Pulse Resp B/P (MAP) Pulse Ox O2 Delivery O2 Flow Rate FiO2 12/25/18 14:39 90 23 94 Mechanical Ventilator 60 12/25/18 13:00 87 25 121/69 (86) 93 12/25/18 13:00 81 27 60 12/25/18 13:00 22 Mechanical Ventilator 60 12/25/18 12:07 60 12/25/18 12:00 98.1 78 22 119/50 (73) 92 12/25/18 12:00 20 Mechanical Ventilator 60 12/25/18 12:00 85 12/25/18 12:00 Mechanical Ventilator 12/25/18 11:35 75 26 92 Mechanical Ventilator 50 12/25/18 11:25 77 26 92 Mechanical Ventilator 50 12/25/18 11:22 80 26 50 12/25/18 11:00 84 22 127/72 (90) 99 12/25/18 11:00 20 Mechanical Ventilator 60 12/25/18 10:40 22 Mechanical Ventilator 100 12/25/18 10:30 86 22 135/78 (97) 100 12/25/18 10:30 20 Mechanical Ventilator 100 12/25/18 10:20 22 Mechanical Ventilator 100 12/25/18 10:10 23 Mechanical Ventilator 100 12/25/18 10:00 24 Mechanical Ventilator 100 12/25/18 10:00 100 12/25/18 10:00 101 22 144/101 (115) 96 12/25/18 09:50 23 Mechanical Ventilator 100 12/25/18 09:45 93 26 40 12/25/18 09:30 79 30 115/62 (79) 93 12/25/18 09:25 108/47 12/25/18 09:20 77 30 40 12/25/18 09:20 94 12/25/18 09:00 78 26 119/85 (96) 93 12/25/18 09:00 22 Mechanical Ventilator 40 12/25/18 08:30 71 20 126/107 (113) 96 12/25/18 08:00 99.3 74 20 103/91 (95) 92 12/25/18 08:00 Mechanical Ventilator 12/25/18 08:00 20 Mechanical Ventilator 40 12/25/18 08:00 73 12/25/18 07:30 70 20 107/52 (70) 94 12/25/18 07:02 74 20 94 Mechanical Ventilator 40 12/25/18 07:02 74 20 40 12/25/18 07:00 73 20 97/55 (69) 94 12/25/18 07:00 20 Mechanical Ventilator 40 12/25/18 06:53 71 20 93 Mechanical Ventilator 40 12/25/18 06:00 72 20 118/72 (87) 92 12/25/18 06:00 111/56 12/25/18 05:01 74 20 40 12/25/18 05:00 72 20 115/79 (91) 92 12/25/18 04:00 74 12/25/18 04:00 40 12/25/18 04:00 72 20 105/56 (72) 92 12/25/18 04:00 18 40 12/25/18 04:00 Mechanical Ventilator 12/25/18 03:20 78 18 99 Mechanical Ventilator 40 12/25/18 03:18 20 40 12/25/18 03:10 76 20 40 12/25/18 03:10 76 20 97 Mechanical Ventilator 40 12/25/18 03:00 78 20 89/40 (56) 92 12/25/18 03:00 20 Mechanical Ventilator 40 12/25/18 02:00 18 Mechanical Ventilator 40 12/25/18 02:00 83 20 102/60 (74) 92 12/25/18 01:24 78 22 40 12/25/18 01:00 98.5 83 20 125/65 (85) 92 12/25/18 01:00 20 Mechanical Ventilator 45 12/25/18 00:00 70 12/25/18 00:00 20 Mechanical Ventilator 45 12/25/18 00:00 Mechanical Ventilator 12/25/18 00:00 40 12/24/18 23:59 74 20 149/90 (109) 94 12/24/18 23:00 73 21 40 12/24/18 23:00 77 18 145/65 (91) 93 12/24/18 23:00 20 Simple Mask 40 12/24/18 23:00 20 Endotracheal Tube 12/24/18 22:33 154/79 12/24/18 22:27 79 20 98 Mechanical Ventilator 40 12/24/18 22:19 71 20 95 Mechanical Ventilator 40 12/24/18 22:00 74 18 154/74 (100) 93 12/24/18 22:00 20 Mechanical Ventilator 45 12/24/18 21:14 81 24 40 12/24/18 21:00 90 18 147/84 (105) 93 12/24/18 21:00 20 Mechanical Ventilator 40 12/24/18 20:00 94 12/24/18 20:00 94 18 152/90 (110) 93 12/24/18 20:00 40 12/24/18 20:00 Mechanical Ventilator 12/24/18 20:00 22 Mechanical Ventilator 40 12/24/18 19:13 74 20 95 Mechanical Ventilator 40 12/24/18 19:06 80 21 94 Mechanical Ventilator 40 12/24/18 19:04 77 22 40 12/24/18 19:00 70 18 134/97 (109) 93 12/24/18 19:00 20 Mechanical Ventilator 40 12/24/18 18:00 71 18 124/97 (106) 93 12/24/18 18:00 20 Endotracheal Tube 40 12/24/18 17:00 73 18 142/60 (87) 93 12/24/18 17:00 20 Endotracheal Tube 40 12/24/18 16:55 88 28 40 12/24/18 16:05 98.6 12/24/18 16:00 40 12/24/18 16:00 Mechanical Ventilator 12/24/18 16:00 20 Endotracheal Tube 40 12/24/18 16:00 82 12/24/18 16:00 98.9 73 18 141/62 (88) 93 12/24/18 15:35 16 Endotracheal Tube 40 Intake and Output 12/24/18 12/25/18 19:00 07:00 Intake Total 144 ml 700 ml Output Total 600 ml 550 ml Balance -456 ml 150 ml Intake Free Water 100 ml IV Total 24 ml 240 ml Tube Feeding 120 ml 360 ml Output Urine Total 600 ml 550 ml # Bowel Movements 3 Laboratory Tests 12/25/18 04:40: White Blood Count 18.0H, Red Blood Count 4.59L, Hemoglobin 13.9L, Hematocrit 43.3, Mean Corpuscular Volume 94, Mean Corpuscular Hemoglobin 30.2, Mean Corpuscular Hemoglobin Concent 32.0, Red Cell Distribution Width 14.5, Platelet Count 144L, Mean Platelet Volume 8.0, Neutrophils (%) (Auto) , Lymphocytes (%) ( Auto) , Monocytes (%) (Auto) , Eosinophils (%) (Auto) , Basophils (%) (Auto) , Differential Total Cells Counted 100, Neutrophils % (Manual) 85H, Lymphocytes % (Manual) 6L, Monocytes % (Manual) 8, Eosinophils % (Manual) 1, Basophils % ( Manual) 0, Band Neutrophils 0, Platelet Estimate DecreasedL, Platelet Morphology Normal, Anisocytosis 1+, Sodium Level 149H, Potassium Level 3.9, Chloride Level 112H, Carbon Dioxide Level 31, Anion Gap 7, Blood Urea Nitrogen 39H, Creatinine 1.1, Estimat Glomerular Filtration Rate > 60, Glucose Level 97, Calcium Level 8.1L 12/25/18 11:04: Arterial Blood pH 7.356, Arterial Blood Partial Pressure CO2 56.7*H, Arterial Blood Partial Pressure O2 103.9H, Arterial Blood HCO3 31.0H, Arterial Blood Oxygen Saturation 97.2, Arterial Blood Base Excess 3.9H, Jose Test Positive Height (Feet): 5 Height (Inches): 8.00 Weight (Pounds): 176 Respiratory/Chest: lungs clear Abdomen: distended Edema: no edema noted Generalized Baldemar Morgan MD Dec 25, 2018 15:05
--- NOTE | 2018-12-25 16:00 | NUR ---
NURSE NOTES: Oral care and skinner care provided. pt was turned and repositioned. VSS.
--- NOTE | 2018-12-25 18:00 | NUR ---
NURSE NOTES: 110ml tube feeding residual noted. stopped tube feeding. HOB kept elevated.
--- NOTE | 2018-12-25 18:45 | Consultation ---
History of Present Illness General Chief Complaint: Dyspnea/Respdistress Present Illness HPI 68 year old male currently admitted in ICU critically ill intubated on vent support. multiple attempts made to weaning from vent but unsuccessful. surgery called to evaluate for tracheostomy. patient seen, chart reviewed, patient examined. he is awake and alert. unable to tolerate weaning trials. agitated at times. Allergies: Coded Allergies: IODINE (Verified Allergy, Severe, rash, 01/15/14) Medication History Scheduled Amlodipine Besylate* (Amlodipine Besylate*), 10 MG ORAL DAILY, (Reported) Aspirin* (Aspirin*), 81 MG ORAL DAILY, (Reported) Bisacodyl* (Dulcolax*), 5 MG ORAL BID, (Reported) Diltiazem Hcl* (Diltiazem 24HR Er*), 120 MG ORAL DAILY, (Reported) Fluticasone/Salmeterol (Advair 500-50 Diskus), 1 PUFF INH EVERY 12 HOURS, ( Reported) Pravastatin Sod* (Pravastatin Sod*), 20 MG ORAL BEDTIME, (Reported) Ranitidine Hcl* (Zantac*), 300 MG ORAL DAILY, (Reported) Scheduled PRN Diphenhydramine Hcl* (Diphenhydramine Hcl*), 50 MG ORAL Q8H PRN for Itching, ( Reported) Levalbuterol Hcl (Xopenex*), 1.25 MG HHN Q6H PRN for Shortness of Breath Patient History Limited by: medical condition History Provided By: Medical Record, PMD Healthcare decision maker buddy amanda Resuscitation status Full Code Advanced Directive on File No Past Medical/Surgical History Past Medical/Surgical History: (1) COPD (chronic obstructive pulmonary disease) (2) Respiratory failure (3) Pneumonia (4) COPD exacerbation (5) Acute respiratory failure with hypercapnia (6) ARF (acute renal failure) Review of Systems ROS Narrative cannot obtain given medical condition Physical Exam General Appearance: mild distress Lines, tubes and drains: other HEENT: mucous membranes moist Neck: normal inspection Respiratory/Chest: decreased breath sounds Cardiovascular/Chest: normal rate Abdomen: soft, no organomegaly, no mass Extremities: normal inspection Skin Exam: warm/dry Neurologic: alert Last 24 Hour Vital Signs Date Time Temp Pulse Resp B/P (MAP) Pulse Ox O2 Delivery O2 Flow Rate FiO2 12/25/18 18:30 84 23 123/61 (81) 92 12/25/18 18:02 20 Mechanical Ventilator 60 12/25/18 18:00 95 23 102/47 (65) 97 12/25/18 17:30 84 20 108/57 (74) 95 12/25/18 17:08 79 25 60 12/25/18 17:00 79 21 135/70 (91) 99 12/25/18 16:30 99.2 79 21 106/78 (87) 93 12/25/18 16:00 79 21 106/78 (87) 96 12/25/18 16:00 86 12/25/18 16:00 22 Mechanical Ventilator 60 12/25/18 16:00 Mechanical Ventilator 12/25/18 15:30 79 22 104/64 (77) 95 12/25/18 15:00 22 Mechanical Ventilator 60 12/25/18 15:00 79 21 118/61 (80) 96 12/25/18 14:50 82 23 100 Mechanical Ventilator 60 12/25/18 14:50 82 23 60 12/25/18 14:39 90 23 94 Mechanical Ventilator 60 12/25/18 14:30 90 28 139/119 (126) 95 12/25/18 14:00 82 25 117/51 (73) 95 12/25/18 14:00 21 Mechanical Ventilator 60 12/25/18 14:00 98/63 12/25/18 13:30 78 24 124/58 (80) 95 12/25/18 13:00 87 25 121/69 (86) 93 12/25/18 13:00 81 27 60 12/25/18 13:00 22 Mechanical Ventilator 60 12/25/18 12:07 60 12/25/18 12:00 98.1 78 22 119/50 (73) 92 12/25/18 12:00 20 Mechanical Ventilator 60 12/25/18 12:00 85 12/25/18 12:00 Mechanical Ventilator 12/25/18 11:35 75 26 92 Mechanical Ventilator 50 12/25/18 11:25 77 26 92 Mechanical Ventilator 50 12/25/18 11:22 80 26 50 12/25/18 11:00 84 22 127/72 (90) 99 12/25/18 11:00 20 Mechanical Ventilator 60 12/25/18 10:40 22 Mechanical Ventilator 100 12/25/18 10:30 86 22 135/78 (97) 100 12/25/18 10:30 20 Mechanical Ventilator 100 12/25/18 10:20 22 Mechanical Ventilator 100 12/25/18 10:10 23 Mechanical Ventilator 100 12/25/18 10:00 24 Mechanical Ventilator 100 12/25/18 10:00 100 12/25/18 10:00 101 22 144/101 (115) 96 12/25/18 09:50 23 Mechanical Ventilator 100 12/25/18 09:45 93 26 40 12/25/18 09:30 79 30 115/62 (79) 93 12/25/18 09:25 108/47 12/25/18 09:20 77 30 40 12/25/18 09:20 94 12/25/18 09:00 78 26 119/85 (96) 93 12/25/18 09:00 22 Mechanical Ventilator 40 12/25/18 08:30 71 20 126/107 (113) 96 12/25/18 08:00 99.3 74 20 103/91 (95) 92 12/25/18 08:00 Mechanical Ventilator 12/25/18 08:00 20 Mechanical Ventilator 40 12/25/18 08:00 73 12/25/18 07:30 70 20 107/52 (70) 94 12/25/18 07:02 74 20 94 Mechanical Ventilator 40 12/25/18 07:02 74 20 40 12/25/18 07:00 73 20 97/55 (69) 94 12/25/18 07:00 20 Mechanical Ventilator 40 12/25/18 06:53 71 20 93 Mechanical Ventilator 40 12/25/18 06:00 72 20 118/72 (87) 92 12/25/18 06:00 111/56 12/25/18 05:01 74 20 40 12/25/18 05:00 72 20 115/79 (91) 92 12/25/18 04:00 74 12/25/18 04:00 40 12/25/18 04:00 72 20 105/56 (72) 92 12/25/18 04:00 18 40 12/25/18 04:00 Mechanical Ventilator 12/25/18 03:20 78 18 99 Mechanical Ventilator 40 12/25/18 03:18 20 40 12/25/18 03:10 76 20 40 12/25/18 03:10 76 20 97 Mechanical Ventilator 40 12/25/18 03:00 78 20 89/40 (56) 92 12/25/18 03:00 20 Mechanical Ventilator 40 12/25/18 02:00 18 Mechanical Ventilator 40 12/25/18 02:00 83 20 102/60 (74) 92 12/25/18 01:24 78 22 40 12/25/18 01:00 98.5 83 20 125/65 (85) 92 12/25/18 01:00 20 Mechanical Ventilator 45 12/25/18 00:00 70 12/25/18 00:00 20 Mechanical Ventilator 45 12/25/18 00:00 Mechanical Ventilator 12/25/18 00:00 40 12/24/18 23:59 74 20 149/90 (109) 94 12/24/18 23:00 73 21 40 12/24/18 23:00 77 18 145/65 (91) 93 12/24/18 23:00 20 Simple Mask 40 12/24/18 23:00 20 Endotracheal Tube 12/24/18 22:33 154/79 12/24/18 22:27 79 20 98 Mechanical Ventilator 40 12/24/18 22:19 71 20 95 Mechanical Ventilator 40 12/24/18 22:00 74 18 154/74 (100) 93 12/24/18 22:00 20 Mechanical Ventilator 45 12/24/18 21:14 81 24 40 12/24/18 21:00 90 18 147/84 (105) 93 12/24/18 21:00 20 Mechanical Ventilator 40 12/24/18 20:00 94 12/24/18 20:00 94 18 152/90 (110) 93 12/24/18 20:00 40 12/24/18 20:00 Mechanical Ventilator 12/24/18 20:00 22 Mechanical Ventilator 40 12/24/18 19:13 74 20 95 Mechanical Ventilator 40 12/24/18 19:06 80 21 94 Mechanical Ventilator 40 12/24/18 19:04 77 22 40 12/24/18 19:00 70 18 134/97 (109) 93 12/24/18 19:00 20 Mechanical Ventilator 40 Intake and Output 12/24/18 12/25/18 18:59 06:59 Intake Total 100 ml 685 ml Output Total 600 ml 560 ml Balance -500 ml 125 ml Intake Free Water 100 ml IV Total 240 ml Tube Feeding 100 ml 345 ml Output Urine Total 600 ml 560 ml # Bowel Movements 3 Laboratory Tests Test 12/25/18 04:40 12/25/18 11:04 White Blood Count 18.0 K/UL (4.8-10.8) H Red Blood Count 4.59 M/UL (4.70-6.10) L Hemoglobin 13.9 G/DL (14.2-18.0) L Hematocrit 43.3 % (42.0-52.0) Mean Corpuscular Volume 94 FL (80-99) Mean Corpuscular Hemoglobin 30.2 PG (27.0-31.0) Mean Corpuscular Hemoglobin Concent 32.0 G/DL (32.0-36.0) Red Cell Distribution Width 14.5 % (11.6-14.8) Platelet Count 144 K/UL (150-450) L Mean Platelet Volume 8.0 FL (6.5-10.1) Neutrophils (%) (Auto) % (45.0-75.0) Lymphocytes (%) (Auto) % (20.0-45.0) Monocytes (%) (Auto) % (1.0-10.0) Eosinophils (%) (Auto) % (0.0-3.0) Basophils (%) (Auto) % (0.0-2.0) Differential Total Cells Counted 100 Neutrophils % (Manual) 85 % (45-75) H Lymphocytes % (Manual) 6 % (20-45) L Monocytes % (Manual) 8 % (1-10) Eosinophils % (Manual) 1 % (0-3) Basophils % (Manual) 0 % (0-2) Band Neutrophils 0 % (0-8) Platelet Estimate Decreased L Platelet Morphology Normal Anisocytosis 1+ Sodium Level 149 MMOL/L (136-145) H Potassium Level 3.9 MMOL/L (3.5-5.1) Chloride Level 112 MMOL/L (98-107) H Carbon Dioxide Level 31 MMOL/L (21-32) Anion Gap 7 mmol/L (5-15) Blood Urea Nitrogen 39 mg/dL (7-18) H Creatinine 1.1 MG/DL (0.55-1.30) Estimat Glomerular Filtration Rate > 60 mL/min (>60) Glucose Level 97 MG/DL (74-106) Calcium Level 8.1 MG/DL (8.5-10.1) L Arterial Blood pH 7.356 (7.350-7.450) Arterial Blood Partial Pressure CO2 56.7 mmHg (35.0-45.0) *H Arterial Blood Partial Pressure O2 103.9 mmHg (75.0-100.0) H Arterial Blood HCO3 31.0 mmol/L (22.0-26.0) H Arterial Blood Oxygen Saturation 97.2 % (95-100) Arterial Blood Base Excess 3.9 (-2-2) H Jose Test Positive Height (Feet): 5 Height (Inches): 8.00 Weight (Pounds): 176 Medications Current Medications Medications (Trade) Dose Ordered Sig/Juice Route PRN Reason Start Time Stop Time Status Last Admin Dose Admin Acetaminophen (Tylenol) 650 mg Q4H PRN ORAL Mild Pain (Pain Scale 1-3) 12/15/18 22:45 01/14/19 22:44 12/21/18 18:36 Acetaminophen (Tylenol) 650 mg Q4H PRN ORAL fever 12/15/18 22:45 01/14/19 22:44 Acetylcysteine (Mucomyst) 200 mg Q4HRT N 12/17/18 13:30 01/16/19 13:29 12/25/18 14:39 Albuterol/ Ipratropium (Albuterol/ Ipratropium) 3 ml Q4HRT N 12/20/18 23:00 12/25/18 22:59 12/25/18 14:39 Aspirin (ASA) 81 mg DAILY ORAL 12/16/18 09:00 01/15/19 08:59 12/25/18 09:26 Bisacodyl (Dulcolax) 5 mg BID ORAL 12/16/18 09:00 01/15/19 08:59 12/24/18 17:33 Dextrose (Dextrose 50%) 25 ml Q30M PRN IV Hypoglycemia 12/15/18 22:45 01/14/19 22:44 Dextrose (Dextrose 50%) 50 ml Q30M PRN IV Hypoglycemia 12/15/18 22:45 01/14/19 22:44 Fentanyl Citrate 2500 mcg/Sodium Chloride 250 ml @ 0 mls/hr Q24H IV 12/24/18 16:00 12/31/18 15:59 12/25/18 18:02 Heparin Sodium (Porcine) (Heparin 5000 units/ml) 5,000 units EVERY 12 HOURS SUBQ 12/16/18 09:00 01/15/19 08:59 12/24/18 20:52 Hydralazine HCl (Apresoline) 50 mg EVERY 8 HOURS ORAL 12/19/18 23:30 01/18/19 23:29 12/25/18 06:00 Insulin Aspart (NovoLOG) EVERY 6 HOURS SUBQ 12/16/18 06:00 01/15/19 05:59 12/25/18 18:03 Losartan Potassium (Cozaar) 50 mg DAILY NG 12/19/18 09:00 01/18/19 08:59 12/25/18 09:25 Methylprednisolone Sodium Succinate (Solu-MEDROL) 40 mg DAILY IVP 12/26/18 09:00 01/20/19 08:59 Metoprolol Succinate (Toprol XL) 50 mg DAILY ORAL 12/26/18 09:00 01/25/19 08:59 Ondansetron HCl (Zofran) 4 mg Q6H PRN IVP Nausea & Vomiting 12/16/18 01:00 01/15/19 00:59 12/16/18 02:45 Pantoprazole (Protonix) 40 mg DAILY IVP 12/16/18 09:00 01/15/19 08:59 12/25/18 09:24 Pravastatin Sodium (Pravachol) 20 mg BEDTIME ORAL 12/16/18 21:00 01/15/19 20:59 12/24/18 20:45 Assessment/Plan Problem List: (1) Acute respiratory failure with hypercapnia Assessment & Plan: respiratory insufficiency requiring prolonged ventilatory support unable to wean off vent trach indicated and recommended attempted to call next of kin but unable to get in contact today to discuss care and plan will try again tomorrow consent plan for trach soon thank you ICD Codes: J96.02 - Acute respiratory failure with hypercapnia SNOMED: [id number] Malcolm Craig Dec 25, 2018 18:45
--- NOTE | 2018-12-25 19:23 | NUR ---
HAND-OFF: Report given to LYUDMILA Scanlon.
--- NOTE | 2018-12-25 19:30 | NUR ---
NURSE NOTES: Received pt in no acute distress; awake, alert, oriented to self, follow commands. Remains orally intubated with #7.5 ETT placed over left lip at 23cm and appears to be tolerating current vent parameters; sats 95-98%. Chest sounds with scattered rhonchi, secretions mod, thick , white. Restless and agitated at times, pt remains on bilat soft wrist restriaints as he tends to be impulsive. Dobhoff feeding tube on right nare intact, TF with Glucerna 1.5 running at 40ml/h. NSR on the scope; Bp stable. Right hand and right FA PIV sites intact with Fentanyl gtt running at 200mcg/h. FC intact. Skin intact. Will continue to monitor for resp distress and sedation.
--- NOTE | 2018-12-25 22:00 | NUR ---
NURSE NOTES: Family members at the bedside, plan of care explained. Pt awake and alert and interacting with family
[2018-12-26] VITALS (46 sets, daily range): BP systolic 94–186; BP diastolic 50–159
--- NOTE | 2018-12-26 | NUR ---
NURSE NOTES:Restless, agitated, banging the siderails. Increased Fentanyl gtt to 250mcg/h. IV site intact. restraints renewed
--- NOTE | 2018-12-26 02:00 | NUR ---
NURSE NOTES: Sleeping, no distress, VSS.
[2018-12-26] MEDS: Acetylcysteine 20% Soln 4ml HHN SCH ×3 (03:00→11:33)
--- NOTE | 2018-12-26 04:00 | NUR ---
NURSE NOTES: AWake and bed bath rendered. right wrist/ right hand PIV site patent, Changed right wrist restraint to freedom splint.Pt appears more settled after bath given. Tolerating TF. Fio2 .50, sats 94-96%. Skin remains intact.
[2018-12-26] MEDS: fentaNYL Citrate 2,500 MCG in NS 200 ML IV SCH ×2 (05:21→19:43)
[2018-12-26] MEDS: HydrALAZINE 50mg tab ORAL SCH ×3 (05:25→21:12)
[2018-12-26] MEDS: NovoLOG Insulin Flexpen SUBQ SCH ×4 (06:00→18:19)
--- NOTE | 2018-12-26 06:00 | NUR ---
NURSE NOTES: Calm and asleep. Fentanyl gtt stopped in lieu of possible weaning determination. Will continue to monitor sedation/VS
[2018-12-26 06:14] LABS: HEMATOCRIT 44.4 % (42.0-52.0); MEAN CORPUSCULAR VOLUME 95 FL (80-99); PLATELET COUNT 121 K/UL (150-450); RED BLOOD COUNT 4.67 M/UL (4.70-6.10); RED CELL DISTRIBUTION WIDTH 14.2 % (11.6-14.8); WHITE BLOOD COUNT 18.8 K/UL (4.8-10.8)
[2018-12-26 06:20] LABS: INR 1.3 (0.9-1.1)
[2018-12-26 07:01] LABS: ALANINE AMINOTRANSFERASE 56 U/L (12-78); ALBUMIN 2.4 G/DL (3.4-5.0); ALBUMIN/GLOBULIN RATIO 0.8 (1.0-2.7); ALKALINE PHOSPHATASE 65 U/L (46-116); ANION GAP 5 mmol/L (5-15); ASPARTATE AMINO TRANSFERASE 30 U/L (15-37); BILIRUBIN,TOTAL 0.6 MG/DL (0.2-1.0); BLOOD UREA NITROGEN 42 mg/dL (7-18); CALCIUM 8.2 MG/DL (8.5-10.1); CARBON DIOXIDE 32 MMOL/L (21-32); CHLORIDE 112 MMOL/L (98-107); CREATININE 1.2 MG/DL (0.55-1.30); POTASSIUM 4.2 MMOL/L (3.5-5.1); SODIUM 149 MMOL/L (136-145)
[2018-12-26] MEDS: Albuterol/Ipratropium 3ml neb HHN SCH ×5 (07:01→23:09)
--- NOTE | 2018-12-26 07:12 | NUR ---
RESPIRATORY NOTE: Received pt on AC 20-600ml-50% FiO2- peep of 5. Pt is orally intubated with ETT 7.0 @ 24cm lips line, secured by anchor fast. Breathing TX duoneb and mucomyst given without adverse reaction. Andres diminished heard upon auscultation, suctioned small amount of thin/ frothy white jung secretions without any incidents. Oral care done. Alarms are set and audible, vent is plugged into the red outlet. Ambu bag is at bedside. Vent circuits and sxn tubbing are secured and out of the way. pt is awake and alert,agitated. Will continue to monitor pt closely.
--- NOTE | 2018-12-26 07:14 | NUR ---
HAND-OFF: Report given to Raven Reyes.
--- NOTE | 2018-12-26 08:12 | NUR ---
RESPIRATORY NOTE: Placed pt on CPAP PS 10 with low dose of Fentanyl gtt to help with agitation. Pt is calm, doing well, no SOB or resp distress noted. RN Nico is at bedside. Will continue to monitor pt.
--- NOTE | 2018-12-26 08:30 | NUR ---
RESPIRATORY NOTE: Pt requested to be back on AC mode, stated he can't breath, RR went up >35, desat to 81%, getting agitated. Placed pt back on AC mode, RN Nico is at bedside, pt back on Fentanyl gtt. Oral care done. Pt's getting calm little, no SOB or resp distress noted. Will continue to monitor pt closely.
--- NOTE | 2018-12-26 08:45 | NUR ---
NURSE NOTES: Patient failed weaning after 30min, he began to gesture he is unable to breath and is SOB. Patient original setting placed on ventilator, will continue to monitor.
[2018-12-26] MEDS: Heparin 5000 units/ml inj SUBQ SCH ×2 (09:00→21:11)
[2018-12-26] MEDS ORDERED: Lisinopril 2.5mg tab ORAL SCH (09:00)
[2018-12-26] MEDS: Aspirin Baby 81mg ORAL SCH (09:00)
[2018-12-26] MEDS: Bisacodyl EC 5mg tab ORAL SCH ×2 (09:00→18:17)
--- NOTE | 2018-12-26 09:30 | NUR ---
NURSE NOTES: Aspirin and heparin held for possible procedure this afternoon, Dr. Craig notified of medication held.
--- NOTE | 2018-12-26 09:43 | General Progress Note ---
Assessment/Plan Problem List: (1) Dysphagia ICD Codes: R13.10 - Dysphagia, unspecified SNOMED: 12946695, 719326030 (2) COPD (chronic obstructive pulmonary disease) ICD Codes: J44.9 - Chronic obstructive pulmonary disease, unspecified SNOMED: 11667176 (3) Respiratory failure ICD Codes: J96.90 - Respiratory failure, unspecified, unspecified whether with hypoxia or hypercapnia SNOMED: 152235714 (4) Acute respiratory failure with hypercapnia ICD Codes: J96.02 - Acute respiratory failure with hypercapnia SNOMED: 692344888 (5) Pneumonia ICD Codes: J18.9 - Pneumonia, unspecified organism SNOMED: 973347182 Assessment/Plan NGTF ppi pending trech plan PEG on Monday abx fu labs vit k Subjective ROS Limited/Unobtainable: No Allergies: Coded Allergies: IODINE (Verified Allergy, Severe, rash, 01/15/14) Objective Last 24 Hour Vital Signs Date Time Temp Pulse Resp B/P (MAP) Pulse Ox O2 Delivery O2 Flow Rate FiO2 12/26/18 08:12 89 25 50 12/26/18 07:12 80 24 50 12/26/18 07:11 80 24 96 Mechanical Ventilator 50 12/26/18 07:01 80 24 95 Mechanical Ventilator 50 12/26/18 07:00 79 24 117/90 (99) 74 12/26/18 06:30 79 20 122/92 (102) 95 12/26/18 06:00 78 19 117/57 (77) 93 12/26/18 05:30 82 21 116/63 (80) 79 12/26/18 05:25 113/72 12/26/18 05:21 20 Mechanical Ventilator 50 12/26/18 05:09 80 20 50 12/26/18 05:00 20 Mechanical Ventilator 50 12/26/18 05:00 80 21 113/72 (86) 93 12/26/18 04:30 78 20 125/50 (75) 93 12/26/18 04:00 20 Mechanical Ventilator 50 12/26/18 04:00 98.5 80 18 115/54 (74) 95 12/26/18 04:00 79 12/26/18 04:00 Mechanical Ventilator 12/26/18 03:37 81 20 98 Mechanical Ventilator 50 12/26/18 03:37 Mechanical Ventilator 50 12/26/18 03:30 81 20 106/57 (73) 98 12/26/18 03:00 81 21 153/131 (138) 97 12/26/18 03:00 81 20 50 12/26/18 03:00 20 Mechanical Ventilator 60 12/26/18 02:30 83 20 110/59 (76) 98 12/26/18 02:00 20 Mechanical Ventilator 60 12/26/18 02:00 81 20 105/81 (89) 93 12/26/18 01:30 79 20 94/66 (75) 88 12/26/18 01:00 85 20 50 12/26/18 01:00 20 Mechanical Ventilator 60 12/26/18 01:00 79 20 101/61 (74) 92 12/26/18 00:30 79 21 100/87 (91) 92 12/26/18 00:00 98.5 86 19 121/59 (79) 99 12/26/18 00:00 Mechanical Ventilator 12/26/18 00:00 77 12/26/18 00:00 20 Mechanical Ventilator 60 12/25/18 23:57 82 21 98 Mechanical Ventilator 55 12/25/18 23:48 76 21 50 12/25/18 23:47 83 21 98 Mechanical Ventilator 55 12/25/18 23:30 75 20 131/61 (84) 96 12/25/18 23:00 18 Mechanical Ventilator 60 12/25/18 23:00 81 21 86/56 (66) 93 12/25/18 22:30 81 21 172/54 (93) 95 12/25/18 22:22 115/60 12/25/18 22:00 77 22 115/60 (78) 93 12/25/18 22:00 20 Mechanical Ventilator 60 12/25/18 21:48 80 21 Mechanical Ventilator 50 12/25/18 21:30 86 25 150/107 (121) 98 12/25/18 21:05 82 24 55 12/25/18 21:00 86 25 125/51 (75) 92 12/25/18 21:00 20 Mechanical Ventilator 60 12/25/18 20:30 75 19 125/51 (75) 98 12/25/18 20:00 82 22 132/60 (84) 96 12/25/18 20:00 18 Mechanical Ventilator 60 12/25/18 20:00 Mechanical Ventilator 12/25/18 20:00 77 12/25/18 19:30 98.5 87 18 143/69 (93) 100 12/25/18 19:20 79 20 100 Mechanical Ventilator 60 12/25/18 19:10 82 23 100 Mechanical Ventilator 60 12/25/18 19:10 82 23 60 12/25/18 19:00 81 24 128/63 (84) 96 12/25/18 19:00 20 Mechanical Ventilator 60 12/25/18 18:30 84 23 123/61 (81) 92 12/25/18 18:02 20 Mechanical Ventilator 60 12/25/18 18:00 95 23 102/47 (65) 97 12/25/18 17:30 84 20 108/57 (74) 95 12/25/18 17:08 79 25 60 12/25/18 17:00 79 21 135/70 (91) 99 12/25/18 16:30 99.2 79 21 106/78 (87) 93 12/25/18 16:00 79 21 106/78 (87) 96 12/25/18 16:00 86 12/25/18 16:00 22 Mechanical Ventilator 60 12/25/18 16:00 Mechanical Ventilator 12/25/18 15:30 79 22 104/64 (77) 95 12/25/18 15:00 22 Mechanical Ventilator 60 12/25/18 15:00 79 21 118/61 (80) 96 12/25/18 14:50 82 23 100 Mechanical Ventilator 60 12/25/18 14:50 82 23 60 12/25/18 14:39 90 23 94 Mechanical Ventilator 60 12/25/18 14:30 90 28 139/119 (126) 95 12/25/18 14:00 82 25 117/51 (73) 95 12/25/18 14:00 21 Mechanical Ventilator 60 12/25/18 14:00 98/63 12/25/18 13:30 78 24 124/58 (80) 95 12/25/18 13:00 87 25 121/69 (86) 93 12/25/18 13:00 81 27 60 12/25/18 13:00 22 Mechanical Ventilator 60 12/25/18 12:07 60 12/25/18 12:00 98.1 78 22 119/50 (73) 92 12/25/18 12:00 20 Mechanical Ventilator 60 12/25/18 12:00 85 12/25/18 12:00 Mechanical Ventilator 12/25/18 11:35 75 26 92 Mechanical Ventilator 50 12/25/18 11:25 77 26 92 Mechanical Ventilator 50 12/25/18 11:22 80 26 50 12/25/18 11:00 84 22 127/72 (90) 99 12/25/18 11:00 20 Mechanical Ventilator 60 12/25/18 10:40 22 Mechanical Ventilator 100 12/25/18 10:30 86 22 135/78 (97) 100 12/25/18 10:30 20 Mechanical Ventilator 100 12/25/18 10:20 22 Mechanical Ventilator 100 12/25/18 10:10 23 Mechanical Ventilator 100 12/25/18 10:00 24 Mechanical Ventilator 100 12/25/18 10:00 100 12/25/18 10:00 101 22 144/101 (115) 96 12/25/18 09:50 23 Mechanical Ventilator 100 12/25/18 09:45 93 26 40 Intake and Output 12/25/18 12/26/18 19:00 07:00 Intake Total 933.23 ml 730 ml Output Total 535 ml 540 ml Balance 398.23 ml 190 ml Intake Free Water 130 ml IV Total 418.23 ml 230 ml Tube Feeding 385 ml 440 ml Other 60 ml Output Urine Total 535 ml 540 ml # Bowel Movements 1 Laboratory Tests 12/25/18 11:04: Arterial Blood pH 7.356, Arterial Blood Partial Pressure CO2 56.7*H, Arterial Blood Partial Pressure O2 103.9H, Arterial Blood HCO3 31.0H, Arterial Blood Oxygen Saturation 97.2, Arterial Blood Base Excess 3.9H, Jose Test Positive 12/26/18 05:20: White Blood Count 18.8H, Red Blood Count 4.67L, Hemoglobin 14.0L, Hematocrit 44.4, Mean Corpuscular Volume 95, Mean Corpuscular Hemoglobin 30.0, Mean Corpuscular Hemoglobin Concent 31.6L, Red Cell Distribution Width 14.2, Platelet Count 121L, Mean Platelet Volume 9.2, Neutrophils (%) (Auto) , Lymphocytes (%) (Auto) , Monocytes (%) (Auto) , Eosinophils (%) (Auto) , Basophils (%) (Auto) , Neutrophils % (Manual) [Pending], Lymphocytes % (Manual) [Pending], Platelet Estimate [Pending], Platelet Morphology [Pending], Prothrombin Time 13.5H, Prothromb Time International Ratio 1.3H, Activated Partial Thromboplast Time 25, Sodium Level 149H, Potassium Level 4.2, Chloride Level 112H, Carbon Dioxide Level 32, Anion Gap 5, Blood Urea Nitrogen 42H, Creatinine 1.2, Estimat Glomerular Filtration Rate > 60, Glucose Level 98, Calcium Level 8.2L, Total Bilirubin 0.6, Aspartate Amino Transf (AST/SGOT) 30, Alanine Aminotransferase (ALT/SGPT) 56, Alkaline Phosphatase 65, Total Protein 5.5L, Albumin 2.4L, Globulin 3.1, Albumin/Globulin Ratio 0.8L Height (Feet): 5 Height (Inches): 8.00 Weight (Pounds): 200 General Appearance: lethargic EENT: normal ENT inspection Neck: supple Cardiovascular: normal rate Respiratory/Chest: decreased breath sounds Abdomen: normal bowel sounds, non tender, soft Extremities: non-tender Abelino oNrman MD Dec 26, 2018 09:43
[2018-12-26] MEDS ORDERED: Phytonadione 1 MG in D5W 55 ML IVPB SCH (11:00)
[2018-12-26] MEDS: Metoprolol Succinate XL 25mg tab ORAL SCH (11:02)
[2018-12-26] MEDS: Solu-MEDROL 40mg Inj IVP SCH (11:03)
[2018-12-26] MEDS: Losartan 50mg tab NG SCH (11:03)
[2018-12-26] MEDS: Pantoprazole Inj IVP SCH (11:03)
--- NOTE | 2018-12-26 11:30 | NUR ---
NURSE NOTES: Dr. Craig ordered to have patient placed on d5w and hold tube feeding for possible trach placement this afternoon, will follow orders.
--- NOTE | 2018-12-26 13:10 | NUR ---
NURSE NOTES: Dr. Regalado at the bedside explaining patient will need a tracheostomy since he is unable to wean on CPAP, patient did not tolerate weaning after 30MIN on CPAP with pressure support of 10. will continue plan of care.
--- NOTE | 2018-12-26 14:03 | NUR ---
NURSE NOTES: Dr. Craig present with family explaining purpose of tracheotomy benefits and outcomes, family will like to discuss among themselves if patient will have trach placement, will continue plan of care.
--- NOTE | 2018-12-26 15:06 | Anethesia Preoperative Eval ---
Anesthesia Pre-op PMH/ROS General Date of Evaluation: Dec 26, 2018 Anesthesiologist: jA ASA Score: ASA 3 Mallampati Score Class I : Soft palate, uvula, fauces, pillars visible Class II: Soft palate, uvula, fauces visible Class III: Soft palate, base of uvula visible Class IV: Only hard plate visible Mallampati Classification: Class III Surgeon: Rafa Diagnosis: Respiratory failure Surgical Procedure: Trach Anesthesia History: none Family History: no anesthesia problems Allergies: Coded Allergies: IODINE (Verified Allergy, Severe, rash, 01/15/14) Medications: see eMAR Patient NPO?: Yes NPO Date: Dec 26, 2018 Past Medical History Cardiovascular: Reports: HTN, CAD - s/p CABG 5 years ago, arrhythmia - AICD, other - HLD; Denies: [place], valve dz Pulmonary: Reports: COPD, other - respiratory failure, intubated and on mechanical ventilation; Denies: asthma, SUNIL Gastrointestinal/Genitourinary: Reports: other - ARF; Denies: GERD, CRI, ESRD Neurologic/Psychiatric: Denies: dementia, CVA, depression/anxiety, TIA, other Endocrine: Denies: DM, hypothyroidism, steroids, other HEENT: Denies: cataract (L), cataract (R), glaucoma, [place] (L), [place] (R), other Hematology/Immune: Denies: anemia, DVT, bleeding disorder, other Musculoskeletal/Integumentary: Denies: OA, RA, DJD, DDD, edema, other Other: obesity PSxH Narrative: Unable to asess Anesthesia Pre-op Phys. Exam Physician Exam Last Vital Signs Date Time Temp Pulse Resp B/P (MAP) Pulse Ox O2 Delivery O2 Flow Rate FiO2 12/26/18 14:54 80 20 96 Mechanical Ventilator 50 12/26/18 13:00 131/78 (95) 12/26/18 12:00 99.8 12/24/18 05:53 45.0 Constitutional: NAD Cardiovascular: RRR Respiratory: other - diminished breath sounds bilaterally Airway Exam Mallampati Score: Class III Anesthesia Pre-op A/P Labs Hematology Test 12/26/18 05:20 White Blood Count 18.8 K/UL (4.8-10.8) H Red Blood Count 4.67 M/UL (4.70-6.10) L Hemoglobin 14.0 G/DL (14.2-18.0) L Hematocrit 44.4 % (42.0-52.0) Mean Corpuscular Volume 95 FL (80-99) Mean Corpuscular Hemoglobin 30.0 PG (27.0-31.0) Mean Corpuscular Hemoglobin Concent 31.6 G/DL (32.0-36.0) L Red Cell Distribution Width 14.2 % (11.6-14.8) Platelet Count 121 K/UL (150-450) L Mean Platelet Volume 9.2 FL (6.5-10.1) Neutrophils (%) (Auto) % (45.0-75.0) Lymphocytes (%) (Auto) % (20.0-45.0) Monocytes (%) (Auto) % (1.0-10.0) Eosinophils (%) (Auto) % (0.0-3.0) Basophils (%) (Auto) % (0.0-2.0) Differential Total Cells Counted 100 Neutrophils % (Manual) 90 % (45-75) H Lymphocytes % (Manual) 5 % (20-45) L Monocytes % (Manual) 5 % (1-10) Eosinophils % (Manual) 0 % (0-3) Basophils % (Manual) 0 % (0-2) Band Neutrophils 0 % (0-8) Platelet Estimate Decreased L Platelet Morphology Normal Red Blood Cell Morphology Normal Coagulation Test 12/26/18 05:20 Prothrombin Time 13.5 SEC (9.30-11.50) H Prothromb Time International Ratio 1.3 (0.9-1.1) H Activated Partial Thromboplast Time 25 SEC (23-33) Chemistry Test 12/26/18 05:20 Sodium Level 149 MMOL/L (136-145) H Potassium Level 4.2 MMOL/L (3.5-5.1) Chloride Level 112 MMOL/L (98-107) H Carbon Dioxide Level 32 MMOL/L (21-32) Anion Gap 5 mmol/L (5-15) Blood Urea Nitrogen 42 mg/dL (7-18) H Creatinine 1.2 MG/DL (0.55-1.30) Estimat Glomerular Filtration Rate > 60 mL/min (>60) Glucose Level 98 MG/DL (74-106) Calcium Level 8.2 MG/DL (8.5-10.1) L Total Bilirubin 0.6 MG/DL (0.2-1.0) Aspartate Amino Transf (AST/SGOT) 30 U/L (15-37) Alanine Aminotransferase (ALT/SGPT) 56 U/L (12-78) Alkaline Phosphatase 65 U/L (46-116) Total Protein 5.5 G/DL (6.4-8.2) L Albumin 2.4 G/DL (3.4-5.0) L Globulin 3.1 g/dL Albumin/Globulin Ratio 0.8 (1.0-2.7) L Studies Pre-op Studies: EKG - ST, RBBB, CXR - No acute cardiopulmonary process, echo - EF 40-45%, mild TR Risk Assessment & Plan Assessment: ASA III Plan: GA Status Change Before Surgery: No Pre-Antibiotics Drug: Sigrid Juárez MD Dec 26, 2018 15:06
--- NOTE | 2018-12-26 15:06 | Surgery Progress Note ---
Surgery Progress Note Subjective Additional Comments no acute events. still unable to wean from vent. family at bedside. Objective Last 24 Hour Vital Signs Date Time Temp Pulse Resp B/P (MAP) Pulse Ox O2 Delivery O2 Flow Rate FiO2 12/26/18 14:54 80 20 96 Mechanical Ventilator 50 12/26/18 13:00 82 24 131/78 (95) 4 12/26/18 13:00 80 24 50 12/26/18 12:30 83 20 131/76 (94) 98 12/26/18 12:00 99.8 79 24 118/83 (95) 91 12/26/18 12:00 Mechanical Ventilator 12/26/18 12:00 84 12/26/18 11:47 78 21 98 Mechanical Ventilator 50 12/26/18 11:34 82 20 96 Mechanical Ventilator 50 12/26/18 11:30 82 20 147/71 (96) 95 12/26/18 11:23 82 20 50 12/26/18 11:03 144/104 12/26/18 11:02 84 142/104 12/26/18 11:00 78 24 118/86 (97) 96 12/26/18 10:30 80 24 142/104 (117) 93 12/26/18 10:00 80 23 147/91 (109) 95 12/26/18 09:30 83 22 106/89 (95) 93 12/26/18 09:00 85 26 143/70 (94) 91 12/26/18 08:30 89 27 120/81 (94) 92 12/26/18 08:30 94 12/26/18 08:30 91 22 50 12/26/18 08:12 89 25 50 12/26/18 08:00 98.9 86 24 159/74 (102) 96 12/26/18 08:00 Mechanical Ventilator 12/26/18 08:00 80 12/26/18 07:30 80 25 127/103 (111) 97 12/26/18 07:12 80 24 50 12/26/18 07:11 80 24 96 Mechanical Ventilator 50 12/26/18 07:01 80 24 95 Mechanical Ventilator 50 12/26/18 07:00 79 24 117/90 (99) 74 12/26/18 06:30 79 20 122/92 (102) 95 12/26/18 06:00 78 19 117/57 (77) 93 12/26/18 05:30 82 21 116/63 (80) 79 12/26/18 05:25 113/72 12/26/18 05:21 20 Mechanical Ventilator 50 12/26/18 05:09 80 20 50 12/26/18 05:00 20 Mechanical Ventilator 50 12/26/18 05:00 80 21 113/72 (86) 93 12/26/18 04:30 78 20 125/50 (75) 93 12/26/18 04:00 20 Mechanical Ventilator 50 12/26/18 04:00 98.5 80 18 115/54 (74) 95 12/26/18 04:00 79 12/26/18 04:00 Mechanical Ventilator 12/26/18 03:37 81 20 98 Mechanical Ventilator 50 12/26/18 03:37 Mechanical Ventilator 50 12/26/18 03:30 81 20 106/57 (73) 98 12/26/18 03:00 81 21 153/131 (138) 97 12/26/18 03:00 81 20 50 12/26/18 03:00 20 Mechanical Ventilator 60 12/26/18 02:30 83 20 110/59 (76) 98 12/26/18 02:00 20 Mechanical Ventilator 60 12/26/18 02:00 81 20 105/81 (89) 93 12/26/18 01:30 79 20 94/66 (75) 88 12/26/18 01:00 85 20 50 12/26/18 01:00 20 Mechanical Ventilator 60 12/26/18 01:00 79 20 101/61 (74) 92 12/26/18 00:30 79 21 100/87 (91) 92 12/26/18 00:00 98.5 86 19 121/59 (79) 99 12/26/18 00:00 Mechanical Ventilator 12/26/18 00:00 77 12/26/18 00:00 20 Mechanical Ventilator 60 12/25/18 23:57 82 21 98 Mechanical Ventilator 55 12/25/18 23:48 76 21 50 12/25/18 23:47 83 21 98 Mechanical Ventilator 55 12/25/18 23:30 75 20 131/61 (84) 96 12/25/18 23:00 18 Mechanical Ventilator 60 12/25/18 23:00 81 21 86/56 (66) 93 12/25/18 22:30 81 21 172/54 (93) 95 12/25/18 22:22 115/60 12/25/18 22:00 77 22 115/60 (78) 93 12/25/18 22:00 20 Mechanical Ventilator 60 12/25/18 21:48 80 21 Mechanical Ventilator 50 12/25/18 21:30 86 25 150/107 (121) 98 12/25/18 21:05 82 24 55 12/25/18 21:00 86 25 125/51 (75) 92 12/25/18 21:00 20 Mechanical Ventilator 60 12/25/18 20:30 75 19 125/51 (75) 98 12/25/18 20:00 82 22 132/60 (84) 96 12/25/18 20:00 18 Mechanical Ventilator 60 12/25/18 20:00 Mechanical Ventilator 12/25/18 20:00 77 12/25/18 19:30 98.5 87 18 143/69 (93) 100 12/25/18 19:20 79 20 100 Mechanical Ventilator 60 12/25/18 19:10 82 23 100 Mechanical Ventilator 60 12/25/18 19:10 82 23 60 12/25/18 19:00 81 24 128/63 (84) 96 12/25/18 19:00 20 Mechanical Ventilator 60 12/25/18 18:30 84 23 123/61 (81) 92 12/25/18 18:02 20 Mechanical Ventilator 60 12/25/18 18:00 95 23 102/47 (65) 97 12/25/18 17:30 84 20 108/57 (74) 95 12/25/18 17:08 79 25 60 12/25/18 17:00 79 21 135/70 (91) 99 12/25/18 16:30 99.2 79 21 106/78 (87) 93 12/25/18 16:00 79 21 106/78 (87) 96 12/25/18 16:00 86 12/25/18 16:00 22 Mechanical Ventilator 60 12/25/18 16:00 Mechanical Ventilator 12/25/18 15:30 79 22 104/64 (77) 95 I&O Intake and Output 12/25/18 12/26/18 19:00 07:00 Intake Total 933.23 ml 730 ml Output Total 535 ml 540 ml Balance 398.23 ml 190 ml Intake Free Water 130 ml IV Total 418.23 ml 230 ml Tube Feeding 385 ml 440 ml Other 60 ml Output Urine Total 535 ml 540 ml # Bowel Movements 1 Drains: other Cardiovascular: RSR Respiratory: clear, decreased breath sounds Abdomen: soft, non-tender, present bowel sounds Extremities: other Laboratory Tests Test 12/26/18 05:20 White Blood Count 18.8 K/UL (4.8-10.8) H Red Blood Count 4.67 M/UL (4.70-6.10) L Hemoglobin 14.0 G/DL (14.2-18.0) L Hematocrit 44.4 % (42.0-52.0) Mean Corpuscular Volume 95 FL (80-99) Mean Corpuscular Hemoglobin 30.0 PG (27.0-31.0) Mean Corpuscular Hemoglobin Concent 31.6 G/DL (32.0-36.0) L Red Cell Distribution Width 14.2 % (11.6-14.8) Platelet Count 121 K/UL (150-450) L Mean Platelet Volume 9.2 FL (6.5-10.1) Neutrophils (%) (Auto) % (45.0-75.0) Lymphocytes (%) (Auto) % (20.0-45.0) Monocytes (%) (Auto) % (1.0-10.0) Eosinophils (%) (Auto) % (0.0-3.0) Basophils (%) (Auto) % (0.0-2.0) Differential Total Cells Counted 100 Neutrophils % (Manual) 90 % (45-75) H Lymphocytes % (Manual) 5 % (20-45) L Monocytes % (Manual) 5 % (1-10) Eosinophils % (Manual) 0 % (0-3) Basophils % (Manual) 0 % (0-2) Band Neutrophils 0 % (0-8) Platelet Estimate Decreased L Platelet Morphology Normal Red Blood Cell Morphology Normal Prothrombin Time 13.5 SEC (9.30-11.50) H Prothromb Time International Ratio 1.3 (0.9-1.1) H Activated Partial Thromboplast Time 25 SEC (23-33) Sodium Level 149 MMOL/L (136-145) H Potassium Level 4.2 MMOL/L (3.5-5.1) Chloride Level 112 MMOL/L (98-107) H Carbon Dioxide Level 32 MMOL/L (21-32) Anion Gap 5 mmol/L (5-15) Blood Urea Nitrogen 42 mg/dL (7-18) H Creatinine 1.2 MG/DL (0.55-1.30) Estimat Glomerular Filtration Rate > 60 mL/min (>60) Glucose Level 98 MG/DL (74-106) Calcium Level 8.2 MG/DL (8.5-10.1) L Total Bilirubin 0.6 MG/DL (0.2-1.0) Aspartate Amino Transf (AST/SGOT) 30 U/L (15-37) Alanine Aminotransferase (ALT/SGPT) 56 U/L (12-78) Alkaline Phosphatase 65 U/L (46-116) Total Protein 5.5 G/DL (6.4-8.2) L Albumin 2.4 G/DL (3.4-5.0) L Globulin 3.1 g/dL Albumin/Globulin Ratio 0.8 (1.0-2.7) L Plan Problems: (1) Acute respiratory failure with hypercapnia Assessment & Plan: respiratory insufficiency requiring prolonged ventilatory support unable to wean off vent trach indicated and recommended family at bedside; son and daughter long discuss had. all plans, risks, benefits, and alternatives discussed. consent plan for trach tomorrow thank you Malcolm Craig Dec 26, 2018 15:06
--- NOTE | 2018-12-26 15:39 | Pre-Procedure Note/Attestation ---
Pre-Procedure Note/Attestation Complete Prior to Procedure Planned Procedure: not applicable Procedure Narrative: tracheostomy Indications for Procedure Pre-Operative Diagnosis: respiratory insufficiency requiring prolonged ventilatory support Attestation I attest that I discussed the nature of the procedure; its benefits; risks and complications; and alternatives (and the risks and benefits of such alternatives ), prior to the procedure, with the patient (or the patient's legal market survey representative). I attest that, if there was a reasonable possibility of needing a blood transfusion, the patient (or the patient's legal market survey representative) was given the [facility] standardized written summary, pursuant to the [place] Blood Safety Act ([place] Health and Safety Code # 1645, as amended). I attest that I re-evaluated the patient just prior to the surgery and that there has been no change in the patient's H&P, except as documented below: Malcolm Craig Dec 26, 2018 15:39
--- NOTE | 2018-12-26 17:15 | NUR ---
NURSE NOTES: Consent obtained from Family for PEG and tracheotomy placement, family explained by Dr. Craig and Dr. Regalado of patient progress. Will continue to monitor.
--- NOTE | 2018-12-26 19:00 | NUR ---
CASE MANAGEMENT: REVIEW SI: RESP FAILURE . PNA . COPD EXACERBATION T 97.9 HR 73 RR 25 BP 186/90 SAT 95% MECH VENT FIO2 50 WBC 18.8 NA 149 IS: LASIX IV QD SOLU MEDROL IV QD FENTANYL IV Q24HR COZAAR NG QD NPO ICU STATUS DCP: PATIENT IS FROM HOME PLAN: TRACH
--- NOTE | 2018-12-26 19:00 | NUR ---
NURSE NOTES: Patient received from Nico COREAS. Patient is awake, oriented, agitated. Patient currently receiving fentanyl for sedation. Patient HR is 79 SR. Patient is intubated with settings of AC 20, 600tv, 50%FiO2 and peep of 5. Patient had weaning trial today but failed weaning. MD is aware, patient is scheduled for Trach placement tomorrow and possible PEG placement on this week. Consent has been made and family has signed consent form. Patient is aware and agrees to consent. Patient has Glucerna 1.5 via NGT running at 40ml/hr. Patient noted to have L sided AICD, sensing correctly. Patient noted to be on bilateral soft wrist restraints and Nina. Bed at lowest position and call light at bedside.
--- NOTE | 2018-12-26 19:32 | NUR ---
HAND-OFF: Report given to LYUDMILA Islas.
--- NOTE | 2018-12-26 20:00 | NUR ---
NURSE NOTES: Patient has residual of 200ml. Feeds on hold for now. D5W hung. Patient repositioned and provided oral care. VS remains stable.
--- NOTE | 2018-12-26 20:05 | General Progress Note ---
Assessment/Plan Problem List: (1) COPD exacerbation (2) Pneumonia ICD Codes: J18.9 - Pneumonia, unspecified organism SNOMED: 368674617 (3) Acute respiratory failure with hypercapnia ICD Codes: J96.02 - Acute respiratory failure with hypercapnia SNOMED: 422836943 (4) ARF (acute renal failure) ICD Codes: N17.9 - Acute kidney failure, unspecified SNOMED: 41061581 (5) Hypernatremia ICD Codes: E87.0 - Hyperosmolality and hypernatremia SNOMED: 19433871 Assessment/Plan cont with steroids Bronchodilators Discussed with RN TF await trach Subjective Allergies: Coded Allergies: IODINE (Verified Allergy, Severe, rash, 01/15/14) Subjective In NAD Objective Last 24 Hour Vital Signs Date Time Temp Pulse Resp B/P (MAP) Pulse Ox O2 Delivery O2 Flow Rate FiO2 12/26/18 19:43 20 Mechanical Ventilator 50 12/26/18 19:00 75 21 180/159 (166) 97 12/26/18 19:00 20 Mechanical Ventilator 50 12/26/18 18:30 73 20 156/69 (98) 95 12/26/18 18:00 76 20 186/90 (122) 95 12/26/18 18:00 20 Mechanical Ventilator 50 12/26/18 17:30 80 22 186/83 (117) 96 12/26/18 17:04 84 23 50 12/26/18 17:00 83 22 149/71 (97) 96 12/26/18 17:00 25 Mechanical Ventilator 50 12/26/18 16:30 81 22 163/78 (106) 93 12/26/18 16:00 97.9 78 23 169/70 (103) 94 12/26/18 16:00 23 Mechanical Ventilator 50 12/26/18 16:00 Mechanical Ventilator 12/26/18 16:00 87 12/26/18 16:00 40 12/26/18 15:30 79 22 155/104 (121) 94 12/26/18 15:08 88 22 50 12/26/18 15:08 88 22 100 Mechanical Ventilator 50 12/26/18 15:02 156/61 12/26/18 15:00 84 25 124/69 (87) 98 12/26/18 15:00 26 Mechanical Ventilator 50 12/26/18 14:54 80 20 96 Mechanical Ventilator 50 12/26/18 14:30 86 24 156/61 (92) 98 12/26/18 14:00 80 23 162/65 (97) 95 12/26/18 14:00 24 Mechanical Ventilator 50 12/26/18 13:30 77 21 149/83 (105) 96 12/26/18 13:00 82 24 131/78 (95) 4 12/26/18 13:00 24 Mechanical Ventilator 50 12/26/18 13:00 80 24 50 12/26/18 12:57 25 Mechanical Ventilator 50 12/26/18 12:30 83 20 131/76 (94) 98 12/26/18 12:00 28 Mechanical Ventilator 50 12/26/18 12:00 99.8 79 24 118/83 (95) 91 12/26/18 12:00 Mechanical Ventilator 12/26/18 12:00 40 12/26/18 12:00 84 12/26/18 11:47 78 21 98 Mechanical Ventilator 50 12/26/18 11:34 82 20 96 Mechanical Ventilator 50 12/26/18 11:30 82 20 147/71 (96) 95 12/26/18 11:23 82 20 50 12/26/18 11:03 144/104 12/26/18 11:02 84 142/104 12/26/18 11:00 78 24 118/86 (97) 96 12/26/18 10:30 80 24 142/104 (117) 93 12/26/18 10:00 80 23 147/91 (109) 95 12/26/18 09:30 83 22 106/89 (95) 93 12/26/18 09:00 85 26 143/70 (94) 91 12/26/18 08:30 89 27 120/81 (94) 92 12/26/18 08:30 94 12/26/18 08:30 91 22 50 12/26/18 08:12 89 25 50 12/26/18 08:00 98.9 86 24 159/74 (102) 96 12/26/18 08:00 40 12/26/18 08:00 Mechanical Ventilator 12/26/18 08:00 80 12/26/18 07:30 80 25 127/103 (111) 97 12/26/18 07:12 80 24 50 12/26/18 07:11 80 24 96 Mechanical Ventilator 50 12/26/18 07:01 80 24 95 Mechanical Ventilator 50 12/26/18 07:00 79 24 117/90 (99) 74 12/26/18 06:30 79 20 122/92 (102) 95 12/26/18 06:00 78 19 117/57 (77) 93 12/26/18 05:30 82 21 116/63 (80) 79 12/26/18 05:25 113/72 12/26/18 05:21 20 Mechanical Ventilator 50 12/26/18 05:09 80 20 50 12/26/18 05:00 20 Mechanical Ventilator 50 12/26/18 05:00 80 21 113/72 (86) 93 12/26/18 04:30 78 20 125/50 (75) 93 12/26/18 04:00 20 Mechanical Ventilator 50 12/26/18 04:00 98.5 80 18 115/54 (74) 95 12/26/18 04:00 79 12/26/18 04:00 Mechanical Ventilator 12/26/18 03:37 81 20 98 Mechanical Ventilator 50 12/26/18 03:37 Mechanical Ventilator 50 12/26/18 03:30 81 20 106/57 (73) 98 12/26/18 03:00 81 21 153/131 (138) 97 12/26/18 03:00 81 20 50 12/26/18 03:00 20 Mechanical Ventilator 60 12/26/18 02:30 83 20 110/59 (76) 98 12/26/18 02:00 20 Mechanical Ventilator 60 12/26/18 02:00 81 20 105/81 (89) 93 12/26/18 01:30 79 20 94/66 (75) 88 12/26/18 01:00 85 20 50 12/26/18 01:00 20 Mechanical Ventilator 60 12/26/18 01:00 79 20 101/61 (74) 92 12/26/18 00:30 79 21 100/87 (91) 92 12/26/18 00:00 98.5 86 19 121/59 (79) 99 12/26/18 00:00 Mechanical Ventilator 12/26/18 00:00 77 12/26/18 00:00 20 Mechanical Ventilator 60 12/25/18 23:57 82 21 98 Mechanical Ventilator 55 12/25/18 23:48 76 21 50 12/25/18 23:47 83 21 98 Mechanical Ventilator 55 12/25/18 23:30 75 20 131/61 (84) 96 12/25/18 23:00 18 Mechanical Ventilator 60 12/25/18 23:00 81 21 86/56 (66) 93 12/25/18 22:30 81 21 172/54 (93) 95 12/25/18 22:22 115/60 12/25/18 22:00 77 22 115/60 (78) 93 12/25/18 22:00 20 Mechanical Ventilator 60 12/25/18 21:48 80 21 Mechanical Ventilator 50 12/25/18 21:30 86 25 150/107 (121) 98 12/25/18 21:05 82 24 55 12/25/18 21:00 86 25 125/51 (75) 92 12/25/18 21:00 20 Mechanical Ventilator 60 12/25/18 20:30 75 19 125/51 (75) 98 Intake and Output 12/25/18 12/26/18 19:00 07:00 Intake Total 933.23 ml 730 ml Output Total 535 ml 540 ml Balance 398.23 ml 190 ml Intake Free Water 130 ml IV Total 418.23 ml 230 ml Tube Feeding 385 ml 440 ml Other 60 ml Output Urine Total 535 ml 540 ml # Bowel Movements 1 Laboratory Tests 12/26/18 05:20: White Blood Count 18.8H, Red Blood Count 4.67L, Hemoglobin 14.0L, Hematocrit 44.4, Mean Corpuscular Volume 95, Mean Corpuscular Hemoglobin 30.0, Mean Corpuscular Hemoglobin Concent 31.6L, Red Cell Distribution Width 14.2, Platelet Count 121L, Mean Platelet Volume 9.2, Neutrophils (%) (Auto) , Lymphocytes (%) (Auto) , Monocytes (%) (Auto) , Eosinophils (%) (Auto) , Basophils (%) (Auto) , Differential Total Cells Counted 100, Neutrophils % ( Manual) 90H, Lymphocytes % (Manual) 5L, Monocytes % (Manual) 5, Eosinophils % ( Manual) 0, Basophils % (Manual) 0, Band Neutrophils 0, Platelet Estimate DecreasedL, Platelet Morphology Normal, Red Blood Cell Morphology Normal, Prothrombin Time 13.5H, Prothromb Time International Ratio 1.3H, Activated Partial Thromboplast Time 25, Sodium Level 149H, Potassium Level 4.2, Chloride Level 112H, Carbon Dioxide Level 32, Anion Gap 5, Blood Urea Nitrogen 42H, Creatinine 1.2, Estimat Glomerular Filtration Rate > 60, Glucose Level 98, Calcium Level 8.2L, Total Bilirubin 0.6, Aspartate Amino Transf (AST/SGOT) 30, Alanine Aminotransferase (ALT/SGPT) 56, Alkaline Phosphatase 65, Total Protein 5.5L, Albumin 2.4L, Globulin 3.1, Albumin/Globulin Ratio 0.8L Height (Feet): 5 Height (Inches): 8.00 Weight (Pounds): 200 Cardiovascular: normal rate Respiratory/Chest: rhonchi - bilaterally Edema: no edema noted Generalized Baldemar Morgan MD Dec 26, 2018 20:05
--- NOTE | 2018-12-26 22:00 | NUR ---
NURSE NOTES: Patient repositioned, increased sedation vacation as patient fighting the ventilator. Spo2 remains at 100%.
--- NOTE | 2018-12-26 22:16 | Cardiology Progress Note ---
Assessment/Plan Status: stable Assessment/Plan Assessment/Plan Status: stable Assessment/Plan Assessment: Respiratory failure COPD (chronic obstructive pulmonary disease) Pneumonia CAD, previous CABG PPM/ICD HTN HLD PLAN: Patient has failed to progress off the vent, he is hemodynamically stable, he is tolerating CPAP for a while then gets tired, he is on steroid taper, he as some secretions as well. Cultures are negative so far and chest x ray is clear. CT brain negative for CVA Echo with systolic dysfunction but he doesn't appear to be in heart failure, CXR clear and PA pressures normal and he is hemodynamically stable. Patient is to have peg trach due to failure to improve/prolonged intubation -Clear to proceed with peg/trach Repeat Echocardiogram to re-evaluate LV function Continue NGT feeds Bowel prep - ducolax, enema, mineral oil, colace, he has hx of hiatal hernia as well continue steroids now being weaned continue empiric abx, follow cultures Will need ischemia evaluation given hx of CAD/CABG to evaluate graft function when stable prior to discharge continue aspirin continue statin Continue metoprolol XL 50 mg Continue lisinopril 5 mg daily Monitor I/O and renal function Spot diuresis as needed, currently does not appear fluid overloaded Discussed with family and nursing Subjective Cardiovascular: Reports: no symptoms Respiratory: Reports: no symptoms Gastrointestinal/Abdominal: Reports: no symptoms Genitourinary: Reports: no symptoms Subjective Patient has failed to wean from vent, plan for trach peg tomorrow, discussed with family, no acute events otherwise Objective Last 24 Hour Vital Signs Date Time Temp Pulse Resp B/P (MAP) Pulse Ox O2 Delivery O2 Flow Rate FiO2 12/26/18 22:00 79 23 153/55 (87) 97 12/26/18 21:30 80 24 129/102 (111) 97 12/26/18 21:12 129/64 12/26/18 21:00 77 23 147/96 (113) 96 12/26/18 21:00 20 Mechanical Ventilator 50 12/26/18 20:52 73 21 50 12/26/18 20:52 76 21 98 Mechanical Ventilator 50 12/26/18 20:30 75 23 134/69 (90) 97 12/26/18 20:28 80 26 98 Mechanical Ventilator 50 12/26/18 20:27 82 23 50 12/26/18 20:00 Mechanical Ventilator 12/26/18 20:00 40 12/26/18 20:00 98.6 72 28 129/64 (85) 93 12/26/18 20:00 21 Mechanical Ventilator 50 12/26/18 20:00 75 12/26/18 19:43 20 Mechanical Ventilator 50 12/26/18 19:00 75 21 180/159 (166) 97 12/26/18 19:00 20 Mechanical Ventilator 50 12/26/18 18:30 73 20 156/69 (98) 95 12/26/18 18:00 76 20 186/90 (122) 95 12/26/18 18:00 20 Mechanical Ventilator 50 12/26/18 17:30 80 22 186/83 (117) 96 12/26/18 17:04 84 23 50 12/26/18 17:00 83 22 149/71 (97) 96 12/26/18 17:00 25 Mechanical Ventilator 50 12/26/18 16:30 81 22 163/78 (106) 93 12/26/18 16:00 97.9 78 23 169/70 (103) 94 12/26/18 16:00 23 Mechanical Ventilator 50 12/26/18 16:00 Mechanical Ventilator 12/26/18 16:00 87 12/26/18 16:00 40 12/26/18 15:30 79 22 155/104 (121) 94 12/26/18 15:08 88 22 50 12/26/18 15:08 88 22 100 Mechanical Ventilator 50 12/26/18 15:02 156/61 12/26/18 15:00 84 25 124/69 (87) 98 12/26/18 15:00 26 Mechanical Ventilator 50 12/26/18 14:54 80 20 96 Mechanical Ventilator 50 12/26/18 14:30 86 24 156/61 (92) 98 12/26/18 14:00 80 23 162/65 (97) 95 12/26/18 14:00 24 Mechanical Ventilator 50 12/26/18 13:30 77 21 149/83 (105) 96 12/26/18 13:00 82 24 131/78 (95) 4 12/26/18 13:00 24 Mechanical Ventilator 50 12/26/18 13:00 80 24 50 12/26/18 12:57 25 Mechanical Ventilator 50 12/26/18 12:30 83 20 131/76 (94) 98 12/26/18 12:00 28 Mechanical Ventilator 50 12/26/18 12:00 99.8 79 24 118/83 (95) 91 12/26/18 12:00 Mechanical Ventilator 12/26/18 12:00 40 12/26/18 12:00 84 12/26/18 11:47 78 21 98 Mechanical Ventilator 50 12/26/18 11:34 82 20 96 Mechanical Ventilator 50 12/26/18 11:30 82 20 147/71 (96) 95 12/26/18 11:23 82 20 50 12/26/18 11:03 144/104 12/26/18 11:02 84 142/104 12/26/18 11:00 78 24 118/86 (97) 96 12/26/18 10:30 80 24 142/104 (117) 93 12/26/18 10:00 80 23 147/91 (109) 95 12/26/18 09:30 83 22 106/89 (95) 93 12/26/18 09:00 85 26 143/70 (94) 91 12/26/18 08:30 89 27 120/81 (94) 92 12/26/18 08:30 94 12/26/18 08:30 91 22 50 12/26/18 08:12 89 25 50 12/26/18 08:00 98.9 86 24 159/74 (102) 96 12/26/18 08:00 40 12/26/18 08:00 Mechanical Ventilator 12/26/18 08:00 80 12/26/18 07:30 80 25 127/103 (111) 97 12/26/18 07:12 80 24 50 12/26/18 07:11 80 24 96 Mechanical Ventilator 50 12/26/18 07:01 80 24 95 Mechanical Ventilator 50 12/26/18 07:00 79 24 117/90 (99) 74 12/26/18 06:30 79 20 122/92 (102) 95 12/26/18 06:00 78 19 117/57 (77) 93 12/26/18 05:30 82 21 116/63 (80) 79 12/26/18 05:25 113/72 12/26/18 05:21 20 Mechanical Ventilator 50 12/26/18 05:09 80 20 50 12/26/18 05:00 20 Mechanical Ventilator 50 12/26/18 05:00 80 21 113/72 (86) 93 12/26/18 04:30 78 20 125/50 (75) 93 12/26/18 04:00 20 Mechanical Ventilator 50 12/26/18 04:00 98.5 80 18 115/54 (74) 95 12/26/18 04:00 79 12/26/18 04:00 Mechanical Ventilator 12/26/18 03:37 81 20 98 Mechanical Ventilator 50 12/26/18 03:37 Mechanical Ventilator 50 12/26/18 03:30 81 20 106/57 (73) 98 12/26/18 03:00 81 21 153/131 (138) 97 12/26/18 03:00 81 20 50 12/26/18 03:00 20 Mechanical Ventilator 60 12/26/18 02:30 83 20 110/59 (76) 98 12/26/18 02:00 20 Mechanical Ventilator 60 12/26/18 02:00 81 20 105/81 (89) 93 12/26/18 01:30 79 20 94/66 (75) 88 12/26/18 01:00 85 20 50 12/26/18 01:00 20 Mechanical Ventilator 60 12/26/18 01:00 79 20 101/61 (74) 92 12/26/18 00:30 79 21 100/87 (91) 92 12/26/18 00:00 98.5 86 19 121/59 (79) 99 12/26/18 00:00 Mechanical Ventilator 12/26/18 00:00 77 12/26/18 00:00 20 Mechanical Ventilator 60 12/25/18 23:57 82 21 98 Mechanical Ventilator 55 12/25/18 23:48 76 21 50 12/25/18 23:47 83 21 98 Mechanical Ventilator 55 12/25/18 23:30 75 20 131/61 (84) 96 12/25/18 23:00 18 Mechanical Ventilator 60 12/25/18 23:00 81 21 86/56 (66) 93 12/25/18 22:30 81 21 172/54 (93) 95 12/25/18 22:22 115/60 General Appearance: no apparent distress, mild distress, on vent EENT: PERRL/EOMI, normal ENT inspection, TMs normal, pharynx normal Neck: non-tender, normal alignment, supple, normal inspection, no JVD Rhythm: NSR Cardiovascular: normal peripheral pulses, normal rate, regular rhythm Respiratory/Chest: decreased breath sounds, accessory muscle use, crackles/ rales, rhonchi - bilaterally, inspiratory wheezing Abdomen: normal bowel sounds, non tender, soft, no organomegaly, no mass Extremities: normal range of motion, non-tender, normal inspection, no calf tenderness, no swelling 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, no motor/sensory deficits Intake and Output 12/25/18 12/26/18 19:00 07:00 Intake Total 933.23 ml 730 ml Output Total 535 ml 540 ml Balance 398.23 ml 190 ml Intake Free Water 130 ml IV Total 418.23 ml 230 ml Tube Feeding 385 ml 440 ml Other 60 ml Output Urine Total 535 ml 540 ml # Bowel Movements 1 Laboratory Tests Test 12/26/18 05:20 White Blood Count 18.8 K/UL (4.8-10.8) H Red Blood Count 4.67 M/UL (4.70-6.10) L Hemoglobin 14.0 G/DL (14.2-18.0) L Hematocrit 44.4 % (42.0-52.0) Mean Corpuscular Volume 95 FL (80-99) Mean Corpuscular Hemoglobin 30.0 PG (27.0-31.0) Mean Corpuscular Hemoglobin Concent 31.6 G/DL (32.0-36.0) L Red Cell Distribution Width 14.2 % (11.6-14.8) Platelet Count 121 K/UL (150-450) L Mean Platelet Volume 9.2 FL (6.5-10.1) Neutrophils (%) (Auto) % (45.0-75.0) Lymphocytes (%) (Auto) % (20.0-45.0) Monocytes (%) (Auto) % (1.0-10.0) Eosinophils (%) (Auto) % (0.0-3.0) Basophils (%) (Auto) % (0.0-2.0) Differential Total Cells Counted 100 Neutrophils % (Manual) 90 % (45-75) H Lymphocytes % (Manual) 5 % (20-45) L Monocytes % (Manual) 5 % (1-10) Eosinophils % (Manual) 0 % (0-3) Basophils % (Manual) 0 % (0-2) Band Neutrophils 0 % (0-8) Platelet Estimate Decreased L Platelet Morphology Normal Red Blood Cell Morphology Normal Prothrombin Time 13.5 SEC (9.30-11.50) H Prothromb Time International Ratio 1.3 (0.9-1.1) H Activated Partial Thromboplast Time 25 SEC (23-33) Sodium Level 149 MMOL/L (136-145) H Potassium Level 4.2 MMOL/L (3.5-5.1) Chloride Level 112 MMOL/L (98-107) H Carbon Dioxide Level 32 MMOL/L (21-32) Anion Gap 5 mmol/L (5-15) Blood Urea Nitrogen 42 mg/dL (7-18) H Creatinine 1.2 MG/DL (0.55-1.30) Estimat Glomerular Filtration Rate > 60 mL/min (>60) Glucose Level 98 MG/DL (74-106) Calcium Level 8.2 MG/DL (8.5-10.1) L Total Bilirubin 0.6 MG/DL (0.2-1.0) Aspartate Amino Transf (AST/SGOT) 30 U/L (15-37) Alanine Aminotransferase (ALT/SGPT) 56 U/L (12-78) Alkaline Phosphatase 65 U/L (46-116) Total Protein 5.5 G/DL (6.4-8.2) L Albumin 2.4 G/DL (3.4-5.0) L Globulin 3.1 g/dL Albumin/Globulin Ratio 0.8 (1.0-2.7) L Nico Kingston MD Dec 26, 2018 22:16
[2018-12-27] VITALS (29 sets, daily range): BP systolic 77–144; BP diastolic 43–102
--- NOTE | 2018-12-27 | NUR ---
NURSE NOTES: Patient repositioned, and provided oral care, Vitals remains stable, afebrile, patient, NAD at this time. Patient placed on NPO for tracheostomy procedure tomorrow in AM. Glucose reading of 109, no coverage provided.
--- NOTE | 2018-12-27 02:00 | NUR ---
NURSE NOTES: Repositioned, oral care done, flushed ngt tube, patient is relaxed at this time. Vitals remains stable.
[2018-12-27] MEDS: Albuterol/Ipratropium 3ml neb HHN SCH ×4 (02:39→15:00)
--- NOTE | 2018-12-27 04:00 | NUR ---
NURSE NOTES: Patient repositioned, no acute distress at this time. Patient suctioned. Vitals remains stable.
[2018-12-27 05:43] LABS: HEMOGLOBIN 14.3 G/DL (14.2-18.0); MEAN CORPUSCULAR VOLUME 94 FL (80-99); PLATELET COUNT 117 K/UL (150-450); RED BLOOD COUNT 4.77 M/UL (4.70-6.10); RED CELL DISTRIBUTION WIDTH 14.1 % (11.6-14.8); WHITE BLOOD COUNT 15.8 K/UL (4.8-10.8)
[2018-12-27] MEDS: fentaNYL Citrate 2,500 MCG in NS 200 ML IV SCH (05:48)
[2018-12-27] MEDS: HydrALAZINE 50mg tab ORAL SCH (05:49)
[2018-12-27] MEDS: NovoLOG Insulin Flexpen SUBQ SCH ×3 (05:49→12:32)
[2018-12-27 05:51] LABS: INR 1.2 (0.9-1.1)
--- NOTE | 2018-12-27 06:00 | NUR ---
NURSE NOTES: Patient repositioned, NAD, Vitals remains stable, Glucose this morning 118, coverage provided, patient remains NPO for procedure today.
[2018-12-27 06:17] LABS: ANION GAP 3 mmol/L (5-15); BLOOD UREA NITROGEN 36 mg/dL (7-18); CARBON DIOXIDE 35 MMOL/L (21-32); CHLORIDE 110 MMOL/L (98-107); PHOSPHORUS 2.5 MG/DL (2.5-4.9); POTASSIUM 3.7 MMOL/L (3.5-5.1); SODIUM 148 MMOL/L (136-145)
--- NOTE | 2018-12-27 07:38 | NUR ---
RESPIRATORY NOTE: received pt intubated with 7.0 ETT placed 24cm at the lip secured via anchor fast. no redness or skin break down visible around facial area. vent settings are current. no resp distress at this time vent is plugged into red outlet. ambu bag at bedside. will cont to monitor.
[2018-12-27] MEDS: Aspirin Baby 81mg ORAL SCH (09:00)
[2018-12-27] MEDS: Metoprolol Succinate XL 25mg tab ORAL SCH (09:00)
[2018-12-27] MEDS: Heparin 5000 units/ml inj SUBQ SCH (09:00)
[2018-12-27] MEDS: Pantoprazole Inj IVP SCH (09:05)
[2018-12-27] MEDS: Solu-MEDROL 40mg Inj IVP SCH (09:05)
[2018-12-27] MEDS: Bisacodyl EC 5mg tab ORAL SCH (09:06)
[2018-12-27] MEDS: Losartan 50mg tab NG SCH (09:06)
--- NOTE | 2018-12-27 09:45 | NUR ---
NURSE NOTES: Dr. Craig assessed patient at the bedside, confirmed patient is placed for trach this afternoon at 1500. no verbal orders given at this time.
--- NOTE | 2018-12-27 10:22 | NUR ---
RD ASSESSMENT & RECOMMENDATIONS SEE CARE ACTIVITY FOR COMPLETE ASSESSMENT DAILY ESTIMATED NEEDS: Needs based on Critical care, DM 76.9kg adj 20-26 kcals/kg 8433-9583 total kcals 1.2-2 g protein/kg 92-154 g total protein 25-30 mL/kg 3001-4430 total fluid mLs NUTRITION DIAGNOSIS: 1) Swallowing difficulty r/t respiratory status as evidenced by pt intubated w/ pending trach placement today, s/p dobhoff placement, TF held. 2) Altered nutrition related lab values r/t clinical status as evidenced by previously critically elev pCO2 (58.1*), a1C 6.1, elev phos on adm (5.2-> now wnl). CURRENT TF: Glucerna 1.5 @40ml- HELD FOR TRACH ENTERAL NUTRITION RECOMMENDATIONS: Glucerna 1.5 @50ml/hr x24 hrs to provide 1200ml, 1800 kcal, 99g prot, 911ml free H2O - Increase GOAL RATE to 50ml/hr x 24 hrs to better meet est needs. - Continue to increase 10ml q 4-6 hrs as tolerated to goal rate - Flush per MD/ HOB over 30 degrees ADDITIONAL RECOMMENDATIONS: 1) Obtain a calibrated bed scale wt 2) Monitor lytes, BG on continuous TF 3) GEOLOGICAL TECHNICAL OFFICER eval upon extubation prior to oral diet 4) Monitor TF tolerance- previously w/ elev residuals - consider adding prokinetic agent w/ continue elev residuals
--- NOTE | 2018-12-27 10:45 | NUR ---
NURSE NOTES: Dr. Craig notified of possible transfer to [facility], will call dr. Morgan to confirm if tracheostomy placement will be completed today at 1500. awaiting for confirmation.
--- NOTE | 2018-12-27 11:15 | NUR ---
NURSE NOTES: Tracheostomy placement will be cancelled as patient will be transferred to [facility], Primary MD dr. Morgan aware.
--- NOTE | 2018-12-27 11:15 | NUR ---
ASSISTANT DESIGNER NOTES RECEIVED A CALL FROM MARY ANN DOBBS FROM [facility], PT IS CAPITATED TO [facility] AND WANTS PATIENT TRANSFER THERE FOR TRACHEOSTOMY. MADE AWARE. PT CLINICALS FAXED TO [phone]. Addendum: 12/27/18 at 1146 by IAN HORAN RN RN recieved A CALL BACK FROM MARY ANN, PT ACCEPTED TO [facility] ROOM 12. NURSE TO GIVE REPORT TO [phone]. DR PRADO RECEIVING DOCTOR. [facility] TO TRANSPORT PT WITH AUTHORIZATION NUMBER [id number].
--- NOTE | 2018-12-27 12:10 | General Progress Note ---
Assessment/Plan Problem List: (1) Dysphagia ICD Codes: R13.10 - Dysphagia, unspecified SNOMED: 67203253, 707953565 (2) COPD (chronic obstructive pulmonary disease) ICD Codes: J44.9 - Chronic obstructive pulmonary disease, unspecified SNOMED: 87708394 (3) Respiratory failure ICD Codes: J96.90 - Respiratory failure, unspecified, unspecified whether with hypoxia or hypercapnia SNOMED: 808511204 (4) Acute respiratory failure with hypercapnia ICD Codes: J96.02 - Acute respiratory failure with hypercapnia SNOMED: 666201207 (5) Pneumonia ICD Codes: J18.9 - Pneumonia, unspecified organism SNOMED: 804938723 Assessment/Plan NGTF ppi pending trech plan PEG on Monday abx fu labs Subjective ROS Limited/Unobtainable: No Allergies: Coded Allergies: IODINE (Verified Allergy, Severe, rash, 01/15/14) Objective Last 24 Hour Vital Signs Date Time Temp Pulse Resp B/P (MAP) Pulse Ox O2 Delivery O2 Flow Rate FiO2 12/27/18 11:30 69 24 132/102 (112) 93 12/27/18 11:20 70 23 97 Mechanical Ventilator 40 12/27/18 11:09 72 24 97 Mechanical Ventilator 40 12/27/18 11:03 73 24 40 12/27/18 11:00 71 24 124/85 (98) 93 12/27/18 10:30 68 24 107/63 (78) 94 12/27/18 10:00 70 24 131/77 (95) 94 12/27/18 09:30 66 24 97/74 (82) 96 12/27/18 09:10 62 21 40 12/27/18 09:06 131/56 12/27/18 09:00 64 21 121/48 (72) 96 12/27/18 09:00 61 121/48 12/27/18 08:30 68 21 117/52 (73) 98 12/27/18 08:00 40 12/27/18 08:00 70 12/27/18 08:00 Mechanical Ventilator 12/27/18 08:00 98.7 65 23 110/78 (89) 95 12/27/18 07:37 74 24 40 12/27/18 07:36 64 24 99 Mechanical Ventilator 40 12/27/18 07:30 67 20 77/47 (57) 99 12/27/18 07:13 66 21 96 Mechanical Ventilator 40 12/27/18 07:00 20 Mechanical Ventilator 40 12/27/18 07:00 66 18 112/85 (94) 100 12/27/18 06:30 64 18 101/86 (91) 100 12/27/18 06:00 77 17 109/50 (69) 100 12/27/18 06:00 20 Mechanical Ventilator 40 12/27/18 05:49 113/64 12/27/18 05:48 20 Mechanical Ventilator 40 12/27/18 05:30 71 20 114/54 (74) 98 12/27/18 05:23 72 20 40 12/27/18 05:00 72 18 113/64 (80) 94 12/27/18 04:30 70 20 108/58 (75) 96 12/27/18 04:00 40 12/27/18 04:00 Mechanical Ventilator 12/27/18 04:00 20 Mechanical Ventilator 50 12/27/18 04:00 69 12/27/18 04:00 98.5 71 20 125/52 (76) 93 12/27/18 03:30 66 19 144/77 (99) 98 12/27/18 03:00 24 Mechanical Ventilator 50 12/27/18 03:00 62 20 114/54 (74) 95 12/27/18 02:56 64 20 100 Mechanical Ventilator 40 12/27/18 02:40 62 20 40 12/27/18 02:40 75 20 100 Mechanical Ventilator 40 12/27/18 02:30 65 19 117/54 (75) 99 12/27/18 02:00 68 20 111/48 (69) 99 12/27/18 02:00 20 Mechanical Ventilator 50 12/27/18 01:30 78 22 99/48 (65) 100 12/27/18 01:01 73 20 50 12/27/18 01:00 71 18 115/54 (74) 100 12/27/18 01:00 20 Mechanical Ventilator 50 12/27/18 00:00 Mechanical Ventilator 12/27/18 00:00 99.3 73 22 129/53 (78) 100 12/27/18 00:00 20 Mechanical Ventilator 50 12/27/18 00:00 73 12/27/18 00:00 40 12/26/18 23:27 79 20 100 Mechanical Ventilator 50 12/26/18 23:10 66 20 99 Mechanical Ventilator 50 12/26/18 23:09 66 20 50 12/26/18 23:00 74 20 118/80 (93) 99 12/26/18 23:00 24 Mechanical Ventilator 50 12/26/18 22:30 73 19 113/75 (88) 97 12/26/18 22:00 79 23 153/55 (87) 97 12/26/18 22:00 26 Mechanical Ventilator 50 12/26/18 21:30 80 24 129/102 (111) 97 12/26/18 21:12 129/64 12/26/18 21:00 77 23 147/96 (113) 96 12/26/18 21:00 20 Mechanical Ventilator 50 12/26/18 20:52 73 21 50 12/26/18 20:52 76 21 98 Mechanical Ventilator 50 12/26/18 20:30 75 23 134/69 (90) 97 12/26/18 20:28 80 26 98 Mechanical Ventilator 50 12/26/18 20:27 82 23 50 12/26/18 20:00 Mechanical Ventilator 12/26/18 20:00 40 12/26/18 20:00 98.6 72 28 129/64 (85) 93 12/26/18 20:00 21 Mechanical Ventilator 50 12/26/18 20:00 75 12/26/18 19:43 20 Mechanical Ventilator 50 12/26/18 19:00 75 21 180/159 (166) 97 12/26/18 19:00 20 Mechanical Ventilator 50 12/26/18 18:30 73 20 156/69 (98) 95 12/26/18 18:00 76 20 186/90 (122) 95 12/26/18 18:00 20 Mechanical Ventilator 50 12/26/18 17:30 80 22 186/83 (117) 96 12/26/18 17:04 84 23 50 12/26/18 17:00 83 22 149/71 (97) 96 12/26/18 17:00 25 Mechanical Ventilator 50 12/26/18 16:30 81 22 163/78 (106) 93 12/26/18 16:00 97.9 78 23 169/70 (103) 94 12/26/18 16:00 23 Mechanical Ventilator 50 12/26/18 16:00 Mechanical Ventilator 12/26/18 16:00 87 12/26/18 16:00 40 2/20/19 15:30 79 22 155/104 (121) 94 12/26/18 15:08 88 22 50 12/26/18 15:08 88 22 100 Mechanical Ventilator 50 12/26/18 15:02 156/61 12/26/18 15:00 84 25 124/69 (87) 98 12/26/18 15:00 26 Mechanical Ventilator 50 12/26/18 14:54 80 20 96 Mechanical Ventilator 50 12/26/18 14:30 86 24 156/61 (92) 98 12/26/18 14:00 80 23 162/65 (97) 95 12/26/18 14:00 24 Mechanical Ventilator 50 12/26/18 13:30 77 21 149/83 (105) 96 12/26/18 13:00 82 24 131/78 (95) 4 12/26/18 13:00 24 Mechanical Ventilator 50 12/26/18 13:00 80 24 50 12/26/18 12:57 25 Mechanical Ventilator 50 12/26/18 12:30 83 20 131/76 (94) 98 Intake and Output 12/26/18 12/27/18 19:00 07:00 Intake Total 927.5 ml 833 ml Output Total 980 ml 655 ml Balance -52.5 ml 178 ml Intake Free Water 250 ml 25 ml IV Total 407.5 ml 808 ml Tube Feeding 240 ml Other 30 ml Output Urine Total 980 ml 655 ml # Bowel Movements 2 Laboratory Tests 12/27/18 04:20: White Blood Count 15.8H, Red Blood Count 4.77, Hemoglobin 14.3, Hematocrit 45.0 , Mean Corpuscular Volume 94, Mean Corpuscular Hemoglobin 29.9, Mean Corpuscular Hemoglobin Concent 31.7L, Red Cell Distribution Width 14.1, Platelet Count 117L, Mean Platelet Volume 8.6, Neutrophils (%) (Auto) , Lymphocytes (%) (Auto) , Monocytes (%) (Auto) , Eosinophils (%) (Auto) , Basophils (%) (Auto) , Differential Total Cells Counted 100, Neutrophils % ( Manual) 89H, Lymphocytes % (Manual) 6L, Monocytes % (Manual) 5, Eosinophils % ( Manual) 0, Basophils % (Manual) 0, Band Neutrophils 0, Platelet Estimate DecreasedL, Platelet Morphology Normal, Red Blood Cell Morphology Normal, Anisocytosis , Prothrombin Time 12.7H, Prothromb Time International Ratio 1.2H, Sodium Level 148H, Potassium Level 3.7, Chloride Level 110H, Carbon Dioxide Level 35H, Anion Gap 3L, Blood Urea Nitrogen 36H, Creatinine 1.0, Estimat Glomerular Filtration Rate > 60, Glucose Level 119H, Calcium Level 8.0L, Phosphorus Level 2.5, Pro-B-Type Natriuretic Peptide 888H Height (Feet): 5 Height (Inches): 8.00 Weight (Pounds): 200 General Appearance: lethargic EENT: normal ENT inspection Neck: supple Cardiovascular: tachycardia Respiratory/Chest: decreased breath sounds Abdomen: normal bowel sounds, non tender, soft Extremities: non-tender Abelino Norman MD Dec 27, 2018 12:10
--- NOTE | 2018-12-27 12:25 | Pulmonolgy Critical Care Note ---
Critical Care - Asmt/Plan Assessment/Plan: Problem List: 1. Acute on chronic hypercapnic respiratory failure -intubated 12/15 2. Acute exacerbation of COPD 3. Possible community-acquired pneumonia 4. Cardiomyopathy, EF improved from 20% to 40% 5. Systolic CHF, Acute 6. out of hospital respiratory failure/possible cardiac arrest s/p CPR by family 7. JUAN 8. DM Plan: -cont mechanical ventilatory support, daily weaning trials, improving slowly -trach cancelled due to insurance issues -wean sedation as tolerated -Monitor ABG prn -monitor off abx -monitor leukocytosis -solumedrol 20 mg IV qd, taper as tolerated -Good pulmonary hygiene: duonebs and mucomyst q4, suction prn -monitor volumes, lasix 20 mg IV daily -monitor renal function Case d/w patient's family bedside Respiratory: weaning trial Renal: F/U I&O Neurologic: keep patient comfortable Time Spent (Minutes): 40 - cc Discussed with: nurses Critical Care - Objective Last 24 Hour Vital Signs Date Time Temp Pulse Resp B/P (MAP) Pulse Ox O2 Delivery O2 Flow Rate FiO2 12/27/18 11:30 69 24 132/102 (112) 93 12/27/18 11:20 70 23 97 Mechanical Ventilator 40 12/27/18 11:09 72 24 97 Mechanical Ventilator 40 12/27/18 11:03 73 24 40 12/27/18 11:00 71 24 124/85 (98) 93 12/27/18 10:30 68 24 107/63 (78) 94 12/27/18 10:00 70 24 131/77 (95) 94 12/27/18 09:30 66 24 97/74 (82) 96 12/27/18 09:10 62 21 40 12/27/18 09:06 131/56 12/27/18 09:00 64 21 121/48 (72) 96 12/27/18 09:00 61 121/48 12/27/18 08:30 68 21 117/52 (73) 98 12/27/18 08:00 40 12/27/18 08:00 70 12/27/18 08:00 Mechanical Ventilator 12/27/18 08:00 98.7 65 23 110/78 (89) 95 12/27/18 07:37 74 24 40 12/27/18 07:36 64 24 99 Mechanical Ventilator 40 12/27/18 07:30 67 20 77/47 (57) 99 12/27/18 07:13 66 21 96 Mechanical Ventilator 40 12/27/18 07:00 20 Mechanical Ventilator 40 12/27/18 07:00 66 18 112/85 (94) 100 12/27/18 06:30 64 18 101/86 (91) 100 12/27/18 06:00 77 17 109/50 (69) 100 12/27/18 06:00 20 Mechanical Ventilator 40 12/27/18 05:49 113/64 12/27/18 05:48 20 Mechanical Ventilator 40 12/27/18 05:30 71 20 114/54 (74) 98 12/27/18 05:23 72 20 40 12/27/18 05:00 72 18 113/64 (80) 94 12/27/18 04:30 70 20 108/58 (75) 96 12/27/18 04:00 40 12/27/18 04:00 Mechanical Ventilator 12/27/18 04:00 20 Mechanical Ventilator 50 12/27/18 04:00 69 12/27/18 04:00 98.5 71 20 125/52 (76) 93 12/27/18 03:30 66 19 144/77 (99) 98 12/27/18 03:00 24 Mechanical Ventilator 50 12/27/18 03:00 62 20 114/54 (74) 95 12/27/18 02:56 64 20 100 Mechanical Ventilator 40 12/27/18 02:40 62 20 40 12/27/18 02:40 75 20 100 Mechanical Ventilator 40 12/27/18 02:30 65 19 117/54 (75) 99 12/27/18 02:00 68 20 111/48 (69) 99 12/27/18 02:00 20 Mechanical Ventilator 50 12/27/18 01:30 78 22 99/48 (65) 100 12/27/18 01:01 73 20 50 12/27/18 01:00 71 18 115/54 (74) 100 12/27/18 01:00 20 Mechanical Ventilator 50 12/27/18 00:00 Mechanical Ventilator 12/27/18 00:00 99.3 73 22 129/53 (78) 100 12/27/18 00:00 20 Mechanical Ventilator 50 12/27/18 00:00 73 12/27/18 00:00 40 12/26/18 23:27 79 20 100 Mechanical Ventilator 50 12/26/18 23:10 66 20 99 Mechanical Ventilator 50 12/26/18 23:09 66 20 50 12/26/18 23:00 74 20 118/80 (93) 99 12/26/18 23:00 24 Mechanical Ventilator 50 12/26/18 22:30 73 19 113/75 (88) 97 12/26/18 22:00 79 23 153/55 (87) 97 12/26/18 22:00 26 Mechanical Ventilator 50 12/26/18 21:30 80 24 129/102 (111) 97 12/26/18 21:12 129/64 12/26/18 21:00 77 23 147/96 (113) 96 12/26/18 21:00 20 Mechanical Ventilator 50 12/26/18 20:52 73 21 50 12/26/18 20:52 76 21 98 Mechanical Ventilator 50 12/26/18 20:30 75 23 134/69 (90) 97 12/26/18 20:28 80 26 98 Mechanical Ventilator 50 12/26/18 20:27 82 23 50 12/26/18 20:00 Mechanical Ventilator 12/26/18 20:00 40 12/26/18 20:00 98.6 72 28 129/64 (85) 93 12/26/18 20:00 21 Mechanical Ventilator 50 12/26/18 20:00 75 12/26/18 19:43 20 Mechanical Ventilator 50 12/26/18 19:00 75 21 180/159 (166) 97 12/26/18 19:00 20 Mechanical Ventilator 50 12/26/18 18:30 73 20 156/69 (98) 95 12/26/18 18:00 76 20 186/90 (122) 95 12/26/18 18:00 20 Mechanical Ventilator 50 12/26/18 17:30 80 22 186/83 (117) 96 12/26/18 17:04 84 23 50 12/26/18 17:00 83 22 149/71 (97) 96 12/26/18 17:00 25 Mechanical Ventilator 50 12/26/18 16:30 81 22 163/78 (106) 93 12/26/18 16:00 97.9 78 23 169/70 (103) 94 12/26/18 16:00 23 Mechanical Ventilator 50 12/26/18 16:00 Mechanical Ventilator 12/26/18 16:00 87 12/26/18 16:00 40 12/26/18 15:30 79 22 155/104 (121) 94 12/26/18 15:08 88 22 50 12/26/18 15:08 88 22 100 Mechanical Ventilator 50 12/26/18 15:02 156/61 12/26/18 15:00 84 25 124/69 (87) 98 12/26/18 15:00 26 Mechanical Ventilator 50 12/26/18 14:54 80 20 96 Mechanical Ventilator 50 12/26/18 14:30 86 24 156/61 (92) 98 12/26/18 14:00 80 23 162/65 (97) 95 12/26/18 14:00 24 Mechanical Ventilator 50 12/26/18 13:30 77 21 149/83 (105) 96 12/26/18 13:00 82 24 131/78 (95) 4 12/26/18 13:00 24 Mechanical Ventilator 50 12/26/18 13:00 80 24 50 12/26/18 12:57 25 Mechanical Ventilator 50 12/26/18 12:30 83 20 131/76 (94) 98 Status: sedated HEENT: atraumatic Neck: full ROM Heart: HR/BP stable Abdomen: non-tender Extremities: no C/C/E Accucheck: 118 Critical Care - Subjective ROS Limited/Unobtainable: Yes Interval Events: Good diuresis. Trach cancelled due to insurance issues. Now needs to be transferred to another hospital. Condition: unchanged EKG Rhythm: Sinus Rhythm FI02: 40 Vent Support Breath Rate: 20 Vent Support Mode: AC Vent Tidal Volume: 600 Sputum Amount: Small PEEP: 5.0 PIP: 24 Tube Feeding Amount: 0 I&O: Intake and Output 12/26/18 12/27/18 19:00 07:00 Intake Total 927.5 ml 833 ml Output Total 980 ml 655 ml Balance -52.5 ml 178 ml Intake Free Water 250 ml 25 ml IV Total 407.5 ml 808 ml Tube Feeding 240 ml Other 30 ml Output Urine Total 980 ml 655 ml # Bowel Movements 2 ET-Tube: 7.0 ET Position: 24 Vincenzo Regalado MD Dec 27, 2018 12:25
--- NOTE | 2018-12-27 12:30 | NUR ---
NURSE NOTES: manager interventional informed patient will be transferred to [facility], ETA of transport team is schedule for [id number]. patient remains on fentanyl drip at 300mcg/hr, he is sedated but awakes with shaking or when name is called, no pain noted using the FLACC scale, will continue to monitor.
--- NOTE | 2018-12-27 12:44 | Cardiology Progress Note ---
Assessment/Plan Status: stable Assessment/Plan Assessment/Plan Status: stable Assessment/Plan Assessment: Respiratory failure COPD (chronic obstructive pulmonary disease) Pneumonia CAD, previous CABG PPM/ICD HTN HLD PLAN: Patient has failed to progress off the vent, he is hemodynamically stable, he is tolerating CPAP for a while then gets tired, he is on steroid taper, he as some secretions as well. Cultures are negative so far and chest x ray is clear. CT brain negative for CVA Echo with systolic dysfunction but he doesn't appear to be in heart failure, CXR clear and PA pressures normal and he is hemodynamically stable. Patient is to have peg trach due to failure to improve/prolonged intubation -Clear to proceed with peg/trach Repeat Echocardiogram to re-evaluate LV function Continue NGT feeds Bowel prep - ducolax, enema, mineral oil, colace, he has hx of hiatal hernia as well continue steroids now being weaned continue empiric abx, follow cultures Will need ischemia evaluation given hx of CAD/CABG to evaluate graft function when stable prior to discharge continue aspirin continue statin Continue metoprolol XL 50 mg Continue lisinopril 5 mg daily Monitor I/O and renal function Spot diuresis as needed, currently does not appear fluid overloaded Discussed with family and nursing Subjective Cardiovascular: Reports: no symptoms Respiratory: Reports: no symptoms Gastrointestinal/Abdominal: Reports: no symptoms Genitourinary: Reports: no symptoms Subjective Patient has failed to wean from vent, plan for trach peg today/tomorrow, discussed with family, no acute events otherwise Objective Last 24 Hour Vital Signs Date Time Temp Pulse Resp B/P (MAP) Pulse Ox O2 Delivery O2 Flow Rate FiO2 12/27/18 11:30 69 24 132/102 (112) 93 12/27/18 11:20 70 23 97 Mechanical Ventilator 40 12/27/18 11:09 72 24 97 Mechanical Ventilator 40 12/27/18 11:03 73 24 40 12/27/18 11:00 71 24 124/85 (98) 93 12/27/18 10:30 68 24 107/63 (78) 94 12/27/18 10:00 70 24 131/77 (95) 94 12/27/18 09:30 66 24 97/74 (82) 96 12/27/18 09:10 62 21 40 12/27/18 09:06 131/56 12/27/18 09:00 64 21 121/48 (72) 96 12/27/18 09:00 61 121/48 12/27/18 08:30 68 21 117/52 (73) 98 12/27/18 08:00 40 12/27/18 08:00 70 12/27/18 08:00 Mechanical Ventilator 12/27/18 08:00 98.7 65 23 110/78 (89) 95 12/27/18 07:37 74 24 40 12/27/18 07:36 64 24 99 Mechanical Ventilator 40 12/27/18 07:30 67 20 77/47 (57) 99 12/27/18 07:13 66 21 96 Mechanical Ventilator 40 12/27/18 07:00 20 Mechanical Ventilator 40 12/27/18 07:00 66 18 112/85 (94) 100 12/27/18 06:30 64 18 101/86 (91) 100 12/27/18 06:00 77 17 109/50 (69) 100 12/27/18 06:00 20 Mechanical Ventilator 40 12/27/18 05:49 113/64 12/27/18 05:48 20 Mechanical Ventilator 40 12/27/18 05:30 71 20 114/54 (74) 98 12/27/18 05:23 72 20 40 12/27/18 05:00 72 18 113/64 (80) 94 12/27/18 04:30 70 20 108/58 (75) 96 12/27/18 04:00 40 12/27/18 04:00 Mechanical Ventilator 12/27/18 04:00 20 Mechanical Ventilator 50 12/27/18 04:00 69 12/27/18 04:00 98.5 71 20 125/52 (76) 93 12/27/18 03:30 66 19 144/77 (99) 98 12/27/18 03:00 24 Mechanical Ventilator 50 12/27/18 03:00 62 20 114/54 (74) 95 12/27/18 02:56 64 20 100 Mechanical Ventilator 40 12/27/18 02:40 62 20 40 12/27/18 02:40 75 20 100 Mechanical Ventilator 40 12/27/18 02:30 65 19 117/54 (75) 99 12/27/18 02:00 68 20 111/48 (69) 99 12/27/18 02:00 20 Mechanical Ventilator 50 2/21/19 01:30 78 22 99/48 (65) 100 12/27/18 01:01 73 20 50 12/27/18 01:00 71 18 115/54 (74) 100 12/27/18 01:00 20 Mechanical Ventilator 50 12/27/18 00:00 Mechanical Ventilator 12/27/18 00:00 99.3 73 22 129/53 (78) 100 12/27/18 00:00 20 Mechanical Ventilator 50 12/27/18 00:00 73 12/27/18 00:00 40 12/26/18 23:27 79 20 100 Mechanical Ventilator 50 12/26/18 23:10 66 20 99 Mechanical Ventilator 50 12/26/18 23:09 66 20 50 12/26/18 23:00 74 20 118/80 (93) 99 12/26/18 23:00 24 Mechanical Ventilator 50 12/26/18 22:30 73 19 113/75 (88) 97 12/26/18 22:00 79 23 153/55 (87) 97 12/26/18 22:00 26 Mechanical Ventilator 50 12/26/18 21:30 80 24 129/102 (111) 97 12/26/18 21:12 129/64 12/26/18 21:00 77 23 147/96 (113) 96 12/26/18 21:00 20 Mechanical Ventilator 50 12/26/18 20:52 73 21 50 12/26/18 20:52 76 21 98 Mechanical Ventilator 50 12/26/18 20:30 75 23 134/69 (90) 97 12/26/18 20:28 80 26 98 Mechanical Ventilator 50 12/26/18 20:27 82 23 50 12/26/18 20:00 Mechanical Ventilator 12/26/18 20:00 40 12/26/18 20:00 98.6 72 28 129/64 (85) 93 12/26/18 20:00 21 Mechanical Ventilator 50 12/26/18 20:00 75 12/26/18 19:43 20 Mechanical Ventilator 50 12/26/18 19:00 75 21 180/159 (166) 97 12/26/18 19:00 20 Mechanical Ventilator 50 12/26/18 18:30 73 20 156/69 (98) 95 12/26/18 18:00 76 20 186/90 (122) 95 12/26/18 18:00 20 Mechanical Ventilator 50 12/26/18 17:30 80 22 186/83 (117) 96 12/26/18 17:04 84 23 50 12/26/18 17:00 83 22 149/71 (97) 96 12/26/18 17:00 25 Mechanical Ventilator 50 12/26/18 16:30 81 22 163/78 (106) 93 12/26/18 16:00 97.9 78 23 169/70 (103) 94 12/26/18 16:00 23 Mechanical Ventilator 50 12/26/18 16:00 Mechanical Ventilator 12/26/18 16:00 87 12/26/18 16:00 40 12/26/18 15:30 79 22 155/104 (121) 94 12/26/18 15:08 88 22 50 12/26/18 15:08 88 22 100 Mechanical Ventilator 50 12/26/18 15:02 156/61 12/26/18 15:00 84 25 124/69 (87) 98 12/26/18 15:00 26 Mechanical Ventilator 50 12/26/18 14:54 80 20 96 Mechanical Ventilator 50 12/26/18 14:30 86 24 156/61 (92) 98 12/26/18 14:00 80 23 162/65 (97) 95 12/26/18 14:00 24 Mechanical Ventilator 50 12/26/18 13:30 77 21 149/83 (105) 96 12/26/18 13:00 82 24 131/78 (95) 4 12/26/18 13:00 24 Mechanical Ventilator 50 12/26/18 13:00 80 24 50 12/26/18 12:57 25 Mechanical Ventilator 50 General Appearance: no apparent distress, alert, on vent EENT: PERRL/EOMI, normal ENT inspection, TMs normal Neck: non-tender, normal alignment, supple, normal inspection Rhythm: NSR Cardiovascular: normal peripheral pulses, normal rate, regular rhythm Respiratory/Chest: chest wall non-tender, lungs clear, normal breath sounds Abdomen: normal bowel sounds, non tender, soft, no organomegaly, no mass Extremities: normal range of motion, non-tender, normal inspection, no calf tenderness, no swelling 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, no motor/sensory deficits Intake and Output 12/26/18 12/27/18 19:00 07:00 Intake Total 927.5 ml 833 ml Output Total 980 ml 655 ml Balance -52.5 ml 178 ml Intake Free Water 250 ml 25 ml IV Total 407.5 ml 808 ml Tube Feeding 240 ml Other 30 ml Output Urine Total 980 ml 655 ml # Bowel Movements 2 Laboratory Tests Test 12/27/18 04:20 White Blood Count 15.8 K/UL (4.8-10.8) H Red Blood Count 4.77 M/UL (4.70-6.10) Hemoglobin 14.3 G/DL (14.2-18.0) Hematocrit 45.0 % (42.0-52.0) Mean Corpuscular Volume 94 FL (80-99) Mean Corpuscular Hemoglobin 29.9 PG (27.0-31.0) Mean Corpuscular Hemoglobin Concent 31.7 G/DL (32.0-36.0) L Red Cell Distribution Width 14.1 % (11.6-14.8) Platelet Count 117 K/UL (150-450) L Mean Platelet Volume 8.6 FL (6.5-10.1) Neutrophils (%) (Auto) % (45.0-75.0) Lymphocytes (%) (Auto) % (20.0-45.0) Monocytes (%) (Auto) % (1.0-10.0) Eosinophils (%) (Auto) % (0.0-3.0) Basophils (%) (Auto) % (0.0-2.0) Differential Total Cells Counted 100 Neutrophils % (Manual) 89 % (45-75) H Lymphocytes % (Manual) 6 % (20-45) L Monocytes % (Manual) 5 % (1-10) Eosinophils % (Manual) 0 % (0-3) Basophils % (Manual) 0 % (0-2) Band Neutrophils 0 % (0-8) Platelet Estimate Decreased L Platelet Morphology Normal Red Blood Cell Morphology Normal Anisocytosis Prothrombin Time 12.7 SEC (9.30-11.50) H Prothromb Time International Ratio 1.2 (0.9-1.1) H Sodium Level 148 MMOL/L (136-145) H Potassium Level 3.7 MMOL/L (3.5-5.1) Chloride Level 110 MMOL/L (98-107) H Carbon Dioxide Level 35 MMOL/L (21-32) H Anion Gap 3 mmol/L (5-15) L Blood Urea Nitrogen 36 mg/dL (7-18) H Creatinine 1.0 MG/DL (0.55-1.30) Estimat Glomerular Filtration Rate > 60 mL/min (>60) Glucose Level 119 MG/DL (74-106) H Calcium Level 8.0 MG/DL (8.5-10.1) L Phosphorus Level 2.5 MG/DL (2.5-4.9) Pro-B-Type Natriuretic Peptide 888 pg/mL (0-125) H Nico Kingston MD Dec 27, 2018 12:44
--- NOTE | 2018-12-27 13:10 | Surgery Progress Note ---
Surgery Progress Note Subjective Additional Comments trach cancelled for insurance reasons. plans for transfer because of insurance company. Objective Last 24 Hour Vital Signs Date Time Temp Pulse Resp B/P (MAP) Pulse Ox O2 Delivery O2 Flow Rate FiO2 12/27/18 13:03 94 29 40 12/27/18 11:30 69 24 132/102 (112) 93 12/27/18 11:20 70 23 97 Mechanical Ventilator 40 12/27/18 11:09 72 24 97 Mechanical Ventilator 40 12/27/18 11:03 73 24 40 12/27/18 11:00 71 24 124/85 (98) 93 12/27/18 10:30 68 24 107/63 (78) 94 12/27/18 10:00 70 24 131/77 (95) 94 12/27/18 09:30 66 24 97/74 (82) 96 12/27/18 09:10 62 21 40 12/27/18 09:06 131/56 12/27/18 09:00 64 21 121/48 (72) 96 12/27/18 09:00 61 121/48 12/27/18 08:30 68 21 117/52 (73) 98 12/27/18 08:00 40 12/27/18 08:00 70 12/27/18 08:00 Mechanical Ventilator 12/27/18 08:00 98.7 65 23 110/78 (89) 95 12/27/18 07:37 74 24 40 12/27/18 07:36 64 24 99 Mechanical Ventilator 40 12/27/18 07:30 67 20 77/47 (57) 99 12/27/18 07:13 66 21 96 Mechanical Ventilator 40 12/27/18 07:00 20 Mechanical Ventilator 40 12/27/18 07:00 66 18 112/85 (94) 100 12/27/18 06:30 64 18 101/86 (91) 100 12/27/18 06:00 77 17 109/50 (69) 100 12/27/18 06:00 20 Mechanical Ventilator 40 12/27/18 05:49 113/64 12/27/18 05:48 20 Mechanical Ventilator 40 12/27/18 05:30 71 20 114/54 (74) 98 12/27/18 05:23 72 20 40 12/27/18 05:00 72 18 113/64 (80) 94 12/27/18 04:30 70 20 108/58 (75) 96 12/27/18 04:00 40 12/27/18 04:00 Mechanical Ventilator 12/27/18 04:00 20 Mechanical Ventilator 50 12/27/18 04:00 69 12/27/18 04:00 98.5 71 20 125/52 (76) 93 12/27/18 03:30 66 19 144/77 (99) 98 12/27/18 03:00 24 Mechanical Ventilator 50 12/27/18 03:00 62 20 114/54 (74) 95 12/27/18 02:56 64 20 100 Mechanical Ventilator 40 12/27/18 02:40 62 20 40 12/27/18 02:40 75 20 100 Mechanical Ventilator 40 12/27/18 02:30 65 19 117/54 (75) 99 12/27/18 02:00 68 20 111/48 (69) 99 12/27/18 02:00 20 Mechanical Ventilator 50 12/27/18 01:30 78 22 99/48 (65) 100 12/27/18 01:01 73 20 50 12/27/18 01:00 71 18 115/54 (74) 100 12/27/18 01:00 20 Mechanical Ventilator 50 12/27/18 00:00 Mechanical Ventilator 12/27/18 00:00 99.3 73 22 129/53 (78) 100 12/27/18 00:00 20 Mechanical Ventilator 50 12/27/18 00:00 73 12/27/18 00:00 40 12/26/18 23:27 79 20 100 Mechanical Ventilator 50 12/26/18 23:10 66 20 99 Mechanical Ventilator 50 12/26/18 23:09 66 20 50 12/26/18 23:00 74 20 118/80 (93) 99 12/26/18 23:00 24 Mechanical Ventilator 50 12/26/18 22:30 73 19 113/75 (88) 97 12/26/18 22:00 79 23 153/55 (87) 97 12/26/18 22:00 26 Mechanical Ventilator 50 12/26/18 21:30 80 24 129/102 (111) 97 12/26/18 21:12 129/64 12/26/18 21:00 77 23 147/96 (113) 96 12/26/18 21:00 20 Mechanical Ventilator 50 12/26/18 20:52 73 21 50 12/26/18 20:52 76 21 98 Mechanical Ventilator 50 12/26/18 20:30 75 23 134/69 (90) 97 12/26/18 20:28 80 26 98 Mechanical Ventilator 50 12/26/18 20:27 82 23 50 12/26/18 20:00 Mechanical Ventilator 12/26/18 20:00 40 12/26/18 20:00 98.6 72 28 129/64 (85) 93 12/26/18 20:00 21 Mechanical Ventilator 50 12/26/18 20:00 75 12/26/18 19:43 20 Mechanical Ventilator 50 12/26/18 19:00 75 21 180/159 (166) 97 12/26/18 19:00 20 Mechanical Ventilator 50 12/26/18 18:30 73 20 156/69 (98) 95 12/26/18 18:00 76 20 186/90 (122) 95 12/26/18 18:00 20 Mechanical Ventilator 50 12/26/18 17:30 80 22 186/83 (117) 96 12/26/18 17:04 84 23 50 12/26/18 17:00 83 22 149/71 (97) 96 12/26/18 17:00 25 Mechanical Ventilator 50 12/26/18 16:30 81 22 163/78 (106) 93 12/26/18 16:00 97.9 78 23 169/70 (103) 94 12/26/18 16:00 23 Mechanical Ventilator 50 12/26/18 16:00 Mechanical Ventilator 12/26/18 16:00 87 12/26/18 16:00 40 12/26/18 15:30 79 22 155/104 (121) 94 12/26/18 15:08 88 22 50 12/26/18 15:08 88 22 100 Mechanical Ventilator 50 12/26/18 15:02 156/61 12/26/18 15:00 84 25 124/69 (87) 98 12/26/18 15:00 26 Mechanical Ventilator 50 12/26/18 14:54 80 20 96 Mechanical Ventilator 50 12/26/18 14:30 86 24 156/61 (92) 98 12/26/18 14:00 80 23 162/65 (97) 95 12/26/18 14:00 24 Mechanical Ventilator 50 12/26/18 13:30 77 21 149/83 (105) 96 I&O Intake and Output 12/26/18 12/27/18 19:00 07:00 Intake Total 927.5 ml 833 ml Output Total 980 ml 655 ml Balance -52.5 ml 178 ml Intake Free Water 250 ml 25 ml IV Total 407.5 ml 808 ml Tube Feeding 240 ml Other 30 ml Output Urine Total 980 ml 655 ml # Bowel Movements 2 Dressing: other Wound: other Drains: other Cardiovascular: other Respiratory: other Abdomen: other Extremities: other Laboratory Tests Test 12/27/18 04:20 White Blood Count 15.8 K/UL (4.8-10.8) H Red Blood Count 4.77 M/UL (4.70-6.10) Hemoglobin 14.3 G/DL (14.2-18.0) Hematocrit 45.0 % (42.0-52.0) Mean Corpuscular Volume 94 FL (80-99) Mean Corpuscular Hemoglobin 29.9 PG (27.0-31.0) Mean Corpuscular Hemoglobin Concent 31.7 G/DL (32.0-36.0) L Red Cell Distribution Width 14.1 % (11.6-14.8) Platelet Count 117 K/UL (150-450) L Mean Platelet Volume 8.6 FL (6.5-10.1) Neutrophils (%) (Auto) % (45.0-75.0) Lymphocytes (%) (Auto) % (20.0-45.0) Monocytes (%) (Auto) % (1.0-10.0) Eosinophils (%) (Auto) % (0.0-3.0) Basophils (%) (Auto) % (0.0-2.0) Differential Total Cells Counted 100 Neutrophils % (Manual) 89 % (45-75) H Lymphocytes % (Manual) 6 % (20-45) L Monocytes % (Manual) 5 % (1-10) Eosinophils % (Manual) 0 % (0-3) Basophils % (Manual) 0 % (0-2) Band Neutrophils 0 % (0-8) Platelet Estimate Decreased L Platelet Morphology Normal Red Blood Cell Morphology Normal Anisocytosis Prothrombin Time 12.7 SEC (9.30-11.50) H Prothromb Time International Ratio 1.2 (0.9-1.1) H Sodium Level 148 MMOL/L (136-145) H Potassium Level 3.7 MMOL/L (3.5-5.1) Chloride Level 110 MMOL/L (98-107) H Carbon Dioxide Level 35 MMOL/L (21-32) H Anion Gap 3 mmol/L (5-15) L Blood Urea Nitrogen 36 mg/dL (7-18) H Creatinine 1.0 MG/DL (0.55-1.30) Estimat Glomerular Filtration Rate > 60 mL/min (>60) Glucose Level 119 MG/DL (74-106) H Calcium Level 8.0 MG/DL (8.5-10.1) L Phosphorus Level 2.5 MG/DL (2.5-4.9) Pro-B-Type Natriuretic Peptide 888 pg/mL (0-125) H Plan Problems: (1) Acute respiratory failure with hypercapnia Assessment & Plan: respiratory insufficiency requiring prolonged ventilatory support unable to wean off vent trach indicated and recommended family at bedside; son and daughter long discuss had. all plans, risks, benefits, and alternatives discussed. consent trach cancelled insurance wants him transferred will be happy to care for patient while at [facility]. okay to transfer from surgical standpoint. thank you Malcolm Craig Dec 27, 2018 13:10
--- NOTE | 2018-12-27 13:23 | General Progress Note ---
Assessment/Plan Problem List: (1) COPD exacerbation (2) Pneumonia ICD Codes: J18.9 - Pneumonia, unspecified organism SNOMED: 022505810 (3) Acute respiratory failure with hypercapnia ICD Codes: J96.02 - Acute respiratory failure with hypercapnia SNOMED: 921881170 (4) ARF (acute renal failure) ICD Codes: N17.9 - Acute kidney failure, unspecified SNOMED: 76394429 (5) Hypernatremia Assessment & Plan: better SNOMED: 86178529 Assessment/Plan cont with steroids Bronchodilators Discussed with RN TF Pt will be transferred to [facility] for trach per insurance request Subjective Allergies: Coded Allergies: IODINE (Verified Allergy, Severe, rash, 01/15/14) Subjective In NAD Objective Last 24 Hour Vital Signs Date Time Temp Pulse Resp B/P (MAP) Pulse Ox O2 Delivery O2 Flow Rate FiO2 12/27/18 13:03 94 29 40 12/27/18 11:30 69 24 132/102 (112) 93 12/27/18 11:20 70 23 97 Mechanical Ventilator 40 12/27/18 11:09 72 24 97 Mechanical Ventilator 40 12/27/18 11:03 73 24 40 12/27/18 11:00 71 24 124/85 (98) 93 12/27/18 10:30 68 24 107/63 (78) 94 12/27/18 10:00 70 24 131/77 (95) 94 12/27/18 09:30 66 24 97/74 (82) 96 12/27/18 09:10 62 21 40 12/27/18 09:06 131/56 12/27/18 09:00 64 21 121/48 (72) 96 12/27/18 09:00 61 121/48 12/27/18 08:30 68 21 117/52 (73) 98 12/27/18 08:00 40 12/27/18 08:00 70 12/27/18 08:00 Mechanical Ventilator 12/27/18 08:00 98.7 65 23 110/78 (89) 95 12/27/18 07:37 74 24 40 12/27/18 07:36 64 24 99 Mechanical Ventilator 40 12/27/18 07:30 67 20 77/47 (57) 99 12/27/18 07:13 66 21 96 Mechanical Ventilator 40 12/27/18 07:00 20 Mechanical Ventilator 40 12/27/18 07:00 66 18 112/85 (94) 100 12/27/18 06:30 64 18 101/86 (91) 100 12/27/18 06:00 77 17 109/50 (69) 100 12/27/18 06:00 20 Mechanical Ventilator 40 12/27/18 05:49 113/64 12/27/18 05:48 20 Mechanical Ventilator 40 12/27/18 05:30 71 20 114/54 (74) 98 12/27/18 05:23 72 20 40 12/27/18 05:00 72 18 113/64 (80) 94 12/27/18 04:30 70 20 108/58 (75) 96 12/27/18 04:00 40 12/27/18 04:00 Mechanical Ventilator 12/27/18 04:00 20 Mechanical Ventilator 50 12/27/18 04:00 69 12/27/18 04:00 98.5 71 20 125/52 (76) 93 12/27/18 03:30 66 19 144/77 (99) 98 12/27/18 03:00 24 Mechanical Ventilator 50 12/27/18 03:00 62 20 114/54 (74) 95 12/27/18 02:56 64 20 100 Mechanical Ventilator 40 12/27/18 02:40 62 20 40 12/27/18 02:40 75 20 100 Mechanical Ventilator 40 12/27/18 02:30 65 19 117/54 (75) 99 12/27/18 02:00 68 20 111/48 (69) 99 12/27/18 02:00 20 Mechanical Ventilator 50 12/27/18 01:30 78 22 99/48 (65) 100 12/27/18 01:01 73 20 50 12/27/18 01:00 71 18 115/54 (74) 100 12/27/18 01:00 20 Mechanical Ventilator 50 12/27/18 00:00 Mechanical Ventilator 12/27/18 00:00 99.3 73 22 129/53 (78) 100 12/27/18 00:00 20 Mechanical Ventilator 50 12/27/18 00:00 73 12/27/18 00:00 40 12/26/18 23:27 79 20 100 Mechanical Ventilator 50 12/26/18 23:10 66 20 99 Mechanical Ventilator 50 12/26/18 23:09 66 20 50 12/26/18 23:00 74 20 118/80 (93) 99 12/26/18 23:00 24 Mechanical Ventilator 50 12/26/18 22:30 73 19 113/75 (88) 97 12/26/18 22:00 79 23 153/55 (87) 97 12/26/18 22:00 26 Mechanical Ventilator 50 12/26/18 21:30 80 24 129/102 (111) 97 12/26/18 21:12 129/64 12/26/18 21:00 77 23 147/96 (113) 96 12/26/18 21:00 20 Mechanical Ventilator 50 12/26/18 20:52 73 21 50 12/26/18 20:52 76 21 98 Mechanical Ventilator 50 12/26/18 20:30 75 23 134/69 (90) 97 12/26/18 20:28 80 26 98 Mechanical Ventilator 50 12/26/18 20:27 82 23 50 12/26/18 20:00 Mechanical Ventilator 12/26/18 20:00 40 12/26/18 20:00 98.6 72 28 129/64 (85) 93 12/26/18 20:00 21 Mechanical Ventilator 50 12/26/18 20:00 75 12/26/18 19:43 20 Mechanical Ventilator 50 12/26/18 19:00 75 21 180/159 (166) 97 12/26/18 19:00 20 Mechanical Ventilator 50 12/26/18 18:30 73 20 156/69 (98) 95 12/26/18 18:00 76 20 186/90 (122) 95 12/26/18 18:00 20 Mechanical Ventilator 50 12/26/18 17:30 80 22 186/83 (117) 96 12/26/18 17:04 84 23 50 12/26/18 17:00 83 22 149/71 (97) 96 12/26/18 17:00 25 Mechanical Ventilator 50 12/26/18 16:30 81 22 163/78 (106) 93 12/26/18 16:00 97.9 78 23 169/70 (103) 94 12/26/18 16:00 23 Mechanical Ventilator 50 12/26/18 16:00 Mechanical Ventilator 12/26/18 16:00 87 12/26/18 16:00 40 12/26/18 15:30 79 22 155/104 (121) 94 12/26/18 15:08 88 22 50 12/26/18 15:08 88 22 100 Mechanical Ventilator 50 12/26/18 15:02 156/61 12/26/18 15:00 84 25 124/69 (87) 98 12/26/18 15:00 26 Mechanical Ventilator 50 12/26/18 14:54 80 20 96 Mechanical Ventilator 50 12/26/18 14:30 86 24 156/61 (92) 98 12/26/18 14:00 80 23 162/65 (97) 95 12/26/18 14:00 24 Mechanical Ventilator 50 12/26/18 13:30 77 21 149/83 (105) 96 Intake and Output 12/26/18 12/27/18 19:00 07:00 Intake Total 927.5 ml 833 ml Output Total 980 ml 655 ml Balance -52.5 ml 178 ml Intake Free Water 250 ml 25 ml IV Total 407.5 ml 808 ml Tube Feeding 240 ml Other 30 ml Output Urine Total 980 ml 655 ml # Bowel Movements 2 Laboratory Tests 12/27/18 04:20: White Blood Count 15.8H, Red Blood Count 4.77, Hemoglobin 14.3, Hematocrit 45.0 , Mean Corpuscular Volume 94, Mean Corpuscular Hemoglobin 29.9, Mean Corpuscular Hemoglobin Concent 31.7L, Red Cell Distribution Width 14.1, Platelet Count 117L, Mean Platelet Volume 8.6, Neutrophils (%) (Auto) , Lymphocytes (%) (Auto) , Monocytes (%) (Auto) , Eosinophils (%) (Auto) , Basophils (%) (Auto) , Differential Total Cells Counted 100, Neutrophils % ( Manual) 89H, Lymphocytes % (Manual) 6L, Monocytes % (Manual) 5, Eosinophils % ( Manual) 0, Basophils % (Manual) 0, Band Neutrophils 0, Platelet Estimate DecreasedL, Platelet Morphology Normal, Red Blood Cell Morphology Normal, Anisocytosis , Prothrombin Time 12.7H, Prothromb Time International Ratio 1.2H, Sodium Level 148H, Potassium Level 3.7, Chloride Level 110H, Carbon Dioxide Level 35H, Anion Gap 3L, Blood Urea Nitrogen 36H, Creatinine 1.0, Estimat Glomerular Filtration Rate > 60, Glucose Level 119H, Calcium Level 8.0L, Phosphorus Level 2.5, Pro-B-Type Natriuretic Peptide 888H Height (Feet): 5 Height (Inches): 8.00 Weight (Pounds): 200 Cardiovascular: regular rhythm Respiratory/Chest: rhonchi - bilaterally Edema: no edema noted Generalized Baldemar Morgan MD Dec 27, 2018 13:23
--- NOTE | 2018-12-27 14:45 | NUR ---
NURSE NOTES: Report given to LYUDMILA Hassan at [facility], patient will be placed in room 15 in icu, patient is sedated with fentanyl at 300mcg/hr, transport nurse sal given report at the bedside. Family made aware of transport to [place].
[2018-12-27] MEDS ORDERED: Tubing IV Secondary IV ONE (14:59)
--- NOTE | 2018-12-27 15:06 | Diagnostic Imaging Report ---
APPROVED REPORT CPT Code: 73504 Present Symptoms Comments: Pain BILATERAL: Imaging reveals a patent deep venous system bilaterally. There is no evidence of thrombus within the common femoral, superficial femoral, popliteal or tibial segments. The greater saphenous veins are also within normal limits. Doppler indicates normal spontaneous flow within these segments.
[2018-12-27] MEDS ORDERED: D5 1/2NS 1000ml IV ONE (16:11)
[2018-12-27] MEDS ORDERED: Sterile Water For Inj 1000ml IV ONE (16:11)
[2018-12-28] MEDS ORDERED: Solu-MEDROL 40mg Inj IVP SCH (09:00)
--- NOTE | 2018-12-28 16:06 | Discharge Summary ---
Discharge Summary Discharge Summary _ DATE OF ADMISSION: 12/15/2018 DATE OF DISCHARGE: 12/27/2018 DISCHARGED BY: Dr. Baldemar Morgan CONSULTANTS: Dr. Malcolm Irvin [facility] HOSPITAL COURSE: Patient is a 68-year-old male, with long history of COPD. Patient was a heavy smoker, who smoked 2 packs a day for about 60 years. The patient was increasingly short of breath at home. Patient asked his son to take him to [facility], where he usually goes. According to the son, he was in the car and suddenly passed out. Son called 911. Son performed chest compressions until paramedics arrived and subsequently patient was taken to [facility]. On arrival to ED, patient was being bagged. EMS attempted to intubate, without any success. On arrival to ED, he was emergently intubated. He was hooked on mechanical vent. Initial blood gas showed markedly elevated CO2 and respiratory acidosis. Vent settings were adjusted. Blood work showed leukocytosis, WBC 13. Hemoglobin and hematocrit were stable. Lactic acid was elevated to 2.9. Troponin was 0.038. ProBNP 988. Urinalysis showed 4+ protein , 1+ ketone, 2+ blood, negative nitrite, 1+ leukocyte esterase, 5-10 RBC, 2-4 WBC. Urine toxicology was negative. He was then admitted for respiratory failure, likely COPD exacerbation with possible underlying pneumonia and component of CHF. Entertainment Musician was consulted for vent management. He was given bronchodilators DuoNeb and Mucomyst. He was given IV Solu-Medrol. He was started empirically on cefepime and azithromycin IV. Geriatric Nurse was consulted for heart failure management. He was given aspirin. He was given pravastatin. Echocardiogram done showed LVEF of 20% with anterior septal wall hypokinesis. Heart failure medications was started when patient was more stable. He was eventually given Toprol and lisinopril. He was given spot diuresis. He was placed on daily weaning trials. Venous duplex of the lower extremity was negative for thrombosis within the common femoral, superficial femoral, popliteal or tibial vein, negative for acute DVT. Head CT was negative for acute trochanter bleed or mass-effect. GI consulted for evaluation of abdominal distention. Tube feeding was placed on hold due to residuals and distention. He was given bowel regimen consisting of Dulcolax, enema, mineral oil and Colace. KUB showed nasogastric tube coiled within the gastric fundus within a presumed hiatal hernia. There was diffusely distended gas-filled colon, appeared to extend all the way to the anus, findings most likely functional in nature. A Dobbhoff after was inserted. KUB confirmed placement. He was eventually restarted on G-tube feedings. Steroids were eventually tapered. Cultures were negative. He was failing weaning trials. Surgical evaluation was done. Tracheostomy placement was indicated. He will also need PEG tube placement. Repeat echocardiogram done showed improvement in systolic function to 40-45%. He was cleared by radius corner machine operator. Patient was scheduled to undergo trach placement and PEG tube placement. Consent was given by the family. Procedure was canceled due to insurance. Patient was transferred to [facility]. FINAL DIAGNOSES: Acute respiratory failure with hypercapnia requiring intubation 12/15/2018 Possible cardiac arrest status post CPR by family prior to admission Acute COPD exacerbation Possible community-acquired pneumonia Acute renal failure Hypernatremia Coronary artery disease with previous coronary artery bypass graft Permanent pacemaker/ICD Hypertension Hyperlipidemia Cardiomyopathy, EF improved from 20% to 40% Acute systolic CHF DISPOSITION: Patient was transferred to another acute care hospital. Refer to discharge I have been assigned to complete a discharge summary on this account, I was not involved with the patient's management. Perri Campo NP Dec 28, 2018 16:06
== END 2018-12-27 15:00 | DRG 130 ==
LOC: EDBD 19:42 → EMR 20:11 → ICU 20:40 → EDBEDREQ 21:04
PROC: 5A1955Z Respiratory Ventilation, Greater than 96 Consecutive Hours (ICD-10-PCS; principal; 2018-12-15)
PROC: 0BH17EZ Insertion of Endotracheal Airway into Trachea, Via Natural or Artificial Opening (ICD-10-PCS; principal; 2018-12-15)
DX: J44.1 Chronic obstructive pulmonary disease with (acute) exacerbation (principal); I46.9 Cardiac arrest, cause unspecified; I50.21 Acute systolic (congestive) heart failure; N17.9 Acute kidney failure, unspecified; J18.9 Pneumonia, unspecified organism; J96.22 Acute and chronic respiratory failure with hypercapnia; E87.0 Hyperosmolality and hypernatremia; I42.9 Cardiomyopathy, unspecified; I11.0 Hypertensive heart disease with heart failure; K56.7 Ileus, unspecified; F17.210 Nicotine dependence, cigarettes, uncomplicated; J44.0 Chronic obstructive pulmonary disease with (acute) lower respiratory infection; I25.10 Atherosclerotic heart disease of native coronary artery without angina pectoris; Z95.1 Presence of aortocoronary bypass graft; Z95.810 Presence of automatic (implantable) cardiac defibrillator; R13.10 Dysphagia, unspecified; E78.5 Hyperlipidemia, unspecified
CPT/HCPCS: 31500; 36415; 36600; 70450; 71045; 74018; 80048; 80053; 80076; 80307; 81003; 82550; 82553; 82803; 82962; 83036; 83605; 83690; 83735; 83880; 84100; 84478; 84484; 85007; 85025; 85610; 85730; 87040; 87081; 93005; 93306; 93970; 94002; 94003; 94640; 94664; 96360; 99291; J1815; J2405; J3430; J7620

== ENCOUNTER 2020-09-13 06:22 | Inpatient (IN) | payer MEDICARE, MEDICAID ==
[~2020-09-13] VITALS: Ht 157.5 cm; Wt 78.9 kg
[~2020-09-13 06:22] MED LIST changes: +CLARITIN10 MG ORAL; +FUROSEMIDE40 MG ORAL; +PRINIVIL20 MG ORAL; +SPIRONOLACTONE50 MG ORAL; +TRAMADOL HCL50 MG ORAL
--- NOTE | 2020-09-13 06:39 | Emergency Room Report ---
History of Present Illness General Chief Complaint: Dyspnea/Respdistress Source: Patient Present Illness HPI Disclaimer: Please note that this report is being documented using [employer] technology. This can lead to erroneous entry secondary to incorrect interpretation by the dictating instrument. HPI: 70-year-old male history of COPD, CHF, cardiomyopathy status post AICD, emphysema, respiratory failure status post tracheostomy and reversal 2 months ago presents for evaluation of shortness of breath. The patient is on 2 L nasal cannula at baseline. States he awoke with shortness of breath this morning that was not improved by an albuterol treatment. He denies chest pain. He reports subjective fevers over the past 2 days and worsening cough. Denies recent exposure to COVID-19 or recent testing. Denies lower extremity edema. Compliant with diuretic medications. Denies vomiting, diarrhea, abdominal pain, flank pain, rash or other changes in his health. PMH: Cardiomyopathy, CHF, COPD, emphysema PSH: Tracheostomy and reversal, AICD placement Allergies: Iodine Social Hx: Former smoker Allergies: Coded Allergies: IODINE (Verified Allergy, Severe, rash, 01/15/14) COVID-19 Screening Contact w/high risk pt: No Experienced COVID-19 symptoms?: Yes COVID-19 Testing performed [employer]IE[employer]: No Nursing Documentation-PMH Hx Cardiac Problems: Yes - chf Hx Hypertension: Yes Hx Pacemaker: Yes - AICD L chest Hx COPD: Yes Hx Cancer: No Hx Gastrointestinal Problems: No Hx Neurological Problems: No Review of Systems All Other Systems: negative except mentioned in HPI Physical Exam Vital Signs Date Time Temp Pulse Resp B/P (MAP) Pulse Ox O2 Delivery O2 Flow Rate FiO2 09/13/20 06:19 99.0 88 18 152/97 (115) 97 Nasal Cannula 4.0 General: Awake and alert, no acute distress HEENT: NC/AT. EOMI. Chest Wall: AICD palpable left chest Cardiovascular: RRR. S1 and S2 normal. No murmur appreciated Resp: Mild increased work of breathing. Crackles present bilaterally, left greater than right. Intermittent cough. No wheezing. Abdomen: Abdomen is soft, nondistended. Nontender Skin: Intact. No abrasions, laceration or rash over the exposed skin MSK: Normal tone and bulk. Moving all extremities. No obvious deformity. Neuro: Awake and alert. Mentating appropriately. Procedures Critical Care Time Critical Care Time Total critical care time: Approximately 45 minutes Due to a high probability of clinically significant, life threatening deterior ation, the patient required the highest level of preparedness to intervene emergently and I personally spent this critical care time directly and personally managing the patient. This critical care time included obtaining a history, examining the patient, pulse oximetry, ordering and reviewing studies, ordering treatments, evaluating response to treatment and updating management pl an as needed, frequent reassessment and discussion with other providers as well as arranging for ultimate disposition. This critical to care time was performed to assess and manage the high probability of life-threatening deterioration that could result in multiorgan failure. This critical care time is separate from the separately billable procedures and treating other patients. Medical Decision Making Diagnostic Impression: Primary Impression: Pneumonia due to COVID-19 virus Additional Impression: Elevated d-dimer ER Course 70 year-old male presents for evaluation of shortness of breath. Differential includes was not limited to CHF exacerbation, COPD exacerbation, pneumonia, bronchitis, viral syndrome, COVID-19 infection, arrhythmia, ACS, fluid overload among others. Patient's x-ray is concerning for increased opacity in the left upper lobe. Return COVID-19 positive. Treated with Lovenox, ceftriaxone azithromycin. Patient notes that contrast dye allergy to iodine states there was hives. He is saturating 100% on his 4 L nasal cannula at this time. Can wait for pretreatment with steroids and Benadryl prior to CTA if necessary to evaluate for PE. He was given Lovenox. Labs otherwise show leukopenia but normal renal function electrolytes. Troponin within normal limits as is lactate. Admitted to his PMD, Dr. Jo, for further care Laboratory Tests Test 09/13/20 06:38 09/13/20 06:50 09/13/20 07:42 Arterial Blood pH 7.435 (7.350-7.450) Arterial Blood Partial Pressure CO2 40.1 mmHg (35.0-45.0) Arterial Blood Partial Pressure O2 89.3 mmHg (75.0-100.0) Arterial Blood HCO3 26.3 mmol/L (22.0-26.0) H Arterial Blood Oxygen Saturation 96.6 % (95-100) Arterial Blood Base Excess 2.0 (-2-2) Jose Test Positive White Blood Count 4.2 K/UL (4.8-10.8) L Red Blood Count 4.10 M/UL (4.70-6.10) L Hemoglobin 12.1 G/DL (14.2-18.0) L Hematocrit 38.4 % (42.0-52.0) L Mean Corpuscular Volume 94 FL (80-99) Mean Corpuscular Hemoglobin 29.4 PG (27.0-31.0) Mean Corpuscular Hemoglobin Concent 31.5 G/DL (32.0-36.0) L Red Cell Distribution Width 14.1 % (11.6-14.8) Platelet Count 147 K/UL (150-450) L Mean Platelet Volume 7.9 FL (6.5-10.1) Neutrophils (%) (Auto) 72.1 % (45.0-75.0) Lymphocytes (%) (Auto) 15.9 % (20.0-45.0) L Monocytes (%) (Auto) 11.7 % (1.0-10.0) H Eosinophils (%) (Auto) 0.1 % (0.0-3.0) Basophils (%) (Auto) 0.3 % (0.0-2.0) Prothrombin Time 12.3 SEC (9.30-11.50) H Prothrombin Time INR 1.1 (0.9-1.1) Activated Partial Thromboplast Time 29 SEC (23-33) D-Dimer 1.52 mg/L FEU (0.00-0.49) H Sodium Level 138 MMOL/L (136-145) Potassium Level 4.0 MMOL/L (3.5-5.1) Chloride Level 101 MMOL/L (98-107) Carbon Dioxide Level 30 MMOL/L (21-32) Anion Gap 7 mmol/L (5-15) Blood Urea Nitrogen 16 mg/dL (7-18) Creatinine 1.1 MG/DL (0.55-1.30) Estimated Glomerular Filtration Rate > 60 mL/min (>60) Glucose Level 90 MG/DL (74-106) Calcium Level 7.9 MG/DL (8.5-10.1) L Phosphorus Level 2.5 MG/DL (2.5-4.9) Magnesium Level 1.7 MG/DL (1.8-2.4) L Ferritin 216 NG/ML (8-388) Total Bilirubin 0.3 MG/DL (0.2-1.0) Aspartate Amino Transferase (AST) 33 U/L (15-37) Alanine Aminotransferase (ALT) 21 U/L (12-78) Alkaline Phosphatase 102 U/L (46-116) Lactate Dehydrogenase 238 U/L (81-234) H Total Creatine Kinase 102 U/L (26-308) Creatine Kinase MB 1.7 NG/ML (0.0-3.6) Creatine Kinase MB Relative Index 1.6 Troponin I 0.050 ng/mL (0.000-0.056) C-Reactive Protein, Quantitative 8.9 mg/dL (0.00-0.90) H Pro-B-Type Natriuretic Peptide 4369 pg/mL (0-125) H Total Protein 7.0 G/DL (6.4-8.2) Albumin 3.1 G/DL (3.4-5.0) L Globulin 3.9 g/dL Albumin/Globulin Ratio 0.8 (1.0-2.7) L Lipase 41 U/L (73-393) L Urine Color Yellow Urine Appearance Clear Urine pH 6 (4.5-8.0) Urine Specific [place] 1.010 (1.005-1.035) Urine Protein 3+ (NEGATIVE) H Urine Glucose (UA) Negative (NEGATIVE) Urine Ketones 2+ (NEGATIVE) H Urine Blood 2+ (NEGATIVE) H Urine Nitrite Negative (NEGATIVE) Urine Bilirubin Negative (NEGATIVE) Urine Urobilinogen Normal MG/DL (0.0-1.0) Urine Leukocyte Esterase Negative (NEGATIVE) Urine RBC 0-2 /HPF (0 - 0) H Urine WBC 0-2 /HPF (0 - 0) Urine Squamous Epithelial Cells Few /LPF (NONE/OCC) Urine Bacteria Occasional /HPF (NONE) Lactic Acid Level 0.90 mmol/L (0.4-2.0) Microbiology Date/Time Source Procedure Growth Status 09/13/20 07:24 Nasopharynx SARS-CoV-2 RdRp Gene Assay - Final Complete EKG Diagnostic Results Troponin ordered: Yes When was troponin ordered?: Sep 13, 2020 EKG Time: 06:41 Rate: normal Rhythm: NSR ST Segments: no acute changes Other Impression Sinus rhythm, left axis, slightly prolonged QTC 497 ms, no ST segment elevation Rhythm Strip Diag. Results Rhythm Strip Time: 06:41 EP Interpretation: yes Rate: 96 Rhythm: NSR, no PVC's, no ectopy Chest X-Ray Diagnostic Results Chest X-Ray Diagnostic Results : Chest X-Ray Ordered: Yes # of Views/Limited/Complete: 1 View Indication: Shortness of Breath EP Interpretation: Yes Interpretation: no pneumothorax, other - Cardiomegaly, prior sternotomy, AICD left chest. Increased opacity left upper lobe. Impression: Other - Left upper lobe consolidation consistent with pneumonia Electronically Signed by: Electronically signed by Dr. Bassem Najera MD Last Vital Signs Date Time Temp Pulse Resp B/P (MAP) Pulse Ox O2 Delivery O2 Flow Rate FiO2 09/13/20 06:19 99.0 88 18 152/97 (115) 97 Nasal Cannula 4.0 Disposition: ADMITTED INPATIENT Condition: Serious Basesm Najera MD Sep 13, 2020 06:39
[2020-09-13 07:05] VITALS: BP 152/97
--- NOTE | 2020-09-13 07:10 | NUR ---
ED Nurse Note: Recieved pt BIBA from home with c/o SOB, pt arrived awake, alert and oriented x 4, pt denies chest pain, 02 amk=059% on 4l n/c, pt has hx of COPD and asthma and tracheostomy which was removed about 2 months ago, dry dressing is over site, pt immediately gowned and placed on cardiac monitoring, IV line placed and labs drawn, pt has sob on exertion and when speaking but none at rest, denies chest pain or any other pain, will resume care as ordered and continue to closely monitor.
--- NOTE | 2020-09-13 07:15 | NUR ---
HAND-OFF: Report given to LYUDMILA Cates.
[2020-09-13 07:30] LABS: BASOPHILS % (AUTO) 0.3 % (0.0-2.0); EOSINOPHILS % (AUTO) 0.1 % (0.0-3.0); HEMATOCRIT 38.4 % (42.0-52.0); HEMOGLOBIN 12.1 G/DL (14.2-18.0); LYMPHOCYTES % (AUTO) 15.9 % (20.0-45.0); MEAN CORPUSCULAR VOLUME 94 FL (80-99); MONOCYTES % (AUTO) 11.7 % (1.0-10.0); NEUTROPHILS % (AUTO) 72.1 % (45.0-75.0); PLATELET COUNT 147 K/UL (150-450); RED CELL DISTRIBUTION WIDTH 14.1 % (11.6-14.8); WHITE BLOOD COUNT 4.2 K/UL (4.8-10.8)
[2020-09-13 07:38] LABS: ANION GAP 7 mmol/L (5-15); BLOOD UREA NITROGEN 16 mg/dL (7-18); CALCIUM 7.9 MG/DL (8.5-10.1); CARBON DIOXIDE 30 MMOL/L (21-32); CHLORIDE 101 MMOL/L (98-107); CREATININE 1.1 MG/DL (0.55-1.30); INR 1.1 (0.9-1.1); SODIUM 138 MMOL/L (136-145)
[2020-09-13 07:54] LABS: ALANINE AMINOTRANSFERASE 21 U/L (12-78); ALBUMIN 3.1 G/DL (3.4-5.0); ALBUMIN/GLOBULIN RATIO 0.8 (1.0-2.7); ALKALINE PHOSPHATASE 102 U/L (46-116); ASPARTATE AMINO TRANSFERASE 33 U/L (15-37); BILIRUBIN,TOTAL 0.3 MG/DL (0.2-1.0); CKMB 1.7 NG/ML (0.0-3.6); CREATINE KINASE 102 U/L (26-308); FERRITIN 216 NG/ML (8-388); LACTATE DEHYDROGENASE 238 U/L (81-234); PHOSPHORUS 2.5 MG/DL (2.5-4.9)
[2020-09-13 08:14] LABS: APPEARANCE,URINE CLEAR; BILIRUBIN, URINE NEGATIVE (NEGATIVE); GLUCOSE, URINE (UA) NEGATIVE (NEGATIVE); KETONES,URINE 2+ (NEGATIVE); LEUKOCYTE ESTERASE ,URINE NEGATIVE (NEGATIVE); NITRITE,URINE NEGATIVE (NEGATIVE); PH,URINE 6 (4.5-8.0); PROTEIN,URINE 3+ (NEGATIVE); UROBILINOGEN,URINE NORMAL MG/DL (0.0-1.0)
[2020-09-13 08:18] LABS: COLOR,URINE YELLOW
[2020-09-13] MEDS ORDERED: cefTRIAXone 1 GM in NS 55 ML IVPB ONE (08:30)
[2020-09-13] MEDS ORDERED: Enoxaparin 60mg Inj SUBQ ONE (08:30)
[2020-09-13] MEDS ORDERED: Azithromycin 500 MG in NS 275 ML IV ONE (08:30)
--- NOTE | 2020-09-13 08:30 | NUR ---
ED Nurse Note: Pt already in isolation room. Pt notified by ERMD that he is COVID positive and is educated regarding COVID. Pt keeps wanting to leave room but is educated regarding isolation precautions.
[2020-09-13 08:56] VITALS: BP 146/92
[2020-09-13] MEDS ORDERED: NORCO 5-325 TA1 EAC1 ORAL (09:22)
[2020-09-13] MEDS ORDERED: PROAIR HFA8.5 GM INH (09:22)
--- NOTE | 2020-09-13 09:44 | Diagnostic Imaging Report ---
EXAM: XR Chest, 1 View CLINICAL HISTORY: Shortness of breath TECHNIQUE: Frontal view of the chest. COMPARISON: Chest x-ray dated 07/28/20 FINDINGS: Lungs: Left lung base consolidation, which may represent atelectasis or pneumonia. Pleural space: Unremarkable. The costophrenic angles are sharp. No visible pneumothorax. Heart: Unremarkable. No cardiomegaly. Mediastinum: Unremarkable. Bones/joints: Multilevel degenerative disc space loss and endplate osteophytes throughout the visualized spine. Vasculature: Atherosclerotic calcifications within the aortic arch. Tubes, lines and devices: Telemetry leads overlie the thorax. Cardiac pacer in the left chest wall with the lead tips in the right atrium and right ventricle regions. Upper abdomen: Persistent elevated left hemidiaphragm. Diffuse gaseous distention of stomach, simulating air below the diaphragm. IMPRESSION: 1. No significant interval change from the chest x-ray dated 07/28/20. 2. Persistent elevated left hemidiaphragm. 3. Left lung base consolidation, which may represent atelectasis or pneumonia. 4. Diffuse gaseous distention of the stomach, giving the appearance of air below the diaphragm. If there is clinical concern, may consider CT of the abdomen and pelvis.
--- NOTE | 2020-09-13 11:00 | NUR ---
ED Nurse Note: Report given to Aliyah RN.
[2020-09-13 11:01] VITALS: BP 137/91
--- NOTE | 2020-09-13 11:05 | NUR ---
ED Nurse Note: Pt transferred to tele floor with all belongings. Pt received by RN.
--- NOTE | 2020-09-13 11:20 | NUR ---
NURSE NOTES: Received patient from ED from [facility]. Transferred to bed. Connected to O2 via NC at 4LPM, complaining of SOB. A and O x 4. Skin intact. Belongings accounted for. IV line on right hand g 20 intact and patent. Refused to change into hospital gown, refused to wear non-skid socks despite offering 3x. Ambulatory with steady gait. environmental monitoring specialist placed. Vital signs taken and recorded. Will contact MD for admitting orders.
[2020-09-13 11:30] VITALS: BP 147/83
[2020-09-13] MEDS ORDERED: dexAMETHasone 10mg/ml Inj IV ONE (12:00)
[2020-09-13] MEDS ORDERED: Milk of Magnesia 30ml Ud ORAL PRN (13:30)
[2020-09-13] MEDS ORDERED: Bisacodyl EC 5mg tab ORAL PRN (13:45)
--- NOTE | 2020-09-13 14:30 | Consultation ---
DATE OF CONSULTATION: 09/13/2020 PULMONARY CONSULTATION REASON FOR CONSULTATION: Respiratory insufficiency, abnormal chest x-ray. HISTORY OF PRESENT ILLNESS: The patient is a 70-year-old male brought in through the emergency room. The patient noted to have an abnormal x-ray with left lung base consolidation. The patient also noted to be hypoxemic, placed on 4 liters nasal cannula. The patient is seen in the emergency room. The care was discussed. The patient has history of COPD and CHF. The patient with prior history of respiratory failure and tracheostomy and reversal. The patient apparently woke up with shortness of breath and was brought in for evaluation. The patient denies exposure to anybody else. In the emergency room, the patient was placed on isolation, pending further results. PAST MEDICAL HISTORY: Cardiomyopathy, CHF, COPD, emphysema, prior history of tracheostomy, AICD. MEDICATIONS: Reviewed. ALLERGIES: Reviewed. SOCIAL HISTORY: The patient is a former smoker. The patient currently retired, disabled. REVIEW OF SYSTEMS: Otherwise negative. The patient does have an AICD in left chest wall. Denies any gastrointestinal symptoms. Denies any recent fevers. PHYSICAL EXAMINATION: GENERAL: The patient is a well-developed male, comfortable at present, no significant distress. VITAL SIGNS: Reviewed. Blood pressure 132/90, 90% on 4 liters. Heart rate is 75. HEENT: Negative. LUNGS: Notable for moderate breath sounds. Occasional rhonchi. CARDIAC: S1 and S2. Regular rate and rhythm. AICD noted. ABDOMEN: Soft, nontender, nondistended. EXTREMITIES: No cyanosis, clubbing, or edema. LABORATORY DATA: Reviewed. White count 4.3, hemoglobin 12. Chemistries noted. Magnesium 1.7. BNP 4369. Blood gases, 7.43/40/89/26. Micro with COVID rapid swab positive. Chest x-ray with left lower lobe infiltrate. IMPRESSION: COVID pneumonia, hypoxemia, COPD, CHF, cardiomyopathy, prior history of tracheostomy, AICD. RECOMMENDATION: IV Decadron recommended. Remdesivir recommended. Await further ID recommendations for intervention. Monitor oxygen needs and monitor respiratory status for change. Consider convalescent serum if patient deteriorates further. DVT prophylaxis and monitor closely for development of DVT and PE. Martín Robert M.D. DR: Nancy JOB#: [id number] CC: SHELBIE
--- NOTE | 2020-09-13 15:54 | NUR ---
NURSE NOTES: Trache stoma open about .75cm in diameter, with scant secretion, cleaned and changed dressing. Patient for sputum collection, patient verbalized he is unable to cough. RT Lopez notified and will provide assistance. Addendum: 09/13/20 at 1845 by Aliyah Billings RN NURSE NOTES: Sputum collected by RT Lopez, sent to lab.
[2020-09-13 16:00] VITALS: BP 145/79
[2020-09-13] MEDS: Docusate 100mg cap ORAL SCH (17:29)
[2020-09-13] MEDS ORDERED: Loading Dose:Remdesivir 200mg/NS 210ml IV SCH ×2 (18:00)
--- NOTE | 2020-09-13 18:45 | NUR ---
NURSE HAND-OFF REPORT: Important Events on Shift:admission. RN tried to reinsert another IV line to be able to administer remdezivir, but patient refused and preferred to wait until current magnesium IV is consumed before hooking remdezivir. Patient Status: alert Diet: 4gm sodium Pending Orders: Pending Results/Labs: Pending MD notification: Latest Vital Signs: Temperature 97.5 , Pulse 69 , B/P 145 /79 , Respiratory Rate 20 , O2 SAT 100 , Nasal Cannula, O2 Flow Rate 4.0 . Vital Sign Comment: EKG Rhythm: Sinus Rhythm Rhythm change?: N MD Notified?: - MD Response: Latest Lord Fall Score: 20 Fall Risk: Low Risk Safety Measures: Call light Within Reach, Bed Alarm , Side Rails Side Rails x2, Bed position Low and Locked. Fall Precautions: Report given to Germán [facility].
--- NOTE | 2020-09-13 19:20 | NUR ---
NURSE NOTES: Received patient from Aliyah RN. Pt resting in bed comfortably. Pt on 4L NC sating 100%, no complaints of SOB. A+Ox4. No skin issues noted. IV line on right hand g 20 intact and patent. Denies any pain. Denies any n/v. VSS. Ambulatory with steady gait. Pt resting in bed comfortably. Bed in low and locked position, call light within reach, bedside table within reach. Continue to mlonitor.
--- NOTE | 2020-09-13 19:39 | Consultation ---
History of Present Illness General Date patient seen: Sep 13, 2020 Reason for Hospitalization: Dyspnea/Respdistress Present Illness HPI 70-year-old male well-known to me from prior admission care where patient has history of tracheostomy with decannulation not too long ago presents with shortness of breath. Surgery called to evaluate assist with care. Patient seen, patient by, chart reviewed. Chest x-ray imaging reviewed. No nausea vomiting fever chills. Labs noted. Micro reviewed. Allergies: Coded Allergies: IODINE (Verified Allergy, Severe, rash, 01/15/14) COVID-19 Screening Contact w/high risk pt: No Experienced COVID-19 symptoms?: Yes Coronavirus symptoms experienc: Shortness of Breath, Diarrhea Medication History Scheduled Albuterol Sulfate* (Proair Hfa*), 2 PUFFS INH Q6H, (Reported) Aspirin* (Aspirin*), 81 MG ORAL DAILY, (Reported) Bisacodyl* (Dulcolax*), 5 MG ORAL BID, (Reported) Fluticasone/Salmeterol (Advair 500-50 Diskus), 1 PUFF INH EVERY 12 HOURS, (Reported) Furosemide* (Lasix*), 40 MG ORAL DAILY, (Reported) Lisinopril* (Prinivil*), 20 MG ORAL DAILY, (Reported) Loratadine (Claritin), 10 MG ORAL DAILY, (Reported) Pravastatin Sod* (Pravastatin Sod*), 20 MG ORAL BEDTIME, (Reported) Ranitidine Hcl* (Zantac), 300 MG ORAL DAILY, (Reported) Spironolactone* (Aldactone*), 50 MG ORAL DAILY, (Reported) Scheduled PRN Diphenhydramine Hcl* (Diphenhydramine Hcl*), 50 MG ORAL Q8H PRN for Itching, (Reported) Hydrocodone Bit/Acetaminophen 5-325* (Notus 5-325 Tablet*), 1 TAB ORAL Q6H PRN for FOR PAIN, (Reported) Levalbuterol Hcl (Xopenex*), 1.25 MG HHN Q6H PRN for Shortness of Breath Tramadol Hcl* (Ultram*), 50 MG ORAL Q6H PRN for For Pain, (Reported) Patient History History Provided By: Patient, Medical Record, PMD Healthcare decision maker Resuscitation status Advanced Directive on File Past Medical/Surgical History Past Medical/Surgical History: (1) CHF exacerbation (2) Acute respiratory failure with hypercapnia (3) Dysphagia (4) Hypernatremia (5) ARF (acute renal failure) (6) Breakdown of tracheostomy site (7) COPD exacerbation (8) Elevated d-dimer (9) Pneumonia due to COVID-19 virus Review of Systems Review of Symptoms General ROS: no weight loss or fever Psychological ROS: no depression or mood changes, no memory loss Ophthalmic ROS: no visual changes or eye irritation ENT ROS: no nasal congestion, hearing loss, dizziness Allergy and Immunology ROS: no allergic symptoms or urticaria Hematological and Lymphatic ROS: no swollen glands, unusual bleeding or bruising Endocrine ROS: no polyuria, polydipsia, weight changes, temperature intolerance Respiratory ROS: no cough, shortness of breath, or wheezing Cardiovascular ROS: no chest pain or dyspnea on exertion Gastrointestinal ROS: denies abdominal pain, bright red blood in stool. Musculoskeletal ROS: no myalgias or arthralgias Neurological ROS: no TIA or stroke symptoms Dermatological ROS: no new or changing skin lesions, rashes or pruritis Physical Exam Physical Exam General appearance: alert, cooperative, no distress, appears stated age Head: Normocephalic, without obvious abnormality, atraumatic Eyes: conjunctivae/corneas clear. PERRL, EOM's intact. Fundi benign Throat: Lips, mucosa, and tongue normal. Teeth and gums normal. trach site Neck: supple, symmetrical, trachea midline, no adenopathy, thyroid: not enlarged, symmetric, no tenderness/mass/nodules, no carotid bruit and no JVD Lungs: clear to auscultation bilaterally Heart: regular rate and rhythm, S1, S2 normal, no murmur, click, rub or gallop Abdomen: soft, non-tender. Bowel sounds normal. No masses, no organomegaly Extremities: extremities normal, atraumatic, no cyanosis or edema Pulses: 2+ and symmetric Skin: Skin color, texture, turgor normal. No rashes or lesions Neurologic: Grossly normal Last 24 Hour Vital Signs Date Time Temp Pulse Resp B/P (MAP) Pulse Ox O2 Delivery O2 Flow Rate FiO2 09/13/20 16:00 97.5 82 20 145/79 (101) 100 09/13/20 16:00 69 09/13/20 12:00 77 09/13/20 11:56 Nasal Cannula 4.0 09/13/20 11:30 98.1 87 20 147/83 (104) 100 09/13/20 11:05 99.0 75 16 132/90 98 Nasal Cannula 4.0 09/13/20 11:01 99.0 80 17 137/91 99 Nasal Cannula 4.0 09/13/20 08:56 99.0 89 16 146/92 98 Nasal Cannula 4.0 09/13/20 07:05 88 18 Nasal Cannula 4.0 09/13/20 07:05 99.0 18 152/97 97 Nasal Cannula 4.0 09/13/20 06:19 99.0 88 18 152/97 (115) 97 Nasal Cannula 4.0 Laboratory Tests Test 09/13/20 06:38 09/13/20 06:50 09/13/20 07:42 Arterial Blood pH 7.435 (7.350-7.450) Arterial Blood Partial Pressure CO2 40.1 mmHg (35.0-45.0) Arterial Blood Partial Pressure O2 89.3 mmHg (75.0-100.0) Arterial Blood HCO3 26.3 mmol/L (22.0-26.0) H Arterial Blood Oxygen Saturation 96.6 % (95-100) Arterial Blood Base Excess 2.0 (-2-2) Jose Test Positive White Blood Count 4.2 K/UL (4.8-10.8) L Red Blood Count 4.10 M/UL (4.70-6.10) L Hemoglobin 12.1 G/DL (14.2-18.0) L Hematocrit 38.4 % (42.0-52.0) L Mean Corpuscular Volume 94 FL (80-99) Mean Corpuscular Hemoglobin 29.4 PG (27.0-31.0) Mean Corpuscular Hemoglobin Concent 31.5 G/DL (32.0-36.0) L Red Cell Distribution Width 14.1 % (11.6-14.8) Platelet Count 147 K/UL (150-450) L Mean Platelet Volume 7.9 FL (6.5-10.1) Neutrophils (%) (Auto) 72.1 % (45.0-75.0) Lymphocytes (%) (Auto) 15.9 % (20.0-45.0) L Monocytes (%) (Auto) 11.7 % (1.0-10.0) H Eosinophils (%) (Auto) 0.1 % (0.0-3.0) Basophils (%) (Auto) 0.3 % (0.0-2.0) Prothrombin Time 12.3 SEC (9.30-11.50) H Prothromb Time International Ratio 1.1 (0.9-1.1) Activated Partial Thromboplast Time 29 SEC (23-33) D-Dimer 1.52 mg/L FEU (0.00-0.49) H Sodium Level 138 MMOL/L (136-145) Potassium Level 4.0 MMOL/L (3.5-5.1) Chloride Level 101 MMOL/L (98-107) Carbon Dioxide Level 30 MMOL/L (21-32) Anion Gap 7 mmol/L (5-15) Blood Urea Nitrogen 16 mg/dL (7-18) Creatinine 1.1 MG/DL (0.55-1.30) Estimat Glomerular Filtration Rate > 60 mL/min (>60) Glucose Level 90 MG/DL (74-106) Calcium Level 7.9 MG/DL (8.5-10.1) L Phosphorus Level 2.5 MG/DL (2.5-4.9) Magnesium Level 1.7 MG/DL (1.8-2.4) L Ferritin 216 NG/ML (8-388) Total Bilirubin 0.3 MG/DL (0.2-1.0) Aspartate Amino Transf (AST/SGOT) 33 U/L (15-37) Alanine Aminotransferase (ALT/SGPT) 21 U/L (12-78) Alkaline Phosphatase 102 U/L (46-116) Lactate Dehydrogenase 238 U/L (81-234) H Total Creatine Kinase 102 U/L (26-308) Creatine Kinase MB 1.7 NG/ML (0.0-3.6) Creatine Kinase MB Relative Index 1.6 Troponin I 0.050 ng/mL (0.000-0.056) C-Reactive Protein, Quantitative 8.9 mg/dL (0.00-0.90) H Pro-B-Type Natriuretic Peptide 4369 pg/mL (0-125) H Total Protein 7.0 G/DL (6.4-8.2) Albumin 3.1 G/DL (3.4-5.0) L Globulin 3.9 g/dL Albumin/Globulin Ratio 0.8 (1.0-2.7) L Lipase 41 U/L (73-393) L Urine Color Yellow Urine Appearance Clear Urine pH 6 (4.5-8.0) Urine Specific [place] 1.010 (1.005-1.035) Urine Protein 3+ (NEGATIVE) H Urine Glucose (UA) Negative (NEGATIVE) Urine Ketones 2+ (NEGATIVE) H Urine Blood 2+ (NEGATIVE) H Urine Nitrite Negative (NEGATIVE) Urine Bilirubin Negative (NEGATIVE) Urine Urobilinogen Normal MG/DL (0.0-1.0) Urine Leukocyte Esterase Negative (NEGATIVE) Urine RBC 0-2 /HPF (0 - 0) H Urine WBC 0-2 /HPF (0 - 0) Urine Squamous Epithelial Cells Few /LPF (NONE/OCC) Urine Bacteria Occasional /HPF (NONE) Lactic Acid Level 0.90 mmol/L (0.4-2.0) Microbiology Date/Time Source Procedure Growth Status 09/13/20 07:24 Nasopharynx SARS-CoV-2 RdRp Gene Assay - Final Complete Height (Feet): 5 Height (Inches): 2.00 Weight (Pounds): 174 Medications Current Medications Medications (Trade) Dose Ordered Sig/Juice Route PRN Reason Start Time Stop Time Status Last Admin Dose Admin Acetaminophen (Tylenol) 650 mg Q6H PRN ORAL For Headache 09/13/20 13:30 10/13/20 13:29 Acetaminophen/ Hydrocodone Bitart (Notus 10/325) 1 tab Q6H PRN ORAL For Pain 09/13/20 13:30 09/20/20 13:29 Albuterol/ Ipratropium (Combivent Respimat) 1 puff Q6HR INH 09/13/20 14:00 10/13/20 13:59 09/13/20 17:29 Aspirin (ASA) 81 mg DAILY ORAL 09/14/20 09:00 10/29/20 08:59 Bisacodyl (Dulcolax) 5 mg DAILYPRN PRN ORAL Constipation 09/13/20 13:45 12/12/20 13:44 Dexamethasone (Decadron) 6 mg DAILY ORAL 09/14/20 09:00 09/23/20 09:01 Docusate Sodium (Colace) 100 mg TWICE A DAY ORAL 09/13/20 18:00 10/13/20 17:59 Enoxaparin Sodium (Lovenox) 80 mg EVERY 12 HOURS SUBQ 09/13/20 21:00 12/12/20 20:59 Famotidine (Pepcid) 20 mg BID ORAL 09/13/20 18:00 12/12/20 17:59 09/13/20 17:28 Furosemide (Lasix) 40 mg DAILY IV 09/14/20 09:00 10/14/20 08:59 Lisinopril (PriniviL) 20 mg DAILY ORAL 09/14/20 09:00 10/14/20 08:59 Magnesium Hydroxide (Mom) 30 ml DAILYPRN PRN ORAL Constipation 09/13/20 13:30 10/13/20 13:29 Ondansetron HCl (Zofran) 4 mg Q6H PRN IVP Nausea & Vomiting 09/13/20 13:30 10/13/20 13:29 Pravastatin Sodium (Pravachol) 20 mg BEDTIME ORAL 09/13/20 21:00 10/13/20 20:59 Remdesivir 100 mg/ Sodium Chloride 250 ml @ 250 mls/hr Q24H IV 09/14/20 18:00 09/17/20 18:59 Remdesivir 200 mg/ Sodium Chloride 250 ml @ 125 mls/hr ONCE IV 09/13/20 18:00 09/13/20 19:59 09/13/20 19:18 Spironolactone (Aldactone) 25 mg DAILY ORAL 09/14/20 09:00 10/14/20 08:59 Assessment/Plan Problem List: (1) Elevated d-dimer ICD Codes: R79.89 - Other specified abnormal findings of blood chemistry SNOMED: 373528295 (2) Pneumonia due to COVID-19 virus ICD Codes: U07.1 - COVID-19; J12.89 - Other viral pneumonia SNOMED: 256214749929615634 (3) Dysphagia ICD Codes: R13.10 - Dysphagia, unspecified SNOMED: 25018887, 899004496 (4) Hypernatremia ICD Codes: E87.0 - Hyperosmolality and hypernatremia SNOMED: 24090203 (5) ARF (acute renal failure) ICD Codes: N17.9 - Acute kidney failure, unspecified SNOMED: 97834598 (6) COPD exacerbation ICD Codes: J44.1 - COPD exacerbation SNOMED: 708089225 (7) CHF exacerbation ICD Codes: I50.9 - Heart failure, unspecified SNOMED: 605968225, 09605235009723 (8) Acute respiratory failure with hypercapnia ICD Codes: J96.02 - Acute respiratory failure with hypercapnia SNOMED: 957364241 (9) Breakdown of tracheostomy site Assessment & Plan: trach site still open. slowly healing but requires dressing discussed with patient still wants closure. unfortunately currently respiratory isolation labs noted can consider closure at later date. ICD Codes: J95.03 - Malfunction of tracheostomy stoma SNOMED: 49613960, 167257571 Malcolm Craig Sep 13, 2020 19:39
[2020-09-13 20:00] VITALS: BP 159/79
[2020-09-13] MEDS ORDERED: Enoxaparin 60mg Inj SUBQ SCH (21:00)
[2020-09-13] MEDS: Enoxaparin 80mg Inj SUBQ SCH (21:25)
[2020-09-13] MEDS ORDERED: Lisinopril 20mg tab ORAL SCH (23:15)
[2020-09-14] VITALS: BP 155/82
[2020-09-14 04:00] VITALS: BP 146/80
--- NOTE | 2020-09-14 07:40 | NUR ---
NURSE HAND-OFF REPORT: Important Events on Shift: Patient Status: STABLE Diet: NO ADDED SALT Pending Orders: Pending Results/Labs: Pending MD notification: Latest Vital Signs: Temperature 97.5 , Pulse 60 , B/P 146 /80 , Respiratory Rate 20 , O2 SAT 100 , Nasal Cannula, O2 Flow Rate 4.0 . Vital Sign Comment: EKG Rhythm: A-Paced Rhythm change?: N MD Notified?: - MD Response: Latest Lord Fall Score: 30 Fall Risk: Medium Risk Safety Measures: Call light Within Reach, Bed Alarm , Side Rails Side Rails x2, Bed position Low and Locked. Fall Precautions: Report given to [place] COREAS.
--- NOTE | 2020-09-14 07:41 | NUR ---
NURSE NOTES: Received report from Niels Crews RN. Patient sleeping on left side, on left side, oxygen at 4 liters nasal cannula, patient with unproductive "wet-sounding" cough, asked for additional covers which I provided, bed in lowest position, side rails up x 2, bed in lowest position, call light within reach, bedside commode at bedside, no c/o pain, in no apparent distress.
[2020-09-14 07:42] LABS: ALANINE AMINOTRANSFERASE 23 U/L (12-78); ALBUMIN/GLOBULIN RATIO 0.7 (1.0-2.7); ALKALINE PHOSPHATASE 104 U/L (46-116); ANION GAP 7 mmol/L (5-15); ASPARTATE AMINO TRANSFERASE 30 U/L (15-37); BILIRUBIN,DIRECT 0.2 MG/DL (0.0-0.3); BILIRUBIN,TOTAL 0.3 MG/DL (0.2-1.0); BLOOD UREA NITROGEN 16 mg/dL (7-18); CALCIUM 8.5 MG/DL (8.5-10.1); CARBON DIOXIDE 29 MMOL/L (21-32); CHLORIDE 106 MMOL/L (98-107); POTASSIUM 4.7 MMOL/L (3.5-5.1); SODIUM 142 MMOL/L (136-145)
[2020-09-14 07:44] LABS: HEMATOCRIT 41.8 % (42.0-52.0); MEAN CORPUSCULAR VOLUME 92 FL (80-99); PLATELET COUNT 158 K/UL (150-450); RED BLOOD COUNT 4.55 M/UL (4.70-6.10); RED CELL DISTRIBUTION WIDTH 13.9 % (11.6-14.8)
[2020-09-14 07:54] LABS: WHITE BLOOD COUNT 1.6 K/UL (4.8-10.8)
--- NOTE | 2020-09-14 07:59 | Pulmonology Progress Note ---
Subjective Allergies: Coded Allergies: IODINE (Verified Allergy, Severe, rash, 01/15/14) Subjective care noted ID reviewed Objective Last 24 Hour Vital Signs Date Time Temp Pulse Resp B/P (MAP) Pulse Ox O2 Delivery O2 Flow Rate FiO2 09/14/20 04:00 62 09/14/20 04:00 97.5 60 20 146/80 (102) 100 09/14/20 00:00 60 09/14/20 00:00 97.0 60 20 155/82 (106) 100 09/13/20 23:21 159/79 09/13/20 21:00 Nasal Cannula 4.0 09/13/20 20:00 97.0 60 20 159/79 (105) 100 09/13/20 16:00 97.5 82 20 145/79 (101) 100 09/13/20 16:00 69 09/13/20 12:00 77 09/13/20 11:56 Nasal Cannula 4.0 09/13/20 11:30 98.1 87 20 147/83 (104) 100 09/13/20 11:05 99.0 75 16 132/90 98 Nasal Cannula 4.0 09/13/20 11:01 99.0 80 17 137/91 99 Nasal Cannula 4.0 09/13/20 08:56 99.0 89 16 146/92 98 Nasal Cannula 4.0 Intake and Output 09/13/20 09/14/20 19:00 07:00 Output Total 1200 ml Balance -1200 ml Output Urine Total 1200 ml # Voids 1 # Bowel Movements 1 Objective deferred due to COVID Microbiology Date/Time Source Procedure Growth Status 09/13/20 07:24 Nasopharynx SARS-CoV-2 RdRp Gene Assay - Final Complete Laboratory Tests 09/14/20 05:20: White Blood Count 1.6#*L, Red Blood Count 4.55L, Hemoglobin 13.0L, Hematocrit 41.8L, Mean Corpuscular Volume 92, Mean Corpuscular Hemoglobin 28.6, Mean Corpuscular Hemoglobin Concent 31.1L, Red Cell Distribution Width 13.9, Platelet Count 158, Mean Platelet Volume 7.3, Neutrophils (%) (Auto) , Lymphocytes (%) (Auto) , Monocytes (%) (Auto) , Eosinophils (%) (Auto) , Basophils (%) (Auto) , Neutrophils % (Manual) [Pending], Lymphocytes % (Manual) [Pending], Platelet Estimate [Pending], Platelet Morphology [Pending], Sodium Level 142, Potassium Level 4.7, Chloride Level 106, Carbon Dioxide Level 29, Anion Gap 7, Blood Urea Nitrogen 16, Creatinine 1.0, Estimat Glomerular Filtration Rate > 60, Glucose Level 114H, Calcium Level 8.5, Total Bilirubin 0.3, Direct Bilirubin 0.2, Aspartate Amino Transf (AST/SGOT) 30, Alanine Aminotransferase (ALT/SGPT) 23, Alkaline Phosphatase 104, Total Protein 7.2, Albumin 3.0L, Globulin 4.2, Albumin/Globulin Ratio 0.7L Current Medications Medications (Trade) Dose Ordered Sig/Juice Route PRN Reason Start Time Stop Time Status Last Admin Dose Admin Acetaminophen (Tylenol) 650 mg Q6H PRN ORAL For Headache 09/13/20 13:30 10/13/20 13:29 Acetaminophen/ Hydrocodone Bitart ([place] 10/325) 1 tab Q6H PRN ORAL For Pain 09/13/20 13:30 09/20/20 13:29 Albuterol/ Ipratropium (Combivent Respimat) 1 puff Q6HR INH 09/13/20 14:00 10/13/20 13:59 09/13/20 17:29 Aspirin (ASA) 81 mg DAILY ORAL 09/14/20 09:00 10/29/20 08:59 Bisacodyl (Dulcolax) 5 mg DAILYPRN PRN ORAL Constipation 09/13/20 13:45 12/12/20 13:44 Dexamethasone (Decadron) 6 mg DAILY ORAL 09/14/20 09:00 09/23/20 09:01 Docusate Sodium (Colace) 100 mg TWICE A DAY ORAL 09/13/20 18:00 10/13/20 17:59 Enoxaparin Sodium (Lovenox) 80 mg EVERY 12 HOURS SUBQ 09/13/20 21:00 12/12/20 20:59 09/13/20 21:25 Famotidine (Pepcid) 20 mg BID ORAL 09/13/20 18:00 12/12/20 17:59 09/13/20 17:28 Furosemide (Lasix) 40 mg DAILY IV 09/14/20 09:00 10/14/20 08:59 Lisinopril (PriniviL) 20 mg DAILY ORAL 09/14/20 09:00 10/14/20 08:59 Magnesium Hydroxide (Mom) 30 ml DAILYPRN PRN ORAL Constipation 09/13/20 13:30 10/13/20 13:29 Ondansetron HCl (Zofran) 4 mg Q6H PRN IVP Nausea & Vomiting 09/13/20 13:30 10/13/20 13:29 Pravastatin Sodium (Pravachol) 20 mg BEDTIME ORAL 09/13/20 21:00 10/13/20 20:59 09/13/20 21:25 Remdesivir 100 mg/ Sodium Chloride 250 ml @ 250 mls/hr Q24H IV 09/14/20 18:00 09/17/20 18:59 Spironolactone (Aldactone) 25 mg DAILY ORAL 09/14/20 09:00 10/14/20 08:59 Assessment/Plan Assessment/Plan IMPRESSION: COVID pneumonia, hypoxemia, COPD, CHF, cardiomyopathy, prior history of tracheostomy, AICD. PLAN remdesivir decadron oxygen lovenox monitor labs monitor changes follow up imaging impression, plan, and exam edited and reviewed in detail care discussed with Martín Upton MD Sep 14, 2020 07:59
[2020-09-14 08:00] VITALS: BP 157/86
--- NOTE | 2020-09-14 08:14 | NUR ---
NURSE NOTES: Left message on voicemail of Dr. Nico Jo reporting WBC=1.6.
[2020-09-14] MEDS: Docusate 100mg cap ORAL SCH ×2 (08:41→18:17)
[2020-09-14] MEDS: Spironolactone 25mg tab ORAL SCH (08:41)
[2020-09-14] MEDS: Aspirin Baby 81mg ORAL SCH (08:41)
[2020-09-14] MEDS: Lisinopril 20mg tab ORAL SCH (08:42)
[2020-09-14] MEDS: Enoxaparin 80mg Inj SUBQ SCH ×2 (08:43→21:24)
[2020-09-14] MEDS ORDERED: dexAMETHasone 10mg/ml Inj IV SCH (09:00)
[2020-09-14 12:00] VITALS: BP 144/79
--- NOTE | 2020-09-14 12:30 | Consultation ---
DATE OF CONSULTATION: 09/14/2020 INFECTIOUS DISEASE CONSULTATION CONSULTING PHYSICIAN: Mireille Xiao MD. REFERRING PHYSICIAN: Nico Jo MD. REASON FOR CONSULTATION: COVID-19 pneumonia. HISTORY OF PRESENTING ILLNESS: This is a 70-year-old gentleman with history of cardiomyopathy, congestive heart failure, COPD, emphysema, prior history of tracheostomy, and AICD placement, who comes in with shortness of breath along with cough. He was found to have COVID-19 pneumonia and an Infectious Diseases consultation has been obtained for antibiotics. PAST MEDICAL HISTORY: 1. History of cardiomyopathy. 2. CHF. 3. COPD. 4. Emphysema. 5. Tracheostomy. 6. AICD placement. SOCIAL HISTORY: He used to be a smoker. He does not smoke anymore. No history of alcohol or drug use. FAMILY HISTORY: Noncontributory. REVIEW OF SYSTEMS: RESPIRATORY: No fever or chills. He has cough. He has shortness of breath. No chest pain. CARDIAC: No chest pain. No palpitation. No dizziness. No syncope. GASTROINTESTINAL: No nausea. No vomiting. No abdominal pain. He does have some diarrhea. MEDICATIONS: As an inpatient, he was started on remdesivir and Decadron yesterday. He is on lisinopril, Lasix, spironolactone, aspirin, pravastatin, enoxaparin, docusate, famotidine, albuterol and ipratropium, Dulcolax, [place], Tylenol, milk of magnesia, and Zofran. ALLERGIES: He is allergic to iodine. PHYSICAL EXAMINATION: VITAL SIGNS: Temperature 97.2, T-max of 99, pulse 89, respiratory rate 20, and blood pressure 157/86. O2 saturation of 99% on 4 liters of oxygen. Examination is deferred due to COVID-19. LABORATORY AND DIAGNOSTIC DATA: White count 1.6, hemoglobin 13, hematocrit 41.8, MCV 92, platelet count 158,000 with neutrophils of 45%. Sodium 142, potassium 4.7, chloride 106, bicarb 29, BUN 16, creatinine 1. Glucose 114. Calcium 8.5. Total bilirubin 0.3, direct bilirubin 0.2, AST 30, ALT 23, alkaline phosphatase 104. Total protein 7.2, albumin of 3. Lipase of 41. C-reactive protein 8.9. Beta-natriuretic peptide 4369. Total protein 7, albumin of 3.1. Troponin 0.05, CK-MB 1.7, CK of 102. LDH 238. UA is showing 0 to 2 white cells. COVID-19 test on 09/13/2020 was positive. Chest x-ray is showing left lung base consolidation, may represent atelectasis or pneumonia. ASSESSMENT: This is a 70-year-old gentleman with history of chronic obstructive pulmonary disease, emphysema, congestive heart failure, and cardiomyopathy, who comes in with cough and shortness of breath and is found to have, 1. COVID-19 pneumonia. He is on 4 liters of oxygen with 99% O2 saturation. 2. CHF. 3. COPD. 4. Cardiomyopathy. PLAN: 1. Continue day #2 of remdesivir. 2. Continue Decadron, day #2. 3. Continue isolation. 4. We will follow up cultures. I would like to thank Dr. Jo for this consultation. Mireille Xiao M.D. DR: BUSTER JOB#: [id number] CC:
--- NOTE | 2020-09-14 14:55 | NUR ---
RESPIRATORY NOTES PT requested stoma site be cleaned. Stoma cleaned with saline and new gauze placed around site.
--- NOTE | 2020-09-14 15:33 | NUR ---
CASE MANAGEMENT:REVIEW 70 YR OLD MALE BIBA FROM HOME CC: SOB PMH: TRACHEOSTOMY REMOVED 2 MONTHS AGO SI: COVID PNA 99.0 88 18 152/97 97% ON 4L/NC WBC-4.2 CA-7.9 BNP+4369 MAG-1.7 D-DIMER+1.52 IS: IV ROCEPHIN IV AZITHROMYCIN BLOOD CX CHEST XRAY : TO TELEMETRY
[2020-09-14 16:00] VITALS: BP 145/78
--- NOTE | 2020-09-14 16:57 | Surgery Progress Note ---
Surgery Progress Note Subjective Additional Comments labs noted wbc down electrolytes being replaced no n/v states he feels well isolation Objective Last 24 Hour Vital Signs Date Time Temp Pulse Resp B/P (MAP) Pulse Ox O2 Delivery O2 Flow Rate FiO2 09/14/20 16:00 98.1 94 20 145/78 (100) 97 09/14/20 12:00 72 09/14/20 12:00 99.1 62 18 144/79 (100) 96 09/14/20 09:00 Nasal Cannula 4.0 09/14/20 08:42 157/86 09/14/20 08:00 80 09/14/20 08:00 97.2 89 20 157/86 (109) 99 09/14/20 04:00 62 09/14/20 04:00 97.5 60 20 146/80 (102) 100 09/14/20 00:00 60 09/14/20 00:00 97.0 60 20 155/82 (106) 100 09/13/20 23:21 159/79 09/13/20 21:00 Nasal Cannula 4.0 09/13/20 20:00 97.0 60 20 159/79 (105) 100 I&O Intake and Output 09/13/20 09/14/20 19:00 07:00 Output Total 1200 ml Balance -1200 ml Output Urine Total 1200 ml # Voids 1 # Bowel Movements 1 Dressing: saturated Cardiovascular: RSR Respiratory: decreased breath sounds Abdomen: non-tender, present bowel sounds Extremities: no edema, no tenderness, no cyanosis Laboratory Tests Test 09/14/20 05:20 White Blood Count 1.6 K/UL (4.8-10.8) #*L Red Blood Count 4.55 M/UL (4.70-6.10) L Hemoglobin 13.0 G/DL (14.2-18.0) L Hematocrit 41.8 % (42.0-52.0) L Mean Corpuscular Volume 92 FL (80-99) Mean Corpuscular Hemoglobin 28.6 PG (27.0-31.0) Mean Corpuscular Hemoglobin Concent 31.1 G/DL (32.0-36.0) L Red Cell Distribution Width 13.9 % (11.6-14.8) Platelet Count 158 K/UL (150-450) Mean Platelet Volume 7.3 FL (6.5-10.1) Neutrophils (%) (Auto) % (45.0-75.0) Lymphocytes (%) (Auto) % (20.0-45.0) Monocytes (%) (Auto) % (1.0-10.0) Eosinophils (%) (Auto) % (0.0-3.0) Basophils (%) (Auto) % (0.0-2.0) Differential Total Cells Counted 100 Neutrophils % (Manual) 45 % (45-75) Lymphocytes % (Manual) 39 % (20-45) Monocytes % (Manual) 16 % (1-10) H Eosinophils % (Manual) 0 % (0-3) Basophils % (Manual) 0 % (0-2) Band Neutrophils 0 % (0-8) Platelet Estimate Adequate Platelet Morphology Normal Red Blood Cell Morphology Normal Sodium Level 142 MMOL/L (136-145) Potassium Level 4.7 MMOL/L (3.5-5.1) Chloride Level 106 MMOL/L (98-107) Carbon Dioxide Level 29 MMOL/L (21-32) Anion Gap 7 mmol/L (5-15) Blood Urea Nitrogen 16 mg/dL (7-18) Creatinine 1.0 MG/DL (0.55-1.30) Estimat Glomerular Filtration Rate > 60 mL/min (>60) Glucose Level 114 MG/DL (74-106) H Calcium Level 8.5 MG/DL (8.5-10.1) Total Bilirubin 0.3 MG/DL (0.2-1.0) Direct Bilirubin 0.2 MG/DL (0.0-0.3) Aspartate Amino Transf (AST/SGOT) 30 U/L (15-37) Alanine Aminotransferase (ALT/SGPT) 23 U/L (12-78) Alkaline Phosphatase 104 U/L (46-116) Total Protein 7.2 G/DL (6.4-8.2) Albumin 3.0 G/DL (3.4-5.0) L Globulin 4.2 g/dL Albumin/Globulin Ratio 0.7 (1.0-2.7) L Plan Problems: (1) Elevated d-dimer (2) Pneumonia due to COVID-19 virus (3) Dysphagia (4) Hypernatremia (5) ARF (acute renal failure) (6) COPD exacerbation (7) CHF exacerbation (8) Acute respiratory failure with hypercapnia (9) Breakdown of tracheostomy site Assessment & Plan: trach site still open. slowly healing but requires dressing discussed with patient still wants closure. unfortunately currently respiratory isolation labs noted can consider closure at later date. cont with local wound care of trach will plan closure later Malcolm Craig Sep 14, 2020 16:57
--- NOTE | 2020-09-14 16:59 | History and Physical Report ---
DATE OF ADMISSION: 09/13/2020 CHIEF COMPLAINT: Shortness of breath. HISTORY OF PRESENT ILLNESS: The patient is a 70-year-old male. He has a history of hypertension, COPD, CHF. He has a prior history of tracheostomy and pacemaker presented with complaints of shortness of breath. According the patient, he was well until two days prior to admission when he developed progressive and worsening shortness of breath. He has had a mild nonproductive cough but no fevers or chills. Denies any ill contacts. Because of shortness of breath, he presented to the emergency room. On evaluation there, saturations were normal on 2 liters. His chest x-ray showed grossly chronic changes. His COVID test came back positive though and he is now admitted for further evaluation for possible COVID-19 pneumonia. PAST MEDICAL HISTORY: As above. PAST SURGICAL HISTORY: Includes a prior history of tracheostomy. CURRENT MEDICATIONS: Reconciled and reviewed. ALLERGIES: Include iodine. FAMILY HISTORY: Noncontributory. SOCIAL HISTORY: The patient is a smoker. No alcohol. No drugs. REVIEW OF SYSTEMS: GENERAL: No fevers or chills. HEENT: No headaches or visual changes. CARDIOPULMONARY: No chest pain. Positive shortness of breath. Mild nonproductive cough. GASTROINTESTINAL: No nausea or vomiting. GENITOURINARY: No urgency or frequency. MUSCULOSKELETAL: No joint pain or swelling. NEUROLOGIC: No history of seizures. PHYSICAL EXAMINATION: VITAL SIGNS: Temperature 98, pulse 89, respirations 20, and blood pressure 157/86. GENERAL: The patient is well developed, in no apparent distress. He is awake, alert, and oriented x4. HEENT: Head is normocephalic and atraumatic. Sclerae anicteric. Oropharynx clear. NECK: Supple. HEART: Regular rate and rhythm. LUNGS: Clear to auscultation bilaterally. ABDOMEN: Soft, nontender, nondistended. EXTREMITIES: No clubbing, cyanosis, or edema. NEUROLOGIC: Motor strength is 5/5 bilaterally. Sensation intact bilaterally. LABORATORY AND DIAGNOSTIC DATA: White count 4, hemoglobin 12. Coags are normal. Sodium 138, potassium is 4, creatinine 1.1. Natriuretic peptide level was 4369. Urine was clear. Chest x-ray showed atelectasis at the bases versus pneumonia. ASSESSMENT: This is a 70-year-old male with history of COPD, hypertension, congestive heart failure admitted with complaints of shortness of breath possibly secondary to COVID-19 pneumonia. PLAN: Supplemental oxygen. ID, Cardiology, Pulmonary consultations will be obtained. As needed respiratory treatments. DVT and stress ulcer prophylaxis. Monitor chest x-ray. Monitor renal function and electrolytes. Jimmy Ac M.D. DR: Everette JOB#: [id number] CC:
[2020-09-14] MEDS: Maintenance Dose:Remdesivir 100mg/NS 230ml x 4 Doses IV SCH ×2 (18:17)
[2020-09-14] MEDS: HYDROcodone/Acetamin 10/325 tab ORAL PRN (18:28)
--- NOTE | 2020-09-14 18:46 | NUR ---
NURSE NOTES: Left message on voicemail of Dr. Nico Jo notifying that patient requested sleeping medication.
--- NOTE | 2020-09-14 19:37 | NUR ---
NURSE HAND-OFF REPORT: Important Events on Shift: Placed new IV on right hand as patient dislodged prior IV. Added ambien for sleep. Second bag of remdesivir running. Provided norco for patient c/o pain in hands and legs due to arthritis. Patient Status: Stable Diet: No added salt. Pending Orders: N/A Pending Results/Labs:N./A Pending MD notification:N/A Latest Vital Signs: Temperature 98.1 , Pulse 99 , B/P 145 /78 , Respiratory Rate 20 , O2 SAT 97 , Nasal Cannula, O2 Flow Rate 4.0 . Vital Sign Comment: Stable EKG Rhythm: Sinus Rhythm Rhythm change?: N MD Notified?: - MD Response: Latest Lord Fall Score: 30 Fall Risk: Medium Risk Safety Measures: Call light Within Reach, Bed Alarm , Side Rails Side Rails x2, Bed position Low and Locked. Fall Precautions: Report given to Sabra Foy RN.
--- NOTE | 2020-09-14 19:52 | NUR ---
NURSE NOTES: Received report from LYUDMILA Nixon. Patient is awake on bed, in stable condition with o complaints made at this time. Alert and oriented x 4. panel monitor is in place, shows A-paced with no chest pain reported. On oxygen via nasal cannula @ 4Lpm, sating 96%. Patient can ambulate with steady gait. IV site is on right hand g-22 saline lock that is patent and intact. Safety measures are in place, bed in lowest and locked position, side rails up x 2, call light button and bedside table within reach, instructed to call for any assistance needed. Will continue plan of care.
[2020-09-14 20:00] VITALS: BP 138/81
[2020-09-15] VITALS: BP 146/62
--- NOTE | 2020-09-15 00:53 | Cardiology Progress Note ---
Subjective DATE OF SERVICE: Sep 14, 2020 Says he is less SOB today. c/o insomnia Wants trach site closed. Objective Last 24 Hour Vital Signs Date Time Temp Pulse Resp B/P (MAP) Pulse Ox O2 Delivery O2 Flow Rate FiO2 09/14/20 21:00 Nasal Cannula 4.0 09/14/20 20:00 63 09/14/20 20:00 98.1 97 18 138/81 (100) 97 09/14/20 18:58 98.1 09/14/20 16:00 98.1 94 20 145/78 (100) 97 09/14/20 16:00 99 09/14/20 12:00 72 09/14/20 12:00 99.1 62 18 144/79 (100) 96 09/14/20 09:00 Nasal Cannula 4.0 09/14/20 08:42 157/86 09/14/20 08:00 80 09/14/20 08:00 97.2 89 20 157/86 (109) 99 09/14/20 04:00 62 09/14/20 04:00 97.5 60 20 146/80 (102) 100 ROS: unchanged from my evaluation on 09/13/20. HEENT: normal ENT inspection, other - old trach site not fully closed RHYTHM: NSR, PVCs, other - pacing by demand LUNGS: bilateral rhonchi CARDIAC: systolic murmur - 1/6 systolic murmur at apex ABDOMEN: normal bowel sounds, non tender, no organomegaly EXTREMITIES: normal range of motion, non-tender, normal inspection, no calf tenderness, trace edema Laboratory Tests Test 09/14/20 05:20 White Blood Count 1.6 K/UL (4.8-10.8) #*L Red Blood Count 4.55 M/UL (4.70-6.10) L Hemoglobin 13.0 G/DL (14.2-18.0) L Hematocrit 41.8 % (42.0-52.0) L Mean Corpuscular Volume 92 FL (80-99) Mean Corpuscular Hemoglobin 28.6 PG (27.0-31.0) Mean Corpuscular Hemoglobin Concent 31.1 G/DL (32.0-36.0) L Red Cell Distribution Width 13.9 % (11.6-14.8) Platelet Count 158 K/UL (150-450) Mean Platelet Volume 7.3 FL (6.5-10.1) Neutrophils (%) (Auto) % (45.0-75.0) Lymphocytes (%) (Auto) % (20.0-45.0) Monocytes (%) (Auto) % (1.0-10.0) Eosinophils (%) (Auto) % (0.0-3.0) Basophils (%) (Auto) % (0.0-2.0) Differential Total Cells Counted 100 Neutrophils % (Manual) 45 % (45-75) Lymphocytes % (Manual) 39 % (20-45) Monocytes % (Manual) 16 % (1-10) H Eosinophils % (Manual) 0 % (0-3) Basophils % (Manual) 0 % (0-2) Band Neutrophils 0 % (0-8) Platelet Estimate Adequate Platelet Morphology Normal Red Blood Cell Morphology Normal Sodium Level 142 MMOL/L (136-145) Potassium Level 4.7 MMOL/L (3.5-5.1) Chloride Level 106 MMOL/L (98-107) Carbon Dioxide Level 29 MMOL/L (21-32) Anion Gap 7 mmol/L (5-15) Blood Urea Nitrogen 16 mg/dL (7-18) Creatinine 1.0 MG/DL (0.55-1.30) Estimat Glomerular Filtration Rate > 60 mL/min (>60) Glucose Level 114 MG/DL (74-106) H Calcium Level 8.5 MG/DL (8.5-10.1) Total Bilirubin 0.3 MG/DL (0.2-1.0) Direct Bilirubin 0.2 MG/DL (0.0-0.3) Aspartate Amino Transf (AST/SGOT) 30 U/L (15-37) Alanine Aminotransferase (ALT/SGPT) 23 U/L (12-78) Alkaline Phosphatase 104 U/L (46-116) Total Protein 7.2 G/DL (6.4-8.2) Albumin 3.0 G/DL (3.4-5.0) L Globulin 4.2 g/dL Albumin/Globulin Ratio 0.7 (1.0-2.7) L Microbiology Date/Time Source Procedure Growth Status 09/13/20 07:24 Nasopharynx SARS-CoV-2 RdRp Gene Assay - Final Complete Assessment/Plan Assessment/Plan COVID 19 pneumonia ICD Ischemic and hypertensive cardiomyopathy Hx Vtach Paroxysmal atrial arrhythmias COPD with chronic hypoxia Hx resp failure - s/p trach closure Isolation Remdesivir per ID Steroids Full anticoagulation Hold diuretics Monitor renal function and volume status closely; trend BNP Titrate anti-failure regimen O2 suppl Nico Jo MD Sep 15, 2020 00:53
--- NOTE | 2020-09-15 02:30 | Consultation ---
DATE OF CONSULTATION: 09/13/2020 CARDIOLOGY CONSULTATION CONSULTING PHYSICIAN: Nico Jo M.D. REQUESTING PHYSICIAN: Jimmy Ac M.D. REASON FOR CONSULTATION: COVID-19 pneumonia in the setting of cardiomyopathy with cardiac defibrillator. HISTORY OF PRESENT ILLNESS: This is a 70-year-old male, known to me from prior care. He was actually seen in my office approximately 2 weeks ago for routine followup of his cardiac defibrillator. He presented to the emergency room today with shortness of breath that awoken in the morning and did not improve with an albuterol treatment or his usual oxygen of 2 liters. He did not have any chest pain or shocks from his defibrillator device she feels he may have had some cough without sputum production and fevers over the past 2 days. He is unaware of any exposure to COVID-19, but was tested positive in the emergency room. The patient is compliant with his medications. He has has not had any leg swelling with his current diuretic dosing either. PAST MEDICAL HISTORY: History of tracheostomy and reversal, now with full closure still in process, cardiac defibrillator, paroxysmal atrial fibrillation, paroxysmal ventricular tachycardia, hypertensive and ischemic cardiomyopathy, history of congestive heart failure, COPD, chronic hypoxia. ALLERGIES: Iodine. MEDICATIONS: Reviewed and reconciled. SOCIAL HISTORY: Former smoker 50+ pack years. No alcohol or substance abuse. REVIEW OF SYSTEMS: Subjective fevers were noted. No loss of vision. No earache. No sinus pain. No recent defibrillator shocks. His tracheostomy is slowly closing. He is on 2 liters nasal cannula at home of oxygen. No change in bowel habits noted. He does have chronic kidney disease of mild severity. There is no history of seizure or stroke. There is no known history of diabetes or thyroid impairment. Most recent echocardiogram revealed mildly depressed ejection fraction in the range of 45%. PHYSICAL EXAMINATION: VITAL SIGNS: Blood pressure 152/97, pulse 88, respirations 18, temperature 99.0, oxygen saturation 97% on 4 liters. HEENT: Conjunctivae pink. Oropharynx clear. NECK: Supple. Jugular venous pressure grossly normal. LUNGS: With bilateral rhonchi and rales. CARDIAC: Regular rhythm and rate. Normal S1, S2. A 1/6 systolic murmur at apex. ABDOMEN: Soft. EXTREMITIES: Trace edema. LABORATORY AND DIAGNOSTIC DATA: ABG, 7.43, 40, 89. White count 4.2, hemoglobin 12.1. Lactic acid is less than 1. Urinalysis no active sediment. Natriuretic peptide 4369. Troponin 0.05. Sodium 138, potassium 4, bicarb 30, BUN 16 creatinine 1.1. Chest x-ray reveals bilateral infiltrates, left upper lobe predominantly and EKG reveals sinus rhythm, nonspecific ST changes. IMPRESSION: 1. COVID-19 pneumonia. 2. Hypoxia. 3. COPD with possible exacerbation. 4. Acute on chronic diastolic and systolic congestive heart failure. 5. Cardiac defibrillator. 6. History of atrial and ventricular arrhythmias. 7. History of respiratory failure with tracheostomy, now removed and healing. PLAN: 1. Isolation. 2. Consideration for antiviral therapy. 3. Full anticoagulation. 4. Intravenous steroids. 5. Trend natriuretic peptide assay. 6. Monitor volume status and adjust diuretics and anti-failure regimen accordingly. Nico Jo M.D. DR: RUSSELL JOB#: [id number] CC:
[2020-09-15 04:00] VITALS: BP 141/65
[2020-09-15 04:09] LABS: HEMATOCRIT 41.1 % (42.0-52.0); HEMOGLOBIN 12.9 G/DL (14.2-18.0); MEAN CORPUSCULAR VOLUME 92 FL (80-99); PLATELET COUNT 166 K/UL (150-450); RED BLOOD COUNT 4.45 M/UL (4.70-6.10); WHITE BLOOD COUNT 2.9 K/UL (4.8-10.8)
[2020-09-15 04:30] LABS: ALANINE AMINOTRANSFERASE 20 U/L (12-78); ALBUMIN/GLOBULIN RATIO 0.8 (1.0-2.7); ALKALINE PHOSPHATASE 92 U/L (46-116); ANION GAP 7 mmol/L (5-15); ASPARTATE AMINO TRANSFERASE 27 U/L (15-37); BILIRUBIN,DIRECT < 0.1 MG/DL (0.0-0.3); BILIRUBIN,TOTAL 0.3 MG/DL (0.2-1.0); BLOOD UREA NITROGEN 28 mg/dL (7-18); CALCIUM 8.4 MG/DL (8.5-10.1); CARBON DIOXIDE 29 MMOL/L (21-32); CHLORIDE 105 MMOL/L (98-107); CREATININE 1.2 MG/DL (0.55-1.30); POTASSIUM 3.6 MMOL/L (3.5-5.1); SODIUM 141 MMOL/L (136-145)
--- NOTE | 2020-09-15 07:29 | NUR ---
NURSE HAND-OFF REPORT: Important Events on Shift: Patient has been resting well the whole shift. No complaints of pain, chest pain nor SOB Patient Status: Patient is awake on bed in stable condition. Plan of care endorsed. Diet: No added salt Pending Orders: Sputum GS and CS Pending Results/Labs: CBC, CMP and direct bilirubin results Pending MD notification:none Latest Vital Signs: Temperature 97.8 , Pulse 67 , B/P 141 /65 , Respiratory Rate 17 , O2 SAT 96 , Nasal Cannula, O2 Flow Rate 4.0 . Vital Sign Comment: stable EKG Rhythm: A-Paced Rhythm change?: N MD Notified?: - MD Response: Latest Lord Fall Score: 45 Fall Risk: High Risk Safety Measures: Call light Within Reach, Bed Alarm Zone 1, Side Rails Side Rails x2, Bed position Low and Locked. Fall Precautions: Yellow Socks Yellow Gown Door Sign Patient Fall Education Report given to LYUDMILA Ortiz.
--- NOTE | 2020-09-15 07:30 | NUR ---
NURSE NOTES: Received pt from LYUDMILA Montaño. pt is awake and alert, pt has NC 4Lit, pt is on continues heart monitoring. pt has intact iv access RH 20G SL. no complain of pain at this moment. All needs attended, bed is locked and is in the lowest position, call light within easy reach. will continue to monitor.
--- NOTE | 2020-09-15 07:50 | Pulmonology Progress Note ---
Subjective Allergies: Coded Allergies: IODINE (Verified Allergy, Severe, rash, 01/15/14) Subjective care noted ID reviewed Objective Last 24 Hour Vital Signs Date Time Temp Pulse Resp B/P (MAP) Pulse Ox O2 Delivery O2 Flow Rate FiO2 09/15/20 04:00 60 09/15/20 04:00 97.8 67 17 141/65 (90) 96 09/15/20 00:00 60 09/15/20 00:00 98.0 60 17 146/62 (90) 97 09/14/20 21:00 Nasal Cannula 4.0 09/14/20 20:00 63 09/14/20 20:00 98.1 97 18 138/81 (100) 97 09/14/20 18:58 98.1 09/14/20 16:00 98.1 94 20 145/78 (100) 97 09/14/20 16:00 99 09/14/20 12:00 72 09/14/20 12:00 99.1 62 18 144/79 (100) 96 09/14/20 09:00 Nasal Cannula 4.0 09/14/20 08:42 157/86 09/14/20 08:00 80 09/14/20 08:00 97.2 89 20 157/86 (109) 99 Intake and Output 09/14/20 09/15/20 19:00 07:00 Intake Total 360 ml 360 ml Output Total 1400 ml 700 ml Balance -1040 ml -340 ml Intake Oral 360 ml 360 ml Output Urine Total 1400 ml 700 ml # Voids 2 # Bowel Movements 2 1 Objective deferred due to COVID Microbiology Date/Time Source Procedure Growth Status 09/13/20 07:24 Nasopharynx SARS-CoV-2 RdRp Gene Assay - Final Complete Laboratory Tests 09/15/20 04:00: White Blood Count 2.9#L, Red Blood Count 4.45L, Hemoglobin 12.9L, Hematocrit 41.1L, Mean Corpuscular Volume 92, Mean Corpuscular Hemoglobin 29.0, Mean Corpuscular Hemoglobin Concent 31.4L, Red Cell Distribution Width 14.0, Platelet Count 166, Mean Platelet Volume 8.0, Neutrophils (%) (Auto) , Lymphocytes (%) (Auto) , Monocytes (%) (Auto) , Eosinophils (%) (Auto) , Basophils (%) (Auto) , Sodium Level 141, Potassium Level 3.6, Chloride Level 105, Carbon Dioxide Level 29, Anion Gap 7, Blood Urea Nitrogen 28H, Creatinine 1.2, Estimat Glomerular Filtration Rate > 60, Glucose Level 110H, Calcium Level 8.4L, Total Bilirubin 0.3, Direct Bilirubin < 0.1, Aspartate Amino Transf (AST/SGOT) 27, Alanine Aminotransferase (ALT/SGPT) 20, Alkaline Phosphatase 92, Total Protein 6.9, Albumin 3.0L, Globulin 3.9, Albumin/Globulin Ratio 0.8L Current Medications Medications (Trade) Dose Ordered Sig/Juice Route PRN Reason Start Time Stop Time Status Last Admin Dose Admin Acetaminophen (Tylenol) 650 mg Q6H PRN ORAL For Headache 09/13/20 13:30 10/13/20 13:29 Acetaminophen/ Hydrocodone Bitart ([place]upiter 10/325) 1 tab Q6H PRN ORAL For Pain 09/13/20 13:30 09/20/20 13:29 09/14/20 18:28 Albuterol/ Ipratropium (Combivent Respimat) 1 puff Q6HR INH 09/13/20 14:00 10/13/20 13:59 09/15/20 05:49 Aspirin (ASA) 81 mg DAILY ORAL 09/14/20 09:00 10/29/20 08:59 09/14/20 08:41 Bisacodyl (Dulcolax) 5 mg DAILYPRN PRN ORAL Constipation 09/13/20 13:45 12/12/20 13:44 Dexamethasone (Decadron) 6 mg DAILY ORAL 09/14/20 09:00 09/23/20 09:01 09/14/20 08:41 Docusate Sodium (Colace) 100 mg TWICE A DAY ORAL 09/13/20 18:00 10/13/20 17:59 09/14/20 18:17 Enoxaparin Sodium (Lovenox) 80 mg EVERY 12 HOURS SUBQ 09/13/20 21:00 12/12/20 20:59 09/14/20 21:24 Famotidine (Pepcid) 20 mg BID ORAL 09/13/20 18:00 12/12/20 17:59 09/14/20 18:17 Furosemide (Lasix) 40 mg DAILY IV 09/14/20 09:00 10/14/20 08:59 11/9/20 08:42 Lisinopril (PriniviL) 20 mg DAILY ORAL 09/14/20 09:00 10/14/20 08:59 09/14/20 08:42 Magnesium Hydroxide (Mom) 30 ml DAILYPRN PRN ORAL Constipation 09/13/20 13:30 10/13/20 13:29 Ondansetron HCl (Zofran) 4 mg Q6H PRN IVP Nausea & Vomiting 09/13/20 13:30 10/13/20 13:29 Pravastatin Sodium (Pravachol) 20 mg BEDTIME ORAL 09/13/20 21:00 10/13/20 20:59 09/14/20 21:23 Remdesivir 100 mg/ Sodium Chloride 250 ml @ 250 mls/hr Q24H IV 09/14/20 18:00 09/17/20 18:59 09/14/20 18:17 Spironolactone (Aldactone) 25 mg DAILY ORAL 09/14/20 09:00 10/14/20 08:59 09/14/20 08:41 Zolpidem Tartrate (Ambien) 5 mg HSPRN PRN ORAL Insomnia 09/14/20 19:15 09/21/20 19:14 Assessment/Plan Assessment/Plan IMPRESSION: COVID pneumonia, hypoxemia, COPD, CHF, cardiomyopathy, prior history of tracheostomy, AICD. leukopenia PLAN remdesivir decadron oxygen lovenox monitor labs monitor changes follow up imaging impression, plan, and exam edited and reviewed in detail care discussed with Martín Upton MD Sep 15, 2020 07:50
[2020-09-15 08:00] VITALS: BP 150/79
[2020-09-15] MEDS: Lisinopril 20mg tab ORAL SCH (08:59)
[2020-09-15] MEDS: Aspirin Baby 81mg ORAL SCH (08:59)
[2020-09-15] MEDS: Enoxaparin 80mg Inj SUBQ SCH ×2 (08:59→21:04)
[2020-09-15] MEDS: Spironolactone 25mg tab ORAL SCH (08:59)
[2020-09-15] MEDS: Docusate 100mg cap ORAL SCH ×2 (09:00→17:45)
[2020-09-15] MEDS: HYDROcodone/Acetamin 10/325 tab ORAL PRN ×2 (09:01→17:58)
[2020-09-15 12:00] VITALS: BP 147/68
--- NOTE | 2020-09-15 12:00 | Surgery Progress Note ---
Surgery Progress Note Subjective Additional Comments doing well on covid tx still wants trach site closed which can discussed after d/c local care for now Objective Last 24 Hour Vital Signs Date Time Temp Pulse Resp B/P (MAP) Pulse Ox O2 Delivery O2 Flow Rate FiO2 09/15/20 08:59 150/79 09/15/20 08:00 97.9 60 18 150/79 (102) 97 09/15/20 07:42 60 09/15/20 04:00 60 09/15/20 04:00 97.8 67 17 141/65 (90) 96 09/15/20 00:00 60 09/15/20 00:00 98.0 60 17 146/62 (90) 97 09/14/20 21:00 Nasal Cannula 4.0 09/14/20 20:00 63 09/14/20 20:00 98.1 97 18 138/81 (100) 97 09/14/20 18:58 98.1 09/14/20 16:00 98.1 94 20 145/78 (100) 97 09/14/20 16:00 99 09/14/20 12:00 72 09/14/20 12:00 99.1 62 18 144/79 (100) 96 I&O Intake and Output 09/14/20 09/15/20 19:00 07:00 Intake Total 360 ml 360 ml Output Total 1400 ml 700 ml Balance -1040 ml -340 ml Intake Oral 360 ml 360 ml Output Urine Total 1400 ml 700 ml # Voids 2 # Bowel Movements 2 1 Dressing: saturated Cardiovascular: RSR Respiratory: decreased breath sounds Abdomen: non-tender, present bowel sounds Extremities: no edema, no tenderness, no cyanosis Laboratory Tests Test 09/15/20 04:00 White Blood Count 2.9 K/UL (4.8-10.8) #L Red Blood Count 4.45 M/UL (4.70-6.10) L Hemoglobin 12.9 G/DL (14.2-18.0) L Hematocrit 41.1 % (42.0-52.0) L Mean Corpuscular Volume 92 FL (80-99) Mean Corpuscular Hemoglobin 29.0 PG (27.0-31.0) Mean Corpuscular Hemoglobin Concent 31.4 G/DL (32.0-36.0) L Red Cell Distribution Width 14.0 % (11.6-14.8) Platelet Count 166 K/UL (150-450) Mean Platelet Volume 8.0 FL (6.5-10.1) Neutrophils (%) (Auto) % (45.0-75.0) Lymphocytes (%) (Auto) % (20.0-45.0) Monocytes (%) (Auto) % (1.0-10.0) Eosinophils (%) (Auto) % (0.0-3.0) Basophils (%) (Auto) % (0.0-2.0) Sodium Level 141 MMOL/L (136-145) Potassium Level 3.6 MMOL/L (3.5-5.1) Chloride Level 105 MMOL/L (98-107) Carbon Dioxide Level 29 MMOL/L (21-32) Anion Gap 7 mmol/L (5-15) Blood Urea Nitrogen 28 mg/dL (7-18) H Creatinine 1.2 MG/DL (0.55-1.30) Estimat Glomerular Filtration Rate > 60 mL/min (>60) Glucose Level 110 MG/DL (74-106) H Calcium Level 8.4 MG/DL (8.5-10.1) L Total Bilirubin 0.3 MG/DL (0.2-1.0) Direct Bilirubin < 0.1 MG/DL (0.0-0.3) Aspartate Amino Transf (AST/SGOT) 27 U/L (15-37) Alanine Aminotransferase (ALT/SGPT) 20 U/L (12-78) Alkaline Phosphatase 92 U/L (46-116) Total Protein 6.9 G/DL (6.4-8.2) Albumin 3.0 G/DL (3.4-5.0) L Globulin 3.9 g/dL Albumin/Globulin Ratio 0.8 (1.0-2.7) L Plan Problems: (1) Elevated d-dimer (2) Pneumonia due to COVID-19 virus (3) Dysphagia (4) Hypernatremia (5) ARF (acute renal failure) (6) COPD exacerbation (7) CHF exacerbation (8) Acute respiratory failure with hypercapnia (9) Breakdown of tracheostomy site Assessment & Plan: trach site still open. slowly healing but requires dressing discussed with patient still wants closure. unfortunately currently respiratory isolation labs noted can consider closure at later date. cont with local wound care of trach will plan closure later Malcolm Craig Sep 15, 2020 11:59
--- NOTE | 2020-09-15 14:25 | Infectious Diseases Prog Note ---
Assessment/Plan Assessment/Plan antibiotics : remdesivir A 1. COVID 19 pneumonia on 4 liters O2, 98 % saturation 2. CHF 3. COPD 4. cardiomyopathy P 1. continue remdesivir day 3 2. continue dexamethasone day 3 3. will follow up cultures 4. continue isolation Subjective Constitutional: Denies: fever, chills Respiratory: Reports: shortness of breath - decreased, dry cough - decreased Gastrointestinal/Abdominal: Denies: nausea, vomiting, diarrhea Neurologic: Reports: other - + dizziness Musculoskeletal: Denies: pain Allergies: Coded Allergies: IODINE (Verified Allergy, Severe, rash, 01/15/14) Objective Last 24 Hour Vital Signs Date Time Temp Pulse Resp B/P (MAP) Pulse Ox O2 Delivery O2 Flow Rate FiO2 09/15/20 12:59 98.2 09/15/20 12:00 98.2 79 20 147/68 (94) 98 09/15/20 11:40 82 09/15/20 09:00 Nasal Cannula 4.0 09/15/20 08:59 150/79 09/15/20 08:00 97.9 60 18 150/79 (102) 97 09/15/20 07:42 60 09/15/20 04:00 60 09/15/20 04:00 97.8 67 17 141/65 (90) 96 09/15/20 00:00 60 09/15/20 00:00 98.0 60 17 146/62 (90) 97 09/14/20 21:00 Nasal Cannula 4.0 09/14/20 20:00 63 09/14/20 20:00 98.1 97 18 138/81 (100) 97 09/14/20 18:58 98.1 09/14/20 16:00 98.1 94 20 145/78 (100) 97 09/14/20 16:00 99 Height (Feet): 5 Height (Inches): 2.00 Weight (Pounds): 174 Respiratory/Chest: lungs clear Cardiovascular: normal rate, regular rhythm, no gallop/murmur Abdomen: soft, non tender Extremities: no edema Microbiology Date/Time Source Procedure Growth Status 09/13/20 16:15 Sputum Gram Stain - Final Resulted 09/13/20 16:15 Sputum Sputum Culture Pending Resulted 09/13/20 07:24 Nasopharynx SARS-CoV-2 RdRp Gene Assay - Final Complete Laboratory Tests Test 09/15/20 04:00 White Blood Count 2.9 K/UL (4.8-10.8) #L Red Blood Count 4.45 M/UL (4.70-6.10) L Hemoglobin 12.9 G/DL (14.2-18.0) L Hematocrit 41.1 % (42.0-52.0) L Mean Corpuscular Volume 92 FL (80-99) Mean Corpuscular Hemoglobin 29.0 PG (27.0-31.0) Mean Corpuscular Hemoglobin Concent 31.4 G/DL (32.0-36.0) L Red Cell Distribution Width 14.0 % (11.6-14.8) Platelet Count 166 K/UL (150-450) Mean Platelet Volume 8.0 FL (6.5-10.1) Neutrophils (%) (Auto) % (45.0-75.0) Lymphocytes (%) (Auto) % (20.0-45.0) Monocytes (%) (Auto) % (1.0-10.0) Eosinophils (%) (Auto) % (0.0-3.0) Basophils (%) (Auto) % (0.0-2.0) Sodium Level 141 MMOL/L (136-145) Potassium Level 3.6 MMOL/L (3.5-5.1) Chloride Level 105 MMOL/L (98-107) Carbon Dioxide Level 29 MMOL/L (21-32) Anion Gap 7 mmol/L (5-15) Blood Urea Nitrogen 28 mg/dL (7-18) H Creatinine 1.2 MG/DL (0.55-1.30) Estimat Glomerular Filtration Rate > 60 mL/min (>60) Glucose Level 110 MG/DL (74-106) H Calcium Level 8.4 MG/DL (8.5-10.1) L Total Bilirubin 0.3 MG/DL (0.2-1.0) Direct Bilirubin < 0.1 MG/DL (0.0-0.3) Aspartate Amino Transf (AST/SGOT) 27 U/L (15-37) Alanine Aminotransferase (ALT/SGPT) 20 U/L (12-78) Alkaline Phosphatase 92 U/L (46-116) Total Protein 6.9 G/DL (6.4-8.2) Albumin 3.0 G/DL (3.4-5.0) L Globulin 3.9 g/dL Albumin/Globulin Ratio 0.8 (1.0-2.7) L Current Medications Medications (Trade) Dose Ordered Sig/Juice Route PRN Reason Start Time Stop Time Status Last Admin Dose Admin Acetaminophen (Tylenol) 650 mg Q6H PRN ORAL For Headache 09/13/20 13:30 10/13/20 13:29 09/15/20 12:29 Acetaminophen/ Hydrocodone Bitart ([place] [address]) 1 tab Q6H PRN ORAL For Pain 09/13/20 13:30 09/20/20 13:29 09/15/20 09:01 Albuterol/ Ipratropium (Combivent Respimat) 1 puff Q6HR INH 09/13/20 14:00 10/13/20 13:59 09/15/20 12:09 Aspirin (ASA) 81 mg DAILY ORAL 09/14/20 09:00 10/29/20 08:59 09/15/20 08:59 Bisacodyl (Dulcolax) 5 mg DAILYPRN PRN ORAL Constipation 09/13/20 13:45 12/12/20 13:44 Dexamethasone (Decadron) 6 mg DAILY ORAL 09/14/20 09:00 09/23/20 09:01 09/15/20 08:59 Docusate Sodium (Colace) 100 mg TWICE A DAY ORAL 09/13/20 18:00 10/13/20 17:59 09/15/20 09:00 Enoxaparin Sodium (Lovenox) 80 mg EVERY 12 HOURS SUBQ 09/13/20 21:00 12/12/20 20:59 09/15/20 08:59 Famotidine (Pepcid) 20 mg BID ORAL 09/13/20 18:00 12/12/20 17:59 09/15/20 08:59 Furosemide (Lasix) 40 mg DAILY IV 09/14/20 09:00 10/14/20 08:59 09/15/20 08:59 Lisinopril (PriniviL) 20 mg DAILY ORAL 09/14/20 09:00 10/14/20 08:59 09/15/20 08:59 Magnesium Hydroxide (Mom) 30 ml DAILYPRN PRN ORAL Constipation 09/13/20 13:30 10/13/20 13:29 Ondansetron HCl (Zofran) 4 mg Q6H PRN IVP Nausea & Vomiting 09/13/20 13:30 10/13/20 13:29 Pravastatin Sodium (Pravachol) 20 mg BEDTIME ORAL 09/13/20 21:00 10/13/20 20:59 09/14/20 21:23 Remdesivir 100 mg/ Sodium Chloride 250 ml @ 250 mls/hr Q24H IV 09/14/20 18:00 09/17/20 18:59 09/14/20 18:17 Spironolactone (Aldactone) 25 mg DAILY ORAL 09/14/20 09:00 10/14/20 08:59 09/15/20 08:59 Zolpidem Tartrate (Ambien) 5 mg HSPRN PRN ORAL Insomnia 09/14/20 19:15 09/21/20 19:14 Mireille Xiao MD Sep 15, 2020 14:25
--- NOTE | 2020-09-15 14:37 | General Progress Note ---
Subjective ROS Limited/Unobtainable: No Constitutional: Reports: malaise, weakness HEENT: Reports: no symptoms Cardiovascular: Reports: no symptoms Respiratory: Reports: cough, shortness of breath, wheezing Gastrointestinal/Abdominal: Reports: no symptoms Genitourinary: Reports: no symptoms Neurologic/Psychiatric: Reports: no symptoms Endocrine: Reports: no symptoms Hematologic/Lymphatic: Reports: no symptoms Allergies: Coded Allergies: IODINE (Verified Allergy, Severe, rash, 01/15/14) All Systems: reviewed and negative except above Subjective no complaints. stable sob and cough. no fevers or chills. on remdesivir and steroids ID cards and pulm noted. wbc better. labs reviewed Objective Last 24 Hour Vital Signs Date Time Temp Pulse Resp B/P (MAP) Pulse Ox O2 Delivery O2 Flow Rate FiO2 09/15/20 12:59 98.2 09/15/20 12:00 98.2 79 20 147/68 (94) 98 09/15/20 11:40 82 09/15/20 09:00 Nasal Cannula 4.0 09/15/20 08:59 150/79 09/15/20 08:00 97.9 60 18 150/79 (102) 97 09/15/20 07:42 60 09/15/20 04:00 60 09/15/20 04:00 97.8 67 17 141/65 (90) 96 09/15/20 00:00 60 09/15/20 00:00 98.0 60 17 146/62 (90) 97 09/14/20 21:00 Nasal Cannula 4.0 09/14/20 20:00 63 09/14/20 20:00 98.1 97 18 138/81 (100) 97 09/14/20 18:58 98.1 09/14/20 16:00 98.1 94 20 145/78 (100) 97 09/14/20 16:00 99 Intake and Output 09/14/20 09/15/20 19:00 07:00 Intake Total 360 ml 360 ml Output Total 1400 ml 700 ml Balance -1040 ml -340 ml Intake Oral 360 ml 360 ml Output Urine Total 1400 ml 700 ml # Voids 2 # Bowel Movements 2 1 Laboratory Tests 09/15/20 04:00: White Blood Count 2.9#L, Red Blood Count 4.45L, Hemoglobin 12.9L, Hematocrit 41.1L, Mean Corpuscular Volume 92, Mean Corpuscular Hemoglobin 29.0, Mean Corpuscular Hemoglobin Concent 31.4L, Red Cell Distribution Width 14.0, Platelet Count 166, Mean Platelet Volume 8.0, Neutrophils (%) (Auto) , Lymphocytes (%) (Auto) , Monocytes (%) (Auto) , Eosinophils (%) (Auto) , Basophils (%) (Auto) , Sodium Level 141, Potassium Level 3.6, Chloride Level 105, Carbon Dioxide Level 29, Anion Gap 7, Blood Urea Nitrogen 28H, Creatinine 1.2, Estimat Glomerular Filtration Rate > 60, Glucose Level 110H, Calcium Level 8.4L, Total Bilirubin 0.3, Direct Bilirubin < 0.1, Aspartate Amino Transf (AST/SGOT) 27, Alanine Aminotransferase (ALT/SGPT) 20, Alkaline Phosphatase 92, Total Protein 6.9, Albumin 3.0L, Globulin 3.9, Albumin/Globulin Ratio 0.8L Height (Feet): 5 Height (Inches): 2.00 Weight (Pounds): 174 General Appearance: WD/WN, alert, thin EENT: PERRL/EOMI, normal ENT inspection Neck: non-tender, normal alignment, supple Cardiovascular: normal peripheral pulses, normal rate Respiratory/Chest: chest wall non-tender, lungs clear, normal breath sounds, no respiratory distress, no accessory muscle use Abdomen: normal bowel sounds, non tender, soft, no organomegaly, no mass Extremities: normal range of motion Edema: no edema noted Arm (L), no edema noted Arm (R) Neurologic: molder shoulder pad II-XII grossly normal, alert, responsive Skin: normal pigmentation Lymphatic: normal anterior cervical (L), normal anterior cervical (R) Assessment/Plan Problem List: (1) Breakdown of tracheostomy site ICD Codes: J95.03 - Malfunction of tracheostomy stoma SNOMED: 57699168, 247908033 (2) CHF exacerbation ICD Codes: I50.9 - Heart failure, unspecified SNOMED: 714288461, 25087183705547 (3) COPD exacerbation ICD Codes: J44.1 - COPD exacerbation SNOMED: 121798325 (4) ARF (acute renal failure) ICD Codes: N17.9 - Acute kidney failure, unspecified SNOMED: 21756454 (5) Pneumonia due to COVID-19 virus ICD Codes: U07.1 - COVID-19; J12.89 - Other viral pneumonia SNOMED: 056500704073013213 Status: stable Assessment/Plan: o2 as needed monitor sats resp care iv remdesivir and steroids monitor cxr dvt and stress ulcer prophylaxis cardiac rx isolation Jimmy Ac MD Sep 15, 2020 14:36
--- NOTE | 2020-09-15 15:46 | NUR ---
CASE MANAGEMENT:REVIEW 09/15/20 SI: COVID PNA. DYSPNEA 98.2 79 20 147/68 98% ON 4L/NC WBC-2.9 H/H-12.9/41.1 BUN+28 IS: IV REMDESIVIR Q24 (DAY 3/5) DECADRON PO IV LASIX QD LISINOPRIL PO QD ALDACTONE PO QD ASA PO QD LOVENOX SQ Q12 DUONEB HHN Q6HRS : TELEMETRY STATUS DCP: FROM HOME
[2020-09-15 16:00] VITALS: BP 142/72
--- NOTE | 2020-09-15 16:00 | NUR ---
INSURANCE CLINICALS AND REVIEWS FAXED TO MELIDA GARCIA T: [phone] F: [phone]
[2020-09-15] MEDS: Maintenance Dose:Remdesivir 100mg/NS 230ml x 4 Doses IV SCH ×2 (17:45)
--- NOTE | 2020-09-15 19:04 | NUR ---
NURSE HAND-OFF REPORT: Important Events on Shift: Patient Status: Diet: Pending Orders: Pending Results/Labs: Pending MD notification: Latest Vital Signs: Temperature 97.7 , Pulse 60 , B/P 142 /72 , Respiratory Rate 18 , O2 SAT 97 , Nasal Cannula, O2 Flow Rate 4.0 . Vital Sign Comment: EKG Rhythm: A-Paced Rhythm change?: N MD Notified?: - MD Response: Latest Lord Fall Score: 30 Fall Risk: Medium Risk Safety Measures: Call light Within Reach, Bed Alarm Zone 1, Side Rails Side Rails x2, Bed position Low and Locked. Fall Precautions: Yellow Socks Yellow Gown Door Sign Patient Fall Education Report given to . Pt is awake and stable, no stress noted, endorsed plan of care.
--- NOTE | 2020-09-15 19:30 | NUR ---
NURSE NOTES: Report received from LYUDMILA Ortiz. Patient is awake on bed, alert and oriented x 3. 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 On oxygen via nasal cannula @ 4Lpm sating 96%. Patient has Optifoam on old trach site with no discharges noted nor any signs of infection. On no added salt diet, instructed and amenable. Patient can ambulate but needs assistance. IV site is on right hand g-20 saline lock that is patent and intact. Safety measures are in place, bed in lowest and locked position, bed alarm is on. Side rails up x 2, call light button and bedside table within reach, instructed to call for any assistance needed. Will continue plan of care.
[2020-09-15 20:00] VITALS: BP 143/59
[2020-09-15] MEDS: Zolpidem 5mg tab ORAL PRN (21:03)
[2020-09-16] VITALS: BP 128/56
--- NOTE | 2020-09-16 00:52 | Cardiology Progress Note ---
Subjective DATE OF SERVICE: Sep 15, 2020 Says he is less SOB today. Doesn't want IV diuretics; feels he is urinating too much. Wants trach site closed. O2 sats 97% on 4L Objective Last 24 Hour Vital Signs Date Time Temp Pulse Resp B/P (MAP) Pulse Ox O2 Delivery O2 Flow Rate FiO2 09/16/20 00:00 96.3 60 20 128/56 (80) 99 09/16/20 00:00 60 09/15/20 21:00 Nasal Cannula 4.0 09/15/20 20:00 97.5 61 20 143/59 (87) 97 09/15/20 20:00 60 09/15/20 19:03 97 Nasal Cannula 4.0 32 09/15/20 16:24 60 09/15/20 16:00 97.7 60 18 142/72 (95) 97 09/15/20 12:59 98.2 09/15/20 12:00 98.2 79 20 147/68 (94) 98 09/15/20 11:40 82 09/15/20 09:00 Nasal Cannula 4.0 09/15/20 08:59 150/79 09/15/20 08:00 97.9 60 18 150/79 (102) 97 09/15/20 07:56 98 Nasal Cannula 4.0 32 09/15/20 07:42 60 09/15/20 04:00 60 09/15/20 04:00 97.8 67 17 141/65 (90) 96 ROS: unchanged from my evaluation on 09/13/20. HEENT: normal ENT inspection, other - old trach site not fully closed RHYTHM: NSR, PVCs, other - pacing by demand LUNGS: bilateral rhonchi - fewer CARDIAC: systolic murmur - 1/6 systolic murmur at apex ABDOMEN: normal bowel sounds, non tender, no organomegaly EXTREMITIES: normal range of motion, non-tender, normal inspection, no calf tenderness, trace edema Laboratory Tests Test 09/15/20 04:00 White Blood Count 2.9 K/UL (4.8-10.8) #L Red Blood Count 4.45 M/UL (4.70-6.10) L Hemoglobin 12.9 G/DL (14.2-18.0) L Hematocrit 41.1 % (42.0-52.0) L Mean Corpuscular Volume 92 FL (80-99) Mean Corpuscular Hemoglobin 29.0 PG (27.0-31.0) Mean Corpuscular Hemoglobin Concent 31.4 G/DL (32.0-36.0) L Red Cell Distribution Width 14.0 % (11.6-14.8) Platelet Count 166 K/UL (150-450) Mean Platelet Volume 8.0 FL (6.5-10.1) Neutrophils (%) (Auto) % (45.0-75.0) Lymphocytes (%) (Auto) % (20.0-45.0) Monocytes (%) (Auto) % (1.0-10.0) Eosinophils (%) (Auto) % (0.0-3.0) Basophils (%) (Auto) % (0.0-2.0) Sodium Level 141 MMOL/L (136-145) Potassium Level 3.6 MMOL/L (3.5-5.1) Chloride Level 105 MMOL/L (98-107) Carbon Dioxide Level 29 MMOL/L (21-32) Anion Gap 7 mmol/L (5-15) Blood Urea Nitrogen 28 mg/dL (7-18) H Creatinine 1.2 MG/DL (0.55-1.30) Estimat Glomerular Filtration Rate > 60 mL/min (>60) Glucose Level 110 MG/DL (74-106) H Calcium Level 8.4 MG/DL (8.5-10.1) L Total Bilirubin 0.3 MG/DL (0.2-1.0) Direct Bilirubin < 0.1 MG/DL (0.0-0.3) Aspartate Amino Transf (AST/SGOT) 27 U/L (15-37) Alanine Aminotransferase (ALT/SGPT) 20 U/L (12-78) Alkaline Phosphatase 92 U/L (46-116) Total Protein 6.9 G/DL (6.4-8.2) Albumin 3.0 G/DL (3.4-5.0) L Globulin 3.9 g/dL Albumin/Globulin Ratio 0.8 (1.0-2.7) L Microbiology Date/Time Source Procedure Growth Status 09/13/20 16:15 Sputum Gram Stain - Final Resulted 09/13/20 16:15 Sputum Sputum Culture Pending Resulted 09/13/20 07:24 Nasopharynx SARS-CoV-2 RdRp Gene Assay - Final Complete Assessment/Plan Assessment/Plan COVID 19 pneumonia ICD Ischemic and hypertensive cardiomyopathy Hx Vtach Paroxysmal atrial arrhythmias COPD with chronic hypoxia Hx resp failure - s/p trach closure Leukopenia improved Isolation Remdesivir per ID Steroids Full anticoagulation Transition to oral diuretics; trend BNP Monitor renal function and volume status closely; trend BNP Titrate anti-failure regimen O2 suppl Nico Jo MD Sep 16, 2020 00:52
[2020-09-16 04:00] VITALS: BP 123/54
[2020-09-16 05:45] LABS: HEMATOCRIT 40.9 % (42.0-52.0); HEMOGLOBIN 12.9 G/DL (14.2-18.0); MEAN CORPUSCULAR VOLUME 93 FL (80-99); PLATELET COUNT 169 K/UL (150-450); RED BLOOD COUNT 4.41 M/UL (4.70-6.10); RED CELL DISTRIBUTION WIDTH 13.7 % (11.6-14.8); WHITE BLOOD COUNT 3.2 K/UL (4.8-10.8)
[2020-09-16 06:29] LABS: ALANINE AMINOTRANSFERASE 17 U/L (12-78); ALBUMIN 2.9 G/DL (3.4-5.0); ALBUMIN/GLOBULIN RATIO 0.8 (1.0-2.7); ALKALINE PHOSPHATASE 82 U/L (46-116); ANION GAP 6 mmol/L (5-15); ASPARTATE AMINO TRANSFERASE 23 U/L (15-37); BILIRUBIN,DIRECT < 0.1 MG/DL (0.0-0.3); BILIRUBIN,TOTAL 0.2 MG/DL (0.2-1.0); BLOOD UREA NITROGEN 33 mg/dL (7-18); CALCIUM 8.1 MG/DL (8.5-10.1); CARBON DIOXIDE 30 MMOL/L (21-32); CHLORIDE 107 MMOL/L (98-107); CREATININE 1.2 MG/DL (0.55-1.30); POTASSIUM 2.9 MMOL/L (3.5-5.1); SODIUM 143 MMOL/L (136-145)
--- NOTE | 2020-09-16 07:28 | NUR ---
NURSE HAND-OFF REPORT: Important Events on Shift:Patient has been resting well with no complaints made at this time. Patient Status: Patient is awake on bed, in stable condition. Planof care endorsed. Diet: No added salt Pending Orders: none Pending Results/Labs:Bilirubin, cmp, cbc, mg, Pro BNP result Pending MD notification:none Latest Vital Signs: Temperature 97.7 , Pulse 58 , B/P 123 /54 , Respiratory Rate 20 , O2 SAT 99 , Nasal Cannula, O2 Flow Rate 4.0 . Vital Sign Comment: stable EKG Rhythm: A-Paced Rhythm change?: N MD Notified?: - MD Response: Latest Lord Fall Score: 45 Fall Risk: High Risk Safety Measures: Call light Within Reach, Bed Alarm Zone 1, Side Rails Side Rails x2, Bed position Low and Locked. Fall Precautions: Yellow Socks Yellow Gown Door Sign Patient Fall Education Report given to LYUDMILA Maguire.
--- NOTE | 2020-09-16 07:30 | NUR ---
NURSE NOTES: Notified Dr. Ac regarding K: 2.9 this AM, awaiting call back.
--- NOTE | 2020-09-16 07:48 | NUR ---
RESPIRATORY NOTE: Patient requested to have stoma site cleaned. Cleaned with sterile saline and gauze. Patted dry with gauze and added new clean gauze and reinforced with tape per patients' request. RN aware.
--- NOTE | 2020-09-16 07:50 | NUR ---
NURSE NOTES: Report received from Bernice COREAS. Patient is observed in bed, asleep, but arousable by voice. Respiratory even and unlabored. IV site is asymptomatic, patent, and intact. Bed is in lowest position with side rails up x2 and brakes are engaged. Bed alarm is on. Encouraged pt to use call light when in need of assistance, pt verbalized understanding.
[2020-09-16 08:05] VITALS: BP 144/77
--- NOTE | 2020-09-16 08:30 | NUR ---
NURSE NOTES: Second attempt to contact Dr. Ac/ Dr. Jo regarding potassium level. Left a voicemail, awaiting call back.
[2020-09-16] MEDS: Docusate 100mg cap ORAL SCH ×2 (08:37→17:08)
[2020-09-16] MEDS: Lisinopril 20mg tab ORAL SCH (08:37)
[2020-09-16] MEDS: Aspirin Baby 81mg ORAL SCH (08:37)
[2020-09-16] MEDS: Spironolactone 25mg tab ORAL SCH (08:37)
[2020-09-16] MEDS: Enoxaparin 80mg Inj SUBQ SCH ×2 (08:39→21:17)
[2020-09-16] MEDS ORDERED: Furosemide 40mg tab ORAL SCH (09:00)
[2020-09-16] MEDS: HYDROcodone/Acetamin 10/325 tab ORAL PRN ×2 (09:05→16:24)
--- NOTE | 2020-09-16 10:49 | Infectious Diseases Prog Note ---
Assessment/Plan Assessment/Plan antibiotics : remdesivir A 1. COVID 19 pneumonia on 4 liters O2, 99 % saturation 2. CHF 3. COPD 4. cardiomyopathy P 1. continue remdesivir day 4 2. continue dexamethasone day 4 3. will follow up cultures 4. continue isolation Subjective Constitutional: Denies: fever, chills Respiratory: Reports: shortness of breath - decreased, dry cough - decreased Gastrointestinal/Abdominal: Denies: nausea, vomiting, diarrhea Musculoskeletal: Denies: pain Allergies: Coded Allergies: IODINE (Verified Allergy, Severe, rash, 01/15/14) Objective Last 24 Hour Vital Signs Date Time Temp Pulse Resp B/P (MAP) Pulse Ox O2 Delivery O2 Flow Rate FiO2 09/16/20 09:46 Nasal Cannula 4.0 09/16/20 08:37 144/77 09/16/20 08:05 97.8 77 20 144/77 (99) 99 09/16/20 07:45 79 09/16/20 04:00 97.7 58 20 123/54 (77) 99 09/16/20 04:00 60 09/16/20 00:00 96.3 60 20 128/56 (80) 99 09/16/20 00:00 60 09/15/20 21:00 Nasal Cannula 4.0 09/15/20 20:00 97.5 61 20 143/59 (87) 97 09/15/20 20:00 60 09/15/20 19:03 97 Nasal Cannula 4.0 32 09/15/20 16:24 60 09/15/20 16:00 97.7 60 18 142/72 (95) 97 09/15/20 12:59 98.2 09/15/20 12:00 98.2 79 20 147/68 (94) 98 09/15/20 11:40 82 Height (Feet): 5 Height (Inches): 2.00 Weight (Pounds): 174 Microbiology Date/Time Source Procedure Growth Status 09/13/20 16:15 Sputum Gram Stain - Final Resulted 09/13/20 16:15 Sputum Sputum Culture - Preliminary NORMAL UPPER RESPIRATORY JUAN AT 24 ... Resulted Laboratory Tests Test 09/16/20 04:00 White Blood Count 3.2 K/UL (4.8-10.8) L Red Blood Count 4.41 M/UL (4.70-6.10) L Hemoglobin 12.9 G/DL (14.2-18.0) L Hematocrit 40.9 % (42.0-52.0) L Mean Corpuscular Volume 93 FL (80-99) Mean Corpuscular Hemoglobin 29.2 PG (27.0-31.0) Mean Corpuscular Hemoglobin Concent 31.5 G/DL (32.0-36.0) L Red Cell Distribution Width 13.7 % (11.6-14.8) Platelet Count 169 K/UL (150-450) Mean Platelet Volume 6.2 FL (6.5-10.1) L Neutrophils (%) (Auto) % (45.0-75.0) Lymphocytes (%) (Auto) % (20.0-45.0) Monocytes (%) (Auto) % (1.0-10.0) Eosinophils (%) (Auto) % (0.0-3.0) Basophils (%) (Auto) % (0.0-2.0) Sodium Level 143 MMOL/L (136-145) Potassium Level 2.9 MMOL/L (3.5-5.1) L Chloride Level 107 MMOL/L (98-107) Carbon Dioxide Level 30 MMOL/L (21-32) Anion Gap 6 mmol/L (5-15) Blood Urea Nitrogen 33 mg/dL (7-18) H Creatinine 1.2 MG/DL (0.55-1.30) Estimat Glomerular Filtration Rate > 60 mL/min (>60) Glucose Level 116 MG/DL (74-106) H Calcium Level 8.1 MG/DL (8.5-10.1) L Magnesium Level 2.2 MG/DL (1.8-2.4) Total Bilirubin 0.2 MG/DL (0.2-1.0) Direct Bilirubin < 0.1 MG/DL (0.0-0.3) Aspartate Amino Transf (AST/SGOT) 23 U/L (15-37) Alanine Aminotransferase (ALT/SGPT) 17 U/L (12-78) Alkaline Phosphatase 82 U/L (46-116) Pro-B-Type Natriuretic Peptide 1940 pg/mL (0-125) H Total Protein 6.5 G/DL (6.4-8.2) Albumin 2.9 G/DL (3.4-5.0) L Globulin 3.6 g/dL Albumin/Globulin Ratio 0.8 (1.0-2.7) L Current Medications Medications (Trade) Dose Ordered Sig/Juice Route PRN Reason Start Time Stop Time Status Last Admin Dose Admin Acetaminophen (Tylenol) 650 mg Q6H PRN ORAL For Headache 09/13/20 13:30 10/13/20 13:29 09/15/20 12:29 Acetaminophen/ Hydrocodone Bitart ([place] 10/325) 1 tab Q6H PRN ORAL For Pain 09/13/20 13:30 09/20/20 13:29 09/16/20 09:05 Albuterol/ Ipratropium (Combivent Respimat) 1 puff Q6HR INH 09/13/20 14:00 10/13/20 13:59 09/16/20 05:39 Aspirin (ASA) 81 mg DAILY ORAL 09/14/20 09:00 10/29/20 08:59 09/16/20 08:37 Bisacodyl (Dulcolax) 5 mg DAILYPRN PRN ORAL Constipation 09/13/20 13:45 12/12/20 13:44 Dexamethasone (Decadron) 6 mg DAILY ORAL 09/14/20 09:00 09/23/20 09:01 09/16/20 08:37 Docusate Sodium (Colace) 100 mg TWICE A DAY ORAL 09/13/20 18:00 10/13/20 17:59 09/16/20 08:37 Enoxaparin Sodium (Lovenox) 80 mg EVERY 12 HOURS SUBQ 09/13/20 21:00 12/12/20 20:59 09/16/20 08:39 Famotidine (Pepcid) 20 mg BID ORAL 09/13/20 18:00 12/12/20 17:59 09/16/20 08:37 Furosemide (Lasix) 40 mg DAILY ORAL 09/17/20 09:00 10/17/20 08:59 Lisinopril (PriniviL) 20 mg DAILY ORAL 09/14/20 09:00 10/14/20 08:59 09/16/20 08:37 Magnesium Hydroxide (Mom) 30 ml DAILYPRN PRN ORAL Constipation 09/13/20 13:30 10/13/20 13:29 Ondansetron HCl (Zofran) 4 mg Q6H PRN IVP Nausea & Vomiting 09/13/20 13:30 10/13/20 13:29 Pravastatin Sodium (Pravachol) 20 mg BEDTIME ORAL 09/13/20 21:00 10/13/20 20:59 09/15/20 21:03 Remdesivir 100 mg/ Sodium Chloride 250 ml @ 250 mls/hr Q24H IV 09/14/20 18:00 09/17/20 18:59 09/15/20 17:45 Spironolactone (Aldactone) 25 mg DAILY ORAL 09/14/20 09:00 10/14/20 08:59 09/16/20 08:37 Zolpidem Tartrate (Ambien) 5 mg HSPRN PRN ORAL Insomnia 09/14/20 19:15 09/21/20 19:14 09/15/20 21:03 Mireille Xiao MD Sep 16, 2020 10:49
[2020-09-16 11:36] VITALS: BP 143/61
--- NOTE | 2020-09-16 12:33 | NUR ---
NURSE NOTES: Third attempt made to contact Dr. Ac and Dr. Jo regarding K level. Awaiting call back.
--- NOTE | 2020-09-16 13:25 | NUR ---
NURSE NOTES: Patient is observed in bed, awake, alert, oriented, and able to make needs known. Respiratory even and unlabored. Denies pain at this time. Will continue frequent monitoring.
--- NOTE | 2020-09-16 13:55 | Pulmonology Progress Note ---
Subjective ROS Limited/Unobtainable: No Constitutional: Denies: fever, chills Gastrointestinal/Abdominal: Denies: nausea, vomiting, diarrhea Musculoskeletal: Denies: pain Allergies: Coded Allergies: IODINE (Verified Allergy, Severe, rash, 01/15/14) All Systems: reviewed and negative except above Subjective care noted ID reviewed Objective Last 24 Hour Vital Signs Date Time Temp Pulse Resp B/P (MAP) Pulse Ox O2 Delivery O2 Flow Rate FiO2 09/16/20 11:42 79 09/16/20 11:36 97.9 60 20 143/61 (88) 99 09/16/20 09:46 Nasal Cannula 4.0 09/16/20 08:37 144/77 09/16/20 08:05 97.8 77 20 144/77 (99) 99 09/16/20 07:45 79 09/16/20 07:42 96 Nasal Cannula 4.0 32 09/16/20 04:00 97.7 58 20 123/54 (77) 99 09/16/20 04:00 60 09/16/20 00:00 96.3 60 20 128/56 (80) 99 09/16/20 00:00 60 09/15/20 21:00 Nasal Cannula 4.0 09/15/20 20:00 97.5 61 20 143/59 (87) 97 09/15/20 20:00 60 09/15/20 19:03 97 Nasal Cannula 4.0 32 09/15/20 16:24 60 09/15/20 16:00 97.7 60 18 142/72 (95) 97 Intake and Output 09/15/20 09/16/20 19:00 07:00 Intake Total 610 ml 900 ml Output Total 1150 ml 700 ml Balance -540 ml 200 ml Intake Oral 360 ml 900 ml IV Total 250 ml Output Urine Total 1150 ml 700 ml # Voids 4 # Bowel Movements 1 Objective deferred due to COVID Microbiology Date/Time Source Procedure Growth Status 09/13/20 16:15 Sputum Gram Stain - Final Resulted 09/13/20 16:15 Sputum Sputum Culture - Preliminary NORMAL UPPER RESPIRATORY JUAN AT 24 ... Resulted Laboratory Tests 09/16/20 04:00: White Blood Count 3.2L, Red Blood Count 4.41L, Hemoglobin 12.9L, Hematocrit 40.9L, Mean Corpuscular Volume 93, Mean Corpuscular Hemoglobin 29.2, Mean Corpu scular Hemoglobin Concent 31.5L, Red Cell Distribution Width 13.7, Platelet Count 169, Mean Platelet Volume 6.2L, Neutrophils (%) (Auto) , Lymphocytes (%) (Auto) , Monocytes (%) (Auto) , Eosinophils (%) (Auto) , Basophils (%) (Auto) , Sodium Level 143, Potassium Level 2.9L, Chloride Level 107, Carbon Dioxide Level 30, Anion Gap 6, Blood Urea Nitrogen 33H, Creatinine 1.2, Estimat Glomerular Filtration Rate > 60, Glucose Level 116H, Calcium Level 8.1L, Magnesium Level 2.2, Total Bilirubin 0.2, Direct Bilirubin < 0.1, Aspartate Amino Transf (AST/SGOT) 23, Alanine Aminotransferase (ALT/SGPT) 17, Alkaline Phosphatase 82, Pro-B-Type Natriuretic Peptide 1940H, Total Protein 6.5, Albumin 2.9L, Globulin 3.6, Albumin/Globulin Ratio 0.8L Current Medications Medications (Trade) Dose Ordered Sig/Juice Route PRN Reason Start Time Stop Time Status Last Admin Dose Admin Acetaminophen (Tylenol) 650 mg Q6H PRN ORAL For Headache 09/13/20 13:30 10/13/20 13:29 09/15/20 12:29 Acetaminophen/ Hydrocodone Bitart ([place] 10) 1 tab Q6H PRN ORAL For Pain 09/13/20 13:30 09/20/20 13:29 09/16/20 09:05 Albuterol/ Ipratropium (Combivent Respimat) 1 puff Q6HR INH 09/13/20 14:00 10/13/20 13:59 09/16/20 11:34 Aspirin (ASA) 81 mg DAILY ORAL 09/14/20 09:00 10/29/20 08:59 09/16/20 08:37 Bisacodyl (Dulcolax) 5 mg DAILYPRN PRN ORAL Constipation 09/13/20 13:45 12/12/20 13:44 Dexamethasone (Decadron) 6 mg DAILY ORAL 09/14/20 09:00 09/23/20 09:01 09/16/20 08:37 Docusate Sodium (Colace) 100 mg TWICE A DAY ORAL 09/13/20 18:00 10/13/20 17:59 09/16/20 08:37 Enoxaparin Sodium (Lovenox) 80 mg EVERY 12 HOURS SUBQ 09/13/20 21:00 12/12/20 20:59 09/16/20 08:39 Famotidine (Pepcid) 20 mg BID ORAL 09/13/20 18:00 12/12/20 17:59 09/16/20 08:37 Furosemide (Lasix) 40 mg DAILY ORAL 09/17/20 09:00 10/17/20 08:59 Lisinopril (PriniviL) 20 mg DAILY ORAL 09/14/20 09:00 10/14/20 08:59 09/16/20 08:37 Magnesium Hydroxide (Mom) 30 ml DAILYPRN PRN ORAL Constipation 09/13/20 13:30 10/13/20 13:29 Ondansetron HCl (Zofran) 4 mg Q6H PRN IVP Nausea & Vomiting 09/13/20 13:30 10/13/20 13:29 Pravastatin Sodium (Pravachol) 20 mg BEDTIME ORAL 09/13/20 21:00 10/13/20 20:59 09/15/20 21:03 Remdesivir 100 mg/ Sodium Chloride 250 ml @ 250 mls/hr Q24H IV 09/14/20 18:00 09/17/20 18:59 09/15/20 17:45 Spironolactone (Aldactone) 25 mg DAILY ORAL 09/14/20 09:00 10/14/20 08:59 09/16/20 08:37 Zolpidem Tartrate (Ambien) 5 mg HSPRN PRN ORAL Insomnia 09/14/20 19:15 09/21/20 19:14 09/15/20 21:03 Assessment/Plan Assessment/Plan IMPRESSION: COVID pneumonia, hypoxemia, COPD, CHF, cardiomyopathy, prior history of tracheostomy, AICD. leukopenia PLAN remdesivir decadron oxygen lovenox monitor labs monitor changes follow up imaging in am impression, plan, and exam edited and reviewed in detail care discussed with Martín Upton MD Sep 16, 2020 13:55
--- NOTE | 2020-09-16 14:18 | General Progress Note ---
Subjective ROS Limited/Unobtainable: No Constitutional: Reports: malaise, weakness HEENT: Reports: no symptoms Cardiovascular: Reports: no symptoms Respiratory: Reports: cough, shortness of breath Gastrointestinal/Abdominal: Reports: no symptoms Genitourinary: Reports: no symptoms Neurologic/Psychiatric: Reports: no symptoms Endocrine: Reports: no symptoms Hematologic/Lymphatic: Reports: no symptoms Allergies: Coded Allergies: IODINE (Verified Allergy, Severe, rash, 01/15/14) All Systems: reviewed and negative except above Subjective no complaints. stable sob and cough. no fevers or chills. on remdesivir and steroids ID cards and pulm noted. low k noted on labs. Objective Last 24 Hour Vital Signs Date Time Temp Pulse Resp B/P (MAP) Pulse Ox O2 Delivery O2 Flow Rate FiO2 09/16/20 11:42 79 09/16/20 11:36 97.9 60 20 143/61 (88) 99 09/16/20 09:46 Nasal Cannula 4.0 09/16/20 08:37 144/77 09/16/20 08:05 97.8 77 20 144/77 (99) 99 09/16/20 07:45 79 09/16/20 07:42 96 Nasal Cannula 4.0 32 09/16/20 04:00 97.7 58 20 123/54 (77) 99 09/16/20 04:00 60 09/16/20 00:00 96.3 60 20 128/56 (80) 99 09/16/20 00:00 60 09/15/20 21:00 Nasal Cannula 4.0 09/15/20 20:00 97.5 61 20 143/59 (87) 97 09/15/20 20:00 60 09/15/20 19:03 97 Nasal Cannula 4.0 32 09/15/20 16:24 60 09/15/20 16:00 97.7 60 18 142/72 (95) 97 Intake and Output 09/15/20 09/16/20 19:00 07:00 Intake Total 610 ml 900 ml Output Total 1150 ml 700 ml Balance -540 ml 200 ml Intake Oral 360 ml 900 ml IV Total 250 ml Output Urine Total 1150 ml 700 ml # Voids 4 # Bowel Movements 1 Laboratory Tests 09/16/20 04:00: White Blood Count 3.2L, Red Blood Count 4.41L, Hemoglobin 12.9L, Hematocrit 40.9 L, Mean Corpuscular Volume 93, Mean Corpuscular Hemoglobin 29.2, Mean Corpuscular Hemoglobin Concent 31.5L, Red Cell Distribution Width 13.7, Platelet Count 169, Mean Platelet Volume 6.2L, Neutrophils (%) (Auto) , Lymphocytes (%) (Auto) , Monocytes (%) (Auto) , Eosinophils (%) (Auto) , Basophils (%) (Auto) , Sodium Level 143, Potassium Level 2.9L, Chloride Level 107, Carbon Dioxide Level 30, Anion Gap 6, Blood Urea Nitrogen 33H, Creatinine 1.2, Estimat Glomerular Filtration Rate > 60, Glucose Level 116H, Calcium Level 8.1L, Magnesium Level 2.2, Total Bilirubin 0.2, Direct Bilirubin < 0.1, Aspartate Amino Transf (AST/SGOT) 23, Alanine Aminotransferase (ALT/SGPT) 17, Alkaline Phosphatase 82, Pro-B-Type Natriuretic Peptide 1940H, Total Protein 6.5, Albumin 2.9L, Globulin 3.6, Albumin/Globulin Ratio 0.8L Height (Feet): 5 Height (Inches): 2.00 Weight (Pounds): 174 Objective General Appearance: WD/WN, alert, thin EENT: PERRL/EOMI, normal ENT inspection Neck: non-tender, normal alignment, supple Cardiovascular: normal peripheral pulses, normal rate Respiratory/Chest: chest wall non-tender, lungs clear, normal breath sounds, no respiratory distress, no accessory muscle use Abdomen: normal bowel sounds, non tender, soft, no organomegaly, no mass Extremities: normal range of motion Edema: no edema noted Arm (L), no edema noted Arm (R) Neurologic: statistical typist II-XII grossly normal, alert, responsive Skin: normal pigmentation Lymphatic: normal anterior cervical (L), normal anterior cervical (R) Assessment/Plan Problem List: (1) Breakdown of tracheostomy site ICD Codes: J95.03 - Malfunction of tracheostomy stoma SNOMED: 43811531, 729944378 (2) CHF exacerbation ICD Codes: I50.9 - Heart failure, unspecified SNOMED: 003620751, [id number] (3) COPD exacerbation ICD Codes: J44.1 - COPD exacerbation SNOMED: 042947245 (4) ARF (acute renal failure) ICD Codes: N17.9 - Acute kidney failure, unspecified SNOMED: 98845542 (5) Pneumonia due to COVID-19 virus ICD Codes: U07.1 - COVID-19; J12.89 - Other viral pneumonia SNOMED: 021469417397384145 Status: stable Assessment/Plan: o2 as needed monitor sats resp care iv remdesivir and steroids replace k monitor cxr dvt and stress ulcer prophylaxis cardiac rx isolation Jimmy Ac MD Sep 16, 2020 14:18
[2020-09-16] MEDS ORDERED: ACETAMINOPHEN500 M3 ORAL (15:03)
[2020-09-16] MEDS ORDERED: DICLOFENAC SODI75 MG ORAL (15:03)
[2020-09-16] MEDS ORDERED: ALBUTEROL2.5 MG/3 M INH (15:03)
[2020-09-16] MEDS ORDERED: VITAMIN C500 M1 ORAL (15:03)
[2020-09-16] MEDS ORDERED: CLOPIDOGREL75 MG ORAL (15:03)
[2020-09-16] MEDS ORDERED: VOLTAREN100 G1 TP (15:03)
[2020-09-16] MEDS ORDERED: OYSTER SHELL C500 MG PO (15:03)
[2020-09-16] MEDS ORDERED: FERROUS SULFAT325 MG ORAL (15:03)
[2020-09-16] MEDS ORDERED: VITAMIN D350 MCG PO (15:03)
[2020-09-16] MEDS ORDERED: IPRAT-ALBUT 0.5-3 ML IH (15:03)
[2020-09-16] MEDS ORDERED: FAMOTIDINE20 MG ORAL (15:03)
[2020-09-16] MEDS ORDERED: VITAMIN B COMP1 EAC2 ORAL (15:03)
--- NOTE | 2020-09-16 15:05 | NUR ---
CASE MANAGEMENT:REVIEW 09/16/20 SI: COVID PNA. DYSPNEA 97.9 60 20 143/61 99% ON 4L/NC WBC-3.2 K-2.9 BUN+33 BNP+1940 IS: IV REMDESIVIR Q24 (DAY 4/5) DECADRON PO LASIX PO QD LISINOPRIL PO QD ALDACTONE PO QD ASA PO QD LOVENOX SQ Q12 DUONEB HHN Q6HRS : TELEMETRY STATUS DCP: FROM HOME
--- NOTE | 2020-09-16 15:31 | Surgery Progress Note ---
Surgery Progress Note Subjective Additional Comments no acute events labs noted exam stable Objective Last 24 Hour Vital Signs Date Time Temp Pulse Resp B/P (MAP) Pulse Ox O2 Delivery O2 Flow Rate FiO2 09/16/20 11:42 79 09/16/20 11:36 97.9 60 20 143/61 (88) 99 09/16/20 09:46 Nasal Cannula 4.0 09/16/20 08:37 144/77 09/16/20 08:05 97.8 77 20 144/77 (99) 99 09/16/20 07:45 79 09/16/20 07:42 96 Nasal Cannula 4.0 32 09/16/20 04:00 97.7 58 20 123/54 (77) 99 09/16/20 04:00 60 09/16/20 00:00 96.3 60 20 128/56 (80) 99 09/16/20 00:00 60 09/15/20 21:00 Nasal Cannula 4.0 09/15/20 20:00 97.5 61 20 143/59 (87) 97 09/15/20 20:00 60 09/15/20 19:03 97 Nasal Cannula 4.0 32 09/15/20 16:24 60 09/15/20 16:00 97.7 60 18 142/72 (95) 97 I&O Intake and Output 09/15/20 09/16/20 19:00 07:00 Intake Total 610 ml 900 ml Output Total 1150 ml 700 ml Balance -540 ml 200 ml Intake Oral 360 ml 900 ml IV Total 250 ml Output Urine Total 1150 ml 700 ml # Voids 4 # Bowel Movements 1 Dressing: dry Wound: clean Cardiovascular: RSR Respiratory: clear Abdomen: soft, non-tender, present bowel sounds Extremities: no edema, no tenderness, no cyanosis Laboratory Tests Test 09/16/20 04:00 White Blood Count 3.2 K/UL (4.8-10.8) L Red Blood Count 4.41 M/UL (4.70-6.10) L Hemoglobin 12.9 G/DL (14.2-18.0) L Hematocrit 40.9 % (42.0-52.0) L Mean Corpuscular Volume 93 FL (80-99) Mean Corpuscular Hemoglobin 29.2 PG (27.0-31.0) Mean Corpuscular Hemoglobin Concent 31.5 G/DL (32.0-36.0) L Red Cell Distribution Width 13.7 % (11.6-14.8) Platelet Count 169 K/UL (150-450) Mean Platelet Volume 6.2 FL (6.5-10.1) L Neutrophils (%) (Auto) % (45.0-75.0) Lymphocytes (%) (Auto) % (20.0-45.0) Monocytes (%) (Auto) % (1.0-10.0) Eosinophils (%) (Auto) % (0.0-3.0) Basophils (%) (Auto) % (0.0-2.0) Sodium Level 143 MMOL/L (136-145) Potassium Level 2.9 MMOL/L (3.5-5.1) L Chloride Level 107 MMOL/L (98-107) Carbon Dioxide Level 30 MMOL/L (21-32) Anion Gap 6 mmol/L (5-15) Blood Urea Nitrogen 33 mg/dL (7-18) H Creatinine 1.2 MG/DL (0.55-1.30) Estimat Glomerular Filtration Rate > 60 mL/min (>60) Glucose Level 116 MG/DL (74-106) H Calcium Level 8.1 MG/DL (8.5-10.1) L Magnesium Level 2.2 MG/DL (1.8-2.4) Total Bilirubin 0.2 MG/DL (0.2-1.0) Direct Bilirubin < 0.1 MG/DL (0.0-0.3) Aspartate Amino Transf (AST/SGOT) 23 U/L (15-37) Alanine Aminotransferase (ALT/SGPT) 17 U/L (12-78) Alkaline Phosphatase 82 U/L (46-116) Pro-B-Type Natriuretic Peptide 1940 pg/mL (0-125) H Total Protein 6.5 G/DL (6.4-8.2) Albumin 2.9 G/DL (3.4-5.0) L Globulin 3.6 g/dL Albumin/Globulin Ratio 0.8 (1.0-2.7) L Plan Problems: (1) Elevated d-dimer (2) Pneumonia due to COVID-19 virus (3) Dysphagia (4) Hypernatremia (5) ARF (acute renal failure) (6) COPD exacerbation (7) CHF exacerbation (8) Acute respiratory failure with hypercapnia (9) Breakdown of tracheostomy site Assessment & Plan: trach site still open. slowly healing but requires dressing discussed with patient still wants closure. unfortunately currently respiratory isolation labs noted can consider closure at later date. cont with local wound care of trach will plan closure later Malcolm Craig Sep 16, 2020 15:31
[2020-09-16 16:00] VITALS: BP 134/52
--- NOTE | 2020-09-16 16:12 | NUR ---
NURSE NOTES: Patient states, "I want my to get tested and admitted in the same room as me." Re-educating patient multiple times that his is not in this floor and his request cannot be granted due to safety of the patient and , however, patient still persists. conductor freight also talked to the patient.
[2020-09-16 16:41] LABS: ALBUMIN 3.1 G/DL (3.4-5.0); ALBUMIN/GLOBULIN RATIO 0.9 (1.0-2.7); BILIRUBIN,TOTAL 0.2 MG/DL (0.2-1.0); CALCIUM 8.1 MG/DL (8.5-10.1); CREATININE 1.3 MG/DL (0.55-1.30); POTASSIUM 3.2 MMOL/L (3.5-5.1)
[2020-09-16] MEDS: Maintenance Dose:Remdesivir 100mg/NS 230ml x 4 Doses IV SCH ×2 (18:10)
--- NOTE | 2020-09-16 19:21 | NUR ---
NURSE HAND-OFF REPORT: Important Events on Shift: Patient Status: stable condition Diet: no added salt Pending Orders: [] Pending Results/Labs:[] Pending MD notification:[] Latest Vital Signs: Temperature 97.0 , Pulse 60 , B/P 134 /52 , Respiratory Rate 20 , O2 SAT 99 , Nasal Cannula, O2 Flow Rate 4.0 . Vital Sign Comment: [] EKG Rhythm: A-Paced Rhythm change?: N MD Notified?: - MD Response: Latest Lord Fall Score: 45 Fall Risk: High Risk Safety Measures: Call light Within Reach, Bed Alarm Zone 1, Side Rails Side Rails x2, Bed position Low and Locked. Fall Precautions: Yellow Socks Yellow Gown Door Sign Patient Fall Education Report given to [Galilea COREAS].
--- NOTE | 2020-09-16 19:24 | Cardiology Progress Note ---
Subjective DATE OF SERVICE: Sep 16, 2020 Says he is not SOB at rest. IV diuretics held yesterday. Wants trach site closed; advised that it will continue slowly recovering. O2 sats 97% on 4L Objective Last 24 Hour Vital Signs Date Time Temp Pulse Resp B/P (MAP) Pulse Ox O2 Delivery O2 Flow Rate FiO2 09/16/20 16:00 97.0 60 20 134/52 (79) 99 09/16/20 15:13 60 09/16/20 11:42 79 09/16/20 11:36 97.9 60 20 143/61 (88) 99 09/16/20 09:46 Nasal Cannula 4.0 09/16/20 08:37 144/77 09/16/20 08:05 97.8 77 20 144/77 (99) 99 09/16/20 07:45 79 09/16/20 07:42 96 Nasal Cannula 4.0 32 09/16/20 04:00 97.7 58 20 123/54 (77) 99 09/16/20 04:00 60 09/16/20 00:00 96.3 60 20 128/56 (80) 99 09/16/20 00:00 60 09/15/20 21:00 Nasal Cannula 4.0 09/15/20 20:00 97.5 61 20 143/59 (87) 97 09/15/20 20:00 60 ROS: unchanged from my evaluation on 09/13/20. HEENT: normal ENT inspection, other - old trach site not fully closed RHYTHM: NSR, PVCs, other - pacing by demand LUNGS: bilateral rhonchi - fewer CARDIAC: systolic murmur - 1/6 systolic murmur at apex ABDOMEN: normal bowel sounds, non tender, no organomegaly EXTREMITIES: normal range of motion, non-tender, normal inspection, no calf tenderness, trace edema Laboratory Tests Test 09/16/20 04:00 09/16/20 15:30 White Blood Count 3.2 K/UL (4.8-10.8) L Red Blood Count 4.41 M/UL (4.70-6.10) L Hemoglobin 12.9 G/DL (14.2-18.0) L Hematocrit 40.9 % (42.0-52.0) L Mean Corpuscular Volume 93 FL (80-99) Mean Corpuscular Hemoglobin 29.2 PG (27.0-31.0) Mean Corpuscular Hemoglobin Concent 31.5 G/DL (32.0-36.0) L Red Cell Distribution Width 13.7 % (11.6-14.8) Platelet Count 169 K/UL (150-450) Mean Platelet Volume 6.2 FL (6.5-10.1) L Neutrophils (%) (Auto) % (45.0-75.0) Lymphocytes (%) (Auto) % (20.0-45.0) Monocytes (%) (Auto) % (1.0-10.0) Eosinophils (%) (Auto) % (0.0-3.0) Basophils (%) (Auto) % (0.0-2.0) Sodium Level 143 MMOL/L (136-145) 143 MMOL/L (136-145) Potassium Level 2.9 MMOL/L (3.5-5.1) L 3.2 MMOL/L (3.5-5.1) L Chloride Level 107 MMOL/L (98-107) 105 MMOL/L (98-107) Carbon Dioxide Level 30 MMOL/L (21-32) 29 MMOL/L (21-32) Anion Gap 6 mmol/L (5-15) 9 mmol/L (5-15) Blood Urea Nitrogen 33 mg/dL (7-18) H 36 mg/dL (7-18) H Creatinine 1.2 MG/DL (0.55-1.30) 1.3 MG/DL (0.55-1.30) Estimat Glomerular Filtration Rate > 60 mL/min (>60) 54.7 mL/min (>60) Glucose Level 116 MG/DL (74-106) H 160 MG/DL (74-106) H Calcium Level 8.1 MG/DL (8.5-10.1) L 8.1 MG/DL (8.5-10.1) L Magnesium Level 2.2 MG/DL (1.8-2.4) Total Bilirubin 0.2 MG/DL (0.2-1.0) 0.2 MG/DL (0.2-1.0) Direct Bilirubin < 0.1 MG/DL (0.0-0.3) Aspartate Amino Transf (AST/SGOT) 23 U/L (15-37) 25 U/L (15-37) Alanine Aminotransferase (ALT/SGPT) 17 U/L (12-78) 24 U/L (12-78) Alkaline Phosphatase 82 U/L (46-116) 81 U/L (46-116) Pro-B-Type Natriuretic Peptide 1940 pg/mL (0-125) H Total Protein 6.5 G/DL (6.4-8.2) 6.6 G/DL (6.4-8.2) Albumin 2.9 G/DL (3.4-5.0) L 3.1 G/DL (3.4-5.0) L Globulin 3.6 g/dL 3.5 g/dL Albumin/Globulin Ratio 0.8 (1.0-2.7) L 0.9 (1.0-2.7) L Assessment/Plan Assessment/Plan COVID 19 pneumonia ICD Ischemic and hypertensive cardiomyopathy Hx Vtach Paroxysmal atrial arrhythmias COPD with chronic hypoxia Hx resp failure - s/p trach closure Leukopenia improving Hypokalemia Ac/chronic systolic and diastolic CHF improved; BNP decreased from 4900 to 1900. Isolation Remdesivir per ID day #5 Steroids Replace lytes Full anticoagulation Transitioned to oral diuretics. Monitor renal function and volume status closely; trend BNP Titrate anti-failure regimen as needed. O2 suppl Nico Jo MD Sep 16, 2020 19:24
--- NOTE | 2020-09-16 19:50 | NUR ---
NURSE NOTES: Received pt from LYUDMILA Maguire. Pt awake, alert, and talkative. Bed in lowest position. Call light within reach. Will continue to monitor.
[2020-09-16 20:00] VITALS: BP 133/58
[2020-09-16] MEDS ORDERED: NS 275ml ONE (21:46)
[2020-09-16] MEDS ORDERED: Tubing IV Secondary IV ONE (21:46)
[2020-09-17] VITALS: BP 140/61
[2020-09-17] MEDS: Zolpidem 5mg tab ORAL PRN (01:05)
[2020-09-17] MEDS: HYDROcodone/Acetamin 10/325 tab ORAL PRN ×3 (02:16→22:16)
[2020-09-17 04:00] VITALS: BP 139/71
--- NOTE | 2020-09-17 07:13 | NUR ---
NURSE HAND-OFF REPORT: Important Events on Shift: pt had several episodes of not being able to breathe, inhaler at bedside helped him Patient Status: stable Diet: no added salt Pending Orders: y Pending Results/Labs:y Pending notification:y Latest Vital Signs: Temperature 97.5 , Pulse 75 , B/P 139 /71 , Respiratory Rate 20 , O2 SAT 95 , Nasal Cannula, O2 Flow Rate 2.0 . Vital Sign Comment: EKG Rhythm: A-Paced Rhythm change?: N MD Notified?: - MD Response: Latest Lord Fall Score: 45 Fall Risk: High Risk Safety Measures: Call light Within Reach, Bed Alarm Zone 1, Side Rails Side Rails x2, Bed position Low and Locked. Fall Precautions: Yellow Socks Yellow Gown Door Sign Patient Fall Education Report given to LYUDMILA Still
[2020-09-17 07:49] LABS: HEMATOCRIT 41.1 % (42.0-52.0); HEMOGLOBIN 12.7 G/DL (14.2-18.0); MEAN CORPUSCULAR VOLUME 93 FL (80-99); PLATELET COUNT 190 K/UL (150-450); RED BLOOD COUNT 4.41 M/UL (4.70-6.10); RED CELL DISTRIBUTION WIDTH 13.9 % (11.6-14.8)
[2020-09-17 08:00] VITALS: BP 117/43
[2020-09-17 08:14] LABS: ALANINE AMINOTRANSFERASE 23 U/L (12-78); ALBUMIN 2.9 G/DL (3.4-5.0); ALBUMIN/GLOBULIN RATIO 0.8 (1.0-2.7); ALKALINE PHOSPHATASE 74 U/L (46-116); ANION GAP 7 mmol/L (5-15); ASPARTATE AMINO TRANSFERASE 26 U/L (15-37); BILIRUBIN,DIRECT 0.1 MG/DL (0.0-0.3); BILIRUBIN,TOTAL 0.2 MG/DL (0.2-1.0); BLOOD UREA NITROGEN 31 mg/dL (7-18); CARBON DIOXIDE 29 MMOL/L (21-32); CHLORIDE 109 MMOL/L (98-107); CREATININE 1.1 MG/DL (0.55-1.30); POTASSIUM 3.1 MMOL/L (3.5-5.1); SODIUM 145 MMOL/L (136-145)
--- NOTE | 2020-09-17 08:17 | NUR ---
NURSE NOTES: The patient was seen in bed AxO x3 with 2L of nasal cannula and no dyspnea noted. The patients bed was placed in the lowest position, bed alarm was activated and side rails were utilized x 3.
[2020-09-17] MEDS: Pseudoephedrine 30mg tab ORAL SCH (08:33)
[2020-09-17] MEDS: Lisinopril 20mg tab ORAL SCH (08:34)
[2020-09-17] MEDS: Aspirin Baby 81mg ORAL SCH (08:35)
[2020-09-17] MEDS: Spironolactone 25mg tab ORAL SCH (08:36)
[2020-09-17] MEDS: Docusate 100mg cap ORAL SCH ×2 (08:36→18:01)
[2020-09-17] MEDS: Enoxaparin 80mg Inj SUBQ SCH ×2 (08:39→22:18)
[2020-09-17] MEDS: Furosemide 40mg tab ORAL SCH (08:54)
--- NOTE | 2020-09-17 10:04 | Pulmonology Progress Note ---
Subjective ROS Limited/Unobtainable: No Constitutional: Denies: fever, chills Gastrointestinal/Abdominal: Denies: nausea, vomiting, diarrhea Musculoskeletal: Denies: pain Allergies: Coded Allergies: IODINE (Verified Allergy, Severe, rash, 01/15/14) All Systems: reviewed and negative except above Subjective care noted ID reviewed awaiting CXR Objective Last 24 Hour Vital Signs Date Time Temp Pulse Resp B/P (MAP) Pulse Ox O2 Delivery O2 Flow Rate FiO2 09/17/20 08:34 117/43 09/17/20 08:00 60 09/17/20 06:55 98 Nasal Cannula 2.0 28 09/17/20 04:00 97.5 75 20 139/71 (93) 95 09/17/20 04:00 60 09/17/20 00:00 97.7 59 24 140/61 (87) 99 09/17/20 00:00 60 09/16/20 21:00 Nasal Cannula 2.0 09/16/20 20:22 98 Nasal Cannula 4.0 32 09/16/20 20:00 97.7 60 21 133/58 (83) 98 09/16/20 20:00 60 09/16/20 16:00 97.0 60 20 134/52 (79) 99 09/16/20 15:13 60 09/16/20 11:42 79 09/16/20 11:36 97.9 60 20 143/61 (88) 99 Intake and Output 09/16/20 09/17/20 19:00 07:00 Intake Total 390 ml Output Total 100 ml Balance 290 ml Intake Oral 390 ml Output Urine Total 100 ml # Voids 2 # Bowel Movements 1 Objective deferred due to COVID Laboratory Tests 09/16/20 15:30: Sodium Level 143, Potassium Level 3.2L, Chloride Level 105, Carbon Dioxide Level 29, Anion Gap 9, Blood Urea Nitrogen 36H, Creatinine 1.3, Estimat Glomerular Filtration Rate 54.7, Glucose Level 160H, Calcium Level 8.1L, Total Bilirubin 0.2, Aspartate Amino Transf (AST/SGOT) 25, Alanine Aminotransferase (ALT/SGPT) 24, Alkaline Phosphatase 81, Total Protein 6.6, Albumin 3.1L, Globulin 3.5, Albumin/Globulin Ratio 0.9L 09/17/20 07:11: Sodium Level 145, Potassium Level 3.1L, Chloride Level 109H, Carbon Dioxide Level 29, Anion Gap 7, Blood Urea Nitrogen 31H, Creatinine 1.1, Estimat Glomerular Filtration Rate > 60, Glucose Level 91, Calcium Level 8.0L, Total Bilirubin 0.2, Aspartate Amino Transf (AST/SGOT) 26, Alanine Aminotransferase (ALT/SGPT) 23, Alkaline Phosphatase 74, Total Protein 6.5, Albumin 2.9L, Globulin 3.6, Albumin/Globulin Ratio 0.8L, White Blood Count 4.0L, Red Blood Count 4.41L, Hemoglobin 12.7L, Hematocrit 41.1L, Mean Corpuscular Volume 93, Mean Corpuscular Hemoglobin 28.8, Mean Corpuscular Hemoglobin Concent 30.9L, Red Cell Distribution Width 13.9, Platelet Count 190, Mean Platelet Volume 8.3, Neutrophils (%) (Auto) , Lymphocytes (%) (Auto) , Monocytes (%) (Auto) , Eosinophils (%) (Auto) , Basophils (%) (Auto) , Differential Total Cells Counted 100, Neutrophils % (Manual) 43L, Lymphocytes % (Manual) 37, Monocytes % (Manual) 20H, Eosinophils % (Manual) 0, Basophils % (Manual) 0, Band Neutrophils 0, Platelet Estimate Adequate, Platelet Morphology Normal, Red Blood Cell Morphology Normal, Direct Bilirubin 0.1 Current Medications Medications (Trade) Dose Ordered Sig/Juice Route PRN Reason Start Time Stop Time Status Last Admin Dose Admin Acetaminophen (Tylenol) 650 mg Q6H PRN ORAL For Headache 09/13/20 13:30 10/13/20 13:29 09/15/20 12:29 Acetaminophen/ Hydrocodone Bitart ([place] 10/325) 1 tab Q6H PRN ORAL For Pain 09/13/20 13:30 09/20/20 13:29 09/17/20 02:16 Albuterol/ Ipratropium (Combivent Respimat) 1 puff Q6HR INH 09/13/20 14:00 10/13/20 13:59 09/17/20 06:00 Aspirin (ASA) 81 mg DAILY ORAL 09/14/20 09:00 10/29/20 08:59 09/17/20 08:35 Bisacodyl (Dulcolax) 5 mg DAILYPRN PRN ORAL Constipation 09/13/20 13:45 12/12/20 13:44 Dexamethasone (Decadron) 6 mg DAILY ORAL 09/14/20 09:00 09/23/20 09:01 09/17/20 08:38 Docusate Sodium (Colace) 100 mg TWICE A DAY ORAL 09/13/20 18:00 10/13/20 17:59 09/17/20 08:36 Enoxaparin Sodium (Lovenox) 80 mg EVERY 12 HOURS SUBQ 09/13/20 21:00 12/12/20 20:59 09/17/20 08:39 Famotidine (Pepcid) 20 mg BID ORAL 09/13/20 18:00 12/12/20 17:59 09/17/20 08:33 Furosemide (Lasix) 40 mg DAILY ORAL 09/17/20 09:00 10/17/20 08:59 09/17/20 08:54 Lisinopril (PriniviL) 20 mg DAILY ORAL 09/14/20 09:00 10/14/20 08:59 09/17/20 08:34 Magnesium Hydroxide (Mom) 30 ml DAILYPRN PRN ORAL Constipation 09/13/20 13:30 10/13/20 13:29 Ondansetron HCl (Zofran) 4 mg Q6H PRN IVP Nausea & Vomiting 09/13/20 13:30 10/13/20 13:29 Pravastatin Sodium (Pravachol) 20 mg BEDTIME ORAL 09/13/20 21:00 10/13/20 20:59 09/16/20 21:17 Pseudoephedrine HCl (Sudafed) 60 mg DAILY ORAL 09/17/20 09:00 12/16/20 08:59 09/17/20 08:33 Remdesivir 100 mg/ Sodium Chloride 250 ml @ 250 mls/hr Q24H IV 09/14/20 18:00 09/17/20 18:59 09/16/20 18:10 Spironolactone (Aldactone) 25 mg DAILY ORAL 09/14/20 09:00 10/14/20 08:59 09/17/20 08:36 Zolpidem Tartrate (Ambien) 5 mg HSPRN PRN ORAL Insomnia 09/14/20 19:15 09/21/20 19:14 09/17/20 01:05 Assessment/Plan Assessment/Plan IMPRESSION: COVID pneumonia, hypoxemia, COPD, CHF, cardiomyopathy, prior history of tracheostomy, AICD. leukopenia PLAN remdesivir decadron oxygen lovenox monitor labs monitor changes follow up imaging today impression, plan, and exam edited and reviewed in detail care discussed with Martín Upton MD Sep 17, 2020 10:04
[2020-09-17 12:00] VITALS: BP 147/59
--- NOTE | 2020-09-17 12:05 | Infectious Diseases Prog Note ---
Assessment/Plan Assessment/Plan A 1. COVID 19 pneumonia 2. CHF 3. COPD 4. cardiomyopathy P 1. continue remdesivir day 5 2. continue dexamethasone day 5 3. will follow up cultures 4. continue isolation Subjective ROS Limited/Unobtainable: No Respiratory: Reports: no symptoms Cardiovascular: Reports: dyspnea on exertion Gastrointestinal/Abdominal: Reports: no symptoms Genitourinary: Reports: no symptoms Allergies: Coded Allergies: IODINE (Verified Allergy, Severe, rash, 01/15/14) Objective Last 24 Hour Vital Signs Date Time Temp Pulse Resp B/P (MAP) Pulse Ox O2 Delivery O2 Flow Rate FiO2 09/17/20 09:00 Nasal Cannula 2.0 09/17/20 08:34 117/43 09/17/20 08:00 97.5 60 20 117/43 (67) 98 09/17/20 08:00 60 09/17/20 06:55 98 Nasal Cannula 2.0 28 09/17/20 04:00 97.5 75 20 139/71 (93) 95 09/17/20 04:00 60 09/17/20 00:00 97.7 59 24 140/61 (87) 99 09/17/20 00:00 60 09/16/20 21:00 Nasal Cannula 2.0 09/16/20 20:22 98 Nasal Cannula 4.0 32 09/16/20 20:00 97.7 60 21 133/58 (83) 98 09/16/20 20:00 60 09/16/20 16:00 97.0 60 20 134/52 (79) 99 09/16/20 15:13 60 Height (Feet): 5 Height (Inches): 2.00 Weight (Pounds): 174 General Appearance: no acute distress HEENT: mucous membranes moist Respiratory/Chest: lungs clear, other - oxygen by nasal cannula Cardiovascular: normal rate Abdomen: soft, non tender Extremities: no edema Neurologic/Psychiatric: alert, oriented x 3, responsive Laboratory Tests Test 09/16/20 15:30 09/17/20 07:11 Sodium Level 143 MMOL/L (136-145) 145 MMOL/L (136-145) Potassium Level 3.2 MMOL/L (3.5-5.1) L 3.1 MMOL/L (3.5-5.1) L Chloride Level 105 MMOL/L (98-107) 109 MMOL/L (98-107) H Carbon Dioxide Level 29 MMOL/L (21-32) 29 MMOL/L (21-32) Anion Gap 9 mmol/L (5-15) 7 mmol/L (5-15) Blood Urea Nitrogen 36 mg/dL (7-18) H 31 mg/dL (7-18) H Creatinine 1.3 MG/DL (0.55-1.30) 1.1 MG/DL (0.55-1.30) Estimat Glomerular Filtration Rate 54.7 mL/min (>60) > 60 mL/min (>60) Glucose Level 160 MG/DL (74-106) H 91 MG/DL (74-106) Calcium Level 8.1 MG/DL (8.5-10.1) L 8.0 MG/DL (8.5-10.1) L Total Bilirubin 0.2 MG/DL (0.2-1.0) 0.2 MG/DL (0.2-1.0) Aspartate Amino Transf (AST/SGOT) 25 U/L (15-37) 26 U/L (15-37) Alanine Aminotransferase (ALT/SGPT) 24 U/L (12-78) 23 U/L (12-78) Alkaline Phosphatase 81 U/L (46-116) 74 U/L (46-116) Total Protein 6.6 G/DL (6.4-8.2) 6.5 G/DL (6.4-8.2) Albumin 3.1 G/DL (3.4-5.0) L 2.9 G/DL (3.4-5.0) L Globulin 3.5 g/dL 3.6 g/dL Albumin/Globulin Ratio 0.9 (1.0-2.7) L 0.8 (1.0-2.7) L White Blood Count 4.0 K/UL (4.8-10.8) L Red Blood Count 4.41 M/UL (4.70-6.10) L Hemoglobin 12.7 G/DL (14.2-18.0) L Hematocrit 41.1 % (42.0-52.0) L Mean Corpuscular Volume 93 FL (80-99) Mean Corpuscular Hemoglobin 28.8 PG (27.0-31.0) Mean Corpuscular Hemoglobin Concent 30.9 G/DL (32.0-36.0) L Red Cell Distribution Width 13.9 % (11.6-14.8) Platelet Count 190 K/UL (150-450) Mean Platelet Volume 8.3 FL (6.5-10.1) Neutrophils (%) (Auto) % (45.0-75.0) Lymphocytes (%) (Auto) % (20.0-45.0) Monocytes (%) (Auto) % (1.0-10.0) Eosinophils (%) (Auto) % (0.0-3.0) Basophils (%) (Auto) % (0.0-2.0) Differential Total Cells Counted 100 Neutrophils % (Manual) 43 % (45-75) L Lymphocytes % (Manual) 37 % (20-45) Monocytes % (Manual) 20 % (1-10) H Eosinophils % (Manual) 0 % (0-3) Basophils % (Manual) 0 % (0-2) Band Neutrophils 0 % (0-8) Platelet Estimate Adequate Platelet Morphology Normal Red Blood Cell Morphology Normal Direct Bilirubin 0.1 MG/DL (0.0-0.3) Current Medications Medications (Trade) Dose Ordered Sig/Juice Route PRN Reason Start Time Stop Time Status Last Admin Dose Admin Acetaminophen (Tylenol) 650 mg Q6H PRN ORAL For Headache 09/13/20 13:30 10/13/20 13:29 09/15/20 12:29 Acetaminophen/ Hydrocodone Bitart ([place] 10/325) 1 tab Q6H PRN ORAL For Pain 09/13/20 13:30 09/20/20 13:29 09/17/20 02:16 Albuterol/ Ipratropium (Combivent Respimat) 1 puff Q6HR INH 09/13/20 14:00 10/13/20 13:59 09/17/20 06:00 Aspirin (ASA) 81 mg DAILY ORAL 09/14/20 09:00 10/29/20 08:59 09/17/20 08:35 Bisacodyl (Dulcolax) 5 mg DAILYPRN PRN ORAL Constipation 09/13/20 13:45 12/12/20 13:44 Dexamethasone (Decadron) 6 mg DAILY ORAL 09/14/20 09:00 09/23/20 09:01 09/17/20 08:38 Docusate Sodium (Colace) 100 mg TWICE A DAY ORAL 09/13/20 18:00 10/13/20 17:59 09/17/20 08:36 Enoxaparin Sodium (Lovenox) 80 mg EVERY 12 HOURS SUBQ 09/13/20 21:00 12/12/20 20:59 09/17/20 08:39 Famotidine (Pepcid) 20 mg BID ORAL 09/13/20 18:00 12/12/20 17:59 09/17/20 08:33 Furosemide (Lasix) 40 mg DAILY ORAL 09/17/20 09:00 10/17/20 08:59 09/17/20 08:54 Lisinopril (PriniviL) 20 mg DAILY ORAL 09/14/20 09:00 10/14/20 08:59 09/17/20 08:34 Magnesium Hydroxide (Mom) 30 ml DAILYPRN PRN ORAL Constipation 09/13/20 13:30 10/13/20 13:29 Ondansetron HCl (Zofran) 4 mg Q6H PRN IVP Nausea & Vomiting 09/13/20 13:30 10/13/20 13:29 Pravastatin Sodium (Pravachol) 20 mg BEDTIME ORAL 09/13/20 21:00 10/13/20 20:59 09/16/20 21:17 Pseudoephedrine HCl (Sudafed) 60 mg DAILY ORAL 09/17/20 09:00 12/16/20 08:59 09/17/20 08:33 Remdesivir 100 mg/ Sodium Chloride 250 ml @ 250 mls/hr Q24H IV 09/14/20 18:00 09/17/20 18:59 09/16/20 18:10 Spironolactone (Aldactone) 25 mg DAILY ORAL 09/14/20 09:00 10/14/20 08:59 09/17/20 08:36 Zolpidem Tartrate (Ambien) 5 mg HSPRN PRN ORAL Insomnia 09/14/20 19:15 09/21/20 19:14 09/17/20 01:05 Son Morgan MD Sep 17, 2020 12:05
--- NOTE | 2020-09-17 12:38 | NUR ---
NURSE NOTES: The patient was seen sitting in bed, alert and oriented x4 with no complaints of difficulty breathing or chest pain. The patients bed was in the lowest position, bed alarm was set to zone 1 and bed rails were placed x3.
--- NOTE | 2020-09-17 12:43 | NUR ---
CASE MANAGEMENT:REVIEW 09/17/20 SI: COVID PNA. DYSPNEA 97.9 60 20 147/59 100% ON 2L/NC WBC-4.0 K-3.1 BUN+31 IS: IV REMDESIVIR Q24 (DAY 03/10) DECADRON PO LASIX PO QD LISINOPRIL PO QD ALDACTONE PO QD ASA PO QD LOVENOX SQ Q12 DUONEB HHN Q6HRS : TELEMETRY STATUS DCP: FROM HOME
--- NOTE | 2020-09-17 12:53 | NUR ---
INSURANCE CLINICALS AND REVIEWS FAXED TO MELIDA GARCIA T: [phone] F: [phone] #[phone]
--- NOTE | 2020-09-17 12:56 | NUR ---
RADIOLOGY DEPT., CHEST X-RAY DONE.-P.DYE
--- NOTE | 2020-09-17 12:59 | General Progress Note ---
Subjective ROS Limited/Unobtainable: No Constitutional: Reports: malaise, weakness HEENT: Reports: no symptoms Cardiovascular: Reports: no symptoms Respiratory: Reports: cough, shortness of breath Gastrointestinal/Abdominal: Reports: no symptoms Genitourinary: Reports: no symptoms Neurologic/Psychiatric: Reports: no symptoms Endocrine: Reports: no symptoms Hematologic/Lymphatic: Reports: no symptoms Allergies: Coded Allergies: IODINE (Verified Allergy, Severe, rash, 01/15/14) All Systems: reviewed and negative except above Subjective no events. stable sob. on o2. no fevers. no cp. low k on remdesivir and steroids Objective Last 24 Hour Vital Signs Date Time Temp Pulse Resp B/P (MAP) Pulse Ox O2 Delivery O2 Flow Rate FiO2 09/17/20 12:00 97.9 60 20 147/59 (88) 100 09/17/20 09:00 Nasal Cannula 2.0 09/17/20 08:34 117/43 09/17/20 08:00 97.5 60 20 117/43 (67) 98 09/17/20 08:00 60 09/17/20 06:55 98 Nasal Cannula 2.0 28 09/17/20 04:00 97.5 75 20 139/71 (93) 95 09/17/20 04:00 60 09/17/20 00:00 97.7 59 24 140/61 (87) 99 09/17/20 00:00 60 09/16/20 21:00 Nasal Cannula 2.0 09/16/20 20:22 98 Nasal Cannula 4.0 32 09/16/20 20:00 97.7 60 21 133/58 (83) 98 09/16/20 20:00 60 09/16/20 16:00 97.0 60 20 134/52 (79) 99 09/16/20 15:13 60 Intake and Output 09/16/20 09/17/20 19:00 07:00 Intake Total 390 ml Output Total 100 ml Balance 290 ml Intake Oral 390 ml Output Urine Total 100 ml # Voids 2 # Bowel Movements 1 Laboratory Tests 09/16/20 15:30: Sodium Level 143, Potassium Level 3.2L, Chloride Level 105, Carbon Dioxide Level 29, Anion Gap 9, Blood Urea Nitrogen 36H, Creatinine 1.3, Estimat Glomerular Filtration Rate 54.7, Glucose Level 160H, Calcium Level 8.1L, Total Bilirubin 0.2, Aspartate Amino Transf (AST/SGOT) 25, Alanine Aminotransferase (ALT/SGPT) 24, Alkaline Phosphatase 81, Total Protein 6.6, Albumin 3.1L, Globulin 3.5, Albumin/Globulin Ratio 0.9L 09/17/20 07:11: Sodium Level 145, Potassium Level 3.1L, Chloride Level 109H, Carbon Dioxide Level 29, Anion Gap 7, Blood Urea Nitrogen 31H, Creatinine 1.1, Estimat Glomerular Filtration Rate > 60, Glucose Level 91, Calcium Level 8.0L, Total Bilirubin 0.2, Aspartate Amino Transf (AST/SGOT) 26, Alanine Aminotransferase (ALT/SGPT) 23, Alkaline Phosphatase 74, Total Protein 6.5, Albumin 2.9L, Globulin 3.6, Albumin/Globulin Ratio 0.8L, White Blood Count 4.0L, Red Blood Count 4.41L, Hemoglobin 12.7L, Hematocrit 41.1L, Mean Corpuscular Volume 93, Mean Corpuscular Hemoglobin 28.8, Mean Corpuscular Hemoglobin Concent 30.9L, Red Cell Distribution Width 13.9, Platelet Count 190, Mean Platelet Volume 8.3, Neutrophils (%) (Auto) , Lymphocytes (%) (Auto) , Monocytes (%) (Auto) , Eosinophils (%) (Auto) , Basophils (%) (Auto) , Differential Total Cells Counted 100, Neutrophils % (Manual) 43L, Lymphocytes % (Manual) 37, Monocytes % (Manual) 20H, Eosinophils % (Manual) 0, Basophils % (Manual) 0, Band Neutrophils 0, Platelet Estimate Adequate, Platelet Morphology Normal, Red Blood Cell Morphology Normal, Direct Bilirubin 0.1 Height (Feet): 5 Height (Inches): 2.00 Weight (Pounds): 174 Objective General Appearance: WD/WN, alert, thin EENT: PERRL/EOMI, normal ENT inspection Neck: non-tender, normal alignment, supple Cardiovascular: normal peripheral pulses, normal rate Respiratory/Chest: chest wall non-tender, lungs clear, normal breath sounds, no respiratory distress, no accessory muscle use Abdomen: normal bowel sounds, non tender, soft, no organomegaly, no mass Extremities: normal range of motion Edema: no edema noted Arm (L), no edema noted Arm (R) Neurologic: system development manager II-XII grossly normal, alert, responsive Skin: normal pigmentation Lymphatic: normal anterior cervical (L), normal anterior cervical (R) Assessment/Plan Problem List: (1) Breakdown of tracheostomy site ICD Codes: J95.03 - Malfunction of tracheostomy stoma SNOMED: 47285412, 599865768 (2) CHF exacerbation ICD Codes: I50.9 - Heart failure, unspecified SNOMED: 459018598, 96535791765036 (3) COPD exacerbation ICD Codes: J44.1 - COPD exacerbation SNOMED: 973801713 (4) ARF (acute renal failure) ICD Codes: N17.9 - Acute kidney failure, unspecified SNOMED: 89930868 (5) Pneumonia due to COVID-19 virus ICD Codes: U07.1 - COVID-19; J12.89 - Other viral pneumonia SNOMED: 238693999282029007 Status: stable Assessment/Plan: o2 as needed monitor sats resp care iv remdesivir and steroids replace k monitor cxr dvt and stress ulcer prophylaxis cardiac rx isolation Jimmy Ac MD Sep 17, 2020 12:59
--- NOTE | 2020-09-17 14:38 | Diagnostic Imaging Report ---
Indication: Shortness of breath Technique: One view of the chest Comparison: 09/13/2020 Findings: Large amount of gas projects under the diaphragm. Presumably within bowel, given similarity to the previous study and especially to prior study of 07/28/2020. However, the dome of the liver is unusually well outlined. Again demonstrated is elevation of the left hemidiaphragm and some left pleural thickening versus fluid. No new infiltrates. Left chest AICD again demonstrated. Impression: Persistent gas bubble under the left hemidiaphragm; similarity to prior studies indicates that this is presumably gas within distended stomach. However, 2 view abdominal radiograph recommended to confirm. This was discussed by phone with Dr. Robert at the time of interpretation Other stable findings as described
[2020-09-17 16:00] VITALS: BP 94/66
[2020-09-17] MEDS: Maintenance Dose:Remdesivir 100mg/NS 230ml x 4 Doses IV SCH ×2 (18:01)
--- NOTE | 2020-09-17 18:04 | Surgery Progress Note ---
Surgery Progress Note Subjective Additional Comments stable comfortable no n/v Objective Last 24 Hour Vital Signs Date Time Temp Pulse Resp B/P (MAP) Pulse Ox O2 Delivery O2 Flow Rate FiO2 09/17/20 16:00 70 09/17/20 16:00 97.5 68 20 94/66 (75) 100 09/17/20 12:00 97.9 60 20 147/59 (88) 100 09/17/20 12:00 60 09/17/20 09:00 Nasal Cannula 2.0 09/17/20 08:34 117/43 09/17/20 08:00 97.5 60 20 117/43 (67) 98 09/17/20 08:00 60 09/17/20 06:55 98 Nasal Cannula 2.0 28 09/17/20 04:00 97.5 75 20 139/71 (93) 95 09/17/20 04:00 60 09/17/20 00:00 97.7 59 24 140/61 (87) 99 09/17/20 00:00 60 09/16/20 21:00 Nasal Cannula 2.0 09/16/20 20:22 98 Nasal Cannula 4.0 32 09/16/20 20:00 97.7 60 21 133/58 (83) 98 09/16/20 20:00 60 I&O Intake and Output 09/16/20 09/17/20 19:00 07:00 Intake Total 390 ml Output Total 100 ml Balance 290 ml Intake Oral 390 ml Output Urine Total 100 ml # Voids 2 # Bowel Movements 1 Cardiovascular: RSR Respiratory: decreased breath sounds Abdomen: non-tender, present bowel sounds Extremities: no tenderness, no cyanosis Laboratory Tests Test 09/17/20 07:11 White Blood Count 4.0 K/UL (4.8-10.8) L Red Blood Count 4.41 M/UL (4.70-6.10) L Hemoglobin 12.7 G/DL (14.2-18.0) L Hematocrit 41.1 % (42.0-52.0) L Mean Corpuscular Volume 93 FL (80-99) Mean Corpuscular Hemoglobin 28.8 PG (27.0-31.0) Mean Corpuscular Hemoglobin Concent 30.9 G/DL (32.0-36.0) L Red Cell Distribution Width 13.9 % (11.6-14.8) Platelet Count 190 K/UL (150-450) Mean Platelet Volume 8.3 FL (6.5-10.1) Neutrophils (%) (Auto) % (45.0-75.0) Lymphocytes (%) (Auto) % (20.0-45.0) Monocytes (%) (Auto) % (1.0-10.0) Eosinophils (%) (Auto) % (0.0-3.0) Basophils (%) (Auto) % (0.0-2.0) Differential Total Cells Counted 100 Neutrophils % (Manual) 43 % (45-75) L Lymphocytes % (Manual) 37 % (20-45) Monocytes % (Manual) 20 % (1-10) H Eosinophils % (Manual) 0 % (0-3) Basophils % (Manual) 0 % (0-2) Band Neutrophils 0 % (0-8) Platelet Estimate Adequate Platelet Morphology Normal Red Blood Cell Morphology Normal Sodium Level 145 MMOL/L (136-145) Potassium Level 3.1 MMOL/L (3.5-5.1) L Chloride Level 109 MMOL/L (98-107) H Carbon Dioxide Level 29 MMOL/L (21-32) Anion Gap 7 mmol/L (5-15) Blood Urea Nitrogen 31 mg/dL (7-18) H Creatinine 1.1 MG/DL (0.55-1.30) Estimat Glomerular Filtration Rate > 60 mL/min (>60) Glucose Level 91 MG/DL (74-106) Calcium Level 8.0 MG/DL (8.5-10.1) L Total Bilirubin 0.2 MG/DL (0.2-1.0) Direct Bilirubin 0.1 MG/DL (0.0-0.3) Aspartate Amino Transf (AST/SGOT) 26 U/L (15-37) Alanine Aminotransferase (ALT/SGPT) 23 U/L (12-78) Alkaline Phosphatase 74 U/L (46-116) Total Protein 6.5 G/DL (6.4-8.2) Albumin 2.9 G/DL (3.4-5.0) L Globulin 3.6 g/dL Albumin/Globulin Ratio 0.8 (1.0-2.7) L Plan Problems: (1) Elevated d-dimer (2) Pneumonia due to COVID-19 virus (3) Dysphagia (4) Hypernatremia (5) ARF (acute renal failure) (6) COPD exacerbation (7) CHF exacerbation (8) Acute respiratory failure with hypercapnia (9) Breakdown of tracheostomy site Assessment & Plan: trach site still open. slowly healing but requires dressing discussed with patient still wants closure. unfortunately currently respiratory isolation labs noted can consider closure at later date. cont with local wound care of trach will plan closure later Malcolm Craig Sep 17, 2020 18:04
--- NOTE | 2020-09-17 18:34 | NUR ---
NURSE NOTES: The patient was seen resting supine in bed with no complaint of shortness of breath or chest pain and A&O x4.The patient is currently on 2L of O2 NC with vital signs within normal limits. The patients IV is patent and intact with no signs of infiltration from pharmacological treatment. The patients bed was placed in the lowest position, bed alarm was set to zone 1 and side rails were placed x 2.
--- NOTE | 2020-09-17 18:57 | NUR ---
NURSE HAND-OFF REPORT: Important Events on Shift:[IV remdesivir, BM today, KDur given, CXR done today] Patient Status: [Stable and full code] Diet: [No added salt diet] Pending Orders: [] Pending Results/Labs:[] Pending MD notification:[] Latest Vital Signs: Temperature 97.5 , Pulse 70 , B/P 94 /66 , Respiratory Rate 20 , O2 SAT 100 , Nasal Cannula, O2 Flow Rate 2.0 . Vital Sign Comment: [] EKG Rhythm: A-Paced Rhythm change?: N MD Notified?: - MD Response: Latest Lord Fall Score: 45 Fall Risk: High Risk Safety Measures: Call light Within Reach, Bed Alarm Zone 1, Side Rails Side Rails x2, Bed position Low and Locked. Fall Precautions: Yellow Socks Patient Fall Education Report given to [Kaylah].
--- NOTE | 2020-09-17 19:25 | NUR ---
NURSE NOTES: Report received from LYUDMILA Still. Patient awake alert and oriented x4. No SOB or distress. On 2 LPM nasal canula. Call light and bedside table with in reach. Bed at lowest position locked with side rails up. COVID 19 isolation precautions. Will continue with plan of care.
[2020-09-17 20:00] VITALS: BP 139/63
[2020-09-18] VITALS: BP 142/67
[2020-09-18 04:00] VITALS: BP 138/64
[2020-09-18 06:38] LABS: ANION GAP 5 mmol/L (5-15); BLOOD UREA NITROGEN 32 mg/dL (7-18); CALCIUM 8.2 MG/DL (8.5-10.1); CARBON DIOXIDE 31 MMOL/L (21-32); CHLORIDE 108 MMOL/L (98-107); CREATININE 1.2 MG/DL (0.55-1.30); POTASSIUM 3.2 MMOL/L (3.5-5.1); SODIUM 143 MMOL/L (136-145)
--- NOTE | 2020-09-18 07:24 | NUR ---
NURSE HAND-OFF REPORT: Important Events on Shift:[Stable] Patient Status: [] Diet: [HUNTER] Pending Orders: [] Pending Results/Labs:[] Pending MD notification:[] Latest Vital Signs: Temperature 97.7 , Pulse 69 , B/P 138 /64 , Respiratory Rate 24 , O2 SAT 98 , Nasal Cannula, O2 Flow Rate 2.0 . Vital Sign Comment: [] EKG Rhythm: A-Paced Rhythm change?: N MD Notified?: - MD Response: Latest Lord Fall Score: 45 Fall Risk: High Risk Safety Measures: Call light Within Reach, Bed Alarm Zone 1, Side Rails Side Rails x2, Bed position Low and Locked. Fall Precautions: Yellow Socks Patient Fall Education Report given to [Miroslava COREAS].
--- NOTE | 2020-09-18 07:30 | NUR ---
NURSE NOTES: Pt demanding to see doctor because he wants to go home. Spoke to Pt, Pt calmed down but continues to be mildly irritated. Md to be notified at rounds.
--- NOTE | 2020-09-18 07:30 | NUR ---
NURSE NOTES: received report from LYUDMILA dugan. pt found in restroom. Pt is stable on 2LPM NC no s/s or complaint of distress at this time. pt previous trach opening noted, covered w/ optifoam. Pt skin intact. Pt bed low and locked, call light in reach and bed alarm on. pt verbalized understanding to call for help. contact and droplet isolation. tele monitor on. RFA 20g IV SL asymptomatic and intact.
--- NOTE | 2020-09-18 07:45 | NUR ---
NURSE NOTES: Notified Md of Pt K 3.2. awaiting call back. Addendum: 09/18/20 at 0949 by Miroslava Spivey RN RN order acknowledged and carried out.
[2020-09-18 08:00] VITALS: BP 128/45
--- NOTE | 2020-09-18 08:00 | NUR ---
NURSE NOTES: Pt demanded razor to shave face, shouted "its illegal to do this to somebody", then proceeded to remove mask to show me stubble grown. Explained to Pt we do not have razors but we have an electric shaver he may borrow. Gave Pt electric shaver, Pt verbalized understanding of use. Left at bedside for Pt, said he would use later.
[2020-09-18] MEDS: Lisinopril 20mg tab ORAL SCH (09:07)
[2020-09-18] MEDS: Pseudoephedrine 30mg tab ORAL SCH (09:07)
[2020-09-18] MEDS: Aspirin Baby 81mg ORAL SCH (09:07)
[2020-09-18] MEDS: Enoxaparin 80mg Inj SUBQ SCH (09:08)
[2020-09-18] MEDS: Furosemide 40mg tab ORAL SCH (09:09)
[2020-09-18] MEDS: Spironolactone 25mg tab ORAL SCH (09:10)
[2020-09-18] MEDS: Docusate 100mg cap ORAL SCH (09:10)
--- NOTE | 2020-09-18 11:01 | Infectious Diseases Prog Note ---
Assessment/Plan Assessment/Plan antibiotics : remdesivir A 1. COVID 19 pneumonia on 2 liters O2, 100 % saturation s/p remdesivir 2. CHF 3. COPD 4. cardiomyopathy P 1. continue dexamethasone day 6 2. will follow up cultures 3. continue isolation Subjective Respiratory: Reports: shortness of breath, dry cough Gastrointestinal/Abdominal: Denies: nausea, vomiting, diarrhea Musculoskeletal: Denies: pain Allergies: Coded Allergies: IODINE (Verified Allergy, Severe, rash, 01/15/14) Objective Last 24 Hour Vital Signs Date Time Temp Pulse Resp B/P (MAP) Pulse Ox O2 Delivery O2 Flow Rate FiO2 09/18/20 09:07 128/45 09/18/20 09:00 Nasal Cannula 2.0 09/18/20 08:00 62 09/18/20 08:00 97.9 62 20 128/45 (72) 98 09/18/20 07:05 97 Nasal Cannula 2.0 28 09/18/20 04:00 69 09/18/20 04:00 97.7 61 24 138/64 (88) 98 09/18/20 00:00 60 09/18/20 00:00 97.5 60 24 142/67 (92) 98 09/17/20 21:00 Nasal Cannula 2.0 09/17/20 20:00 97.9 60 26 139/63 (88) 100 09/17/20 20:00 72 09/17/20 19:24 98 Nasal Cannula 2.0 28 09/17/20 16:00 70 09/17/20 16:00 97.5 68 20 94/66 (75) 100 09/17/20 12:00 97.9 60 20 147/59 (88) 100 09/17/20 12:00 60 Height (Feet): 5 Height (Inches): 2.00 Weight (Pounds): 174 Laboratory Tests Test 09/18/20 06:09 Sodium Level 143 MMOL/L (136-145) Potassium Level 3.2 MMOL/L (3.5-5.1) L Chloride Level 108 MMOL/L (98-107) H Carbon Dioxide Level 31 MMOL/L (21-32) Anion Gap 5 mmol/L (5-15) Blood Urea Nitrogen 32 mg/dL (7-18) H Creatinine 1.2 MG/DL (0.55-1.30) Estimat Glomerular Filtration Rate > 60 mL/min (>60) Glucose Level 95 MG/DL (74-106) Calcium Level 8.2 MG/DL (8.5-10.1) L Current Medications Medications (Trade) Dose Ordered Sig/Juice Route PRN Reason Start Time Stop Time Status Last Admin Dose Admin Acetaminophen (Tylenol) 650 mg Q6H PRN ORAL For Headache 09/13/20 13:30 10/13/20 13:29 09/15/20 12:29 Acetaminophen/ Hydrocodone Bitart ([place] 10/325) 1 tab Q6H PRN ORAL For Pain 09/13/20 13:30 09/20/20 13:29 09/17/20 22:16 Albuterol/ Ipratropium (Combivent Respimat) 1 puff Q6HR INH 09/13/20 14:00 10/13/20 13:59 09/18/20 06:00 Aspirin (ASA) 81 mg DAILY ORAL 09/14/20 09:00 10/29/20 08:59 09/18/20 09:07 Bisacodyl (Dulcolax) 5 mg DAILYPRN PRN ORAL Constipation 09/13/20 13:45 12/12/20 13:44 Dexamethasone (Decadron) 6 mg DAILY ORAL 09/14/20 09:00 09/23/20 09:01 09/18/20 09:10 Docusate Sodium (Colace) 100 mg TWICE A DAY ORAL 09/13/20 18:00 10/13/20 17:59 09/18/20 09:10 Enoxaparin Sodium (Lovenox) 80 mg EVERY 12 HOURS SUBQ 09/13/20 21:00 12/12/20 20:59 09/18/20 09:08 Famotidine (Pepcid) 20 mg BID ORAL 09/13/20 18:00 12/12/20 17:59 09/18/20 09:07 Furosemide (Lasix) 40 mg DAILY ORAL 09/17/20 09:00 10/17/20 08:59 09/18/20 09:09 Lisinopril (PriniviL) 20 mg DAILY ORAL 09/14/20 09:00 10/14/20 08:59 09/18/20 09:07 Magnesium Hydroxide (Mom) 30 ml DAILYPRN PRN ORAL Constipation 09/13/20 13:30 10/13/20 13:29 Ondansetron HCl (Zofran) 4 mg Q6H PRN IVP Nausea & Vomiting 09/13/20 13:30 10/13/20 13:29 Pravastatin Sodium (Pravachol) 20 mg BEDTIME ORAL 09/13/20 21:00 10/13/20 20:59 09/17/20 22:15 Pseudoephedrine HCl (Sudafed) 60 mg DAILY ORAL 09/17/20 09:00 12/16/20 08:59 09/18/20 09:07 Spironolactone (Aldactone) 25 mg DAILY ORAL 09/14/20 09:00 10/14/20 08:59 09/18/20 09:10 Zolpidem Tartrate (Ambien) 5 mg HSPRN PRN ORAL Insomnia 09/14/20 19:15 09/21/20 19:14 09/17/20 01:05 Mireille Xiao MD Sep 18, 2020 11:01
[2020-09-18 12:00] VITALS: BP 128/45
--- NOTE | 2020-09-18 12:00 | NUR ---
CHARGE NURSE NOTES: automobile technician reports that patient refused the abdominal XR.
--- NOTE | 2020-09-18 12:29 | NUR ---
CASE MANAGEMENT:REVIEW 09/18/20 SI: COVID PNA. DYSPNEA 97.9 62 20 128/45 98% ON 2L/NC WBC-3.2 IS: K-DUR PO X1 DECADRON PO LASIX PO QD LISINOPRIL PO QD ALDACTONE PO QD ASA PO QD LOVENOX SQ Q12 DUONEB HHN Q6HRS : TELEMETRY STATUS DCP: FROM HOME PLAN: COMPLETED 5 DAYS OF REMDESIVIR ~ OBSERVE
--- NOTE | 2020-09-18 12:32 | NUR ---
DISCHARGE PLANNING PATIENT NEEDS TO BE WEANED TO ROOM AIR IF ABLE
--- NOTE | 2020-09-18 12:40 | NUR ---
NURSE NOTES: Per JHOAN Loya Pt refused Abd Xray. Addendum: 09/18/20 at 1430 by Miroslava Spivey RN RN Dr Ac made aware of refusal.
--- NOTE | 2020-09-18 12:46 | Pulmonology Progress Note ---
Subjective ROS Limited/Unobtainable: No Constitutional: Denies: fever, chills Gastrointestinal/Abdominal: Denies: nausea, vomiting, diarrhea Musculoskeletal: Denies: pain Allergies: Coded Allergies: IODINE (Verified Allergy, Severe, rash, 01/15/14) All Systems: reviewed and negative except above Subjective care noted ID reviewed d/w radiology Objective Last 24 Hour Vital Signs Date Time Temp Pulse Resp B/P (MAP) Pulse Ox O2 Delivery O2 Flow Rate FiO2 09/18/20 09:07 128/45 09/18/20 09:00 Nasal Cannula 2.0 09/18/20 08:00 62 09/18/20 08:00 97.9 62 20 128/45 (72) 98 09/18/20 07:05 97 Nasal Cannula 2.0 28 09/18/20 04:00 69 09/18/20 04:00 97.7 61 24 138/64 (88) 98 09/18/20 00:00 60 09/18/20 00:00 97.5 60 24 142/67 (92) 98 09/17/20 21:00 Nasal Cannula 2.0 09/17/20 20:00 97.9 60 26 139/63 (88) 100 09/17/20 20:00 72 09/17/20 19:24 98 Nasal Cannula 2.0 28 09/17/20 16:00 70 09/17/20 16:00 97.5 68 20 94/66 (75) 100 Intake and Output 09/17/20 09/18/20 19:00 07:00 Intake Total 1400 ml Output Total 1200 ml 100 ml Balance 200 ml -100 ml Intake Oral 1400 ml Output Urine Total 1200 ml 100 ml # Voids 5 1 # Bowel Movements 2 1 Objective deferred due to COVID Laboratory Tests 09/18/20 06:09: Sodium Level 143, Potassium Level 3.2L, Chloride Level 108H, Carbon Dioxide Level 31, Anion Gap 5, Blood Urea Nitrogen 32H, Creatinine 1.2, Estimat Glomerular Filtration Rate > 60, Glucose Level 95, Calcium Level 8.2L Current Medications Medications (Trade) Dose Ordered Sig/Juice Route PRN Reason Start Time Stop Time Status Last Admin Dose Admin Acetaminophen (Tylenol) 650 mg Q6H PRN ORAL For Headache 09/13/20 13:30 10/13/20 13:29 09/15/20 12:29 Acetaminophen/ Hydrocodone Bitart (Mcdavid 10/325) 1 tab Q6H PRN ORAL For Pain 09/13/20 13:30 09/20/20 13:29 09/17/20 22:16 Albuterol/ Ipratropium (Combivent Respimat) 1 puff Q6HR INH 09/13/20 14:00 10/13/20 13:59 09/18/20 11:18 Aspirin (ASA) 81 mg DAILY ORAL 09/14/20 09:00 10/29/20 08:59 09/18/20 09:07 Bisacodyl (Dulcolax) 5 mg DAILYPRN PRN ORAL Constipation 09/13/20 13:45 12/12/20 13:44 Dexamethasone (Decadron) 6 mg DAILY ORAL 09/14/20 09:00 09/23/20 09:01 09/18/20 09:10 Docusate Sodium (Colace) 100 mg TWICE A DAY ORAL 09/13/20 18:00 10/13/20 17:59 09/18/20 09:10 Enoxaparin Sodium (Lovenox) 80 mg EVERY 12 HOURS SUBQ 09/13/20 21:00 12/12/20 20:59 09/18/20 09:08 Famotidine (Pepcid) 20 mg BID ORAL 09/13/20 18:00 12/12/20 17:59 09/18/20 09:07 Furosemide (Lasix) 40 mg DAILY ORAL 09/17/20 09:00 10/17/20 08:59 09/18/20 09:09 Lisinopril (PriniviL) 20 mg DAILY ORAL 09/14/20 09:00 10/14/20 08:59 09/18/20 09:07 Magnesium Hydroxide (Mom) 30 ml DAILYPRN PRN ORAL Constipation 09/13/20 13:30 10/13/20 13:29 Ondansetron HCl (Zofran) 4 mg Q6H PRN IVP Nausea & Vomiting 09/13/20 13:30 10/13/20 13:29 Pravastatin Sodium (Pravachol) 20 mg BEDTIME ORAL 09/13/20 21:00 10/13/20 20:59 09/17/20 22:15 Pseudoephedrine HCl (Sudafed) 60 mg DAILY ORAL 09/17/20 09:00 12/16/20 08:59 09/18/20 09:07 Spironolactone (Aldactone) 25 mg DAILY ORAL 09/14/20 09:00 10/14/20 08:59 09/18/20 09:10 Zolpidem Tartrate (Ambien) 5 mg HSPRN PRN ORAL Insomnia 09/14/20 19:15 09/21/20 19:14 09/17/20 01:05 Assessment/Plan Assessment/Plan IMPRESSION: COVID pneumonia, hypoxemia, COPD, CHF, cardiomyopathy, prior history of tracheostomy, AICD. leukopenia, increasing abdominal distention PLAN remdesivir decadron oxygen lovenox monitor labs monitor changes repeat abdominal series maintain isolation impression, plan, and exam edited and reviewed in detail care discussed with Martín Upton MD Sep 18, 2020 12:46
[2020-09-18] MEDS ORDERED: DECADRON2 MG ORAL (13:21)
--- NOTE | 2020-09-18 13:28 | NUR ---
RADIOLOGY DEPT., PT STATES, HE HAS NO PAIN OR ANY DISCOMFORT IN ABDOMEN AND NOT EXCEPTING IMAGING AT THIS TIME.-P.DYE
--- NOTE | 2020-09-18 14:00 | NUR ---
NURSE NOTES: Received orders from Dr Ac to d/c pt home w/ ambulance d/t O2 need. Pt can go after medication is brought from [facility]. Pt family notified. Pt education provided. pt verbalized understanding.
--- NOTE | 2020-09-18 14:11 | Surgery Progress Note ---
Surgery Progress Note Subjective Additional Comments no acute events comfortable stable no n/v/f/c Objective Last 24 Hour Vital Signs Date Time Temp Pulse Resp B/P (MAP) Pulse Ox O2 Delivery O2 Flow Rate FiO2 09/18/20 12:00 97.9 62 20 128/45 (72) 98 09/18/20 12:00 63 09/18/20 09:07 128/45 09/18/20 09:00 Nasal Cannula 2.0 09/18/20 08:00 62 09/18/20 08:00 97.9 62 20 128/45 (72) 98 09/18/20 07:05 97 Nasal Cannula 2.0 28 09/18/20 04:00 69 09/18/20 04:00 97.7 61 24 138/64 (88) 98 09/18/20 00:00 60 09/18/20 00:00 97.5 60 24 142/67 (92) 98 09/17/20 21:00 Nasal Cannula 2.0 09/17/20 20:00 97.9 60 26 139/63 (88) 100 09/17/20 20:00 72 09/17/20 19:24 98 Nasal Cannula 2.0 28 09/17/20 16:00 70 09/17/20 16:00 97.5 68 20 94/66 (75) 100 I&O Intake and Output 09/17/20 09/18/20 19:00 07:00 Intake Total 1400 ml Output Total 1200 ml 100 ml Balance 200 ml -100 ml Intake Oral 1400 ml Output Urine Total 1200 ml 100 ml # Voids 5 1 # Bowel Movements 2 1 Dressing: saturated Cardiovascular: RSR Respiratory: decreased breath sounds Abdomen: non-tender, present bowel sounds Extremities: no edema, no tenderness, no cyanosis Laboratory Tests Test 09/18/20 06:09 Sodium Level 143 MMOL/L (136-145) Potassium Level 3.2 MMOL/L (3.5-5.1) L Chloride Level 108 MMOL/L (98-107) H Carbon Dioxide Level 31 MMOL/L (21-32) Anion Gap 5 mmol/L (5-15) Blood Urea Nitrogen 32 mg/dL (7-18) H Creatinine 1.2 MG/DL (0.55-1.30) Estimat Glomerular Filtration Rate > 60 mL/min (>60) Glucose Level 95 MG/DL (74-106) Calcium Level 8.2 MG/DL (8.5-10.1) L Plan Problems: (1) Elevated d-dimer (2) Pneumonia due to COVID-19 virus (3) Dysphagia (4) Hypernatremia (5) ARF (acute renal failure) (6) COPD exacerbation (7) CHF exacerbation (8) Acute respiratory failure with hypercapnia (9) Breakdown of tracheostomy site Assessment & Plan: trach site still open. slowly healing but requires dressing discussed with patient still wants closure. unfortunately currently respiratory isolation labs noted can consider closure at later date. cont with local wound care of trach will plan closure later (10) COVID-19 Assessment & Plan: cxr noted on tx as per SHAYLA and Malcolm Alvarez Sep 18, 2020 14:11
--- NOTE | 2020-09-18 15:42 | NUR ---
NURSE NOTES: [facility] called to notify of delay of pickup. pickup changed to [id number]
--- NOTE | 2020-09-18 15:43 | NUR ---
NURSE NOTES: Pt IV removed, catheter intact, minimal bleeding. Tele monitor removed. Pt education provided regarding medication and discharge. pt verbalized understanding. Belongings checked and signed. Pt stable on 3LPM NC no complaints or s/s of distress at this time,
[2020-09-18] MEDS ORDERED: Tubing IV Secondary IV ONE (17:14)
[2020-09-18] MEDS ORDERED: NS 275ml ONE (17:14)
--- NOTE | 2020-09-18 17:30 | NUR ---
NURSE NOTES: Pt stable on 2 LPM NC no s/s or complaints of distress at this time. pt took belongings and medications. pt verbalized understanding. Pt understands he is going home. AoX4. Pt IV, tele box and wristband previously removed without problems. Pt report given to VAISHALI Smith from unit [facility]. pt transferred from bed to [facility] with EMT assist without incident. On portable O2. Pt discharged without incident.
--- NOTE | 2020-09-18 21:00 | Discharge Summary ---
DATE OF ADMISSION: 09/13/2020 DATE OF DISCHARGE: 09/18/2020 ADMISSION DIAGNOSES: 1. COVID-19 pneumonia. 2. COPD. 3. Hypoxemic respiratory failure. 4. History of hypertension and pacemaker. DISCHARGE DIAGNOSES: 1. COVID-19 pneumonia. 2. COPD. 3. Hypoxemic respiratory failure. 4. History of hypertension and pacemaker. HOSPITAL COURSE: The patient was admitted with complaints of shortness of breath secondary to COVID-19 pneumonia. He was admitted. ID, Cardiology, and Pulmonary consultations were obtained. The patient received IV remdesivir as well as Decadron. He received a 5-day course of remdesivir. He had an improvement in his oxygen saturations. On discharge, he was stable. He requested to be discharged home to complete a total of 10 days of Decadron. He has been instructed to return for any worsening shortness of breath, fevers, chills, or chest pain. Plan of care was also discussed with the patient's . DISCHARGE MEDICATIONS: Please see discharge medication list for discharge medications. DIET: Cardiac diet. ACTIVITY: Ad-bj. Jimmy Ac M.D. DR: SHABBIR JOB#: [id number] CC:
== END 2020-09-18 17:15 | disposition home or self-care (01) | DRG 137 ==
LOC: EDBD 06:22 → EMR 06:35 → 2E 08:30 → EDBEDREQ 10:35
DX: U07.1 COVID-19 (principal); J12.89 Other viral pneumonia; J96.02 Acute respiratory failure with hypercapnia; I50.43 Acute on chronic combined systolic (congestive) and diastolic (congestive) heart failure; N17.9 Acute kidney failure, unspecified; Z88.8 Allergy status to other drugs, medicaments and biological substances; I11.0 Hypertensive heart disease with heart failure; Z87.891 Personal history of nicotine dependence; Z95.810 Presence of automatic (implantable) cardiac defibrillator; R13.10 Dysphagia, unspecified; E87.0 Hyperosmolality and hypernatremia; J44.1 Chronic obstructive pulmonary disease with (acute) exacerbation; J95.03 Malfunction of tracheostomy stoma; I48.0 Paroxysmal atrial fibrillation; I25.5 Ischemic cardiomyopathy; I49.8 Other specified cardiac arrhythmias
CPT/HCPCS: 36415; 71045; 80048; 80053; 81003; 82248; 82550; 82553; 82728; 82803; 83605; 83615; 83690; 83735; 83880; 84100; 84484; 85007; 85025; 85379; 85610; 85730; 86140; 87040; 87070; 87205; 93005; 96365; 96368; 96372; 96375; 99291; J2405; J3490; J8499; U0002

== ENCOUNTER 2021-01-21 08:42 | Day surgery (SDC) | payer MEDICARE, MEDICAID ==
[2021-01-21] VITALS (11 sets, daily range): BP systolic 146–187; BP diastolic 63–90
[~2021-01-21] VITALS: Ht 157.5 cm; Wt 68.0 kg
[~2021-01-21 08:42] MED LIST changes: +ACETAMINOPHEN500 M3 ORAL; +ALBUTEROL2.5 MG/3 M INH; +CLOPIDOGREL75 MG ORAL; +DECADRON2 MG ORAL; +DICLOFENAC SODI75 MG ORAL; +FAMOTIDINE20 MG ORAL; +FERROUS SULFAT325 MG ORAL; +IPRAT-ALBUT 0.5-3 ML IH; +NORCO 5-325 TA1 EAC1 ORAL; +OYSTER SHELL C500 MG PO; +PROAIR HFA8.5 GM INH; +VITAMIN B COMP1 EAC2 ORAL; +VITAMIN C500 M1 ORAL; +VITAMIN D350 MCG PO; +VOLTAREN100 G1 TP
[2021-01-21] MEDS ORDERED: BENADRYL25 M3 PO (09:06)
--- NOTE | 2021-01-21 11:10 | Pre-Procedure Note/Attestation ---
Pre-Procedure Note/Attestation Complete Prior to Procedure Procedure Narrative: repair / closure of tracheocutaneous fistula Indications for Procedure Pre-Operative Diagnosis: tracheocutaneous fistula Attestation I attest that I discussed the nature of the procedure; its benefits; risks and complications; and alternatives (and the risks and benefits of such alternatives), prior to the procedure, with the patient (or the patient's legal fundraising sale representative). I attest that, if there was a reasonable possibility of needing a blood transfusion, the patient (or the patient's legal fundraising sale representative) was given the [facility] standardized written summary, pursuant to the [place] Blood Safety Act ([place] Health and Safety Code # 1645, as amended). I attest that I re-evaluated the patient just prior to the surgery and that there has been no change in the patient's H&P, except as documented below: Malcolm Craig Jan 21, 2021 11:10
[2021-01-21] MEDS ORDERED: fentaNYL 100 mcg/2 mL IV ONE (11:14)
[2021-01-21] MEDS ORDERED: Midazolam 2mg/2ml Inj ONE (11:14)
[2021-01-21] MEDS ORDERED: Lidocaine 1% MPF 10mg/ml 5ml ONE (11:14)
--- NOTE | 2021-01-21 11:14 | History & Physical ---
History of Present Illness General Date patient seen: Jan 21, 2021 Present Illness HPI 71-year-old male known to me from prior status post tracheostomy for lifesaving procedure sometime ago who was discharged in safe condition after recovery in the hospital with [address] [facility] tracheostomy and followed up with his outpatient PCP/layer out who decannulated him straight from [address] [employer] tracheostomy. Since he has had an open trach cutaneous fistula does not close it is significantly decreased in size over the past year but still open and patient is requested closure/repair. Patient was initially seen in the office around the time of beginning of Covid at which time because of Covid was recommended to hold off until regulations and recommendations allowed for elective procedures. He has done well since no complications and has scheduled for 01/21/2021 after clearance by his primary care physician Dr. Nico Jo for surgery. Allergies: Coded Allergies: IODINE (Verified Allergy, Severe, rash, 01/19/21) COVID-19 Screening Contact w/high risk pt: No Experienced COVID-19 symptoms?: No Medication History Scheduled Albuterol Sulfate* (Albuterol Sulfate Hhn*), 3 ML INH THREE TIMES A DAY, (Reported) Aspirin* (Aspirin*), 81 MG ORAL DAILY, (Reported) Calcium Carbonate (Oyster Shell Calcium), 500 MG PO DAILY, (Reported) Diphenhydramine HCl (Benadryl), 25 MG PO PRN, (Reported) Furosemide* (Lasix*), 40 MG ORAL DAILY, (Reported) Pravastatin Sod* (Pravastatin Sod*), 20 MG ORAL BEDTIME, (Reported) Scheduled PRN Acetaminophen* (Acetaminophen Extra Strength*), 500 MG ORAL Q6H PRN for For Pain, (Reported) Albuterol Sulfate* (Proair Hfa*), 2 PUFFS INH Q6H PRN for Shortness of Breath, (Reported) Ipratropium/Albuterol Sulfate (Iprat-Albut 0.5-3(2.5) Mg/3 Ml), 3 ML IH EVERY 6 HOURS PRN for Shortness of Breath, (Reported) Tramadol Hcl* (Ultram*), 50 MG ORAL Q6H PRN for For Pain, (Reported) Discontinued Medications Ascorbic Acid* (Vitamin C*), 500 MG ORAL DAILY, (Reported) Discontinued Reason: Pt stopped taking med Cholecalciferol (Vitamin D3) (Vitamin D3), 50 MCG PO DAILY, (Reported) Discontinued Reason: Pt stopped taking med Clopidogrel* (Clopidogrel*), 75 MG ORAL DAILY, (Reported) Discontinued Reason: Pt stopped taking med Dexamethasone (Dexamethasone), 6 MG ORAL DAILY Discontinued Reason: Pt stopped taking med Diclofenac Sod* (Voltaren*), 75 MG ORAL DAILY, (Reported) Discontinued Reason: Pt stopped taking med Diclofenac Sodium (Voltaren), 1 APPLIC TP DAILY, (Reported) Discontinued Reason: Pt stopped taking med Famotidine* (Pepcid 20mg tablet*), 20 MG ORAL DAILY, (Reported) Discontinued Reason: Pt stopped taking med Ferrous Sulfate* (Ferrous Sulfate*), 325 MG ORAL DAILY, (Reported) Discontinued Reason: Pt stopped taking med Spironolactone* (Aldactone*), 50 MG ORAL DAILY, (Reported) Discontinued Reason: Pt stopped taking med Vitamin B Complex (Vitamin B Complex), 1 CAP ORAL DAILY, (Reported) Discontinued Reason: Pt stopped taking med Patient History History Provided By: Patient, Medical Record, PMD Healthcare decision maker Resuscitation status Advanced Directive on File Past Medical/Surgical History Past Medical/Surgical History: (1) Elevated d-dimer (2) Pneumonia due to COVID-19 virus (3) Dysphagia (4) Hypernatremia (5) ARF (acute renal failure) (6) COPD exacerbation (7) CHF exacerbation (8) Acute respiratory failure with hypercapnia (9) Breakdown of tracheostomy site (10) COVID-19 Review of Systems Review of Symptoms General ROS: no weight loss or fever Psychological ROS: no depression or mood changes, no memory loss Ophthalmic ROS: no visual changes or eye irritation ENT ROS: no nasal congestion, hearing loss, dizziness Allergy and Immunology ROS: no allergic symptoms or urticaria Hematological and Lymphatic ROS: no swollen glands, unusual bleeding or bruising Endocrine ROS: no polyuria, polydipsia, weight changes, temperature intolerance Respiratory ROS: no cough, shortness of breath, or wheezing Cardiovascular ROS: no chest pain or dyspnea on exertion Gastrointestinal ROS: denies abdominal pain, bright red blood in stool. Musculoskeletal ROS: no myalgias or arthralgias Neurological ROS: no TIA or stroke symptoms Dermatological ROS: no new or changing skin lesions, rashes or pruritis Physical Exam Physical Exam General appearance: alert, cooperative, no distress, appears stated age Head: Normocephalic, without obvious abnormality, atraumatic Eyes: conjunctivae/corneas clear. PERRL, EOM's intact. Fundi benign Throat: Lips, mucosa, and tongue normal. Teeth and gums normal Neck: supple, symmetrical, trachea midline, no adenopathy, thyroid: not enlar ged, symmetric, no tenderness/mass/nodules, no carotid bruit and no JVD 1 cm open tracheostomy site Lungs: clear to auscultation bilaterally Heart: regular rate and rhythm, S1, S2 normal, no murmur, click, rub or gallop Abdomen: soft, non-tender. Bowel sounds normal. No masses, no organomegaly Extremities: extremities normal, atraumatic, no cyanosis or edema Pulses: 2+ and symmetric Skin: Skin color, texture, turgor normal. No rashes or lesions Neurologic: Grossly normal Last 24 Hour Vital Signs Date Time Temp Pulse Resp B/P (MAP) Pulse Ox O2 Delivery O2 Flow Rate FiO2 01/21/21 09:16 Nasal Cannula 2 01/21/21 09:10 96.8 85 20 147/63 99 2 Height (Feet): 5 Height (Inches): 2.00 Weight (Pounds): 150 Assessment/Plan Problem List: (1) Tracheocutaneous fistula following tracheostomy Assessment & Plan: 71-year-old male states tracheal cutaneous fistula after tracheostomy. Plan for repair/closure today 01/21/2021 Preoperative work-up and clearance done by his PCP N.p.o. IV fluids Consent antibiotics Long discussion had with patient regards to planned closure flaps possible risks including bleeding infection subcutaneous emphysema pneumothorax but not limited to. ICD Codes: J95.04 - Tracheo-esophageal fistula following tracheostomy SNOMED: [id number], [id number] SmithjeyMalcolm Jan 21, 2021 11:14
--- NOTE | 2021-01-21 11:49 | Anethesia Preoperative Eval ---
Anesthesia Pre-op PMH/ROS General Date of Evaluation: Jan 21, 2021 Anesthesiologist: Aj ASA Score: ASA 4 Mallampati Score Class I : Soft palate, uvula, fauces, pillars visible Class II: Soft palate, uvula, fauces visible Class III: Soft palate, base of uvula visible Class IV: Only hard plate visible Mallampati Classification: Class III Surgeon: Rafa Diagnosis: Tracheal fistula Surgical Procedure: REvision/closure of tracheal fistula Anesthesia History: none Social History: current smoker Family History: no anesthesia problems Allergies: Coded Allergies: IODINE (Verified Allergy, Severe, rash, 01/19/21) Medications: see eMAR Patient NPO?: Yes NPO Date: Jan 21, 2021 NPO Time: 00:00 Past Medical History Cardiovascular: Reports: HTN, CAD - CABG 5 years ago, arrhythmia - AICD in place, other - CHF-uncontrolled, with on and off SOB, cannot lie flat Pulmonary: Reports: COPD - long time smoker, continues to smoke Gastrointestinal/Genitourinary: Denies: GERD, CRI, ESRD, other Neurologic/Psychiatric: Denies: dementia, CVA, depression/anxiety, TIA, other Endocrine: Denies: DM, hypothyroidism, steroids, other HEENT: Denies: cataract (L), cataract (R), glaucoma, [place] (L), [place] (R), other Hematology/Immune: Denies: anemia, DVT, bleeding disorder, other Musculoskeletal/Integumentary: Denies: OA, RA, DJD, DDD, edema, other PSxH Narrative: trach, CABG Anesthesia Pre-op Phys. Exam Physician Exam Last Vital Signs Date Time Temp Pulse Resp B/P (MAP) Pulse Ox O2 Delivery O2 Flow Rate FiO2 01/21/21 09:16 Nasal Cannula 2 01/21/21 09:10 96.8 85 20 147/63 99 Constitutional: NAD, other - stoma in neck Cardiovascular: RRR Respiratory: other - diminished breath sounds bilaterally Airway Exam Mallampati Score: Class II MO: limited ROM: limited Anesthesia Pre-op A/P Labs see chart Studies Pre-op Studies: EKG - sr Risk Assessment & Plan Assessment: ASA IV Plan: GA Status Change Before Surgery: No Pre-Antibiotics Drug: Ancef 1g Given Within 1 Hr of Incision: Yes Sigrid Rocha MD Jan 21, 2021 11:49
[2021-01-21] MEDS ORDERED: DiphenhydrAMINE 50mg/ml Inj IVP PRN (12:00)
[2021-01-21] MEDS ORDERED: LR 1000ml 1,000 ML IVLG SCH (12:00)
[2021-01-21] MEDS ORDERED: fentaNYL 100 mcg/2 mL IV PRN (12:00)
[2021-01-21] MEDS: Lidocaine 1% 10mg/ml/Epi 0.005mg/ml 30ml vial INJ ONE (12:07)
--- NOTE | 2021-01-21 12:21 | 48 Hour Post Anesthesia Eval ---
Post Anesthesia Evaluation Procedure: tracheal fistula closure Date of Evaluation: Jan 21, 2021 Airway: patent Nausea: No Vomiting: No Pain Intensity: 0 Hydration Status: adequate Cardiopulmonary Status: at baseline Mental Status/LOC: patient returned to baseline Post-Anesthesia Complications: 0 Follow-up care needed: ready to discharge Sigrid Rocha MD Jan 21, 2021 12:21
--- NOTE | 2021-01-21 12:21 | Immediate Post-Op Evaluation ---
Immediate Post-Op Evalulation Immediate Post-Op Evalulation Procedure: tracheal fistula closure Date of Evaluation: Jan 21, 2021 Time of Evaluation: 12:24 IV Fluids: 300 Blood Products: 0 Estimated Blood Loss: min Urinary Output: 0 Blood Pressure Systolic: 146 Blood Pressure Diastolic: 78 Pulse Rate: 87 Respiratory Rate: 16 O2 Sat by Pulse Oximetry: 98 Temperature (Fahrenheit): 97.2 Pain Score (1-10): 0 Nausea: No Vomiting: No Complications 0 Patient Status: awake, reacts, patent, none Hydration Status: adequate Drug: Ancef 1g Given Within 1 Hr of Incision: Yes Sigrid Rocha MD Jan 21, 2021 12:21
--- NOTE | 2021-01-21 13:31 | Brief Operative Note ---
Immediate Post Operative Note Operative Note Pre-op Diagnosis: tracheocutaneous fistula Procedure: closure of tracheocutaneous fistula with plastic flap closure Post-op Diagnosis: same as pre-op Surgeon: tanesha Anesthesiologist: rupal Anesthesia: general, local Specimen: yes Complications: none Condition: stable Fluids: see records Estimated Blood Loss: minimal Drains: none Implant(s) used?: No Malcolm Craig Jan 21, 2021 13:31
[2021-01-21] MEDS ORDERED: HYDROmorphone 1mg/ml Carpuject SUBQ PRN (13:45)
[2021-01-21] MEDS ORDERED: HYDROcodone/Acetamin 5/325 tab ORAL PRN (13:45)
[2021-01-21] MEDS ORDERED: Morphine Sulfate 2mg/ml Inj(IV/IM USE ONLY) IVP PRN (13:45)
[2021-01-21] MEDS ORDERED: Milk of Magnesia 30ml Ud ORAL PRN (13:45)
[2021-01-21] MEDS ORDERED: Tylenol #3 tab (300mg/30mg) ORAL PRN (13:45)
--- NOTE | 2021-01-21 13:56 | Diagnostic Imaging Report ---
Indication: Status post tracheostomy closure Technique: One view of the chest Comparison: 09/17/2020 Findings: (Demonstrated is elevation left diaphragm. There is some atelectasis at the left lung base. No definite pneumothorax. There is some blunting of the left costophrenic sulcus which is unchanged. Right lung and pleural space are clear. Considerable gas in the upper abdomen is probably within distended colon, also previously described and similar to the prior exam. Impression: Blunted left costophrenic sulcus, may reflect chronic pleural thickening given similar to previous study Elevated left hemidiaphragm with left basilar atelectasis No acute process otherwise
--- NOTE | 2021-01-21 14:38 | NUR ---
Patient transferred to per dr. almendarez due to ride issues.
--- NOTE | 2021-01-21 15:35 | NUR ---
NURSE NOTES: RECIEVED PT. FROM [facility] VIA GURNEY AWAKE AND ALERT S/P CLOSURE OF TRACHEAL FISTULA,NO BLEEDING .02 SAT @2L 95% NO S/S DISTRESS NOTED @ THIS TIME.V/S 97.9 156/79 76 18.MADE COMFORTABLE IN BED CALL LIGHT WITHIN REACH @ ALL TIMES.INSTRUCTED TO CALL FOR ANY ASSISTANCE AND VERBALIZES UNDERSTANDING
--- NOTE | 2021-01-21 15:41 | NUR ---
1530-TRANSFERRED TO PATIENT TO FLOOR. HAVE TRIED TO CONTACT FAMILY MEMBERS FOR GETTING A RIDE MANY TIMES BUT NO ANSWER AT ALL. DR. MARISCAL AWARE AND ORDERED TO ADMIT. VSS. NO PAIN/N/V COMPLAINT. DRESSING -DRY & INTACT. THE REPORT ENDORSED TO LYUDMILA WAITE.
--- NOTE | 2021-01-21 15:55 | NUR ---
NURSE NOTES: PT. CALLED AND WILL COME TO PICK HIM UP .LEFT MESSAGE TO DR. MARISCAL MADE AWARE.DISCHARGED VIA WHEELCHAIR ACCOMPANIED BY [facility] STAFF.IN STABLE CONDITION,W/ PRESCRIPTION.
[2021-01-21] MEDS ORDERED: D5 1/2NS 1,000 ML IV SCH (16:00)
--- NOTE | 2021-01-21 16:59 | Operative Note - Dictated ---
DATE OF OPERATION: 01/21/2021 PREOPERATIVE DIAGNOSIS: Tracheocutaneous fistula. POSTOPERATIVE DIAGNOSIS: Tracheocutaneous fistula. OPERATION PERFORMED: Closure of tracheocutaneous fistula with flap and plastics closure. ATTENDING SURGEON: Malcolm Craig MD. MEAL COOK: None. ANESTHESIOLOGIST: Dr. Courtney Rocha. ANESTHESIA: General GETA plus local. ESTIMATED BLOOD LOSS: Minimal. IV FLUIDS: Please see anesthesia records. COMPLICATIONS: None. DRAINS: None. COUNTS: Sponge and needle count correct x2. WOUND CLASSIFICATION: Class 3. SPECIMENS: Tracheocutaneous fistula tract. INDICATIONS FOR PROCEDURE: This is a very pleasant 71-year-old male, well known to me who prior had respiratory compromise insufficiency and required tracheostomy for prolonged ventilator support at which time he had improved and recovered during hospitalization and post-care plan and had been discharged safely with a 8-Bel[place] Shiley tracheostomy. 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 Since the tracheostomy site closed mildly but not completely. He saw me in followup in the office at which time a tracheocutaneous fistula was noted fairly large about a centimeter wide. This was just around the time of the COVID pandemic and decision was made to hold off on elective repair and allow more time for healing. Xeroform plugging, gauze dressings were all applied. The patient was hemodynamically stable. All attempts at closure without operation were made throughout the course of the year, the site closed but not significantly and still required intervention as the patient could not talk without plugging the hole. Given this, surgery was indicated and recommended and expressed desire by patient. The patient was cleared by his PCP, Dr. Jo and surgery was scheduled for 01/21/2021. OPERATIVE NOTE: The patient was taken to the operating room and placed on the operating table in supine position with bilateral arms down. All bony prominences were well padded. SCDs placed. Preoperative time-out taken identifying the patient, procedure, operative staff, and surgical staff. General anesthesia was induced and the patient was intubated. The neck was clipped, prepped, and draped in standard surgical fashion. Shoulder roll was placed with neck hyperextension as possible. The tracheocutaneous fistula was identified. The tracheal rings were clearly noted and palpable. The Olivier flap portions of it noted inferiorly, but could not be dissected out in whole. An elliptical incision was made and carried down to the subcutaneous tissue and platysma to the strap muscles. Strap muscles were undermined as well as superior and inferior undermining to allow for wide closure. An inferior closure flap was seen, identified, and the muscles inferiorly were more robust allowing for proximal closure. A flap of musculocutaneous tissue was brought forward and covered over the trachea. It was placed over the trachea defect using 2-0 PDS suture. Once closure was accomplished, the multilayer closure of the remaining strap muscles bringing them proximally into the midline, followed by reapproximation of portions of the platysma, subcutaneous tissue and skin were performed. Vertical mattress sutures were used for the skin level to allow for a pop-off if the flap closure failed so the patient does not have significant subcutaneous emphysema. Wound bed was irrigated and suctioned before closure. The balloon was deflated by Anesthesia after the closure of the tracheostomy flap and no leak was identified. Skin was reapproximated with Monocryl, followed by a layer of chromic running superficial. Dressings were applied. The patient was extubated and stable and taken to postanesthetic care unit. One hour evaluation performed with a chest x-ray and physical examination. No subcutaneous emphysema was identified. Chest x-ray looked clear. The patient planned for discharge. Malcolm Craig M.D. DR: Mónica JOB#: [id number] CC:
[2021-01-21] MEDS ORDERED: Docusate 100mg cap ORAL SCH (18:00)
[2021-01-21] MEDS ORDERED: ceFAZolin 2gm/50ml Premix 50 ML IV SCH (20:00)
--- NOTE | 2021-01-22 18:29 | Consultation ---
DATE OF CONSULTATION: 01/21/2021 CARDIOLOGY CONSULTATION CONSULTING PHYSICIAN: Nico Jo MD. REFERRING PHYSICIAN: Malcolm Craig MD. REASON FOR CONSULTATION: Preoperative cardiovascular evaluation for repair of tracheocutaneous fistula. HISTORY OF PRESENT ILLNESS: This 71-year-old male has a history of COPD and is status post tracheostomy for an acute respiratory event almost six months ago. He has had an open tracheocutaneous fistula for some time that has not closed and is now being admitted for closure. The patient also had a recent infection with COVID-19 and has been COVID free for over two months. His cardiovascular history is complicated and includes cardiac defibrillator with ischemic and hypertensive cardiomyopathy, as well as his baseline respiratory impairment due to COPD. PAST MEDICAL HISTORY: Ischemic and hypertensive cardiomyopathy, cardiac defibrillator, paroxysmal atrial fibrillation, paroxysmal ventricular tachycardia, chronic systolic and diastolic congestive heart failure, and COPD with chronic hypoxia. ALLERGIES: Iodine. MEDICATIONS: Reviewed and reconciled. SOCIAL HISTORY: A 50-plus pack a year smoker. No alcohol or substance abuse. 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 REVIEW OF SYSTEMS: Most recent echocardiogram revealed an ejection fraction in the range of 45%. He is on chronic O2. He has not had any recent defibrillator shocks and the device was interrogated less than three months ago. He recovered from COVID-19 late last year and has not had any sequelae. PHYSICAL EXAMINATION: VITAL SIGNS: Blood pressure 147/63, pulse 85, respirations 20. Oxygen saturation 99% on 2 liters. HEENT: Thin secretions from trach site. LUNGS: Course breath sounds with no wheezing. CARDIAC: Regular rhythm and rate. Normal S1, S2 with a 1/6 systolic murmur at the base. ICD site with no skin breakdown or redness. ABDOMEN: Obese and soft. EXTREMITIES: With no edema. Slight resting tremor. No asterixis. LABORATORY AND DIAGNOSTIC DATA: EKG revealed sinus rhythm, leftward axis, left atrial enlargement, poor R-wave progression, nonspecific ST-T changes. Labs are reviewed. ASSESSMENT/PLAN: The patient is stable from a cardiopulmonary standpoint to proceed with closure of a tracheocutaneous fistula. The patient has advanced cardiopulmonary disease and does pose a mildly increased perioperative risk. The patient is optimized medically and surgery can proceed at this time. The patient will be followed up in the recovery area. Nico Good Jo DR: DANIEL JOB#: [id number] CC:
== END 2021-01-21 16:05 | disposition home or self-care (01) ==
LOC: SUR 08:42 → 4E 15:49
DX: J95.04 Tracheo-esophageal fistula following tracheostomy (principal); Z91.041 Radiographic dye allergy status; Z79.82 Long term (current) use of aspirin; Z79.899 Other long term (current) drug therapy; Z86.16 Personal history of COVID-19; J44.9 Chronic obstructive pulmonary disease, unspecified; I50.9 Heart failure, unspecified; I11.0 Hypertensive heart disease with heart failure; I25.10 Atherosclerotic heart disease of native coronary artery without angina pectoris; Z95.1 Presence of aortocoronary bypass graft; Z95.810 Presence of automatic (implantable) cardiac defibrillator; F17.200 Nicotine dependence, unspecified, uncomplicated
CPT/HCPCS: 31825; 71045; 94003; J0690; J2250; J2704; J3010; U0004; 94150